=== PATIENT | female | born 1955 | race Caucasian/White ===

== ENCOUNTER → 2018-02-06 14:15 | Outpatient (CLI) | payer BC, SELFPAY ==
[2018-02-12 15:49] LABS: HPV APTIMA, High Risk Negative (Negative)
== END ==
PROVIDERS: Referring Provider Obstetrics & Gynecology; Visit Provider Obstetrics & Gynecology
DX: Z12.4 Encounter for screening for malignant neoplasm of cervix (principal); Z78.0 Asymptomatic menopausal state
CPT/HCPCS: 87624; 88175; G0145

== ENCOUNTER → 2018-04-10 14:05 | Outpatient (CLI) | payer BC, SELFPAY ==
--- NOTE | 2018-04-10 14:28 | BD_ITS ---
STUDY: DUAL ENERGY X-RAY ABSORPTIOMETRY / DXA REASON FOR EXAM: Female, 62 years old. The patient is postmenopausal. Loss of height. TECHNIQUE: Bone Mineral Density (BMD) measurements of lumbar spine and bilateral hips were obtained. COMPARISON: None. FINDINGS: Lumbar Spine (L1-L4): g/cm2 (1.363) / T-score (1.4) / Z-score (2.8) Findings are suggestive of normal bone density with a low fracture risk. Left Femur Total: g/cm2 (0.785) / T-score (-1.8) / Z-score (-0.7) Left Femoral Neck: g/cm2 (0.685) / T-score (-2.5) / Z-score (-1.2) Right Femur Total: g/cm2 (0.773) / T-score (-1.9) / Z-score (-0.8) Right Femoral Neck: g/cm2 (0.689) / T-score (-2.5) / Z-score (-1.1) BD/Dexa Bone Density Study IMPRESSION: The patient is considered osteopenic as outlined below according to World [employer] Organization (WHO) criteria with a high fracture risk. Reference Information: The T-score is the number of standard deviations above or below the standard which is normal for young adults at their peak bone mineral density. The World Health Organization (WHO) interprets the T-scores as follows: Above -1 Normal bone density Between -1 and -2.5 Osteopenia Equal to / or below -2.5 Osteoporosis As a practical clinical guideline, osteopenia may be graded as follows: Mild -1 through -1.5 Moderate -1.6 through -2.0 Severe -2.1 through -2.4 The Z-score is the number of standard deviations above or below age-matched controls. A Z-score of less than -1.5 would be considered abnormal. References: 1. NIH Osteoporosis and Related Bone Diseases http://www.osteo.org 2. International Society for Clinical Densitometry http://www.iscd.org 3. National Osteoporosis Foundation http://www.nof.org Electronically Signed: Trent Chiu MD at 15:33 EST Tel [phone], Service support ,
--- OUTSIDE RECORDS SUMMARY | 2018-06-12 19:34 | XMS RPT_ITS | Continuity of Care Document ---
:1955 Author Organization [facility] Address [facility] 2 [place] [address] Phone Care Team Providers Name Role Phone Nguyen Deng DO Unavailable Dr. Wiley Rodriguez Unavailable Selvin Lopes Unavailable DEL Reeves Unavailable Unavailable Erika Wright LPN Unavailable Unavailable Rowan Sawant Unavailable Unavailable Unavailable Unavailable Problems Name Dates Details Abdominal Pain,Unspecified Site (R10.9, 789.00) Status: Active Abnormal lung sounds (R09.89, 786.7) Status: Active Anxiety (F41.9, 300.00) Status: Active Benign essential hypertension (I10, 401.1) Comments: on decong for over a week Status: Active Bilateral chronic angle-closure glaucoma, indeterminate stage (H40.2234, 365.23) Status: Active BMI 26.0-26.9,adult (Z68.26, V85.22) Status: Active BMI 27.0-27.9,adult (Z68.27, V85.23) Status: Active BMI 28.0-28.9,adult (Z68.28, V85.24) Status: Active Bronchitis (J40, 490) Status: Active Bursitis of hip, unspecified laterality (726.5) Status: Active Carpal tunnel repair Comments: left 12/29 Status: Active Carpal tunnel syndrome, unspecified laterality (G56.00, 354.0) Status: Active carpel tunnel sx Comments: right hand 7-22-09 Status: Active Cataract Extraction-Bilateral Comments: 03/31 Status: Active Chronic open angle glaucoma (H40.10X0, 365.11) Status: Active Cough (R05, 786.2) Status: Active cyst removed Comments: lt foot 5-10 Status: Active Degenerative disc disease (722.6) Status: Active Depressive disorder (F32.9, 311) Status: Active Dysuria (R30.0, 788.1) Status: Active Encounter for screening for malignant neoplasm of colon (Renamed from Special screening for malignant neoplasms, colon) (Z12.11, V76.51) Status: Active ET (eustachian tube disorder), bilateral (H69.93, 381.9) Status: Active Et (Eustachian tube disorder), bilateral (H69.93, 381.9) Status: Active Eustachian tube dysfunction (H69.80, 381.81) Status: Active eye sx Comments: b/l 06/30 Status: Active Flu-like symptoms (R68.89, 780.99) Status: Active GERD (gastroesophageal reflux disease) (K21.9, 530.81) Status: Active Glaucoma (H40.9, 365.9) Status: Active Hormone imbalance (E34.9, 259.9) Status: Active Hypercholesterolemia (E78.00, 272.0) Status: Active Hypertension (I10, 401.9) Status: Active Impaired fasting glucose (R73.01, 790.21) Comments: medically recomend cleanse for liver support/detox for sugar and wt stabilizationand hormonly support Status: Active Influenza B (J10.1, 487.1) Status: Active Insomnia, unspecified (G47.00, 780.52) Comments: on the gel Status: Active Mild stage glaucoma (H40.9, 365.71) Status: Active Mixed hyperlipidemia (E78.2, 272.2) Status: Active Need for prophylactic vaccination and inoculation against influenza (Z23, V04.81) Status: Active No history of measles, mumps, rubella (MMR) vaccination (Z78.9, V49.89) Status: Active Nonsmoker (Z78.9, V49.89) Status: Active Nutritional counseling (Z71.3, V65.3) Status: Active Otalgia, left (H92.02, 388.70) Status: Active Other abnormal glucose (R73.09, 790.29) Status: Active Other specified abnormal findings of blood chemistry (R79.89, 790.6) Status: Active Other specified viral infection, in conditions classified elsewhere and of unspecified site (B97.89, 079.89) Status: Active Otitis media, unspecified, unspecified ear (H66.90, 382.9) Status: Active Paresthesia (R20.2, 782.0) Status: Active Pharyngitis, acute (J02.9, 462) Status: Active Pneumococcal vaccination given (Z23, V06.6) Status: Active Pregnancies () Comments: 0 Status: Active Rash (R21, 782.1) Comments: terry oral dermatitis? roscea? 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 Status: Active URI, acute (J06.9, 465.9) Status: Active Uterine fibroid (D25.9, 218.9) Status: Active Vaginal dryness (N89.8, 625.8) Comments: emu oil and astroglide to help Status: Active Vitamin D insufficiency (E55.9, 268.9) Status: Active Walking pneumonia (J18.9, 486) Status: Active Weight gain (R63.5, 783.1) Status: Active Medications Name Dates Details MACI, 180MG (Oral Tablet) 1 Tablet prn for 0 days Quantity: 30 {Tablet} Refills: 3 Ordered:01-Jun-2010 Lala Reeves LPN Start : 01-Jun-2010 Active Amitriptyline HCl 10 MG Oral Tablet 1 (one) Tablet Tablet qhs for 0 days Quantity: 30 {Tablet} Refills: 3 Ordered:21-Jan-2016 Jarrod Deng DO, DO, Kathleen Start : 21-Jan-2016 Active Betamethasone Dipropionate Aug 0.05 % External Cream apply sparingly Application to affected area on face around mouth for 0 days Quantity: 15 {Gram} Refills: 0 Ordered:28-Feb-2018 aJrrod Deng DO, DO, Kathleen Start : 28-Feb-2018 Active Doxycycline Hyclate 100 MG Oral Capsule 1 (one) Capsule bid for 7 days Quantity: 14 {Capsule} Refills: 0 Ordered:28-Feb-2018 Jarrod Deng DO, DO, Kathleen Start : 28-Feb-2018 Active DULoxetine HCl 60 MG Oral Capsule Delayed Release Particles 1 (one) Capsule DR Part Capsule DR Part qd for 0 days Quantity: 30 {Capsule} Refills: 6 Ordered:09-Nov-2017 Jarrod Deng DO, DO, Kathleen Start : 09-Nov-2017 Active Fluticasone Propionate 50 MCG/ACT Nasal Suspension 2 (two) Suspension Suspension each nostril qd for 0 days Quantity: 1 {Canister} Refills: 3 Ordered:06-Jun-2016 Erika Wright LPN Start : 14-Oct-2015 Active FREESTYLE LANCETS (Miscellaneous) 1 Misc qd for 0 days Quantity: 100 {Misc} Refills: 3 Ordered:03-Oct-2007 Lala Reeves LPN Start : 03-Oct-2007 Active FreeStyle Test In Vitro Strip 1 Strip qd for 0 days Quantity: 100 {Strip} Refills: 3 Ordered:04-Oct-2016 Jarrod Deng DO, DO, Kathleen Start : 04-Oct-2016 Active Comments:freestyle freedom test strips Norvasc 5 MG Oral Tablet 1 Tablet qd for 0 days Quantity: 30 {Tablet} Refills: 6 Ordered:09-Nov-2017 Jarrod Deng DO, DO, Kathleen Start : 09-Nov-2017 Active Omeprazole 40 MG Oral Capsule Delayed Release [address] bid for 0 days Quantity: 60 {Capsule} Refills: 3 Ordered:09-Nov-2017 Jarrod Deng DO, DO, Kathleen Start : 09-Nov-2017 Active OneTouch Ultra Mini w/Device Kit 1 (one) Kit Kit bid for 30 days Quantity: 100 {Strip} Refills: 2 Ordered:04-Oct-2016 Jarrod Deng DO, DO, Kathleen Start : 04-Oct-2016 Active Comments:test strips only PROVENTIL HFA, 108 (90 Base)MCG/ACT (Inhalation Aerosol Solution) 2 (two) puff puff q 6 hrs prn for 0 days Quantity: 1 {Box} Refills: 0 Ordered:29-Sep-2014 Lala Reeves LPN Start : 29-Sep-2014 Active ValACYclovir HCl 500 MG Oral Tablet 2 (two) Tablet bid at onset of feeling cold sore coming on for 0 days Quantity: 20 {Tablet} Refills: 3 Ordered:28-Feb-2018 Lala Reeves LPN Start : 28-Feb-2018 Active XANAX, 0.25MG (Oral Tablet) 1 Tablet qd prn for 0 days Quantity: 30 {Tablet} Refills: 0 Ordered:29-Sep-2014 Jarrod Deng DO, DO, Kathleen Start : 29-Sep-2014 Active Comments:thirty Adipex-P 37.5 MG Oral Tablet 1 (one) Tablet daily for 30 days Quantity: 30 {Tablet} Refills: 0 Ordered:06-Sep-2017 Jarrod Deng DO, DO, Kathleen Start : 06-Sep-2017 End : 06-Oct-2017 Inactive Comments:thirtyhigh cholesterol, htnBMI 31.67wt 153 and BMI 17977.6 BMI 27 -- do not fill until september 18 AMBIEN CR, 12.5MG (Oral Tablet Extended Release) 1 (one) Tablet ER QHS / HS for 30 days Quantity: 30 {Tablet_ER} Refills: 4 Ordered:27-Feb-2012 Lala Reeves LPN Start : 21-Oct-2010 End : 27-Feb-2012 Inactive Amoxicillin-Pot Clavulanate 875-125 MG Oral Tablet 1 (one) Tablet PO BID for 14 days Quantity: 28 {Tablet} Refills: 0 Ordered:22-May-2017 Lala Solorzano Start : 22-May-2017 End : 05-Jun-2017 Inactive Comments:Take with food ANTIVERT, 25MG (Oral Tablet) 1 (one) Tablet TID for 0 days Quantity: 30 {Tablet} Refills: 0 Ordered:22-Nov-2007 Zoey Arevalo Start : 22-Nov-2007 End : 04-Jul-2008 Inactive Augmentin 875-125 MG Oral Tablet 1 Tablet bid for 10 days Quantity: 20 {Tablet} Refills: 0 Ordered:04-Oct-2016 Ish MARROQUIN NguyenIsh Nguyen Start : 04-Oct-2016 End : 14-Oct-2016 Inactive Azithromycin 500 MG Oral Tablet 1 (one) Tablet qd for 0 days Quantity: 10 {Tablet} Refills: 0 Ordered:05-Jan-2017 Lala Reeves LPN Start : 24-Oct-2016 End : 05-Jan-2017 Inactive BENICAR HCT, 20-12.5MG (Oral Tablet) 1 (one) Tablet daily for 0 days Quantity: 90 {Tablet} Refills: 3 Ordered:03-Oct-2011 Lala Reeves LPN Start : 03-Oct-2011 End : 03-Oct-2011 Inactive Comments:generic okay BENTYL, 20MG (Oral Tablet) 1 Tablet tid/prn for 0 days Quantity: 20 {Tablet} Refills: 0 Ordered:27-Apr-2010 Lala Reeves LPN Start : 25-Nov-2009 End : 27-Apr-2010 Inactive Benzonatate 200 MG Oral Capsule 1 (one) Capsule tid prn cough for 0 days Quantity: 30 {Capsule} Refills: 0 Ordered:05-Jan-2017 Lala Reeves LPN Start : 24-Oct-2016 End : 05-Jan-2017 Inactive Brimonidine Tartrate 0.15 % Ophthalmic Solution 1 drop(s) bid for 30 days Refills: 0 Ordered:21-Jan-2016 Lala Reeves LPN Start : 24-Oct-2012 End : 21-Jan-2016 Inactive CARDIZEM CD, 120MG (Oral Capsule Extended Release 24 Hour) 2 Capsule ER 24HR daily for 0 days Quantity: 180 {Capsule_ER_24HR} Refills: 3 Ordered:27-Feb-2013 Lala Reeves LPN Start : 19-Mar-2012 End : 27-Feb-2013 Inactive Comments:prefers 2 of the 120 and not 1-240 dose CARDIZEM CD, 360MG (Oral Capsule Extended Release 24 Hour) 1 Capsule ER 24HR qd for 0 days Quantity: 30 {Capsule_ER_24HR} Refills: 3 Ordered:12-Apr-2007 Zoey Arevalo Start : 12-Apr-2007 End : 16-Apr-2007 Inactive Cefuroxime Axetil 500 MG Oral Tablet 1 (one) Tablet bid for 0 days Quantity: 20 {Tablet} Refills: 0 Ordered:10-Apr-2017 Lala Reeves LPN Start : 24-Oct-2016 End : 10-Apr-2017 Inactive CELEBREX, 200MG (Oral Capsule) 1 Capsule daily for 0 days Quantity: 14 {Capsule} Refills: 0 Ordered:27-Apr-2010 Lala Reeves LPN Start : 27-Nov-2009 End : 27-Apr-2010 Inactive Cheratussin AC 100-10 MG/5ML Oral Syrup 1-2 Teaspoon qhs prn for 0 days Quantity: 6 {Ounce} Refills: 0 Ordered:20-Jun-2016 Lala Reeves LPN Start : 06-Jun-2016 End : 20-Jun-2016 Inactive CIPROFLOXACIN HCL, 500MG (Oral Tablet) 1 (one) Tablet Tablet bid for 0 days Quantity: 20 {Tablet} Refills: 0 Ordered:07-Nov-2013 Lala Reeves LPN Start : 27-Jun-2013 End : 07-Nov-2013 Inactive CITALOPRAM HYDROBROMIDE, 10MG (Oral Tablet) 1 (one) Tablet Tablet qhs for 0 days Quantity: 30 {Tablet} Refills: 3 Ordered:20-Nov-2013 Candi Kovacs Start : 04-Jul-2013 End : 20-Nov-2013 Inactive CLARITIN-D 24 HOUR, 10-240MG (Oral Tablet Extended Release 24 Hour) 1 As needed for 0 days Refills: 0 Ordered:26-Aug-2008 Zoey Arevalo End : 20-Feb-2007 Inactive Comments:Medication taken as needed. CRESTOR, 10MG (Oral Tablet) 1 (one) Tablet daily for 0 days Quantity: 90 {Tablet} Refills: 3 Ordered:27-Feb-2013 Lala Reeves LPN Start : 30-Jun-2011 End : 27-Feb-2013 Inactive Cyclobenzaprine HCl 5 MG Oral Tablet 1 (one) Tablet q8hr if needed for muscle pain for 0 days Quantity: 30 {QS} Refills: 0 Ordered:13-May-2016 Candi Kovacs Start : 14-Oct-2015 End : 13-May-2016 Inactive DIFLUCAN, 150MG (Oral Tablet) 1 Tablet one tablet and repeat in 2 days for 0 days Quantity: 2 {Tablet} Refills: 0 Ordered:24-Feb-2011 Lala Reeves LPN Start : 20-Jan-2011 End : 24-Feb-2011 Inactive DILTIAZEM CD, 180MG/24HR (PO Cap CR) 2 qd for 0 days Refills: 0 Ordered:26-Aug-2008 Zoey Arevalo End : 04-Jul-2008 Inactive DILTIAZEM HCL COATED BEADS, 180MG (Oral Tablet Extended Release 24 Hour) 2 (two) Tablet ER 24HR Daily for 0 days Quantity: 60 {Tablet_ER_24HR} Refills: 5 Ordered:27-Apr-2010 Lala Reeves LPN Start : 04-Jul-2008 End : 27-Apr-2010 Inactive DORZOLAMIDE HCL, 2% (Ophthalmic Solution) 1 (one) drop bid for 30 days Refills: 0 Ordered:02-Feb-2015 Lala Reeves LPN Start : 04-Jul-2013 End : 02-Feb-2015 Inactive DRISDOL, 54215XQVT (Oral Capsule) 1 Capsule uad for 0 days Quantity: 16 {Capsule} Refills: 0 Ordered:27-Apr-2010 Lala Reeves LPN Start : 11-Nov-2009 End : 27-Apr-2010 Inactive Comments:1 tab 2 times a week x 4 weeks then 1 tab weekly HYZAAR, 100-25MG (Oral Tablet) 1/2 (one half) Tablet qd for 0 days Quantity: 90 {Tablet} Refills: 3 Ordered:29-Sep-2014 Jarrod Deng DO, DO, Kathleen Start : 29-Sep-2014 End : 29-Sep-2014 Inactive Comments:will follow bp and see how do IMIPRAMINE HCL, 25MG (Oral Tablet) 1-2 qhs / HS for 0 days Refills: 0 Ordered:26-Aug-2008 Zoey Arevalo End : 04-Jul-2008 Inactive Lastacaft 0.25 % Ophthalmic Solution 1 (one) drop bid for 30 days Refills: 0 Ordered:21-Jan-2016 Jarrod Deng DO, DO, Kathleen Start : 21-Jan-2016 End : 20-Feb-2016 Inactive LEVAQUIN, 500MG (Oral Tablet) 1 (one) Tablet Daily for 0 days Quantity: 14 {Tablet} Refills: 0 Ordered:04-Jul-2013 Lala Reeves LPN Start : 22-Mar-2013 End : 04-Jul-2013 Inactive Comments:WILL GIVE JUST IN CASE GETS BAD SPELL WHILE WAITING FOR EMILY KI-NO TAKE FOR NOW WE ARE WAITING TO SEE IF GETS WORSE OR WHAT HAPPENS NATURALLY B/C BJ WANTED TO SEE HER WHEN SHE IS BAD BUT ALWAYS HAPPENS OFF HOURS LEXAPRO, 10MG (Oral Tablet) 1 (one) Tablet Daily for 0 days Quantity: 30 {Tablet} Refills: 5 Ordered:07-Aug-2007 Zoey Arevalo Start : 07-Aug-2007 End : 22-Nov-2007 Inactive Lumigan 0.01 % Ophthalmic Solution 1 (one) Solution qd for 30 days Refills: 0 Ordered:21-Jan-2016 Jarrod Deng DO, DO, Kathleen Start : 21-Jan-2016 End : 20-Feb-2016 Inactive MIRCETTE, 0.15-0.02/0.01MG (/5) (Oral Tablet) 28 - 1 QD for 0 days Refills: 0 Ordered:26-Aug-2008 Zoey Arevalo End : 22-Nov-2007 Inactive MYCELEX, 10MG (Mouth/Throat Carol Ann) 1 (one) Carol Ann 5x daily for 7 days Quantity: 35 {Carol Ann} Refills: 0 Ordered:16-Oct-2006 Zoey Arevalo Start : 16-Oct-2006 End : 02-Nov-2006 Inactive NASONEX, 50MCG/ACT (Nasal Suspension) 1 spray Suspension q nostril qd for 0 days Quantity: 1 {Container} Refills: 4 Ordered:03-Feb-2015 Shruthi Ramirez MD Start : 03-Feb-2015 End : 03-Feb-2015 Inactive NEURONTIN, 300MG (Oral Capsule) 1 Capsule tid for 0 days Quantity: 30 {Capsule} Refills: 0 Ordered:27-Apr-2010 Lala Reeves LPN Start : 02-Dec-2009 End : 27-Apr-2010 Inactive NITROFURANTOIN MACROCRYSTAL, 100MG (Oral Capsule) 1 qd for 0 days Refills: 0 Ordered:26-Aug-2008 Zoey Arevalo End : 12-Feb-2008 Inactive NITROFURANTOIN MONOHYD MACRO, 100MG (Oral Capsule) 1 (one) Capsule bid for 7 days Quantity: 14 {Capsule} Refills: 0 Ordered:18-Feb-2014 Mckenzie Villagran CNP Start : 18-Feb-2014 End : 25-Feb-2014 Inactive NYSTATIN, 050810RPPM/ML (Mouth/Throat Suspension) 4-6ml Suspension qid for 0 days Quantity: 180 {Milliliter} Refills: 0 Ordered:27-Feb-2012 Lala Reeves LPN Start : 19-Oct-2011 End : 27-Feb-2012 Inactive Comments:retain in mouth as long as possible PERCOCET, 5-325MG (Oral Tablet) 1 (one) Tablet q 6 hr pain for 0 days Quantity: 40 {Tablet} Refills: 0 Ordered:27-Apr-2010 Lala Reeves LPN Start : 02-Dec-2009 End : 27-Apr-2010 Inactive Comments:forty PredniSONE 20 MG Oral Tablet 1 (one) Tablet qam for 0 days Quantity: 4 {Tablet} Refills: 0 Ordered:20-Jun-2016 Lala Reeves LPN Start : 16-Jun-2016 End : 20-Jun-2016 Inactive PROZAC, 20MG (Oral Capsule) 1 Capsule qd for 0 days Quantity: 90 {Capsule} Refills: 3 Ordered:27-Feb-2013 Lala Reeves LPN Start : 24-Oct-2012 End : 27-Feb-2013 Inactive SITAVIG, 50MG (Buccal Tablet) 2 (two) Tablet qd x1 for 0 days Quantity: 2 {Tablet} Refills: 0 Ordered:02-Feb-2015 Lala Reeves LPN Start : 29-Sep-2014 End : 02-Feb-2015 Inactive Tamiflu 75 MG Oral Capsule 1 (one) Capsule bid for 5 days Quantity: 10 {QS} Refills: 0 Ordered:06-Jun-2016 Mckenzie Villagran CNP Start : 06-Jun-2016 End : 11-Jun-2016 Inactive TIMOLOL MALEATE, 0.5% (Ophthalmic Solution) 1 (one) drop bid for 30 days Refills: 0 Ordered:05-Mar-2015 Jarrod Deng DO, DO, Kathleen Start : 02-Feb-2015 End : 04-Mar-2015 Inactive VALTREX, 1GM (Oral Tablet) 2 (two) Tablet BID for one day at onset of sore for 0 days Quantity: 4 {Tablet} Refills: 3 Ordered:26-Nov-2010 Lala Reeves LPN Start : 21-Oct-2010 End : 26-Nov-2010 Inactive VICODIN, 5-500MG (Oral Tablet) 1 (one) Tablet Q 4hr/PRN for 0 days Quantity: 30 {Tablet} Refills: 0 Ordered:10-Nov-2009 Lala Reeves LPN Start : 12-Nov-2008 Inactive ZITHROMAX Z-TAYLOR, 250MG (Oral Tablet) tad Tablet qd for 0 days Quantity: 1 {Package} Refills: 0 Ordered:02-Feb-2015 Lala Reeves LPN Start : 29-Sep-2014 End : 02-Feb-2015 Inactive ANTIVERT, 50MG (Oral Tablet) 1 Tablet q 8 hr prn for 0 days Quantity: 30 {Tablet} Refills: 0 Ordered:24-Oct-2012 Candi Kovacs Start : 30-Jun-2011 End : 13-May-2016 Discontinued Comments:This order discontinued per [facility]. BETOPTIC, 0.5% (Ophthalmic Solution) 1 gtt qd for 0 days Refills: 0 Ordered:27-Feb-2012 Lala Reeves LPN End : 27-Feb-2012 Discontinued Comments:This order discontinued per [facility]. CARDIZEM, 120MG (Oral Tablet) 1/2 (one half) Tablet qd for 90 days Quantity: 180 {Tablet} Refills: 3 Ordered:07-Nov-2013 Jarrod Deng DO, DO, Kathleen Start : 07-Nov-2013 End : 07-Nov-2013 Discontinued Comments:prefers 2 of the 120s, doesnt want 240 CIPRO, 500MG (Oral Tablet) 1 Tablet bid for 0 days Quantity: 20 {Tablet} Refills: 0 Ordered:30-Jun-2009 Mast Ana M JOHNSON Start : 30-Jun-2009 End : 30-Jun-2009 Discontinued DIOVAN, 40MG (Oral Tablet) 1/4 QD for 0 days Refills: 0 Ordered:26-Aug-2008 Zoey Arevalo End : 03-Oct-2006 Discontinued DULoxetine HCl 30 MG Oral Capsule Delayed Release Particles 1 (one) Capsule DR Part Capsule DR Part qd for 0 days Quantity: 7 {Capsule} Refills: 0 Ordered:16-Jun-2016 Jarrod Deng DO, DO, Kathleen Start : 16-Jun-2016 End : 16-Jun-2016 Discontinued HYDROCHLOROTHIAZIDE, 12.5MG (Oral Capsule) 1 Capsule QD for 0 days Refills: 0 Ordered:26-Aug-2008 Zoey Arevalo Start : 20-Feb-2007 End : 16-Mar-2007 Discontinued MetFORMIN HCl 500 MG Oral Tablet 1 (one) Tablet bid for 0 days Quantity: 180 {Tablet} Refills: 3 Ordered:05-Jan-2017 Ish Jarrod Nguyen Start : 05-Jan-2017 End : 05-Jan-2017 Discontinued Comments:new dosetrying to control sugars w/o it ProAir HFA 108 (90 Base) MCG/ACT Inhalation Aerosol Solution 2 (two) Puff(s) tid for 0 days Quantity: 1 {Inhaler} Refills: 0 Ordered:10-Jul-2017 Rowan Sawant Start : 16-Jun-2016 End : 10-Jul-2017 Discontinued PROZAC, 10MG (Oral Tablet) 1 (one) Tablet Daily for 0 days Quantity: 30 {Tablet(s)} Refills: 5 Ordered:10-Nov-2009 Lala Reeves LPN Start : 10-Nov-2009 End : 21-Oct-2010 Discontinued Comments:This order discontinued per [facility]. SIMVASTATIN, 20MG (Oral Tablet) 1 (one) Tablet Daily for 0 days Quantity: 30 {Tablet} Refills: 3 Ordered:04-Jul-2008 Zoey Arevalo Start : 04-Jul-2008 End : 04-Jul-2008 Discontinued Allergies and Adverse Reactions Name Dates Details Allergy to CORTISONE ACETATE, 5MG (PO Tab) (Renamed from Status: Inactive CORTISONE ACETATE, 5MG (PO Tab)) (Allergy) Comments: palpitations No Known Drug Allergies (Allergy) Status: Active Allergy to PREDNISONE, 20MG (Oral Tablet) (Renamed from Status: Inactive PREDNISONE, 20MG (Oral Tablet)) (Allergy) Comments: palpitations Past Medical History Name Dates Details Abdominal pain, acute, left lower quadrant (R10.32, 789.04) Comments: pelvis pain---PAIN SECONDARY TO DRUG SIDE EFFECT? IMIPRAMINE?? IBS PRIMARY OR SECONDARY FROM STRESS IN GENERAL ABOUT HEALTH OR IRRITATED FROM FIBROIDS PRESSING AGAINST BLADDER??? DOUBT DIVERTICULOSIS AT THIS POINT-- WILL KEEP FOLLOWING CALL TO EVAL IF AND WHEN PAIN RECURS Status: Inactive as of 29-Jul-2008 Abdominal pain, acute, right lower quadrant (R10.31, 789.03) Status: Resolved as of 25-Jun-2012 Abnormal lung sounds (R09.89, 786.7) Status: Resolved as of 20-Jun-2016 ACUTE CYSTITIS (N30.00, 595.0) Status: Inactive as of 04-Jul-2013 Acute sinusitis, unspecified (J01.90, 461.9) Status: Inactive as of 29-Jul-2008 Allergic rhinitis (J30.9, 477.9) Status: Inactive as of 04-Oct-2017 Allergy to CORTISONE ACETATE, 5MG (PO Tab) (Renamed from CORTISONE ACETATE, 5MG (PO Tab)) Comments: palpitations Status: Inactive as of 17-Mar-2009 Allergy to PREDNISONE, 20MG (Oral Tablet) (Renamed from PREDNISONE, 20MG (Oral Tablet)) Comments: palpitations Status: Inactive as of 17-Mar-2009 Backache (M54.9, 724.5) Status: Inactive as of 17-Jun-2013 Benign paroxysmal positional vertigo (H81.10, 386.11) Status: Resolved as of 25-Jun-2012 Candidiasis of mouth (B37.0, 112.0) Status: Inactive as of 17-Jun-2013 Chills (R68.83, 780.64) Status: Inactive as of 07-Sep-2015 Concussion (S06.0X9A, 850.9) Comments: with fall went to ER Status: Inactive as of 19-May-2016 Cough (R05, 786.2) Status: Inactive as of 05-Jan-2017 Elevated LFTs (R94.5, 790.6) Status: Resolved as of 25-Jun-2012 Epidermoid cyst (L72.0, 706.2) Comments: right knee Status: Inactive as of 05-Jan-2017 Fall (W19.XXXA, E888.9) Status: Inactive as of 04-Jul-2013 Fatigue (R53.83, 780.79) Status: Inactive as of 29-Jul-2008 Fever chills (R50.9, 780.60) Status: Resolved as of 10-Jul-2017 Generalized abdominal pain (R10.84, 789.07) Status: Inactive as of 21-Jan-2016 Hematuria (R31.9, 599.7) Status: Inactive as of 29-Jul-2008 Hot flashes (N95.1, 627.2) Status: Resolved as of 25-Jun-2012 Low back pain (M54.5, 724.2) Status: Inactive as of 04-Jul-2013 Neck pain (M54.2, 723.1) Status: Inactive as of 24-Oct-2016 Otalgia, left (H92.02, 388.70) Status: Resolved as of 05-Jan-2017 Otalgia, unspecified ear (H92.09, 388.70) Status: Resolved as of 25-Jun-2012 Pre-operative examination (Z01.818, V72.84) Status: Inactive as of 17-Jun-2013 Rheumatoid arthritis (M06.9, 714.0) Status: Inactive as of 21-Jan-2016 Shingles (B02.9, 053.9) Status: Inactive as of 04-Oct-2017 Sinus congestion (R09.81, 478.19) Status: Resolved as of 30-Apr-2012 Sinusitis, bacterial (J32.9, 473.9) Status: Resolved as of 10-Jul-2017 SOB (shortness of breath) on exertion (R06.02, 786.05) Comments: resolved on inhaler - so i really feel more atypical asthma could be from gerd - start rx med for that -- wt loss, aviodance behaviors, adn rx -- Status: Resolved as of 19-Mar-2012 Vaginal itching (N89.8, 698.1) Status: Resolved as of 25-Jun-2012 Visit for suture removal (Z48.02, V58.32) Status: Inactive as of 21-Jan-2016 Wheezing (R06.2, 786.07) Status: Resolved as of 25-Jun-2012 Procedures Procedure Dates Details CYST REMOVAL RT FOOT Completed Comments: 01/19/14 foot surgery 01/2016 Completed Foot sx Completed Comments: rt foot 12/05/15 Yag procedure Completed Comments: Date Value Details 28-Dec-2016 SCREENING MAMM (CAD), BILAT Result: Comments: See Note; NOTES: [facility] [address] [place] [address] SCREENING MAMM (CAD), BILAT MR#: [id number] Acct: [id number] Name: MADYSON AGUILAR Rep #: [id number] : 1955 F 61 From: Trent Mackenzie MD PCP: Nguyen Deng DO Status: [facility] CLI Study: SCREENING MAMM (CAD), BILAT Date of Exam: 12/28/16 Exam# [id number] Ordering Dr: Cait Haley MD MAMMOGRAPHY - BILATERAL SCREENING REASON FOR EXAM: Female, 61 years old. Routine annual screening examination. PERTINENT HISTORY: Non- contributory. TECHNIQUE: Digital bilateral breast philippe (3D mammographic acquisition) in the CC and MLO projections. 2-D mediolateral oblique (MLO) and craniocaudad (CC) views of both breasts were obtained. CAD: Full Field Digital Mammography with Computer A dded Detection was performed. COMPARISON: Comparison is made with prior study dated December 24, 2015 and December 19, 2014. FINDINGS: Breast Composition: There are sca ttered areas of fibroglandular density. There are no dominant masses or suspicious calcifications. Stable benign appearing small bilateral axillary lymph nodes. No other significant abnormalities are identified. There has been no significant change since the prior study. HPBI/SCREENING MAMM (CAD), BILAT IMPRESSION: Stable bilateral screening m ammogram. Yearly follow-up mammogram recommended. (A) ASSESSMENT CATEGORY: BIRADS Category 2: Benign. A letter regarding these results will be sent to the patient b y the facility within 30 days. Approximately 10% of breast cancers are not detected by mammography. A normal mammogram should not delay biopsy of a clinically suspicious abnormality. [id number] Radha craft Signed: Trent Mackenzie MD at 10:53 EDT Tel [phone], Service support , CC: Nguyen Deng DO; Ally Haley MD [employer]: Signed 16-Jun-2016 Chest PA and Lateral Result: Comments: See Note; NOTES: [facility] Imaging Services [address] [place] [address] Verdana 4d Chest PA and Lateral MR#: [id number] Acct: [id number] Name: MADYSON AGUILAR Rep #: [id number] : 1955 F 61 From: Trent Mackenzie MD PCP: Nguyen Deng DO Status: REG CLI Study: Chest PA and Lateral Date of Exam: 06/16/16 Exam# [id number] Ordering Dr: Nguyen Deng DO STUDY: X-RAY CHEST REASON FOR EXAM: Female, 61 years old. 2 week history of cough. TECHNIQUE: PA and lateral views of the chest. COMPARISON: None. FINDINGS: T he lungs are clear and expanded. Scattered calcified granulomas. There is no demonstrated pleural abnormality. Normal size heart. Normal mediastinum and jaci. Normal visualized pulmonary arteries. Ther e is atherosclerotic tortuosity of the aortic arch and descending thoracic aorta. There are mild degenerative changes of the visualized thoracic spine. Normal visualized ribs, clavicles, and shoulders. There is no demonstrated abnormality of the visualized soft tissue structures of the upper abdomen. RAD/Chest PA and Lateral IMPRESSION: Scatte red calcified granulomas. No acute abnormality is seen. Electronically Signed: Trent Mackenzie MD at 15:49 EDT Tel [phone], Service support [phone], CC: Nguyen Deng DO [employer]ic: Signed 10-May-2016 Discharge Instruction Result: Comments: See Note; NOTES: [facility] Medical Records Department [address] [place] [address] Discharge Instruction 05/10/16 1333 MR#: [id number] Acct: [id number] Name: MADYSON AGUILAR Rep #: [id number] : 1955 61 From: Omar Simpson MD PCP: Nguyen Deng DO Status: DEP ER ED Disposition - Plan for ED Patient: Disposition: Home or Assisted Living Chief Complaint: Fall Diagnosis: Concussion Instructions: ED Concussion Referrals: Nguyen Deng DO [Primary Care Provider] - As Needed What to do if you have Problems For any increased pain, shortness of breat h, bleeding, nausea or vomiting, chest pain, or any unexpected problems, contact your Primary Care Provider. Call [facility] ([phone]) or report to the closest Emergency Room. Call 911 if nec essary. 05/10/16 1590 <Electronically signed by Omar Simpson MD> Date Omar Simpson MD Cosigner Signature (If Indicated): Date _ CC: Nguyen Deng DO 10-May-2016 Emergency Department Summary Result: Comments: See Note; NOTES: [facility] Medical Records Department [address] [place] [address] Emergency Department Summary MR#: [id number] Acct: [id number] Name: MADYSON AGUILAR Rep #: [id number] : 1955 61 From: Omar Simpson MD PCP: Nguyen Deng DO Status: DEP ER DATE OF SERVICE: 05/10/2016 CHIEF COMPLAINT: Fall, head injury. HISTORY OF PRESENT ILLNESS: A 61 -year-old female 4 days ago fell going up 3 steps, struck her face, feels that she lost consciousness when she woke up, she was bleeding. She went inside, alleviated the bleeding, noted that she had a s mall cut on the right side of her face. She did not seek treatment at that point. She states that since then, over the course of the weekend, she felt somewhat fuzzy nauseous and fatig ued. Denies any visual changes other than she had some floaters, which she had evaluated by ophthalmology today who stated that she had ____ some vitreous floaters when she suffered her facial injury. S he is not on any anticoagulants. REVIEW OF SYSTEMS: Otherwise negative. PHYSICAL EXAMINATION: VITAL SIGNS: Within normal limits. GENERAL: Well-nourished female. Mild abrasion over the right side of th e forehead. 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 NECK: Nontender. HEART: Regular. LUNGS: Clear. ABDOMEN: Soft. EXTREMITIES: Nonten allen. NEUROLOGIC: Nonlateralizing. EMERGENCY DEPARTMENT COURSE AND DECISION MAKING: The patient's presentation is most consistent with a concussion, with loss of consciousness. Given the fact that she i s 4 days out, not on any anticoagulants, not having any neuro symptoms, she likely only has a concussion. There is no concern for intracranial injury. At this point, in my opinion I believe she safely c an be discharged with conservative management. DISPOSITION: Discharge. DIAGNOSES: Concussion with loss of consciousness. Omar Simpson M.D. T: SOCO JOB: [id number] 05/10/16 1509 <Radha craft signed by Omar Simpson MD> Date Omar Simpson MD Cosigner Signature (If Indicated): Date __ CC: Ngyuen Deng DO Date Dictated: 05/10/16 1343 Date Transcribed: 05/10/16 134 [employer]ic: Signed 24-Dec-2015 Bilat Scrn Digital AND CAD Result: Comments: See Note; NOTES: [facility] Imaging Services [address] [place] [address] Josh 4d Bilat Scrn Digital AND CAD MR#: [id number] Acct: [id number] Name: MADYSON AGUILAR Rep #: [id number] : 1955 F 60 From: Trent Mackenzie MD PCP: Nguyen Deng DO Status: REG CLI Study: Lidia Luong Digital AND CAD Date of Exam: 12/24/15 Exam# [id number] Ordering Dr: Ally Moreland MD MAMMOGRAPHY - BILATERAL SCREENING REASON FOR EXAM: Female, 60 years old. Routine annual screening examination. PERTINENT HISTORY: Non- contributory. TECHNIQUE: Digital bilateral b reast philippe (3D mammographic acquisition) in the CC and MLO projections. 2-D mediolateral oblique (MLO) and craniocaudad (CC) views of both breasts were obtained. CAD: Full Field Digital Mammography with Computer Added Detection was performed. COMPARISON: Comparison is made with prior study dated December 19, 2014. FINDINGS: Breast Composition: There are scattered ar eas of fibroglandular density. There are no dominant masses or suspicious calcifications. No other significant abnormalities are identified. There has been no significant change since the prior study. [facility]/Lidia Luong Digital AND CAD IMPRESSION: Stable bilateral screening mammogram. Yearly follow-up mammogram recommended. (A) ASSESSMENT CATEGORY: BIRADS Category 1: Negative. A letter regarding these results will be sent to the patient by the facility within 30 days. Approximately 10% of breast cancers a re not detected by mammography. A normal mammogram should not delay biopsy of a clinically suspicious abnormality. [id number] Electronically Signed: Trent Mackenzie MD at 12:38 EDT Tel [phone], Service support [phone], CC: Nguyen Deng DO; Ally Haley MD [employer]ic: Signed 16-Jul-2015 Abdomen/Pelvis WITH Contrast Result: Comments: See Note; NOTES: [facility] Imaging Services [address] [place] [address] Verdana 4d Abdomen/Pelvis WITH Contrast MR#: [id number] Acct: [id number] Name : MADYSON AGUILAR Rep #: [id number] : 1955 F 60 From: Nataly Mata MD PCP: Nguyen Deng DO Status: REG CLI Study: Abdomen/Pelvis WITH Contrast Date of Exam: 07/16/15 Exam# [id number] Ord ering Dr: Nguyen Deng DO STUDY: CT ABDOMEN AND PELVIS WITH CONTRAST REASON FOR EXAM: Female, 60 years old. Right abdominal pain x4 days is ago, resulting now RADIATION DOSAGE (If Supplied By Facility): CTDIvol = ( 14.83 ) mGy, DLP = ( 1169.82 ) mGycm TECHNIQUE: Transaxial 3.75 mm enhanced and delayed images were obtained from the dome of the diaphragm to the symphysis pubis with oral contrast. 100 ml of Isovue 300 contrast was administered. Sagittal and coronal images were reconstructed. Individualized dose optimization techniques were used for this CT. COMPARISON: Prior comp [facility] study 12/02/2009 is not available for review at this time but were requested. If and when they become available, an addendum report will be generated. FIND INGS: Calcified nodule in the right lower lobe likely granuloma, reported previously. The visualized portions of the heart are within normal limits. There is hepatomegaly with diffuse hepatic enlarg ement measuring 22.5 cm craniocaudal. Irregular lobular low attenuation in the anterior right hepatic dome with enhanced low attenuation which has decreased in size with imaging characteristic most c onsistent system with a hemangioma which was reported previously. There is mild contraction of the gallbladder and normal extrahepatic biliary system. There is a benign calcified granuloma of the spl een. Normal pancreas. Normal bilateral adrenal glands. Normal right kidney. Normal left kidney. Bilateral extrarenal pelves but no hydronephrosis. Wall thickening of the gastric antrum on both ob tained sequences without periantral fat stranding. Contrast is noted through the ventral channel into the duodenum. Otherwise normal visualized stomach. Normal small intestine. There are occasional s igmoid colonic diverticula consistent with diverticulosis. The appendix is visualized and appears normal. Normal abdominal aorta. Normal inferior vena cava. Normal retroperitoneum. Normal urinary bladder. The uterus contains multiple coarse calcified uterine fibroids. Normal abdominal wall. There are diffuse degenerative changes of the visualized lumbar spine. Right lateral subluxation L4 on L3 and L5 and grade 1 anterolisthesis L4 on L5. IMPRESSION: 1. Wall thickening of the antrum may represent an inflammatory process. There is no stenosis. 2. P resumed hepatic hemangioma. 3. Mild colonic diverticulosis. 4. Remote granulomatous exposure, fibroid uterus, degenerative changes are previously reported. Electronically Signed: Allyn Parkinson at 8:47 EDT , Service support [phone], CC: Nguyen Deng DO [employer]ic: Signed 16-Jul-2015 Abdomen/Pelvis WITH Contrast Result: Comments: See Note; NOTES: [facility] Imaging Services [address] [place] [address] Verdana 4d Abdomen/Pelvis WITH Contrast MR#: [id number] Acct: [id number] Name : AGUILARMADYSON Marito Rep #: [id number] : 1955 F 60 From: Nataly Mata MD PCP: Nguyen Deng DO Status: REG CLI Study: Abdomen/Pelvis WITH Contrast Date of Exam: 07/16/15 Exam# [id number] Lisa brannon Dr: Nguyen Deng DO ADDENDUM by Nataly Mata MD on 07/19/15 at 1104 ADDENDUM ADD ENDUM: Comparison made available to CT is noncontrast 12/02/2009. Calcified granuloma in the right lower lobe is stable. Low-attenuation lesion in the right anterior liver lobe less well defined on noncontrast imaging appears stable. Mild increase of craniocaudal liver size, previously 20.5 cm consistent with slight increase of hepatomegaly. Antral wall thickening is new. Mild colonic divertic ulosis not seen on previous exam. Stable fibroid uterus. Progression of degenerative changes, new mild anterolisthesis L4 on 5 and right lateral subluxation L4 on L3 and L5. IMPRESSION: 1. Wall th ickening of the antrum may represent an inflammatory process. There is no stenosis. 2. Presumed hepatic hemangioma and hepatomegaly not significantly changed since previous exam. 3. Mild colonic div erticulosis, not seen on previous exam. 4. Remote granulomatous exposure, fibroid uterus appear stable with increase in degenerative changes. Electronically Signed: Nataly Mata MD a t 11:04 EDT , Service support [phone], 07/19/15 4897 Date cc: Nguyen Deng DO * Signed STUDY: CT ABDOMEN AND PELVIS WITH CONTRAST REASON FOR EXAM: Female, 60 years old. Right abdominal pain x4 days is ago, resulting now RADIATION DOSAGE (If Supplied By Facility): CTDIvol = ( 14.83 ) mGy, DLP = ( 1169.82 ) mGycm TECHNIQUE: Tr ansaxial 3.75 mm enhanced and delayed images were obtained from the dome of the diaphragm to the symphysis pubis with oral contrast. 100 ml of Isovue 300 contrast was administered. Sagittal and feliciano l images were reconstructed. Individualized dose optimization techniques were used for this CT. COMPARISON: Prior comparison study 12/02/2009 is not available for review at this time but were reque sted. If and when they become available, an addendum report will be generated. FINDINGS: Calcified nodule in the right lower lobe likely granuloma, reported pre viously. The visualized portions of the heart are within normal limits. There is hepatomegaly with diffuse hepatic enlargement measuring 22.5 cm craniocaudal. Irregular lobular low attenuation in the anterior right hepatic dome with enhanced low attenuation which has decreased in size with imaging characteristic most consistent system with a hemangioma which was reported previously. There is mil d contraction of the gallbladder and normal extrahepatic biliary system. There is a benign calcified granuloma of the spleen. Normal pancreas. Normal bilateral adrenal glands. Normal right kidney. Normal left kidney. Bilateral extrarenal pelves but no hydronephrosis. Wall thickening of the gastric antrum on both obtained sequences without periantral fat stranding. Contrast is noted through t he ventral channel into the duodenum. Otherwise normal visualized stomach. Normal small intestine. There are occasional sigmoid colonic diverticula consistent with diverticulosis. The appendix is vis ualized and appears normal. Normal abdominal aorta. Normal inferior vena cava. Normal retroperitoneum. Normal urinary bladder. The uterus contains multiple coarse calcified uterine fibroids. Nor mal abdominal wall. There are diffuse degenerative changes of the visualized lumbar spine. Right lateral subluxation L4 on L3 and L5 and grade 1 anterolisthesis L4 on L5. IMPRESSION: 1. Wall thickening of the antrum may represent an inflammatory process. There is no stenosis. 2. Presumed hepatic hemangioma. 3. Mild colonic diverticulosis. 4. Remote granulo matous exposure, fibroid uterus, degenerative changes are previously reported. Electronically Signed: Nataly Mata MD at 8:47 EDT , Service support [phone], CC: Nguyen Deng DO [employer]ic: Signed 02-Feb-2015 ELECTROCARDIOGRAM, COMPLETE (ECG) ([id number]) Comments: sinus tyra no acute chg Result: [MEASUREMENTS ANALYSIS] Date of Test: 02/02/2015 12:37:10; Heart Rate: 52; NJ Interval: 164; QRS: 83; QT Interval: 442; Corrected QT Interval (QTc): 428; P Wave Madison: 59; QRS Wave Madison: 12; T Wave Madison: 25; Blood Pressure: 140/82 [ECG DIAGNOSTIC STATEMENTS] Date of Test: 02/02/2015 12:37:10; Summary: Sinus Bradycardia WITHIN NORMAL LIMITS 19-Dec-2014 Bilat Scrn Digital AND CAD Result: Comments: See Note; NOTES: [facility] Imaging Services [address] [place] [address] Breast Imaging Report MR#: [id number] Acct: [id number] Name: MADYSON AGUILAR Rep #: [id number] : 1955 F 59 From: Trent Mackenzie MD PCP: Nguyen Deng DO Status: REG CLI Study: Bilat Scrn Digital AND CAD Date of Exam: 12/19/14 Exam# [id number] Ordering Dr: Ally Haley MD MAMMOGRAPHY - BILATERAL SCREENING REASON FOR EXAM: Female, 59 years old. Routine annual screening examination. PERTINENT HISTORY: Non- contributory. TECHNIQUE: Digital examination. Mediolateral oblique (MLO) and craniocaudad (CC) views of both breasts were obtained. CAD: CAD was performed on this study. COMPARISON: Comparison is made with prior outside examination dated Nov and December 03, 2012. FINDINGS: Breast Composition: There are scattered areas of fibroglandular density. There are no dominant masses or suspic ious calcifications. No other significant abnormalities are identified. There has been no significant change since the prior study. IMPRESSION: Stable bilatera l screening mammogram. Yearly follow-up recommended. (A) ASSESSMENT CATEGORY: BIRADS Category 1: Negative. A letter regarding these results will be sent to the patient by the facility within 30 days. Approximately 10% of breast cancers are not detected by mammography. A normal mammogram should not delay biopsy of a clinically suspicious abnormality. Elec tronically Signed: Trent Mackenzie MD at 13:31 EDT Tel [phone], Service support [phone], CC: Nguyen Deng DO; Ally Haley MD [employer] Mechanic: Signed 29-Sep-2014 Spirometry ([id number]) Comments: moderately impaired Result: 25-Aug-2014 Transvaginal Non- Result: Comments: See Note; NOTES: [facility] Imaging Services [address] [facility] [place] [address] Ultrasound Report MR#: [id number] Acct: [id number] Name: MADYSON AGUILAR Rep #: [id number] : 1955 F 59 From: Trent Mackenzie MD PCP: Nguyen Deng DO Status: REG CLI Study: Transvaginal Non- Date of Exam: 08/25/14 Exam# [id number] Ordering Dr: Thiago Haley MD STUDY: ULTRASOUND OF THE FEMALE PELVIS - COMPLETE REASON FOR EXAM: Female, 59 years old. LMP: The patient is postmenopausal. Pelvic pain. TECHNIQUE: Transabdominal and Transvaginal ADA HNICAL QUALITY: Adequate. COMPARISON: Comparison is made with prior study dated February 18, 2014. FINDINGS: The uterus is anteverted and is in a midline positio n. The uterus measures 4.7 cm x 3.6 cm x 2.5 cm. Normal uterine cervix. The endometrium cannot be definitely There is no demonstrated endometrial mass. Multiple calcifications are seen within the germaine lali suggestive of fibroid uterus. The largest measures 1.8 cm 1.7 cm. I.U.D. - The patient does not have an I.U.D. The right ovary is visualized. The right ovary measures 1.8 cm x 1.4 cm x 1.5 cm. There is no right ovarian cyst or ovarian mass. There is no visualized right adnexal mass or complex lesion. There is normal arterial and normal venous vascularity. The left ovary is non-visualized. There is no fluid in the cul-de-sac. IMPRESSION: Fibroid uterus. Electronically Signed: Trent Mackenzie MD at 15:53 EDT Tel [phone], Se rvice support [phone], CC: Nguyen Deng DO; Ally Haley MD [employer] Mechanic: Signed 25-Aug-2014 Kidney and Bladder Result: Comments: See Note; NOTES: [facility] Imaging Services [address] [place] [address] Ultrasound Report MR#: [id number] Acct: [id number] Name: MADYSON AGUILAR Rep #: [id number] : 1955 F 59 From: Yared Esposito DO PCP: Nguyen Deng DO Status: REG CLI Study: Kidney and Bladder Date of Exam: 08/25/14 Exam# [id number] Ordering Dr: Ally Haley MD ELAINE DY: RENAL ULTRASOUND - COMPLETE REASON FOR EXAM: Female, 59 years old. Urinary frequency. TECHNIQUE: Ultrasound evaluation of the kidneys was performed with real-time and static miller-scale imaging. COMPARISON: None. FINDINGS: RIGHT KIDNEY: Normal location of the right kidney, which is normal in size. The right kidney measures 10.1 cm. There is a normal cortex of the right kidney. The renal cortex measures 1.4 cm. There is no right renal mass or cyst. There are no right renal calculi. There is no right hydronephrosis. DISTAL RIGHT URETER: There is non-visualization of the distal right ureter. There is no demonstrated right ureterovesical junction calculus. There is no demonstrated right ureteral jet. LEFT KIDNEY: Normal location of the left kidney, which is normal in size. The left kidney measures 11.2 cm. There is a normal cortex of the left kidney. The renal cortex measures 1.6 cm. There is no left renal mass or cyst. There are no lef t renal calculi. There is mild hydronephrosis of the left kidney. DISTAL LEFT URETER: There is non-visualization of the distal left ureter. There is no demonstrated left ureterovesical junction calc ulus. There is no demonstrated left ureteral jet. BLADDER: The distended urinary bladder has a volume of 40 ml. The empty urinary bladder has a volume of 0 ml. There is a normal wall thickness of t he distended urinary bladder. There is questionable stones versus sludge versus mass in the bladder base. IMPRESSION: 1. Mild left hydronephrosis. 2. Debris kelly michaela stone versus mass at the floor of the bladder. 3. Normal right kidney. Electronically Signed: Yared Esposito DO at 16:51 EDT Tel [phone], Service support [phone], Fax CC: Nguyen Deng DO; Ally Haley MD [employer] Mechanic: Signed 25-Aug-2014 Pelvic (Non ) Result: Comments: See Note; NOTES: [facility] Imaging Services [address] [place] [address] Ultrasound Report MR#: [id number] Acct: [id number] Name: MADYSON AGUILAR Rep #: [id number] : 1955 F 59 From: Trent Mackenzie MD PCP: Nguyen Deng DO Status: REG CLI Study: Pelvic (Non ) Date of Exam: 08/25/14 Exam# [id number] Ordering Dr: Ally Haley MD STUDY: ULTRASOUND OF THE FEMALE PELVIS - COMPLETE REASON FOR EXAM: Female, 59 years old. LMP: The patient is postmenopausal. Pelvic pain. TECHNIQUE: Transabdominal and Transvaginal TECHNIC AL QUALITY: Adequate. COMPARISON: Comparison is made with prior study dated February 18, 2014. FINDINGS: The uterus is anteverted and is in a midline position. T he uterus measures 4.7 cm x 3.6 cm x 2.5 cm. Normal uterine cervix. The endometrium cannot be definitely There is no demonstrated endometrial mass. Multiple calcifications are seen within the uterus suggestive of fibroid uterus. The largest measures 1.8 cm 1.7 cm. I.U.D. - The patient does not have an I.U.D. The right ovary is visualized. The right ovary measures 1.8 cm x 1.4 cm x 1.5 cm. Ther e is no right ovarian cyst or ovarian mass. There is no visualized right adnexal mass or complex lesion. There is normal arterial and normal venous vascularity. The left ovary is non-visualized. T here is no fluid in the cul-de-sac. IMPRESSION: Fibroid uterus. Electronically Signed: Trent Mackenzie MD at 15:53 EDT Tel [phone], [employer] support [phone], CC: Nguyen Deng DO; Ally Haley MD [employer] Mechanic: Signed 18-Feb-2014 Transvaginal Non- Result: Comments: See Note; NOTES: [facility] Imaging Services [address] [place] [address] Ultrasound Report MR#: [id number] Acct: [id number] Name: MADYSON AGUILAR Rep #: [id number] : 1955 F 58 From: Ayaz Banerjee MD PCP: Nguyen Deng DO Status: REG CLI Study: Transvaginal Non- Date of Exam: 02/18/14 Exam# [id number] Ordering Dr: Mckenzie Villagran STUDY: UL TRASOUND OF THE FEMALE PELVIS - COMPLETE REASON FOR EXAM: Female, 58 years old. LMP: Unknown. Pelvic pain and bloating TECHNIQUE: Transabdominal and Transvaginal TECHNICAL QUALITY: Adequate. CO MPARISON: None. FINDINGS: The uterus is difficult to accurately evaluate due to multiple calcified uterine fibroids. The uterus is estimated at 6.5 x 5.8 x 4.4 c m. The largest calcified fibroid measures 1.8 x 1.7 x 1.7. The endometrium cannot be accurately identified. The right ovary is visualized. The right ovary measures 1.7 x 1.4 x 1.1 cm. There is no r ight ovarian cyst or ovarian mass. There is no visualized right adnexal mass or complex lesion. There is normal arterial and normal venous vascularity. The left ovary is not visualized. There is n o fluid in the cul-de-sac. The bladder is incompletely distended IMPRESSION: No suspicious sonographic findings. However, the uterus could not be accurately ev aluated due to the presence of multiple calcified fibroids, the largest measures 1.8 x 1.7 x 0.7 cm Electronically Signed: Constantin Banerjee MD at 15:26 EST , Service sup port [phone], CC: Mckenzie Villagran; Nguyen Deng DO [employer] Mechanic: Signed 18-Feb-2014 Pelvic (Non ) Result: Comments: See Note; NOTES: [facility] Imaging Services [address] [place] [address] Ultrasound Report MR#: [id number] Acct: [id number] Name: MADYSON AGUILAR Rep #: [id number] : 1955 F 58 From: Ayaz Banerjee MD PCP: Nguyen Deng DO Status: REG CLI Study: Pelvic (Non ) Date of Exam: 02/18/14 Exam# [id number] Ordering Dr: Mckenzie Villagran STUDY: ULTRAS OUND OF THE FEMALE PELVIS - COMPLETE REASON FOR EXAM: Female, 58 years old. LMP: Unknown. Pelvic pain and bloating TECHNIQUE: Transabdominal and Transvaginal TECHNICAL QUALITY: Adequate. COMPAR FABIOLA: None. FINDINGS: The uterus is difficult to accurately evaluate due to multiple calcified uterine fibroids. The uterus is estimated at 6.5 x 5.8 x 4.4 cm. T he largest calcified fibroid measures 1.8 x 1.7 x 1.7. The endometrium cannot be accurately identified. The right ovary is visualized. The right ovary measures 1.7 x 1.4 x 1.1 cm. There is no right ovarian cyst or ovarian mass. There is no visualized right adnexal mass or complex lesion. There is normal arterial and normal venous vascularity. The left ovary is not visualized. There is no fl uid in the cul-de-sac. The bladder is incompletely distended IMPRESSION: No suspicious sonographic findings. However, the uterus could not be accurately evalua ramesh due to the presence of multiple calcified fibroids, the largest measures 1.8 x 1.7 x 0.7 cm Electronically Signed: Constantin Banerjee MD at 15:26 EST , Service support [phone], CC: Mckenzie Villagran; Nguyen Deng DO [employer]: Signed Immunization Name Dates Details Tdap (7 years and up) on: 23-Oct-2008 Comments: Given in left deltoidLot # [id number] 02-21-2011 Family History Unknown Family Member Name Dates Details Father Comments: Depression & DM Status: Active First Degree Relatives Comments: Grandfather suicide - ETOH, Grandmother had throat [place] Status: Active Mother Comments: HBP Status: Active Social History Name Dates Details Alcohol Use Comments: Occasional alcohol use Status: Active Caffeine Use Comments: 1 each of coffee, tea & cola QD Status: Active Living Situation Comments: Remarried, heterosexual Status: Active No Drug Use Status: Active Non Smoker/No Tobacco Use Comments: updated 10/21/10 Status: Active Tobacco use: Never smoker. Comments: 02/24/11 Status: Active Smoking Status Name Dates Details Never smoker Vital Signs Date Test Result Details [id number] Pulse 68 /min Comments: Pattern: Regular Respiration Rate 18 /min Comments: Pattern: Unlabored O2 SAT 98 % Comments: Room air BP Systolic 138 mm[Hg] Comments: Patient Position: Sitting; Cuff Location: Left Arm; Cuff Size: Large BP Diastolic 78 mm[Hg] Comments: Patient Position: Sitting; Cuff Location: Left Arm; Cuff Size: Large Weight 147.125 lb Height 62 in Body Mass Index Calculated 26.91 kg/m2 Body Surface Area Calculated 1.68 m2 :27 Pulse 63 /min Comments: Pattern: Regular Respiration Rate 18 /min Comments: Pattern: Unlabored O2 SAT 97 % Comments: Room air BP Systolic 142 mm[Hg] Comments: Patient Position: Standing; Cuff Location: Left Arm; Cuff Size: Large BP Diastolic 80 mm[Hg] Comments: Patient Position: Standing; Cuff Location: Left Arm; Cuff Size: Large Weight 146 lb Height 62 in Body Mass Index Calculated 26.7 kg/m2 Body Surface Area Calculated 1.67 m2 :24 Pulse 61 /min Comments: Pattern: Regular Respiration Rate 18 /min Comments: Pattern: Unlabored O2 SAT 99 % Comments: Room air BP Systolic 122 mm[Hg] Comments: Patient Position: Sitting; Cuff Location: Left Arm; Cuff Size: Large BP Diastolic 82 mm[Hg] Comments: Patient Position: Sitting; Cuff Location: Left Arm; Cuff Size: Large Weight 146.125 lb Height 62 in Body Mass Index Calculated 26.73 kg/m2 Body Surface Area Calculated 1.67 m2 :02 Pulse 72 /min Comments: Pattern: Regular Respiration Rate 18 /min Comments: Pattern: Unlabored O2 SAT 98 % Comments: Room air BP Systolic 138 mm[Hg] Comments: Patient Position: Sitting; Cuff Location: Left Arm; Cuff Size: Large BP Diastolic 82 mm[Hg] Comments: Patient Position: Sitting; Cuff Location: Left Arm; Cuff Size: Large Weight 145.25 lb Height 62 in Body Mass Index Calculated 26.57 kg/m2 Body Surface Area Calculated 1.67 m2 :20 Pulse 77 /min Comments: Pattern: Regular Respiration Rate 18 /min Comments: Pattern: Unlabored O2 SAT 95 % Comments: Room air BP Systolic 138 mm[Hg] Comments: Patient Position: Sitting; Cuff Location: Left Arm; Cuff Size: Large BP Diastolic 82 mm[Hg] Comments: Patient Position: Sitting; Cuff Location: Left Arm; Cuff Size: Large Weight 148.375 lb Height 62 in Body Mass Index Calculated 27.14 kg/m2 Body Surface Area Calculated 1.68 m2 :21 Pulse 87 /min Comments: Pattern: Regular Respiration Rate 18 /min Comments: Pattern: Unlabored O2 SAT 93 % Comments: Room air BP Systolic 138 mm[Hg] Comments: Patient Position: Sitting; Cuff Location: Left Arm; Cuff Size: Large BP Diastolic 80 mm[Hg] Comments: Patient Position: Sitting; Cuff Location: Left Arm; Cuff Size: Large Weight 149 lb Height 62 in Body Mass Index Calculated 27.25 kg/m2 Body Surface Area Calculated 1.69 m2 :54 Pulse 75 /min Comments: Pattern: Regular Respiration Rate 18 /min Comments: Pattern: Unlabored O2 SAT 97 % Comments: Room air BP Systolic 120 mm[Hg] Comments: Patient Position: Sitting; Cuff Location: Left Arm; Cuff Size: Standard BP Diastolic 70 mm[Hg] Comments: Patient Position: Sitting; Cuff Location: Left Arm; Cuff Size: Standard Weight 153 lb Height 62 in Body Mass Index Calculated 27.98 kg/m2 Body Surface Area Calculated 1.71 m2 :24 Pulse 66 /min Comments: Pattern: Regular Respiration Rate 18 /min Comments: Pattern: Unlabored O2 SAT 97 % Comments: Room air BP Systolic 118 mm[Hg] Comments: Patient Position: Sitting; Cuff Location: Left Arm; Cuff Size: Standard BP Diastolic 66 mm[Hg] Comments: Patient Position: Sitting; Cuff Location: Left Arm; Cuff Size: Standard Weight 157.375 lb Height 62 in Body Mass Index Calculated 28.78 kg/m2 Body Surface Area Calculated 1.73 m2 :13 Temperature 100.9 f Comments: Method: Temporal Pulse 68 /min Comments: Pattern: Regular Respiration Rate 16 /min Comments: Pattern: Unlabored O2 SAT 98 % Comments: Room air BP Systolic 122 mm[Hg] Comments: Patient Position: Sitting; Cuff Location: Left Arm; Cuff Size: Standard BP Diastolic 76 mm[Hg] Comments: Patient Position: Sitting; Cuff Location: Left Arm; Cuff Size: Standard Weight 154.125 lb Height 62 in Body Mass Index Calculated 28.19 kg/m2 Body Surface Area Calculated 1.71 m2 :52 Pulse 73 /min Comments: Pattern: Regular Respiration Rate 18 /min Comments: Pattern: Unlabored O2 SAT 97 % Comments: Room air BP Systolic 128 mm[Hg] Comments: Patient Position: Sitting; Cuff Location: Left Arm; Cuff Size: Standard BP Diastolic 82 mm[Hg] Comments: Patient Position: Sitting; Cuff Location: Left Arm; Cuff Size: Standard Weight 154.125 lb Height 62 in Body Mass Index Calculated 28.19 kg/m2 Body Surface Area Calculated 1.71 m2 :54 Temperature 97.5 f Comments: Method: Temporal Pulse 16 /min Comments: Pattern: Regular Respiration Rate 16 /min Comments: Pattern: Unlabored O2 SAT 97 % Comments: Room air BP Systolic 118 mm[Hg] Comments: Patient Position: Sitting; Cuff Location: Left Arm; Cuff Size: Large BP Diastolic 70 mm[Hg] Comments: Patient Position: Sitting; Cuff Location: Left Arm; Cuff Size: Large Weight 154 lb Height 62.75 in Body Mass Index Calculated 27.5 kg/m2 Body Surface Area Calculated 1.73 m2 :25 Pulse 76 /min Comments: Pattern: Regular Respiration Rate 18 /min Comments: Pattern: Unlabored O2 SAT 95 % Comments: Room air BP Systolic 138 mm[Hg] Comments: Patient Position: Sitting; Cuff Location: Left Arm; Cuff Size: Large BP Diastolic 78 mm[Hg] Comments: Patient Position: Sitting; Cuff Location: Left Arm; Cuff Size: Large Weight 156.125 lb Height 62.75 in Body Mass Index Calculated 27.88 kg/m2 Body Surface Area Calculated 1.74 m2 :15 Pulse 91 /min Comments: Pattern: Regular Respiration Rate 18 /min Comments: Pattern: Unlabored O2 SAT 97 % Comments: Room air BP Systolic 142 mm[Hg] Comments: Patient Position: Sitting; Cuff Location: Left Arm; Cuff Size: Large BP Diastolic 88 mm[Hg] Comments: Patient Position: Sitting; Cuff Location: Left Arm; Cuff Size: Large Weight 160.25 lb Height 62.75 in Body Mass Index Calculated 28.61 kg/m2 Body Surface Area Calculated 1.76 m2 :54 Pulse 79 /min Comments: Pattern: Regular Respiration Rate 18 /min Comments: Pattern: Unlabored O2 SAT 98 % Comments: Room air BP Systolic 128 mm[Hg] Comments: Patient Position: Sitting; Cuff Location: Left Arm; Cuff Size: Large BP Diastolic 88 mm[Hg] Comments: Patient Position: Sitting; Cuff Location: Left Arm; Cuff Size: Large Weight 160.25 lb Height 62.75 in Body Mass Index Calculated 28.61 kg/m2 Body Surface Area Calculated 1.76 m2 :25 Pulse 112 /min Comments: Pattern: Regular Respiration Rate 18 /min Comments: Pattern: Unlabored O2 SAT 96 % Comments: Room air BP Systolic 130 mm[Hg] Comments: Patient Position: Sitting; Cuff Location: Left Arm; Cuff Size: Large BP Diastolic 72 mm[Hg] Comments: Patient Position: Sitting; Cuff Location: Left Arm; Cuff Size: Large Weight 157.375 lb Height 62.75 in Body Mass Index Calculated 28.1 kg/m2 Body Surface Area Calculated 1.74 m2 :45 Pulse 102 /min Comments: Pattern: Regular Respiration Rate 18 /min Comments: Pattern: Unlabored O2 SAT 96 % Comments: Room air BP Systolic 138 mm[Hg] Comments: Patient Position: Sitting; Cuff Location: Left Arm; Cuff Size: Large BP Diastolic 98 mm[Hg] Comments: Patient Position: Sitting; Cuff Location: Left Arm; Cuff Size: Large Weight 160.5 lb Height 62.75 in Body Mass Index Calculated 28.66 kg/m2 Body Surface Area Calculated 1.76 m2 :27 Temperature 97.7 f Pulse 95 /min Comments: Pattern: Regular Respiration Rate 16 /min Comments: Pattern: Unlabored O2 SAT 98 % Comments: Room air BP Systolic 138 mm[Hg] Comments: Patient Position: Sitting; Cuff Location: Left Arm; Cuff Size: Standard BP Diastolic 84 mm[Hg] Comments: Patient Position: Sitting; Cuff Location: Left Arm; Cuff Size: Standard Weight 162 lb Height 62.75 in Body Mass Index Calculated 28.93 kg/m2 Body Surface Area Calculated 1.76 m2 :50 Comments: her machine got 137/97-- and diaries are good Pulse 88 /min Comments: Pattern: Regular Respiration Rate 18 /min Comments: Pattern: Unlabored O2 SAT 98 % Comments: Room air BP Systolic 158 mm[Hg] Comments: Patient Position: Sitting; Cuff Location: Left Arm; Cuff Size: Large BP Diastolic 84 mm[Hg] Comments: Patient Position: Sitting; Cuff Location: Left Arm; Cuff Size: Large Weight 161.125 lb Height 62.75 in Body Mass Index Calculated 28.77 kg/m2 Body Surface Area Calculated 1.76 m2 :08 BP Systolic 140 mm[Hg] Comments: Patient Position: Sitting; Cuff Location: Left Arm; Cuff Size: Standard BP Diastolic 94 mm[Hg] Comments: Patient Position: Sitting; Cuff Location: Left Arm; Cuff Size: Standard :20 Pulse 82 /min Comments: Pattern: Regular Respiration Rate 18 /min Comments: Pattern: Unlabored O2 SAT 97 % Comments: Room air BP Systolic 180 mm[Hg] Comments: Patient Position: Sitting; Cuff Location: Left Arm; Cuff Size: Standard BP Diastolic 116 mm[Hg] Comments: Patient Position: Sitting; Cuff Location: Left Arm; Cuff Size: Standard Weight 160.5 lb Height 62.75 in Body Mass Index Calculated 28.66 kg/m2 Body Surface Area Calculated 1.76 m2 :36 Pulse 90 /min Comments: Pattern: Regular Respiration Rate 18 /min Comments: Pattern: Unlabored O2 SAT 97 % Comments: Room air BP Systolic 122 mm[Hg] Comments: Patient Position: Sitting; Cuff Location: Left Arm; Cuff Size: Standard BP Diastolic 80 mm[Hg] Comments: Patient Position: Sitting; Cuff Location: Left Arm; Cuff Size: Standard Weight 160.5 lb Height 62.75 in Body Mass Index Calculated 28.66 kg/m2 Body Surface Area Calculated 1.76 m2 :46 Temperature 97.6 f Pulse 76 /min Comments: Pattern: Regular Respiration Rate 18 /min Comments: Pattern: Unlabored O2 SAT 98 % Comments: Room air BP Systolic 134 mm[Hg] Comments: Patient Position: Sitting; Cuff Location: Left Arm; Cuff Size: Standard BP Diastolic 86 mm[Hg] Comments: Patient Position: Sitting; Cuff Location: Left Arm; Cuff Size: Standard Weight 159 lb Height 62.75 in Body Mass Index Calculated 28.39 kg/m2 Body Surface Area Calculated 1.75 m2 :17 Pulse 78 /min Comments: Pattern: Regular Respiration Rate 18 /min Comments: Pattern: Unlabored O2 SAT 97 % Comments: Room air BP Systolic 128 mm[Hg] Comments: Patient Position: Sitting; Cuff Location: Left Arm; Cuff Size: Large BP Diastolic 80 mm[Hg] Comments: Patient Position: Sitting; Cuff Location: Left Arm; Cuff Size: Large Weight 159 lb Height 62.75 in Body Mass Index Calculated 28.39 kg/m2 Body Surface Area Calculated 1.75 m2 :36 Pulse 68 /min Comments: Pattern: Regular Respiration Rate 18 /min Comments: Pattern: Unlabored O2 SAT 95 % Comments: Room air BP Systolic 122 mm[Hg] Comments: Patient Position: Sitting; Cuff Location: Left Arm; Cuff Size: Standard BP Diastolic 80 mm[Hg] Comments: Patient Position: Sitting; Cuff Location: Left Arm; Cuff Size: Standard Weight 156.25 lb Height 62.75 in Body Mass Index Calculated 27.9 kg/m2 Body Surface Area Calculated 1.74 m2 [id number] Pulse 82 /min Comments: Pattern: Regular Respiration Rate 18 /min Comments: Pattern: Unlabored O2 SAT 94 % Comments: Room air BP Systolic 122 mm[Hg] Comments: Patient Position: Sitting; Cuff Location: Left Arm; Cuff Size: Standard BP Diastolic 62 mm[Hg] Comments: Patient Position: Sitting; Cuff Location: Left Arm; Cuff Size: Standard Weight 156.25 lb Height 62.75 in Body Mass Index Calculated 27.9 kg/m2 Body Surface Area Calculated 1.74 m2 :00 Pulse 88 /min Comments: Pattern: Regular Respiration Rate 20 /min Comments: Pattern: Unlabored O2 SAT 94 % Comments: Room air BP Systolic 122 mm[Hg] Comments: Patient Position: Sitting; Cuff Location: Left Arm; Cuff Size: Large BP Diastolic 80 mm[Hg] Comments: Patient Position: Sitting; Cuff Location: Left Arm; Cuff Size: Large Weight 152.125 lb Height 62.75 in Body Mass Index Calculated 27.16 kg/m2 Body Surface Area Calculated 1.72 m2 :12 Comments: 132/84 on her machine Pulse 72 /min Comments: Pattern: Regular Respiration Rate 18 /min Comments: Pattern: Unlabored O2 SAT 98 % Comments: Room air BP Systolic 128 mm[Hg] Comments: Patient Position: Sitting; Cuff Location: Left Arm; Cuff Size: Large BP Diastolic 88 mm[Hg] Comments: Patient Position: Sitting; Cuff Location: Left Arm; Cuff Size: Large Weight 148.375 lb Height 62.75 in Body Mass Index Calculated 26.49 kg/m2 Body Surface Area Calculated 1.7 m2 :17 Pulse 60 /min Comments: Pattern: Regular Respiration Rate 18 /min Comments: Pattern: Unlabored O2 SAT 98 % Comments: Room air BP Systolic 140 mm[Hg] Comments: Patient Position: Sitting; Cuff Location: Left Arm; Cuff Size: Large BP Diastolic 82 mm[Hg] Comments: Patient Position: Sitting; Cuff Location: Left Arm; Cuff Size: Large Weight 150.375 lb Height 62.75 in Body Mass Index Calculated 26.85 kg/m2 Body Surface Area Calculated 1.71 m2 :15 Pulse 80 /min Comments: Pattern: Regular Respiration Rate 20 /min Comments: Pattern: Unlabored O2 SAT 94 % Comments: Room air BP Systolic 142 mm[Hg] Comments: Patient Position: Sitting; Cuff Location: Left Arm; Cuff Size: Large BP Diastolic 82 mm[Hg] Comments: Patient Position: Sitting; Cuff Location: Left Arm; Cuff Size: Large Weight 161.125 lb Height 62.75 in Body Mass Index Calculated 28.77 kg/m2 Body Surface Area Calculated 1.76 m2 :08 Pulse 86 /min Comments: Pattern: Regular Respiration Rate 18 /min Comments: Pattern: Unlabored O2 SAT 98 % Comments: Room air BP Systolic 120 mm[Hg] Comments: Patient Position: Sitting; Cuff Location: Left Arm; Cuff Size: Large BP Diastolic 80 mm[Hg] Comments: Patient Position: Sitting; Cuff Location: Left Arm; Cuff Size: Large Weight 165 lb Height 62.75 in Body Mass Index Calculated 29.46 kg/m2 Body Surface Area Calculated 1.78 m2 :02 Pulse 76 /min Comments: Pattern: Regular Respiration Rate 18 /min Comments: Pattern: Unlabored O2 SAT 97 % Comments: Room air BP Systolic 120 mm[Hg] Comments: Patient Position: Sitting; Cuff Location: Left Arm; Cuff Size: Large BP Diastolic 78 mm[Hg] Comments: Patient Position: Sitting; Cuff Location: Left Arm; Cuff Size: Large Weight 166 lb Height 62.75 in Body Mass Index Calculated 29.64 kg/m2 Body Surface Area Calculated 1.78 m2 :45 Pulse 76 /min Comments: Pattern: Regular Respiration Rate 18 /min Comments: Pattern: Unlabored O2 SAT 97 % Comments: Room air BP Systolic 128 mm[Hg] Comments: Patient Position: Sitting; Cuff Location: Left Arm; Cuff Size: Large BP Diastolic 80 mm[Hg] Comments: Patient Position: Sitting; Cuff Location: Left Arm; Cuff Size: Large Weight 163 lb Height 62.75 in Body Mass Index Calculated 29.1 kg/m2 Body Surface Area Calculated 1.77 m2 :26 Temperature 98.1 f Comments: Method: Oral Pulse 81 /min Comments: Pattern: Regular Respiration Rate 16 /min O2 SAT 97 % Comments: Room air BP Systolic 112 mm[Hg] Comments: Patient Position: Sitting; Cuff Location: Left Arm; Cuff Size: Standard BP Diastolic 70 mm[Hg] Comments: Patient Position: Sitting; Cuff Location: Left Arm; Cuff Size: Standard Weight 159.375 lb Height 62.75 in Body Mass Index Calculated 28.46 kg/m2 Body Surface Area Calculated 1.75 m2 :55 Pulse 66 /min Comments: Pattern: Regular Respiration Rate 18 /min Comments: Pattern: Unlabored O2 SAT 98 % Comments: Room air BP Systolic 102 mm[Hg] Comments: Patient Position: Sitting; Cuff Location: Left Arm; Cuff Size: Large BP Diastolic 62 mm[Hg] Comments: Patient Position: Sitting; Cuff Location: Left Arm; Cuff Size: Large Weight 159.375 lb Height 62.75 in Body Mass Index Calculated 28.46 kg/m2 Body Surface Area Calculated 1.75 m2 :09 Temperature 98.4 f Comments: Method: Oral Pulse 62 /min Comments: Pattern: Regular Respiration Rate 18 /min Comments: Pattern: Unlabored O2 SAT 96 % Comments: Room air BP Systolic 122 mm[Hg] Comments: Patient Position: Sitting; Cuff Location: Left Arm; Cuff Size: Large BP Diastolic 78 mm[Hg] Comments: Patient Position: Sitting; Cuff Location: Left Arm; Cuff Size: Large Weight 170.25 lb Height 62.75 in Body Mass Index Calculated 30.4 kg/m2 Body Surface Area Calculated 1.8 m2 :19 Temperature 97.9 f Comments: Method: Oral Pulse 79 /min Comments: Pattern: Regular Respiration Rate 18 /min Comments: Pattern: Unlabored O2 SAT 97 % Comments: Room air BP Systolic 124 mm[Hg] Comments: Patient Position: Sitting; Cuff Location: Left Arm; Cuff Size: Large BP Diastolic 80 mm[Hg] Comments: Patient Position: Sitting; Cuff Location: Left Arm; Cuff Size: Large Weight 171.4375 lb Height 62.75 in Body Mass Index Calculated 30.61 kg/m2 Body Surface Area Calculated 1.81 m2 [id number] Temperature 98.3 f Comments: Method: Tympanic Pulse 77 /min Comments: Pattern: Regular Respiration Rate 20 /min Comments: Pattern: Unlabored O2 SAT 97 % Comments: Room air BP Systolic 120 mm[Hg] Comments: Patient Position: Sitting; Cuff Location: Left Arm; Cuff Size: Large BP Diastolic 62 mm[Hg] Comments: Patient Position: Sitting; Cuff Location: Left Arm; Cuff Size: Large Weight 171.4375 lb Height 62.75 in Body Mass Index Calculated 30.61 kg/m2 Body Surface Area Calculated 1.81 m2 :25 Temperature 99 f Comments: Method: Oral Pulse 72 /min Comments: Pattern: Regular Respiration Rate 20 /min Comments: Pattern: Unlabored BP Systolic 124 mm[Hg] Comments: Patient Position: Sitting; Cuff Location: Left Arm; Cuff Size: Large BP Diastolic 82 mm[Hg] Comments: Patient Position: Sitting; Cuff Location: Left Arm; Cuff Size: Large Weight 172.3125 lb Height 62.75 in Body Mass Index Calculated 30.77 kg/m2 Body Surface Area Calculated 1.81 m2 :20 Pulse 64 /min Comments: Pattern: Regular Respiration Rate 20 /min Comments: Pattern: Unlabored BP Systolic 124 mm[Hg] Comments: Patient Position: Sitting; Cuff Location: Left Arm; Cuff Size: Large BP Diastolic 72 mm[Hg] Comments: Patient Position: Sitting; Cuff Location: Left Arm; Cuff Size: Large Weight 172.3125 lb Height 62.75 in Body Mass Index Calculated 30.77 kg/m2 Body Surface Area Calculated 1.81 m2 :09 Temperature 97.1 f Comments: Method: Oral Pulse 68 /min Comments: Pattern: Regular Respiration Rate 18 /min Comments: Pattern: Unlabored BP Systolic 122 mm[Hg] Comments: Patient Position: Sitting; Cuff Location: Left Arm; Cuff Size: Large BP Diastolic 78 mm[Hg] Comments: Patient Position: Sitting; Cuff Location: Left Arm; Cuff Size: Large Weight 173.0625 lb Height 62.75 in Body Mass Index Calculated 30.9 kg/m2 Body Surface Area Calculated 1.81 m2 :07 Temperature 98.1 f Comments: Method: Oral Pulse 60 /min Comments: Pattern: Regular Respiration Rate 18 /min Comments: Pattern: Unlabored BP Systolic 122 mm[Hg] Comments: Patient Position: Sitting; Cuff Location: Left Arm; Cuff Size: Large BP Diastolic 80 mm[Hg] Comments: Patient Position: Sitting; Cuff Location: Left Arm; Cuff Size: Large Weight 177.375 lb Height 62.75 in Body Mass Index Calculated 31.67 kg/m2 Body Surface Area Calculated 1.83 m2 :05 Temperature 98 f Comments: Method: Oral Pulse 60 /min Comments: Pattern: Regular Respiration Rate 20 /min Comments: Pattern: Unlabored BP Systolic 138 mm[Hg] Comments: Patient Position: Sitting; Cuff Location: Left Arm; Cuff Size: Large BP Diastolic 82 mm[Hg] Comments: Patient Position: Sitting; Cuff Location: Left Arm; Cuff Size: Large Weight 177.0625 lb Height 63 in Body Mass Index Calculated 31.36 kg/m2 Body Surface Area Calculated 1.84 m2 :11 Temperature 97.8 f Comments: Method: Oral Pulse 75 /min Comments: Pattern: Regular Respiration Rate 16 /min Comments: Pattern: Unlabored O2 SAT 96 % Comments: Room air BP Systolic 124 mm[Hg] Comments: Patient Position: Sitting; Cuff Location: Left Arm; Cuff Size: Standard BP Diastolic 72 mm[Hg] Comments: Patient Position: Sitting; Cuff Location: Left Arm; Cuff Size: Standard Weight 172.125 lb Height 63 in Body Mass Index Calculated 30.49 kg/m2 Body Surface Area Calculated 1.81 m2 :09 Temperature 98.1 f Comments: Method: Oral Pulse 76 /min Comments: Pattern: Regular Respiration Rate 20 /min Comments: Pattern: Unlabored BP Systolic 124 mm[Hg] Comments: Patient Position: Sitting; Cuff Location: Left Arm; Cuff Size: Large BP Diastolic 82 mm[Hg] Comments: Patient Position: Sitting; Cuff Location: Left Arm; Cuff Size: Large Weight 172.125 lb Height 63 in Body Mass Index Calculated 30.49 kg/m2 Body Surface Area Calculated 1.81 m2 :11 Pulse 80 /min Comments: Pattern: Regular Respiration Rate 20 /min Comments: Pattern: Unlabored BP Systolic 128 mm[Hg] Comments: Patient Position: Sitting; Cuff Location: Left Arm; Cuff Size: Large BP Diastolic 72 mm[Hg] Comments: Patient Position: Sitting; Cuff Location: Left Arm; Cuff Size: Large Weight 175.5625 lb Height 63 in Body Mass Index Calculated 31.1 kg/m2 Body Surface Area Calculated 1.83 m2 :00 Pulse 72 /min Comments: Pattern: Regular Respiration Rate 20 /min Comments: Pattern: Unlabored BP Systolic 142 mm[Hg] Comments: Patient Position: Sitting; Cuff Location: Left Arm; Cuff Size: Large BP Diastolic 82 mm[Hg] Comments: Patient Position: Sitting; Cuff Location: Left Arm; Cuff Size: Large Weight 171.125 lb Height 63 in Body Mass Index Calculated 30.31 kg/m2 Body Surface Area Calculated 1.81 m2 :28 Temperature 98.2 f Pulse 80 /min Comments: Pattern: Regular Respiration Rate 18 /min Comments: Pattern: Unlabored BP Systolic 118 mm[Hg] Comments: Patient Position: Sitting; Cuff Location: Left Arm; Cuff Size: Large BP Diastolic 86 mm[Hg] Comments: Patient Position: Sitting; Cuff Location: Left Arm; Cuff Size: Large Weight 171 lb Height 63 in Body Mass Index Calculated 30.29 kg/m2 Body Surface Area Calculated 1.81 m2 :21 Pulse 60 /min Comments: Pattern: Regular Respiration Rate 16 /min Comments: Pattern: Unlabored BP Systolic 122 mm[Hg] Comments: Patient Position: Sitting; Cuff Location: Left Arm; Cuff Size: Large BP Diastolic 78 mm[Hg] Comments: Patient Position: Sitting; Cuff Location: Left Arm; Cuff Size: Large Weight 163.5625 lb Height 63 in Body Mass Index Calculated 28.97 kg/m2 Body Surface Area Calculated 1.78 m2 :47 Temperature 97.5 f Comments: Method: Oral Pulse 80 /min Comments: Pattern: Regular Respiration Rate 20 /min Comments: Pattern: Unlabored BP Systolic 122 mm[Hg] Comments: Patient Position: Sitting; Cuff Location: Left Arm; Cuff Size: Large BP Diastolic 78 mm[Hg] Comments: Patient Position: Sitting; Cuff Location: Left Arm; Cuff Size: Large Weight 157.5625 lb Height 63 in Body Mass Index Calculated 27.91 kg/m2 Body Surface Area Calculated 1.75 m2 :17 Temperature 97.8 f Comments: Method: Oral Pulse 84 /min Comments: Pattern: Regular Respiration Rate 20 /min Comments: Pattern: Unlabored BP Systolic 132 mm[Hg] Comments: Patient Position: Sitting; Cuff Location: Left Arm; Cuff Size: Large BP Diastolic 80 mm[Hg] Comments: Patient Position: Sitting; Cuff Location: Left Arm; Cuff Size: Large Weight 157.5 lb Height 63 in Body Mass Index Calculated 27.9 kg/m2 Body Surface Area Calculated 1.75 m2 :45 Temperature 98 f Comments: Method: Oral Pulse 60 /min Comments: Pattern: Regular Respiration Rate 18 /min Comments: Pattern: Unlabored BP Systolic 122 mm[Hg] Comments: Patient Position: Sitting; Cuff Location: Left Arm; Cuff Size: Large BP Diastolic 80 mm[Hg] Comments: Patient Position: Sitting; Cuff Location: Left Arm; Cuff Size: Large Weight 155.1875 lb Height 63 in Body Mass Index Calculated 27.49 kg/m2 Body Surface Area Calculated 1.74 m2 :25 Temperature 97.8 f Comments: Method: Oral Pulse 68 /min Comments: Pattern: Regular Respiration Rate 18 /min Comments: Pattern: Unlabored BP Systolic 118 mm[Hg] Comments: Patient Position: Sitting; Cuff Location: Left Arm; Cuff Size: Large BP Diastolic 78 mm[Hg] Comments: Patient Position: Sitting; Cuff Location: Left Arm; Cuff Size: Large Weight 159.125 lb Height 63 in Body Mass Index Calculated 28.19 kg/m2 Body Surface Area Calculated 1.75 m2 :03 Temperature 97.9 f Comments: Method: Oral Pulse 72 /min Comments: Pattern: Regular Respiration Rate 16 /min Comments: Pattern: Unlabored BP Systolic 120 mm[Hg] Comments: Patient Position: Supine; Cuff Location: Left Arm; Cuff Size: Standard BP Diastolic 70 mm[Hg] Comments: Patient Position: Supine; Cuff Location: Left Arm; Cuff Size: Standard Weight 163 lb Height 63 in Body Mass Index Calculated 28.87 kg/m2 Body Surface Area Calculated 1.77 m2 :14 Pulse 68 /min Comments: Pattern: Regular Respiration Rate 18 /min Comments: Pattern: Unlabored BP Systolic 124 mm[Hg] Comments: Patient Position: Sitting; Cuff Location: Left Arm; Cuff Size: Large BP Diastolic 78 mm[Hg] Comments: Patient Position: Sitting; Cuff Location: Left Arm; Cuff Size: Large Weight 159.3125 lb Height 63 in Body Mass Index Calculated 28.22 kg/m2 Body Surface Area Calculated 1.76 m2 :52 Temperature 98.6 f Comments: Method: Oral Pulse 60 /min Comments: Pattern: Regular Respiration Rate 20 /min Comments: Pattern: Unlabored BP Systolic 118 mm[Hg] Comments: Patient Position: Standing; Cuff Location: Left Arm; Cuff Size: Large BP Diastolic 64 mm[Hg] Comments: Patient Position: Standing; Cuff Location: Left Arm; Cuff Size: Large Weight 160 lb Height 63 in Body Mass Index Calculated 28.34 kg/m2 Body Surface Area Calculated 1.76 m2 :21 Temperature 98.7 f Comments: Method: Oral Pulse 64 /min Comments: Pattern: Regular Respiration Rate 20 /min Comments: Pattern: Unlabored BP Systolic 128 mm[Hg] Comments: Patient Position: Sitting; Cuff Location: Left Arm; Cuff Size: Large BP Diastolic 82 mm[Hg] Comments: Patient Position: Sitting; Cuff Location: Left Arm; Cuff Size: Large Weight 160 lb :48 Temperature 99.7 f Comments: Method: Oral Pulse 72 /min Comments: Pattern: Regular Respiration Rate 20 /min Comments: Pattern: Unlabored BP Systolic 118 mm[Hg] Comments: Patient Position: Sitting; Cuff Location: Left Arm; Cuff Size: Standard BP Diastolic 68 mm[Hg] Comments: Patient Position: Sitting; Cuff Location: Left Arm; Cuff Size: Standard Weight 160 lb :19 Pulse 60 /min Comments: Pattern: Regular Respiration Rate 20 /min Comments: Pattern: Unlabored BP Systolic 122 mm[Hg] Comments: Patient Position: Sitting; Cuff Location: Left Arm; Cuff Size: Large BP Diastolic 78 mm[Hg] Comments: Patient Position: Sitting; Cuff Location: Left Arm; Cuff Size: Large Weight 170 lb Height 63 in Body Mass Index Calculated 30.11 kg/m2 Body Surface Area Calculated 1.8 m2 :31 Pulse 80 /min Comments: Pattern: Regular Respiration Rate 20 /min Comments: Pattern: Unlabored BP Systolic 124 mm[Hg] Comments: Patient Position: Sitting; Cuff Location: Left Arm; Cuff Size: Large BP Diastolic 80 mm[Hg] Comments: Patient Position: Sitting; Cuff Location: Left Arm; Cuff Size: Large Weight 169.1875 lb Height 63 in Body Mass Index Calculated 29.97 kg/m2 Body Surface Area Calculated 1.8 m2 :25 Temperature 97.4 f Comments: Method: Oral Pulse 64 /min Comments: Pattern: Regular Respiration Rate 16 /min Comments: Pattern: Unlabored BP Systolic 110 mm[Hg] Comments: Patient Position: Sitting; Cuff Location: Left Arm; Cuff Size: Large BP Diastolic 64 mm[Hg] Comments: Patient Position: Sitting; Cuff Location: Left Arm; Cuff Size: Large Weight 168 lb :07 Pulse 84 /min Comments: Pattern: Regular Respiration Rate 20 /min Comments: Pattern: Unlabored BP Systolic 124 mm[Hg] Comments: Patient Position: Sitting; Cuff Location: Left Arm; Cuff Size: Large BP Diastolic 84 mm[Hg] Comments: Patient Position: Sitting; Cuff Location: Left Arm; Cuff Size: Large Weight 167 lb Height 63 in Body Mass Index Calculated 29.58 kg/m2 Body Surface Area Calculated 1.79 m2 Head Circumference 0.00 cm :43 Temperature 96.7 f Comments: Method: Oral Pulse 64 /min Comments: Pattern: Regular Respiration Rate 20 /min Comments: Pattern: Unlabored BP Systolic 110 mm[Hg] Comments: Patient Position: Sitting; Cuff Location: Left Arm; Cuff Size: Large BP Diastolic 64 mm[Hg] Comments: Patient Position: Sitting; Cuff Location: Left Arm; Cuff Size: Large Weight 161.5625 lb Height 63 in Body Mass Index Calculated 28.62 kg/m2 Body Surface Area Calculated 1.77 m2 Head Circumference 0.00 cm :08 Pulse 60 /min Comments: Pattern: Regular Respiration Rate 20 /min Comments: Pattern: Unlabored BP Systolic 118 mm[Hg] Comments: Patient Position: Sitting; Cuff Location: Left Arm; Cuff Size: Standard BP Diastolic 68 mm[Hg] Comments: Patient Position: Sitting; Cuff Location: Left Arm; Cuff Size: Standard Weight 161.5625 lb Height 63 in Body Mass Index Calculated 28.62 kg/m2 Body Surface Area Calculated 1.77 m2 Head Circumference 0.00 cm :05 Temperature 98 f Comments: Method: Oral Pulse 72 /min Comments: Pattern: Regular Respiration Rate 18 /min Comments: Pattern: Unlabored BP Systolic 110 mm[Hg] Comments: Patient Position: Sitting; Cuff Location: Right Arm; Cuff Size: Standard BP Diastolic 68 mm[Hg] Comments: Patient Position: Sitting; Cuff Location: Right Arm; Cuff Size: Standard Weight 160 lb Height 0 in Head Circumference 0.00 cm [id number] Pulse 72 /min Comments: Pattern: Regular Respiration Rate 20 /min Comments: Pattern: Unlabored BP Systolic 132 mm[Hg] Comments: Patient Position: Sitting; Cuff Location: Left Arm; Cuff Size: Large BP Diastolic 80 mm[Hg] Comments: Patient Position: Sitting; Cuff Location: Left Arm; Cuff Size: Large Weight 164.125 lb Height 0 in Head Circumference 0.00 cm :11 Pulse 72 /min Comments: Pattern: Regular Respiration Rate 20 /min Comments: Pattern: Unlabored BP Systolic 120 mm[Hg] Comments: Patient Position: Sitting; Cuff Location: Left Arm; Cuff Size: Large BP Diastolic 78 mm[Hg] Comments: Patient Position: Sitting; Cuff Location: Left Arm; Cuff Size: Large Weight 169.4375 lb Height 63 in Body Mass Index Calculated 30.01 kg/m2 Body Surface Area Calculated 1.8 m2 Head Circumference 0.00 cm :21 Pulse 64 /min Comments: Pattern: Regular Respiration Rate 20 /min Comments: Pattern: Unlabored BP Systolic 120 mm[Hg] Comments: Patient Position: Sitting; Cuff Location: Left Arm; Cuff Size: Standard BP Diastolic 68 mm[Hg] Comments: Patient Position: Sitting; Cuff Location: Left Arm; Cuff Size: Standard Weight 157.1875 lb Height 63 in Body Mass Index Calculated 27.84 kg/m2 Body Surface Area Calculated 1.75 m2 Head Circumference 0.00 cm :31 Pulse 88 /min Comments: Pattern: Regular Respiration Rate 20 /min Comments: Pattern: Unlabored BP Systolic 132 mm[Hg] Comments: Patient Position: Sitting; Cuff Location: Left Arm; Cuff Size: Standard BP Diastolic 80 mm[Hg] Comments: Patient Position: Sitting; Cuff Location: Left Arm; Cuff Size: Standard Weight 158 lb Height 63 in Body Mass Index Calculated 27.99 kg/m2 Body Surface Area Calculated 1.75 m2 Head Circumference 0.00 cm :09 Pulse 64 /min Comments: Pattern: Regular Respiration Rate 20 /min Comments: Pattern: Unlabored BP Systolic 118 mm[Hg] Comments: Patient Position: Sitting; Cuff Location: Left Arm; Cuff Size: Standard BP Diastolic 72 mm[Hg] Comments: Patient Position: Sitting; Cuff Location: Left Arm; Cuff Size: Standard Weight 158 lb Height 63 in Body Mass Index Calculated 27.99 kg/m2 Body Surface Area Calculated 1.75 m2 Head Circumference 0.00 cm :06 Pulse 88 /min Comments: Pattern: Regular Respiration Rate 20 /min Comments: Pattern: Unlabored BP Systolic 136 mm[Hg] Comments: Patient Position: Sitting; Cuff Location: Left Arm; Cuff Size: Standard BP Diastolic 82 mm[Hg] Comments: Patient Position: Sitting; Cuff Location: Left Arm; Cuff Size: Standard Weight 157.5625 lb Height 63 in Body Mass Index Calculated 27.91 kg/m2 Body Surface Area Calculated 1.75 m2 Head Circumference 0.00 cm :13 Pulse 80 /min Comments: Pattern: Regular Respiration Rate 20 /min Comments: Pattern: Unlabored BP Systolic 124 mm[Hg] Comments: Patient Position: Sitting; Cuff Location: Left Arm; Cuff Size: Standard BP Diastolic 78 mm[Hg] Comments: Patient Position: Sitting; Cuff Location: Left Arm; Cuff Size: Standard Weight 162.25 lb Height 63 in Body Mass Index Calculated 28.74 kg/m2 Body Surface Area Calculated 1.77 m2 Head Circumference 0.00 cm :37 Pulse 64 /min Comments: Pattern: Regular Respiration Rate 18 /min Comments: Pattern: Unlabored BP Systolic 128 mm[Hg] Comments: Patient Position: Standing; Cuff Location: Right Arm; Cuff Size: Standard BP Diastolic 84 mm[Hg] Comments: Patient Position: Standing; Cuff Location: Right Arm; Cuff Size: Standard Weight 162.25 lb Height 63 in Body Mass Index Calculated 28.74 kg/m2 Body Surface Area Calculated 1.77 m2 Head Circumference 0.00 cm :56 Temperature 98.1 f Comments: Method: Oral Pulse 88 /min Comments: Pattern: Regular Respiration Rate 18 /min Comments: Pattern: Unlabored BP Systolic 122 mm[Hg] Comments: Patient Position: Sitting; Cuff Location: Right Arm; Cuff Size: Large BP Diastolic 68 mm[Hg] Comments: Patient Position: Sitting; Cuff Location: Right Arm; Cuff Size: Large Weight 164.5625 lb Height 63 in Body Mass Index Calculated 29.15 kg/m2 Body Surface Area Calculated 1.78 m2 Head Circumference 0.00 cm :04 Pulse 64 /min Comments: Pattern: Regular Respiration Rate 18 /min Comments: Pattern: Unlabored BP Systolic 142 mm[Hg] Comments: Patient Position: Sitting; Cuff Location: Left Arm; Cuff Size: Standard BP Diastolic 80 mm[Hg] Comments: Patient Position: Sitting; Cuff Location: Left Arm; Cuff Size: Standard Weight 166.0625 lb Height 0 in Head Circumference 0.00 cm :29 Pulse 80 /min Comments: Pattern: Regular Respiration Rate 20 /min Comments: Pattern: Unlabored BP Systolic 118 mm[Hg] Comments: Patient Position: Sitting; Cuff Location: Left Arm; Cuff Size: Standard BP Diastolic 64 mm[Hg] Comments: Patient Position: Sitting; Cuff Location: Left Arm; Cuff Size: Standard Weight 164.25 lb Height 0 in Head Circumference 0.00 cm :04 Temperature 98.6 f Comments: Method: Oral Pulse 80 /min Comments: Pattern: Regular Respiration Rate 16 /min Comments: Pattern: Unlabored BP Systolic 122 mm[Hg] Comments: Patient Position: Sitting; Cuff Location: Right Arm; Cuff Size: Standard BP Diastolic 76 mm[Hg] Comments: Patient Position: Sitting; Cuff Location: Right Arm; Cuff Size: Standard Weight 0 lb Height 0 in Head Circumference 0.00 cm :13 Pulse 80 /min Comments: Pattern: Regular Respiration Rate 20 /min Comments: Pattern: Unlabored BP Systolic 142 mm[Hg] Comments: Patient Position: Sitting; Cuff Location: Left Arm; Cuff Size: Large BP Diastolic 88 mm[Hg] Comments: Patient Position: Sitting; Cuff Location: Left Arm; Cuff Size: Large Weight 158.1875 lb Height 0 in Head Circumference 0.00 cm :54 Pulse 64 /min Comments: Pattern: Regular Respiration Rate 20 /min Comments: Pattern: Unlabored BP Systolic 158 mm[Hg] Comments: Patient Position: Sitting; Cuff Location: Left Arm; Cuff Size: Standard BP Diastolic 92 mm[Hg] Comments: Patient Position: Sitting; Cuff Location: Left Arm; Cuff Size: Standard Weight 154.125 lb Height 0 in Head Circumference 0.00 cm :23 Pulse 88 /min Comments: Pattern: Regular Respiration Rate 20 /min Comments: Pattern: Unlabored BP Systolic 168 mm[Hg] Comments: Patient Position: Sitting; Cuff Location: Right Arm; Cuff Size: Standard BP Diastolic 96 mm[Hg] Comments: Patient Position: Sitting; Cuff Location: Right Arm; Cuff Size: Standard Weight 154.125 lb Height 0 in Head Circumference 0.00 cm :56 Temperature 98.8 f Comments: Method: Oral Pulse 64 /min Comments: Pattern: Regular Respiration Rate 20 /min Comments: Pattern: Unlabored BP Systolic 148 mm[Hg] Comments: Patient Position: Sitting; Cuff Location: Left Arm; Cuff Size: Standard BP Diastolic 92 mm[Hg] Comments: Patient Position: Sitting; Cuff Location: Left Arm; Cuff Size: Standard Weight 153.4375 lb Height 0 in Head Circumference 0.00 cm :04 Temperature 98.5 f Comments: Method: Oral Pulse 60 /min Comments: Pattern: Regular Respiration Rate 16 /min Comments: Pattern: Unlabored BP Systolic 142 mm[Hg] Comments: Patient Position: Sitting; Cuff Location: Left Arm; Cuff Size: Standard BP Diastolic 88 mm[Hg] Comments: Patient Position: Sitting; Cuff Location: Left Arm; Cuff Size: Standard Weight 156.5 lb Height 0 in Head Circumference 0.00 cm :47 Temperature 98.7 f Comments: Method: Undefined Pulse 68 /min Comments: Pattern: Regular Respiration Rate 16 /min Comments: Pattern: Undefined BP Systolic 130 mm[Hg] Comments: Patient Position: Sitting; Cuff Location: Left Arm; Cuff Size: Standard BP Diastolic 72 mm[Hg] Comments: Patient Position: Sitting; Cuff Location: Left Arm; Cuff Size: Standard Weight 0 lb Height 0 in Head Circumference 0.00 cm :32 Temperature 98.6 f Comments: Method: Oral Pulse 76 /min Comments: Pattern: Regular Respiration Rate 20 /min Comments: Pattern: Unlabored BP Systolic 120 mm[Hg] Comments: Patient Position: Sitting; Cuff Location: Left Arm; Cuff Size: Standard BP Diastolic 76 mm[Hg] Comments: Patient Position: Sitting; Cuff Location: Left Arm; Cuff Size: Standard Weight 0 lb Height 0 in Head Circumference 0.00 cm :27 Temperature 97.5 f Comments: Method: Oral Pulse 68 /min Comments: Pattern: Regular BP Systolic 140 mm[Hg] Comments: Patient Position: Sitting; Cuff Location: Left Arm; Cuff Size: Standard BP Diastolic 84 mm[Hg] Comments: Patient Position: Sitting; Cuff Location: Left Arm; Cuff Size: Standard Weight 0 lb Height 0 in Head Circumference 0.00 cm Results Date Description Value Details :02 HgA1C , Office (05458) HgA1C , Office 5.7 % (Normal) Range: 4.6 - 7.1 :02 Blood Glucose , Office (90299) Blood Glucose , Office 106 (Normal) 9-Lfw-121898:24 Microscopic Examination Comments: PATIENT WAS FASTINGPERFORMED BY: [address]ca[address] [id number] BY: [place] [id number] [facility] [id number] Bacteria Few (Normal) Mucus Threads Present (Normal) Epithelial Cells (non renal) 0-10 {/hpf} (Normal) Range: 0 - 10 RBC 0-2 {/hpf} (Normal) Range: 0 - 2 WBC 0-5 {/hpf} (Normal) Range: 0 - 5 :24 TSH (17970) Comments: PATIENT WAS FASTINGPERFORMED BY: [address] [id number] BY: [place] 7157670 [facility] [id number] TSH 1.910 {uIU/mL} (Normal) Range: 0.450-4.500 :24 URINALYSIS, W/ MICRO Comments: PATIENT WAS FASTINGPERFORMED BY: Omn[address] [id number] BY: [place] 7157670 [facility] [id number] ([id number]) Microscopic Examination See below: (Normal) Comments: Microscopic was indicated and was performed. Microscopic Examination MICRON (Normal) Comments: Microscopic follows if indicated. Nitrite, Urine Negative (Normal) Urobilinogen,Semi-Qn 0.2 mg/dL (Normal) Range: 0.2-1.0 Bilirubin Negative (Normal) Occult Blood Negative (Normal) Ketones Negative (Normal) Glucose Negative (Normal) Protein Negative (Normal) WBC Esterase Negative (Normal) Appearance Clear (Normal) Urine-Color Yellow (Normal) pH 5.5 (Normal) Range: 5.0-7.5 Specific [place] 1.021 (Normal) Range: 1.005-1.030 [id number]-End-931008:24 MICROALBUMIN: CREATININE Comments: PATIENT WAS FASTINGPERFORMED BY: [address] [id number] BY: [place] [id number] [facility] [id number] RATIO (88631) AND (74221) Alb/Creat Ratio 3.3 {mg/g_creat} (Normal) Range: 0.0-30.0 Comments: Normal: 0.0 - 30.0 Albuminuria: 31.0 - 300.0 Clinical albuminuria: >300.0 Albumin, Urine 3.3 ug/mL (Normal) Creatinine, Urine 98.8 mg/dL (Normal) [id number]-[id number]:24 METABOLIC PANEL, Comments: PATIENT WAS FASTINGPERFORMED BY: [address] [id number] BY: [facility]caLyons VA Medical CenterGvovfv8173 [facility] [id number] COMPREHENSIVE (49735) ALT (SGPT) 12 [iU]/L (Normal) Range: 0-32 AST (SGOT) 14 [iU]/L (Normal) Range: 0-40 Alkaline Phosphatase 64 [iU]/L (Normal) Range: 39-117 Bilirubin, Total 0.4 mg/dL (Normal) Range: 0.0-1.2 A/G Ratio 2.4 (Abnormal) Range: 1.2-2.2 Globulin, Total 2.0 g/dL (Normal) Range: 1.5-4.5 Albumin 4.8 g/dL (Normal) Range: 3.6-4.8 Protein, Total 6.8 g/dL (Normal) Range: 6.0-8.5 Calcium 9.8 mg/dL (Normal) Range: 8.7-10.3 Carbon Dioxide, Total 25 mmol/L (Normal) Range: 20-29 Chloride 101 mmol/L (Normal) Range: 96-106 Potassium 4.7 mmol/L (Normal) Range: 3.5-5.2 Sodium 143 mmol/L (Normal) Range: 134-144 BUN/Creatinine Ratio 22 (Normal) Range: 12-28 eGFR If Africn Am 89 mL/min/1.73 (Normal) eGFR If NonAfricn Am 77 mL/min/1.73 (Normal) Creatinine 0.82 mg/dL (Normal) Range: 0.57-1.00 BUN 18 mg/dL (Normal) Range: 8-27 Glucose 114 mg/dL (Abnormal) Range: 65-99 0-Iks-697543:24 CBC W/AUTO DIFF WBC Comments: PATIENT WAS FASTINGPERFORMED BY: BN [facility] Thusibsqca4987 [facility] [id number] BY: CB [facility] Rdlxdo1648 [facility] [id number] (30485) Immature Grans (Abs) 0.0 {x10E3/uL} (Normal) Range: 0.0-0.1 Immature Granulocytes 0 % (Normal) Baso (Absolute) 0.0 {x10E3/uL} (Normal) Range: 0.0-0.2 Eos (Absolute) 0.1 {x10E3/uL} (Normal) Range: 0.0-0.4 Monocytes(Absolute) 0.5 {x10E3/uL} (Normal) Range: 0.1-0.9 Lymphs (Absolute) 2.7 {x10E3/uL} (Normal) Range: 0.7-3.1 Neutrophils (Absolute) 4.1 {x10E3/uL} (Normal) Range: 1.4-7.0 Basos 1 % (Normal) Eos 2 % (Normal) Monocytes 7 % (Normal) Lymphs 36 % (Normal) Neutrophils 54 % (Normal) Platelets 315 {x10E3/uL} (Normal) Range: 150-379 RDW 13.2 % (Normal) Range: 12.3-15.4 MCHC 33.7 g/dL (Normal) Range: 31.5-35.7 MCH 31.6 pg (Normal) Range: 26.6-33.0 MCV 94 fL (Normal) Range: 79-97 Hematocrit 41.6 % (Normal) Range: 34.0-46.6 Hemoglobin 14.0 g/dL (Normal) Range: 11.1-15.9 RBC 4.43 {x10E6/uL} (Normal) Range: 3.77-5.28 WBC 7.5 {x10E3/uL} (Normal) Range: 3.4-10.8 5-Qzb-951659:24 LIPOPROTEIN, BLD, BY NMR Comments: PATIENT WAS FASTINGPERFORMED BY: BN [facility] Xeqvkksret7979 [facility] [id number] BY: CB [facility] Cwahup0450 [place] [place] [id number] ([id number]) LP-IR Score 30 (Normal) Comments: INSULIN RESISTANCE MARKER <--Insulin Sensitive Insulin Resistant--> Percentile in Reference PopulationInsulin Resistance ScoreLP-IR Score Low 25th 50th 75th High <27 27 45 63 >63LP-IR Score is inaccurate if patient is non-fasting. .The LP-IR score is a laboratory developed i [facility] that has beenassociated with insulin resistance and diabetes risk and should beused as one component of a physician's clinical assessment. TheLP-IR score listed above has not been cleared by the [place] Food andDrug Administration. LDL Size 21.4 nm (Normal) Comments: INTERPRETATIVE INFORMATION PARTICLE CONCENTRATION AND SIZE <--Lower CVD Risk Highe r CVD Risk--> LDL AND HDL PARTICLES Percentile in Reference Population HDL-P (total) High 75th 50th 25th Low >34.9 34.9 30.5 26.7 <26.7 . Small LDL-P Low 25th 50th 75th High <117 117 527 839 >839 . LDL Size <-Large (Pattern A)-> <-Small (Pattern B)-> 23.0 20.6 20.5 19.0 Small LDL-P and LDL Size are associated with CVD risk, but not afterLDL-P is taken into account. .These assays were developed and their performance characteristicsdetermined by [employer]. These assays have not been cleared by [place] Food and Drug Administration. The clinical utility of theselaboratory values have not been fully established. Small LDL-P 401 nmol/L (Normal) HDL-P (Total) 57.4 umol/L (Normal) Cholesterol, Total 259 mg/dL (Abnormal) Range: 100-199 Triglycerides 82 mg/dL (Normal) Range: 0-149 HDL-C 100 mg/dL (Normal) LDL-C 143 mg/dL (Abnormal) Range: 0-99 Comments: . Optimal < 100 Above optimal 100 - 129 Borderline 1 30 - 159 High 160 - 189 Very high > 189 .LDL-C is inaccurate if patient is non-fasting. LDL-P 1619 nmol/L (Abnormal) Comments: Low < 1000 Moderate 1000 - 1299 Borderline-High 1300 - 1599 High 1600 - 2000 Very High > 2000 2-Ejj-763470:24 CALCIFIDIOL (41739) VIT D Comments: PATIENT WAS FASTINGPERFORMED BY: BN [facility] Vgjmdcjdtg6360 [facility] [id number] BY: CB [facility] Axvbvd7413 [facility] [id number] 25 Vitamin D, 25-Hydroxy 50.0 ng/mL (Normal) Range: 30.0-100.0 Comments: Vitamin D deficiency has been defined by the Liberal of[facility] Medical Centercine and an Endocrine Society practice guideline as alevel of serum 25-OH vitamin D less than 20 ng/mL (1,2).The Endocrine Society went on to further define vitamin Dinsufficiency as a level between 21 and 29 ng/mL (2).1. IOM (Liberal of Medicine). 2010. Dietary reference intakes for calcium and D. [place]: The National Academies Press.2. Frandy MF, Breanna RAIN, Jo-Ann WEST, et al. Evaluation, treatment, and prevention of vitamin D deficiency: an Endocrine Society clinical practice guideline. JCEM. 2010; 96(7):1911-30. :18 HgA1C , Office (22433) HgA1C , Office 5.6 % (Normal) Range: 4.6 - 7.1 :18 Blood Glucose , Office (74507) Blood Glucose , Office 108 (Normal) :25 HgA1C , Office (71562) HgA1C , Office 5.6 % (Normal) Range: 4.6 - 7.1 95-Piy-30255:25 Blood Glucose , Office (61278) Blood Glucose , Office 94 (Normal) Comments: fasting 5-Wyz-279555:55 Microscopic Examination Comments: PATIENT WAS FASTINGPERFORMED BY: [facility] Cchdpj6040 [facility] [id number] Bacteria Few (Normal) Mucus Threads Present (Normal) Epithelial Cells (non renal) 0-10 {/hpf} (Normal) Range: 0 - 10 RBC 0-2 {/hpf} (Normal) Range: 0 - 2 WBC 0-5 {/hpf} (Normal) Range: 0 - 5 :19 THROAT CULTURE (18519) Comments: PATIENT NOT FASTINGPERFORMED BY: [facility] Nksasf9158 [facility] [id number] Information: SRC:TH Result 1 RRF (Normal) Comments: Routine respiratory gudelia Upper Respiratory Culture Final report (Normal) 9-Vwm-[id number]:19 Rapid Strep Test, Office (84500) Rapid Strep Test, Office Negative (Normal) 3-Wtq-083561:19 Rapid Flu (27421 x 2) Influenza A Ag negative (Normal) 1-Cid-354888:55 CALCIFIDIOL (38082) VIT D 25 Comments: PATIENT WAS FASTINGPERFORMED BY: [facility] Yxydro4292 [facility] [id number] Vitamin D, 25-Hydroxy 52.5 ng/mL (Normal) Range: 30.0-100.0 Comments: Vitamin D deficiency has been defined by the Liberal ofMedicine and an Endocrine Society practice guideline as alevel of serum 25-OH vitamin D less than 20 ng/mL (1,2).The Endocrine Society went on to further define vitamin Dinsufficiency as a level between 21 and 29 ng/mL (2).1. IOM (Liberal of Medicine). 2010. Dietary reference intakes for calcium and D. [place]: The National Academies Press.2. Frandy MF, Breanna [place], Jo-Ann WEST, et al. Evaluation, treatment, and prevention of vitamin D deficiency: an Endocrine Society clinical practice guideline. JCEM. 2010; 96(7):1911-30. 8-Ljz-184281:55 TSH (11057) Comments: PATIENT WAS FASTINGPERFORMED BY: [facility]lesHar[facility]6370 [facility] [id number] TSH 1.480 {uIU/mL} (Normal) Range: 0.450-4.500 0-Mpq-061789:55 URINALYSIS, W/ MICRO (23748) Comments: PATIENT WAS FASTINGPERFORMED BY: [facility]6370 [facility] [id number] Microscopic Examination See below: (Normal) Comments: Microscopic was indicated and was performed. Microscopic Examination MICRON (Normal) Comments: Microscopic follows if indicated. Nitrite, Urine Negative (Normal) Urobilinogen,Semi-Qn 0.2 mg/dL (Normal) Range: 0.2-1.0 Bilirubin Negative (Normal) Occult Blood Negative (Normal) Ketones Negative (Normal) Glucose Negative (Normal) Protein Negative (Normal) WBC Esterase Negative (Normal) Appearance Clear (Normal) Urine-Color Yellow (Normal) pH 5.5 (Normal) Range: 5.0-7.5 Specific [place] 1.024 (Normal) Range: 1.005-1.030 1-Byg-147632:55 MICROALBUMIN: CREATININE RATIO Comments: PATIENT WAS FASTINGPERFORMED BY: CellcaGallup Indian Medical CenterDcpfqv6113 [facility] [id number] ([id number]) AND (25575) Alb/Creat Ratio 3.6 {mg/g_creat} (Normal) Range: 0.0-30.0 Albumin, Urine 4.5 ug/mL (Normal) Creatinine, Urine 124.2 mg/dL (Normal) 4-Yuo-403814:55 METABOLIC PANEL, COMPREHENSIVE Comments: PATIENT WAS FASTINGPERFORMED BY: [facility]mniklesHarper [facility] Hospital6370 [facility] [id number] (54027) ALT (SGPT) 12 [iU]/L (Normal) Range: 0-32 AST (SGOT) 11 [iU]/L (Normal) Range: 0-40 Alkaline Phosphatase 76 [iU]/L (Normal) Range: 39-117 Bilirubin, Total 0.2 mg/dL (Normal) Range: 0.0-1.2 A/G Ratio 2.0 (Normal) Range: 1.2-2.2 Globulin, Total 2.3 g/dL (Normal) Range: 1.5-4.5 Albumin 4.6 g/dL (Normal) Range: 3.6-4.8 Protein, Total 6.9 g/dL (Normal) Range: 6.0-8.5 Calcium 9.6 mg/dL (Normal) Range: 8.7-10.3 Carbon Dioxide, Total 24 mmol/L (Normal) Range: 18-29 Chloride 101 mmol/L (Normal) Range: 96-106 Potassium 4.6 mmol/L (Normal) Range: 3.5-5.2 Sodium 144 mmol/L (Normal) Range: 134-144 BUN/Creatinine Ratio 21 (Normal) Range: 12-28 eGFR If Africn Am 91 mL/min/1.73 (Normal) eGFR If NonAfricn Am 79 mL/min/1.73 (Normal) Creatinine 0.80 mg/dL (Normal) Range: 0.57-1.00 BUN 17 mg/dL (Normal) Range: 8-27 Glucose 100 mg/dL (Abnormal) Range: 65-99 3-Ifg-808389:55 LIPID PANEL (92941) Comments: PATIENT WAS FASTINGPERFORMED BY: [facility] [id number] LDL/HDL Ratio 1.8 {ratio} (Normal) Range: 0.0-3.2 Comments: LDL/HDL Ratio Men Women 1/2 Avg.Risk 1.0 1.5 Av g.Risk 3.6 3.2 2X Avg.Risk 6.2 5.0 3X Avg.Risk 8.0 6.1 LDL Cholesterol Calc 124 mg/dL (Abnormal) Range: 0-99 VLDL Cholesterol Francisco 26 mg/dL (Normal) Range: 5-40 HDL Cholesterol 68 mg/dL (Normal) Triglycerides 130 mg/dL (Normal) Range: 0-149 Cholesterol, Total 218 mg/dL (Abnormal) Range: 100-199 7-Xfb-232859:55 CBC W/AUTO DIFF WBC (83894) Comments: PATIENT WAS FASTINGPERFORMED BY: [employer]6370 [facility].comNov[facility] [id number] Immature Grans (Abs) 0.0 {x10E3/uL} (Normal) Range: 0.0-0.1 Immature Granulocytes 0 % (Normal) Baso (Absolute) 0.1 {x10E3/uL} (Normal) Range: 0.0-0.2 Eos (Absolute) 0.2 {x10E3/uL} (Normal) Range: 0.0-0.4 Monocytes(Absolute) 0.6 {x10E3/uL} (Normal) Range: 0.1-0.9 Lymphs (Absolute) 2.7 {x10E3/uL} (Normal) Range: 0.7-3.1 Neutrophils (Absolute) 4.2 {x10E3/uL} (Normal) Range: 1.4-7.0 Basos 1 % (Normal) Eos 3 % (Normal) Monocytes 7 % (Normal) Lymphs 35 % (Normal) Neutrophils 54 % (Normal) Platelets 292 {x10E3/uL} (Normal) Range: 150-379 RDW 13.1 % (Normal) Range: 12.3-15.4 MCHC 33.6 g/dL (Normal) Range: 31.5-35.7 MCH 31.7 pg (Normal) Range: 26.6-33.0 MCV 95 fL (Normal) Range: 79-97 Hematocrit 41.4 % (Normal) Range: 34.0-46.6 Hemoglobin 13.9 g/dL (Normal) Range: 11.1-15.9 RBC 4.38 {x10E6/uL} (Normal) Range: 3.77-5.28 WBC 7.7 {x10E3/uL} (Normal) Range: 3.4-10.8 :47 HgA1C , Office (70870) HgA1C , Office 5.3 % (Normal) Range: 4.6 - 7.1 :47 Blood Glucose , Office (39241) Blood Glucose , Office 117 (Normal) :52 HgA1C , Office (57333) HgA1C , Office 5.1 % (Normal) Range: 4.6 - 7.1 :52 Blood Glucose , Office (63147) Blood Glucose , Office 110 (Normal) :26 Microscopic Examination Comments: PATIENT WAS FASTINGPERFORMED BY: [facility] Pbfxye7512 [facility] [id number] Bacteria Few (Normal) Mucus Threads Present (Normal) Epithelial Cells (non renal) 0-10 {/hpf} (Normal) Range: 0 - 10 RBC 0-2 {/hpf} (Normal) Range: 0 - 2 WBC 0-5 {/hpf} (Normal) Range: 0 - 5 :55 KAREN CULTURE-OTHER (14447) Comments: PATIENT NOT FASTINGPERFORMED BY: [facility]lesR[facility] Center Hihour3245 [facility] [id number] Information: SRC:TH Result 1 RRF (Normal) Comments: Routine respiratory gudelia Upper Respiratory Culture Final report (Normal) :14 Rapid Strep Test, Office (45356) Rapid Strep Test, Office Negative (Normal) 84-Blj-419138:26 URINALYSIS, W/ MICRO (65558) Comments: PATIENT WAS FASTINGPERFORMED BY: Cellca Uangoy0312 [facility] [id number] Microscopic Examination See below: (Normal) Comments: Microscopic was indicated and was performed. Microscopic Examination MICRON (Normal) Comments: Microscopic follows if indicated. Nitrite, Urine Negative (Normal) Urobilinogen,Semi-Qn 0.2 mg/dL (Normal) Range: 0.2-1.0 Bilirubin Negative (Normal) Occult Blood Negative (Normal) Ketones Negative (Normal) Glucose Negative (Normal) Protein Negative (Normal) WBC Esterase Negative (Normal) Appearance Clear (Normal) Urine-Color Yellow (Normal) pH 6.0 (Normal) Range: 5.0-7.5 Specific [place] 1.027 (Normal) Range: 1.005-1.030 18-Kwy-042026:26 MICROALBUMIN: CREATININE RATIO Comments: PATIENT WAS FASTINGPERFORMED BY: [facility]lesR[facility] Rehabilitation Center Berind0176 [facility] [id number] (38093) AND (50292) Microalb/Creat Ratio 6.0 {mg/g_creat} (Normal) Range: 0.0-30.0 Microalbumin, Urine 10.2 ug/mL (Normal) Creatinine, Urine 168.6 mg/dL (Normal) 39-Grn-911930:26 METABOLIC PANEL, COMPREHENSIVE Comments: PATIENT WAS FASTINGPERFORMED BY: [employer] Zpzlls6413 [facility] [id number] (32431) ALT (SGPT) 17 [iU]/L (Normal) Range: 0-32 AST (SGOT) 16 [iU]/L (Normal) Range: 0-40 Alkaline Phosphatase, S 92 [iU]/L (Normal) Range: 39-117 Bilirubin, Total 0.2 mg/dL (Normal) Range: 0.0-1.2 A/G Ratio 2.3 (Abnormal) Range: 1.2-2.2 Globulin, Total 2.1 g/dL (Normal) Range: 1.5-4.5 Albumin, Serum 4.8 g/dL (Normal) Range: 3.6-4.8 Protein, Total, Serum 6.9 g/dL (Normal) Range: 6.0-8.5 Calcium, Serum 9.5 mg/dL (Normal) Range: 8.7-10.3 Carbon Dioxide, Total 23 mmol/L (Normal) Range: 18-29 Chloride, Serum 101 mmol/L (Normal) Range: 96-106 Potassium, Serum 3.9 mmol/L (Normal) Range: 3.5-5.2 Sodium, Serum 143 mmol/L (Normal) Range: 134-144 BUN/Creatinine Ratio 33 (Abnormal) Range: 12-28 eGFR If Africn Am 92 mL/min/1.73 (Normal) eGFR If NonAfricn Am 80 mL/min/1.73 (Normal) Creatinine, Serum 0.80 mg/dL (Normal) Range: 0.57-1.00 BUN 26 mg/dL (Normal) Range: 8-27 Glucose, Serum 101 mg/dL (Abnormal) Range: 65-99 89-Tch-314162:26 CBC W/AUTO DIFF WBC (20175) Comments: PATIENT WAS FASTINGPERFORMED BY: Cell[employer] Xnnfmt7748 [facility] [id number] Immature Grans (Abs) 0.0 {x10E3/uL} (Normal) Range: 0.0-0.1 Immature Granulocytes 0 % (Normal) Baso (Absolute) 0.1 {x10E3/uL} (Normal) Range: 0.0-0.2 Eos (Absolute) 0.2 {x10E3/uL} (Normal) Range: 0.0-0.4 Monocytes(Absolute) 0.6 {x10E3/uL} (Normal) Range: 0.1-0.9 Lymphs (Absolute) 3.2 {x10E3/uL} (Abnormal) Range: 0.7-3.1 Neutrophils (Absolute) 3.8 {x10E3/uL} (Normal) Range: 1.4-7.0 Basos 1 % (Normal) Eos 2 % (Normal) Monocytes 7 % (Normal) Lymphs 41 % (Normal) Neutrophils 49 % (Normal) Platelets 322 {x10E3/uL} (Normal) Range: 150-379 RDW 13.2 % (Normal) Range: 12.3-15.4 MCHC 33.3 g/dL (Normal) Range: 31.5-35.7 MCH 30.5 pg (Normal) Range: 26.6-33.0 MCV 92 fL (Normal) Range: 79-97 Hematocrit 39.9 % (Normal) Range: 34.0-46.6 Hemoglobin 13.3 g/dL (Normal) Range: 11.1-15.9 RBC 4.36 {x10E6/uL} (Normal) Range: 3.77-5.28 WBC 7.8 {x10E3/uL} (Normal) Range: 3.4-10.8 17-Geo-579512:26 LIPID PANEL (67504) Comments: PATIENT WAS FASTINGPERFORMED BY: LabCoLyons VA Medical CenterYxpbxo6463 [facility] [id number] LDL/HDL Ratio 1.9 {ratio_units} (Normal) Range: 0.0-3.2 Comments: LDL/HDL Ratio Men Women 1/2 Avg.Risk 1.0 1.5 Av g.Risk 3.6 3.2 2X Avg.Risk 6.2 5.0 3X Avg.Risk 8.0 6.1 LDL Cholesterol Calc 118 mg/dL (Abnormal) Range: 0-99 VLDL Cholesterol Francisco 23 mg/dL (Normal) Range: 5-40 HDL Cholesterol 62 mg/dL (Normal) Triglycerides 114 mg/dL (Normal) Range: 0-149 Cholesterol, Total 203 mg/dL (Abnormal) Range: 100-199 19-Kfe-477234:26 CALCIFIDIOL (28966) VIT D 25 Comments: PATIENT WAS FASTINGPERFORMED BY: LabCoLyons VA Medical CenterZtlgnc2498 [facility] [id number] Vitamin D, 25-Hydroxy 43.2 ng/mL (Normal) Range: 30.0-100.0 Comments: Vitamin D deficiency has been defined by the Liberal ofMedicine and an Endocrine Society practice guideline as alevel of serum 25-OH vitamin D less than 20 ng/mL (1,2).The Endocrine Society went on to further define vitamin Dinsufficiency as a level between 21 and 29 ng/mL (2).1. IOM (Liberal of Medicine). 2010. Dietary reference intakes for calcium and D. [place]: The National Academies Press.2. Frandy MF, Breanna RAIN, Jo-Ann WEST, et al. Evaluation, treatment, and prevention of vitamin D deficiency: an Endocrine Society clinical practice guideline. JCEM. 2010; 96(7):1911-30. :41 HgA1C , Office (26875) HgA1C , Office 5.6 % (Normal) Range: 4.6 - 7.1 :41 Blood Glucose , Office (32363) Blood Glucose , Office 115 (Normal) :29 Rapid Flu (80299 x 2) Influenza A Ag positive B (Normal) :49 HgA1C , Office (28107) HgA1C , Office 5.5 % (Normal) Range: 4.6 - 7.1 :49 Blood Glucose , Office (10090) Blood Glucose , Office 99 (Normal) :27 Lipid Panel With LDL/HDL Comments: PATIENT WAS FASTINGPERFORMED BY: LabCoLyons VA Medical CenterRvehea3272 [facility] [id number] Ratio LDL/HDL Ratio 2.3 {ratio_units} Range: 0.0-3.2 (Normal) Comments: LDL/HDL Ratio Men Women 1/2 Avg.Risk 1.0 1.5 Av g.Risk 3.6 3.2 2X Avg.Risk 6.2 5.0 3X Avg.Risk 8.0 6.1 LDL Cholesterol Calc 159 mg/dL (Abnormal) Range: 0-99 VLDL Cholesterol Francisco 22 mg/dL (Normal) Range: 5-40 HDL Cholesterol 70 mg/dL (Normal) Triglycerides 110 mg/dL (Normal) Range: 0-149 Cholesterol, Total 251 mg/dL (Abnormal) Range: 100-199 13-May-2016 TSH 1.380 {uIU/mL} Comments: PATIENT WAS FASTINGPERFORMED BY: Cell[employer] Nkfdqm4457 [facility] [id number] 9:27 (Normal) Range: 0.450-4.500 13-May-2016 Written Authorization WAR (Normal) Comments: PATIENT WAS FASTINGPERFORMED BY: Cellca Odoijg3406 [facility] [id number] 9:27 Comments: Written Authorization Received.Authorization received from MELY ARZATE [id number] by Lakesha Morales 99-Stn-24667:23 Urinalysis, Office (56103) UA - LEUKOCYTE ESTERASE Negative (Normal) UA - NITRITE Negative (Normal) URINE UROBILINGN RAMÍREZ TIMED Normal mg/dL (Normal) UA - PROTEIN Negative mg/dL (Normal) UA - PH 6 (Abnormal) UA - BLOOD Negative (Normal) UA - SPECIFIC GRAVITY 1.020 (Normal) UA - KETONES Negative mg/dL (Normal) UA - BILIRUBIN Negative (Normal) UA - GLUCOSE Negative (Normal) :55 Microscopic Examination Comments: PATIENT WAS FASTINGPERFORMED BY: Cellca Izkzok4397 [facility] [id number] Bacteria None seen (Normal) Epithelial Cells (non renal) 0-10 {/hpf} (Normal) Range: 0 - 10 RBC None seen {/hpf} (Normal) Range: 0 - 2 WBC 0-5 {/hpf} (Normal) Range: 0 - 5 :55 URINALYSIS, W/ MICRO (52175) Comments: PATIENT WAS FASTINGPERFORMED BY: Cellca Phcbqs3991 [facility] [id number] Microscopic Examination See below: (Normal) Comments: Microscopic was indicated and was performed. Microscopic Examination MICRON (Normal) Comments: Microscopic follows if indicated. Nitrite, Urine Negative (Normal) Urobilinogen,Semi-Qn 0.2 mg/dL (Normal) Range: 0.2-1.0 Bilirubin Negative (Normal) Occult Blood Negative (Normal) Ketones Negative (Normal) Glucose Negative (Normal) Protein Negative (Normal) WBC Esterase Negative (Normal) Appearance Clear (Normal) Urine-Color Yellow (Normal) pH 6.0 (Normal) Range: 5.0-7.5 Specific [place] 1.010 (Normal) Range: 1.005-1.030 :55 MICROALBUMIN: CREATININE RATIO Comments: PATIENT WAS FASTINGPERFORMED BY: Theragene PharmaceuticalsGallup Indian Medical CenterXmtsvq8801 [facility] [id number] (58976) AND (69278) Microalb/Creat Ratio <7.3 {mg/g_creat} (Normal) Range: 0.0-30.0 Microalbumin, Urine <3.0 ug/mL (Normal) Creatinine, Urine 41.1 mg/dL (Normal) :55 METABOLIC PANEL, COMPREHENSIVE Comments: PATIENT WAS FASTINGPERFORMED BY: [employer]6370 [facility] [id number] (22477) ALT (SGPT) 14 [iU]/L (Normal) Range: 0-32 AST (SGOT) 17 [iU]/L (Normal) Range: 0-40 Alkaline Phosphatase, S 78 [iU]/L (Normal) Range: 39-117 Bilirubin, Total 0.4 mg/dL (Normal) Range: 0.0-1.2 A/G Ratio 1.8 (Normal) Range: 1.1-2.5 Globulin, Total 2.5 g/dL (Normal) Range: 1.5-4.5 Albumin, Serum 4.4 g/dL (Normal) Range: 3.6-4.8 Protein, Total, Serum 6.9 g/dL (Normal) Range: 6.0-8.5 Calcium, Serum 9.7 mg/dL (Normal) Range: 8.7-10.3 Carbon Dioxide, Total 25 mmol/L (Normal) Range: 18-29 Chloride, Serum 101 mmol/L (Normal) Range: 97-106 Potassium, Serum 4.3 mmol/L (Normal) Range: 3.5-5.2 Sodium, Serum 142 mmol/L (Normal) Range: 136-144 BUN/Creatinine Ratio 23 (Normal) Range: 11-26 eGFR If Africn Am 91 mL/min/1.73 (Normal) eGFR If NonAfricn Am 79 mL/min/1.73 (Normal) Creatinine, Serum 0.81 mg/dL (Normal) Range: 0.57-1.00 BUN 19 mg/dL (Normal) Range: 8-27 Glucose, Serum 97 mg/dL (Normal) Range: 65-99 :55 CBC W/AUTO DIFF WBC (46171) Comments: PATIENT WAS FASTINGPERFORMED BY: LabCoLyons VA Medical CenterIjzajc7504 [facility] [id number] Immature Grans (Abs) 0.0 {x10E3/uL} (Normal) Range: 0.0-0.1 Immature Granulocytes 0 % (Normal) Baso (Absolute) 0.1 {x10E3/uL} (Normal) Range: 0.0-0.2 Eos (Absolute) 0.1 {x10E3/uL} (Normal) Range: 0.0-0.4 Monocytes(Absolute) 0.5 {x10E3/uL} (Normal) Range: 0.1-0.9 Lymphs (Absolute) 2.7 {x10E3/uL} (Normal) Range: 0.7-3.1 Neutrophils (Absolute) 3.3 {x10E3/uL} (Normal) Range: 1.4-7.0 Basos 1 % (Normal) Eos 2 % (Normal) Monocytes 8 % (Normal) Lymphs 40 % (Normal) Neutrophils 49 % (Normal) Platelets 269 {x10E3/uL} (Normal) Range: 150-379 RDW 12.8 % (Normal) Range: 12.3-15.4 MCHC 34.2 g/dL (Normal) Range: 31.5-35.7 MCH 30.8 pg (Normal) Range: 26.6-33.0 MCV 90 fL (Normal) Range: 79-97 Hematocrit 39.5 % (Normal) Range: 34.0-46.6 Hemoglobin 13.5 g/dL (Normal) Range: 11.1-15.9 RBC 4.38 {x10E6/uL} (Normal) Range: 3.77-5.28 WBC 6.7 {x10E3/uL} (Normal) Range: 3.4-10.8 :55 LIPID PANEL (62909) Comments: PATIENT WAS FASTINGPERFORMED BY: CellcaLyons VA Medical CenterJchdrd3796 [facility] [id number] LDL/HDL Ratio 2.3 {ratio_units} (Normal) Range: 0.0-3.2 Comments: LDL/HDL Ratio Men Women 1/2 Avg.Risk 1.0 1.5 Av g.Risk 3.6 3.2 2X Avg.Risk 6.2 5.0 3X Avg.Risk 8.0 6.1 LDL Cholesterol Calc 149 mg/dL (Abnormal) Range: 0-99 VLDL Cholesterol Francisco 23 mg/dL (Normal) Range: 5-40 HDL Cholesterol 64 mg/dL (Normal) Comments: According to ATP-III Guidelines, HDL-C >59 mg/dL is considered anegative risk factor for CHD. Triglycerides 115 mg/dL (Normal) Range: 0-149 Cholesterol, Total 236 mg/dL (Abnormal) Range: 100-199 :55 CALCIFIDIOL (73408) VIT D 25 Comments: PATIENT WAS FASTINGPERFORMED BY: CellcaLyons VA Medical CenterQvamlo6149 [facility] [id number] Vitamin D, 25-Hydroxy 59.2 ng/mL (Normal) Range: 30.0-100.0 Comments: Vitamin D deficiency has been defined by the Liberal ofMedicine and an Endocrine Society practice guideline as alevel of serum 25-OH vitamin D less than 20 ng/mL (1,2).The Endocrine Society went on to further define vitamin Dinsufficiency as a level between 21 and 29 ng/mL (2).1. IOM (Liberal of Medicine). 2010. Dietary reference intakes for calcium and D. [place]: The National Academies Press.2. Frandy MF, Breanna [place], Jo-Ann WEST, et al. Evaluation, treatment, and prevention of vitamin D deficiency: an Endocrine Society clinical practice guideline. JCEM. 2010; 96(7):1911-30. :14 HgA1C , Office (01888) HgA1C , Office 5.7 % (Normal) Range: 4.6 - 7.1 :14 Blood Glucose , Office (60795) Blood Glucose , Office 92 (Normal) :34 HgA1C , Office (04039) HgA1C , Office 5.6 % (Normal) Range: 4.6 - 7.1 :34 Blood Glucose , Office (83137) Blood Glucose , Office 79 (Normal) :0 Gastric Biopsy See Note (Normal) Comments: [facility] [address] [place], [address] 3 Comments: Patient: MADYSON AGUILAR : 1955 (60/F) Acct Num: [id number] Phys: Wiley Rodriguez Unit Num: [id number] Loc: LABSPEC Specimen: [id number] Received: 09/04/151615 Spec Type: G astric Bx TISSUES TISSUES: COMMENT The results of IHC for Helicobacter pylori will be reported separately ([id number]). GROSS DESCRIPTION Received is one container labeled with th e patient name and designated biopsy, gastric antrum. The specimen consists of multiple irregular fragments of lighttan soft tissue that in aggregate measure 1 x 0.2 x 0.1 cm. The specimen is totall y submitted in one cassette. / SJ:juan 09/07/15 TC:3 CPT:83476 HEADER OPERATION: EGD with biopsy PRE-OP DIAGNOSIS: Abdominal pain, abnormal CT scan TISSUE SUBMITTED: Biopsy gastric antrum, rul e out gastritis MICROSCOPIC DESCRIPTION Slides are reviewed. The specimen shows fragments of gastric mucosa with chronic inflammatory cell infiltrates in the lamina propria consisting of lympho cytes and plasma cells, consistent with mild chronic gastritis. MICROSCOPIC DIAGNOSIS Gastric antrum, biopsy: Mild gastritis. SJ:juan 09/08/15 Signed Ignacio Morse 09/08/15 <signature on file> :0 IMMUNOHISTOCHEMISTRY See Note (Normal) Comments: [facility] [address] [place], [address] 0 Comments: Patient: MADYSON AGUILAR : 1955 (60/F) Acct Num: [id number] Phys: Wiley Rodriguez Unit Num: [id number] Loc: LABSPEC Specimen: [id number] Received: 09/08/151121 Spec Type: I MMUNO TISSUES TISSUES: SPECIMEN INFORMATION: Tissue Source: Biopsy gastric antrum Clinical Info: Abdominal pain, abnormal CT scan Specimen Number: [id number] CPT code: 68130 [place] THODOLOGY: Deparaffinized sections of prefer/formalin-fixed tissue or PAP/DQ stained slides are incubated with monoclonal/polyclonal antibodies/oligonucleotide probes. Localization is made via biotin free immunoperoxidase method. Appropriate controls are performed and reacted as expected. Results on target cell population are indicated in the following table: RESULTS: ANTIBODY / CLONE RESULT H Pylori (polyclonal) negative These tests were developed and their performance characteristics determined by [facility]. They may no t have been cleared or approved by the U.S. Food and Drug Administration. The FDA has determined that such clearance or approval is not necessary. INTERPRETATION: Gastric antrum, biopsy: Negativ e for H. pylori organisms. SJ:juan 09/09/15 PHYSICIAN AND INSTITUTION [address] [address] Signed ____ Ignacio Morse 09/09/15 <signature on file> 78-Sdx-530754:19 CBC W/Diff, Automated Comments: [facility] [address] [place], [place], [id number] Absolute Lymph 3.48 {X10_3/ul} (Normal) Range: 0.83-4.51 Absolute Neut 5.1 {X10_3/uL} (Normal) Range: 2.0-7.7 IM GRAN % 0.100 % (Normal) Range: 0.0-0.9 Comments: IG% - Immature Granulocytes (promyelocytes, myelocytes andmetamyelocytes) > 1% indicates that a LEFT SHIFT is Present. BASO% 0.5 % (Normal) Range: 0-1 EO% 1.9 % (Normal) Range: 0-5 MONO% 7.1 % (Normal) Range: 0-10 LY% 36.8 % (Normal) Range: 19-41 NEUT% 53.6 % (Normal) Range: 47-70 MPV 9.4 fL (Normal) Range: 6.2-12.0 PLT 274 K/mm3 (Normal) Range: 150-450 RDW SD 41.6 fL (Normal) Range: 35.1-43.9 RDW CV 12.3 % (Normal) Range: 11.6-14.6 MCHC 33.5 {g/gl} (Normal) Range: 32-36 MCH 31.1 pg (Normal) Range: 27.0-32.0 MCV 92.7 fL (Normal) Range: 81-99 HCT 40.9 % (Normal) Range: 37-47 HGB 13.7 g/dL (Normal) Range: 12.0-15.0 RBC 4.41 {M/mm3} (Normal) Range: 4.2-5.4 WBC 9.5 K/mm3 (Normal) Range: 4.4-11.0 80-Cjh-476381:19 Comprehensive Metabolic Profil Comments: [facility] [address] [place], [place], [id number] GAP 8 (Normal) Range: 5-15 CO2 28.0 mmol/L (Normal) Range: 21.0-32.0 CL 107 mmol/L (Normal) Range: 98-107 K 3.9 mmol/L (Normal) Range: 3.5-5.1 NA 143 mmol/L (Normal) Range: 136-145 T BILI 0.40 mg/dL (Normal) Range: 0.20-1.00 ALT 25 U/L (Normal) Range: 12-78 ALK P 71 U/L (Normal) Range: 50-136 AST 13 U/L (Abnormal) Range: 15-37 CA 9.0 mg/dL (Normal) Range: 8.5-10.1 A/G 1.1 {RATIO} (Normal) Range: 0.9-2.4 GLOB 3.5 g/dL (Normal) Range: 2.3-3.5 ALB 4.0 g/dL (Normal) Range: 3.4-5.0 T PROT 7.5 g/dL (Normal) Range: 6.4-8.2 BUN/CRE 27.8 {RATIO} (Abnormal) Range: 10-20 EST GFR - AA 79 mL/min (Normal) Comments: GFR Calc EST GFR 65 mL/min (Normal) Comments: Non- GFR Calc CREAT,SERUM 0.94 mg/dL (Normal) Range: 0.55-1.20 Comments: The validity of the calculated GFR AND GFRAA in patients over70 years has not been determined. Clinical correlation isessential. BUN 26 mg/dL (Abnormal) Range: 7-18 GLU 99 mg/dL (Normal) Range: 70-110 :19 Erythrocyte Sed Rate Comments: [facility] [address] [place], [place], [address] SED RATE 4 mm/h (Normal) Range: 0-30 :52 HgA1C , Office (96604) HgA1C , Office 5.5 % (Normal) Range: 4.6 - 7.1 :52 Blood Glucose , Office (84492) Blood Glucose , Office 81 (Normal) :26 Microscopic Examination Comments: PATIENT WAS FASTINGPERFORMED BY: [employer]et Hbszcn8811 [address] [facility] HospitalCrowdyHousein [place] [id number] Bacteria Few (Normal) Mucus Threads Present (Normal) Epithelial Cells (non renal) 0-10 {/hpf} (Normal) Range: 0 - 10 RBC 0-2 {/hpf} (Normal) Range: 0 - 2 WBC 0-5 {/hpf} (Normal) Range: 0 - 5 :26 CALCIFIDIOL (55007) VIT D 25 Comments: PATIENT WAS FASTINGPERFORMED BY: [employer] LabUmbel Ugbbyh7115 [address]Timesin [place] [id number] Vitamin D, 25-Hydroxy 67.6 ng/mL (Normal) Range: 30.0-100.0 Comments: Vitamin D deficiency has been defined by the Liberal ofMedicine and an Endocrine Society practice guideline as alevel of serum 25-OH vitamin D less than 20 ng/mL (1,2).The Endocrine Society went on to further define vitamin Dinsufficiency as a level between 21 and 29 ng/mL (2).1. IOM (Liberal of Medicine). 2010. Dietary reference intakes for calcium and D. [place]: The National Academies Press.2. Frandy MF, Breanna RAIN, Jo-Ann WEST, et al. Evaluation, treatment, and prevention of vitamin D deficiency: an Endocrine Society clinical practice guideline. JCEM. 2010; 96(7):1911-30. :26 TSH (78146) Comments: PATIENT WAS FASTINGPERFORMED BY: [employer]6370 [facility]ritNov[facility] [id number] TSH 1.520 {uIU/mL} (Normal) Range: 0.450-4.500 : URINALYSIS, W/ MICRO (31128) Comments: PATIENT WAS FASTINGPERFORMED BY: Hop Skip Connect70 QubritNov[facility] Health [facility] [id number] Microscopic Examination See below: (Normal) Comments: Microscopic was indicated and was performed. Microscopic Examination MICRON (Normal) Comments: Microscopic follows if indicated. Nitrite, Urine Negative (Normal) Urobilinogen,Semi-Qn 0.2 mg/dL (Normal) Range: 0.2-1.0 Bilirubin Negative (Normal) Occult Blood Negative (Normal) Ketones Negative (Normal) Glucose Negative (Normal) Protein Negative (Normal) WBC Esterase Negative (Normal) Appearance Clear (Normal) Urine-Color Yellow (Normal) pH 7.0 (Normal) Range: 5.0-7.5 Specific [place] 1.021 (Normal) Range: 1.005-1.030 :26 MICROALBUMIN: CREATININE RATIO Comments: PATIENT WAS FASTINGPERFORMED BY: [employer] [id number] [facility] [id number] ([id number]) AND ([id number]) Microalb/Creat Ratio <3.5 {mg/g_creat} (Normal) Range: 0.0-30.0 Microalbumin, Urine <3.0 ug/mL (Normal) Range: 0.0-17.0 Creatinine, Urine 84.8 mg/dL (Normal) Range: 15.0-278.0 :26 METABOLIC PANEL, COMPREHENSIVE Comments: PATIENT WAS FASTINGPERFORMED BY: [facility] [id number] [facility] [id number] ([id number]) ALT (SGPT) 12 [iU]/L (Normal) Range: 0-32 AST (SGOT) 10 [iU]/L (Normal) Range: 0-40 Alkaline Phosphatase, S 69 [iU]/L (Normal) Range: 39-117 Bilirubin, Total 0.3 mg/dL (Normal) Range: 0.0-1.2 A/G Ratio 2.0 (Normal) Range: 1.1-2.5 Globulin, Total 2.2 g/dL (Normal) Range: 1.5-4.5 Albumin, Serum 4.4 g/dL (Normal) Range: 3.6-4.8 Protein, Total, Serum 6.6 g/dL (Normal) Range: 6.0-8.5 Calcium, Serum 9.6 mg/dL (Normal) Range: 8.7-10.3 Carbon Dioxide, Total 26 mmol/L (Normal) Range: 18-29 Chloride, Serum 103 mmol/L (Normal) Range: 97-108 Potassium, Serum 5.2 mmol/L (Normal) Range: 3.5-5.2 Sodium, Serum 143 mmol/L (Normal) Range: 134-144 BUN/Creatinine Ratio 23 (Normal) Range: 11-26 eGFR If Africn Am 102 mL/min/1.73 (Normal) eGFR If NonAfricn Am 88 mL/min/1.73 (Normal) Creatinine, Serum 0.74 mg/dL (Normal) Range: 0.57-1.00 BUN 17 mg/dL (Normal) Range: 8-27 Glucose, Serum 97 mg/dL (Normal) Range: 65-99 27-May-20158:26 LIPID PANEL (40098) Comments: PATIENT WAS FASTINGPERFORMED BY: [facility]Co[facility] CenterZomorh4509 [facility] [id number] LDL/HDL Ratio 1.6 {ratio_units} (Normal) Range: 0.0-3.2 Comments: LDL/HDL Ratio Men Women 1/2 Avg.Risk 1.0 1.5 Av g.Risk 3.6 3.2 2X Avg.Risk 6.2 5.0 3X Avg.Risk 8.0 6.1 LDL Cholesterol Calc 114 mg/dL (Abnormal) Range: 0-99 VLDL Cholesterol Francisco 24 mg/dL (Normal) Range: 5-40 HDL Cholesterol 73 mg/dL (Normal) Comments: According to ATP-III Guidelines, HDL-C >59 mg/dL is considered anegative risk factor for CHD. Triglycerides 118 mg/dL (Normal) Range: 0-149 Cholesterol, Total 211 mg/dL (Abnormal) Range: 100-199 27-May-20158:26 CBC W/AUTO DIFF WBC Comments: PATIENT WAS FASTINGPERFORMED BY: [facility]CoGall[facility] CenterVyigvi5606 [facility] [id number] Information: [id number] (88412) Immature Grans (Abs) 0.0 {x10E3/uL} (Normal) Range: 0.0-0.1 Immature Granulocytes 0 % (Normal) Baso (Absolute) 0.1 {x10E3/uL} (Normal) Range: 0.0-0.2 Eos (Absolute) 0.1 {x10E3/uL} (Normal) Range: 0.0-0.4 Monocytes(Absolute) 0.5 {x10E3/uL} (Normal) Range: 0.1-0.9 Lymphs (Absolute) 2.4 {x10E3/uL} (Normal) Range: 0.7-3.1 Neutrophils (Absolute) 4.1 {x10E3/uL} (Normal) Range: 1.4-7.0 Basos 1 % (Normal) Eos 2 % (Normal) Monocytes 7 % (Normal) Lymphs 34 % (Normal) Neutrophils 56 % (Normal) Platelets 259 {x10E3/uL} (Normal) Range: 150-379 RDW 13.2 % (Normal) Range: 12.3-15.4 MCHC 33.7 g/dL (Normal) Range: 31.5-35.7 MCH 30.8 pg (Normal) Range: 26.6-33.0 MCV 91 fL (Normal) Range: 79-97 Hematocrit 40.4 % (Normal) Range: 34.0-46.6 Hemoglobin 13.6 g/dL (Normal) Range: 11.1-15.9 RBC 4.42 {x10E6/uL} (Normal) Range: 3.77-5.28 WBC 7.2 {x10E3/uL} (Normal) Range: 3.4-10.8 :27 HgA1C , Office (48349) HgA1C , Office 5.8 % (Normal) Range: 4.6 - 7.1 04-Efv-321566:27 Blood Glucose , Office (54583) Blood Glucose , Office 101 (Normal) 83-Qmb-898888:51 URINE KAREN CULTURE-IDENTIFICATN Comments: PATIENT NOT FASTINGPERFORMED BY: [facility]6370 [facility] [id number] Information: [id number] (77753) Result 1 MUG (Normal) Comments: Mixed urogenital flora1,000 Colonies/mL Urine Culture,Comprehensive Final report (Normal) :23 Urinalysis, Office (22358) UA - LEUKOCYTE ESTERASE Negative (Normal) UA - NITRITE Negative (Normal) URINE UROBILINGN RAMÍREZ TIMED Normal mg/dL (Normal) UA - PROTEIN Negative mg/dL (Normal) UA - PH 7 (Normal) UA - BLOOD Negative (Normal) UA - SPECIFIC GRAVITY 1.025 (Normal) UA - KETONES Negative mg/dL (Normal) UA - BILIRUBIN Negative (Normal) UA - GLUCOSE Negative (Normal) 85-Kiq-39455:55 PAP I-G HPV Hi Risk 16/18 Comments: CYTOLOGY INFORMATION:- CLINICAL INFORMATION:- DATE LMP/MENOPAUSE: MENOPAUSE- COLLECTION VIAL: Thin Prep Vial- MANAGER OF CARE SOURCE: CERVICAL/ENDOCERVICAL- COLLECTION TECHNIQUE: BRUSH/SPATULASpecimen Comment: CO [id number] Comment: No. of containers..01 CYTYC Thin Prep VialLabCorp (refer to report for specific site)refer to report for address and phone number HPV HIGH RISK Negative Comments: This high-risk HPV test detects thirteen high- risk types(16/18/31/33/35/39/45/51/52/56/58/59/68) withoutdifferentiation.Performed at: [facility] Lab[address] [id number] (Normal) b Director: Marito Singh MD, Phone: [phone] at: =[facility] Lab[address] [id number] Director: Loretta Singh MD, Phone: [phone] PAPR Comment Comments: The Pap smear is a screening test designed to aid in thedetection of premalignant and malignant conditions of theuterine cervix. It is not a diagnostic procedure andshould not be used as the sole means (Normal) of detecting cervicalcancer. Both false-positive and false-negative reports dooccur. COMM . (Normal) TEST METHOD Comment Comments: This liquid based ThinPrep(R) pap test was screened withthe use of an image guided system. (Normal) PERFORM Comment Comments: Roxy Livingston, Hand Bootmaker (ASCP) (Normal) ADEQ Comment Comments: Satisfactory for evaluation. Endocervical component may not bedistinguished in cases of atrophy. (Normal) DIAGN Comment Comments: NEGATIVE FOR INTRAEPITHELIAL LESION AND MALIGNANCY.CELLULAR CHANGES ASSOCIATED WITH ATROPHY ARE PRESENT. (Normal) 59-Rfl-836584:07 HgA1C , Office (00170) HgA1C , Office 5.6 % (Normal) Range: 4.6 - 7.1 15-Mhv-430785:07 Blood Glucose , Office (36459) Blood Glucose , Office 118 (Normal) 71-Pql-75281:17 CBC With Differential/Platelet Comments: PATIENT WAS FASTINGPERFORMED BY: [facility]6370 [facility] [id number] Information: [id number] Immature Grans (Abs) 0.0 {x10E3/uL} (Normal) Range: 0.0-0.1 Immature Granulocytes 0 % (Normal) Baso (Absolute) 0.1 {x10E3/uL} (Normal) Range: 0.0-0.2 Eos (Absolute) 0.1 {x10E3/uL} (Normal) Range: 0.0-0.4 Monocytes(Absolute) 0.4 {x10E3/uL} (Normal) Range: 0.1-0.9 Lymphs (Absolute) 2.5 {x10E3/uL} (Normal) Range: 0.7-3.1 Neutrophils (Absolute) 3.1 {x10E3/uL} (Normal) Range: 1.4-7.0 Basos 1 % (Normal) Eos 2 % (Normal) Monocytes 7 % (Normal) Lymphs 41 % (Normal) Neutrophils 49 % (Normal) Platelets 316 {x10E3/uL} (Normal) Range: 150-379 RDW 12.8 % (Normal) Range: 12.3-15.4 MCHC 33.3 g/dL (Normal) Range: 31.5-35.7 MCH 30.4 pg (Normal) Range: 26.6-33.0 MCV 91 fL (Normal) Range: 79-97 Hematocrit 41.2 % (Normal) Range: 34.0-46.6 Hemoglobin 13.7 g/dL (Normal) Range: 11.1-15.9 RBC 4.51 {x10E6/uL} (Normal) Range: 3.77-5.28 WBC 6.2 {x10E3/uL} (Normal) Range: 3.4-10.8 :17 Comp. Metabolic Panel (14) Comments: PATIENT WAS FASTINGPERFORMED BY: LabCoLyons [facility] Medical CenterFgsgja2298 [facility] [id number] ALT (SGPT) 15 [iU]/L (Normal) Range: 0-32 AST (SGOT) 16 [iU]/L (Normal) Range: 0-40 Alkaline Phosphatase, S 63 [iU]/L (Normal) Range: 39-117 Bilirubin, Total 0.4 mg/dL (Normal) Range: 0.0-1.2 A/G Ratio 2.1 (Normal) Range: 1.1-2.5 Globulin, Total 2.2 g/dL (Normal) Range: 1.5-4.5 Albumin, Serum 4.6 g/dL (Normal) Range: 3.5-5.5 Protein, Total, Serum 6.8 g/dL (Normal) Range: 6.0-8.5 Calcium, Serum 9.8 mg/dL (Normal) Range: 8.7-10.2 Carbon Dioxide, Total 24 mmol/L (Normal) Range: 18-29 Chloride, Serum 102 mmol/L (Normal) Range: 97-108 Potassium, Serum 4.6 mmol/L (Normal) Range: 3.5-5.2 Sodium, Serum 143 mmol/L (Normal) Range: 134-144 BUN/Creatinine Ratio 16 (Normal) Range: 9-23 eGFR If Africn Am 84 mL/min/1.73 (Normal) eGFR If NonAfricn Am 73 mL/min/1.73 (Normal) Creatinine, Serum 0.87 mg/dL (Normal) Range: 0.57-1.00 BUN 14 mg/dL (Normal) Range: 6-24 Glucose, Serum 97 mg/dL (Normal) Range: 65-99 :17 Lipid Panel With LDL/HDL Comments: PATIENT WAS FASTINGPERFORMED BY: [employer] [facility] [id number] Ratio LDL/HDL Ratio 2.4 {ratio_units} (Normal) Range: 0.0-3.2 Comments: LDL/HDL Ratio Men Women 1/2 Avg.Risk 1.0 1.5 Av g.Risk 3.6 3.2 2X Avg.Risk 6.2 5.0 3X Avg.Risk 8.0 6.1 LDL Cholesterol Calc 135 mg/dL (Abnormal) Range: 0-99 VLDL Cholesterol Francisco 31 mg/dL (Normal) Range: 5-40 HDL Cholesterol 57 mg/dL (Normal) Comments: According to ATP-III Guidelines, HDL-C >59 mg/dL is considered anegative risk factor for CHD. Triglycerides 153 mg/dL (Abnormal) Range: 0-149 Cholesterol, Total 223 mg/dL (Abnormal) Range: 100-199 :17 Microalb/Creat Ratio, Randm Ur Comments: PATIENT WAS FASTINGPERFORMED BY: [employer] [facility] [id number] Microalb/Creat Ratio <4.9 {mg/g_creat} (Normal) Range: 0.0-30.0 Microalbumin, Urine <3.0 ug/mL (Normal) Range: 0.0-17.0 Creatinine, Urine 61.5 mg/dL (Normal) Range: 15.0-278.0 :17 Microscopic Examination Comments: PATIENT WAS FASTINGPERFORMED BY: [employer]70 [facility] [id number] Bacteria None seen (Normal) Mucus Threads Present (Normal) Epithelial Cells (non 0-10 {/hpf} Range: 0 - 10 renal) (Normal) RBC None seen {/hpf} Range: 0 - 2 (Normal) WBC None seen {/hpf} Range: 0 - 5 (Normal) TSH 1.380 {uIU/mL} Comments: PATIENT WAS FASTINGPERFORMED BY: [facility]6370 [facility] [id number] :17 (Normal) Range: 0.450-4.500 :17 Urinalysis, Complete Comments: PATIENT WAS FASTINGPERFORMED BY: [facility]6370 [facility] [id number] Microscopic Examination See below: (Normal) Comments: Microscopic was indicated and was performed. Microscopic Examination MICRON (Normal) Comments: Microscopic follows if indicated. Nitrite, Urine Negative (Normal) Urobilinogen,Semi-Qn 0.2 mg/dL (Normal) Range: 0.0-1.9 Bilirubin Negative (Normal) Occult Blood Negative (Normal) Ketones Negative (Normal) Glucose Negative (Normal) Protein Negative (Normal) WBC Esterase Negative (Normal) Appearance Clear (Normal) Urine-Color Yellow (Normal) pH 7.5 (Normal) Range: 5.0-7.5 Specific [place] 1.016 (Normal) Range: 1.005-1.030 Vitamin D, 25-Hydroxy 40.2 ng/mL (Normal) Comments: PATIENT WAS FASTINGPERFORMED BY: [facility]6370 [facility] [id number] :17 Range: 30.0-100.0 Comments: Vitamin D deficiency has been defined by the Liberal ofMedicine and an Endocrine Society practice guideline as alevel of serum 25-OH vitamin D less than 20 ng/mL (1,2).The Endocrine Society went on to further define vitamin Dinsufficiency as a level between 21 and 29 ng/mL (2).1. IOM (Liberal of Medicine). 2010. Dietary reference intakes for calcium and D. [place]: The National Academies Press.2. Frandy MF, Breanna RAIN, Jo-Ann WEST, et al. Evaluation, treatment, and prevention of vitamin D deficiency: an Endocrine Society clinical practice guideline. JCEM. 2010; 96(7):1911-30. :57 HgA1C , Office (29013) HgA1C , Office 5.7 % (Normal) Range: 4.6 - 7.1 :57 Blood Glucose , Office (73022) Blood Glucose , Office 109 (Normal) 72-Qrw-803203:19 Hemoglobin Glyclated (HGB Comments: PATIENT NOT FASTINGPERFORMED BY: [employer] Trszkq3155 [facility] [id number] Information: [id number] A1C) (33251) Hemoglobin A1c 6.0 % (Abnormal) Range: 4.8-5.6 Comments: . Increased risk for diabetes: 5.7 - 6.4 Diabetes: >6.4 Glycemic control for adults with diabetes: <7.0 :46 Microscopic Examination Comments: PATIENT WAS FASTINGPERFORMED BY: [employer]70 [facility] [id number] Bacteria Few (Normal) Mucus Threads Present (Normal) Crystal Type Calcium Oxalate (Normal) Crystals Present (Abnormal) Epithelial Cells (non renal) 0-10 {/hpf} (Normal) Range: 0 - 10 RBC 0-2 {/hpf} (Normal) Range: 0 - 2 WBC 0-5 {/hpf} (Normal) Range: 0 - 5 :45 URINE KAREN CULTURE-RAMÍREZ COL Comments: PATIENT NOT FASTINGPERFORMED BY: [employer]6370 [facility] [id number] Information: SRC:[id number] COUNT (23450) Result 1 MUG (Normal) Comments: Mixed urogenital flora10,000-25,000 colony forming units per mL Urine Final report (Normal) Culture,Comprehensive :26 Urinalysis, Office (98248) UA - KETONES Small mg/dL (Normal) UA - SPECIFIC GRAVITY 1.020 (Normal) UA - BLOOD Negative (Normal) UA - PH 7.5 (Normal) UA - PROTEIN 30 mg/dL (Normal) URINE UROBILINGN RAMÍREZ TIMED 2 mg/dL (Normal) UA - NITRITE Negative (Normal) UA - LEUKOCYTE ESTERASE Negative (Normal) UA - BILIRUBIN Negative (Normal) UA - GLUCOSE Negative (Normal) :46 Vitamin D Hydroxy (90447) Comments: PATIENT WAS FASTINGPERFORMED BY: [facility] Jvwwia5801 [facility] [id number] Vitamin D, 25-Hydroxy 65.0 ng/mL (Normal) Range: 30.0-100.0 Comments: Vitamin D deficiency has been defined by the Liberal ofMedicine and an Endocrine Society practice guideline as alevel of serum 25-OH vitamin D less than 20 ng/mL (1,2).The Endocrine Society went on to further define vitamin Dinsufficiency as a level between 21 and 29 ng/mL (2).1. IOM (Liberal of Medicine). 2010. Dietary reference intakes for calcium and D. [place]: The National Academies Press.2. Frandy MF, Breanna RAIN, Jo-Ann WEST, et al. Evaluation, treatment, and prevention of vitamin D deficiency: an Endocrine Society clinical practice guideline. JCEM. 2010; 96(7):1911-30. :46 LIPID PANEL (50867) Comments: PATIENT WAS FASTINGPERFORMED BY: [facility] Ehyurj0688 [facility] [id number] LDL/HDL Ratio 1.1 {ratio_units} (Normal) Range: 0.0-3.2 Comments: LDL/HDL Ratio Men Women 1/2 Avg.Risk 1.0 1.5 Av g.Risk 3.6 3.2 2X Avg.Risk 6.2 5.0 3X Avg.Risk 8.0 6.1 LDL Cholesterol Calc 68 mg/dL (Normal) Range: 0-99 VLDL Cholesterol Francisco 29 mg/dL (Normal) Range: 5-40 HDL Cholesterol 61 mg/dL (Normal) Comments: According to ATP-III Guidelines, HDL-C >59 mg/dL is considered anegative risk factor for CHD. Triglycerides 145 mg/dL (Normal) Range: 0-149 Cholesterol, Total 158 mg/dL (Normal) Range: 100-199 :46 TSH (25799) Comments: PATIENT WAS FASTINGPERFORMED BY: [facility] Qhnuqv2056 [facility] [id number] TSH 1.650 {uIU/mL} (Normal) Range: 0.450-4.500 2-Dec-24610:46 URINALYSIS, W/ MICRO (43508) Comments: PATIENT WAS FASTINGPERFORMED BY: [employer] Xdjmwm8978 [facility] [id number] Microscopic Examination See below: (Normal) Comments: Microscopic was indicated and was performed. Microscopic Examination MICRON (Normal) Comments: Microscopic follows if indicated. Nitrite, Urine Negative (Normal) Urobilinogen,Semi-Qn 0.2 mg/dL (Normal) Range: 0.0-1.9 Bilirubin Negative (Normal) Occult Blood Negative (Normal) Ketones Trace (Abnormal) Glucose Negative (Normal) Protein Trace (Normal) WBC Esterase Negative (Normal) Appearance Clear (Normal) Urine-Color Yellow (Normal) pH 7.5 (Normal) Range: 5.0-7.5 Specific [place] 1.024 (Normal) Range: 1.005-1.030 :46 MICROALBUMIN: CREATININE RATIO Comments: PATIENT WAS FASTINGPERFORMED BY: [employer]70 [facility] [id number] (43030) AND (36763) Microalb/Creat Ratio 3.6 {mg/g_creat} (Normal) Range: 0.0-30.0 Microalbumin, Urine 10.0 ug/mL (Normal) Range: 0.0-17.0 Creatinine, Urine 279.5 mg/dL (Abnormal) Range: 15.0-278.0 :46 METABOLIC PANEL, COMPREHENSIVE Comments: PATIENT WAS FASTINGPERFORMED BY: [employer]70 [facility] [id number] (66881) ALT (SGPT) 20 [iU]/L (Normal) Range: 0-32 AST (SGOT) 31 [iU]/L (Normal) Range: 0-40 Alkaline Phosphatase, S 58 [iU]/L (Normal) Range: 39-117 Bilirubin, Total 0.4 mg/dL (Normal) Range: 0.0-1.2 A/G Ratio 2.0 (Normal) Range: 1.1-2.5 Globulin, Total 2.3 g/dL (Normal) Range: 1.5-4.5 Albumin, Serum 4.6 g/dL (Normal) Range: 3.5-5.5 Protein, Total, Serum 6.9 g/dL (Normal) Range: 6.0-8.5 Calcium, Serum 9.9 mg/dL (Normal) Range: 8.7-10.2 Carbon Dioxide, Total 26 mmol/L (Normal) Range: 18-29 Chloride, Serum 101 mmol/L (Normal) Range: 97-108 Potassium, Serum 4.1 mmol/L (Normal) Range: 3.5-5.2 Sodium, Serum 143 mmol/L (Normal) Range: 134-144 BUN/Creatinine Ratio 22 (Normal) Range: 9-23 eGFR If Africn Am 97 mL/min/1.73 (Normal) eGFR If NonAfricn Am 84 mL/min/1.73 (Normal) Creatinine, Serum 0.78 mg/dL (Normal) Range: 0.57-1.00 BUN 17 mg/dL (Normal) Range: 6-24 Glucose, Serum 98 mg/dL (Normal) Range: 65-99 18-Feb-20149:46 CBC W/AUTO DIFF WBC Comments: PATIENT WAS FASTINGPERFORMED BY: [facility]CoLy[facility] CenterDkiwhy6005 [facility] [id number] Information: [id number] (61109) Immature Grans (Abs) 0.0 {x10E3/uL} (Normal) Range: 0.0-0.1 Immature Granulocytes 0 % (Normal) Baso (Absolute) 0.0 {x10E3/uL} (Normal) Range: 0.0-0.2 Eos (Absolute) 0.1 {x10E3/uL} (Normal) Range: 0.0-0.4 Monocytes(Absolute) 0.3 {x10E3/uL} (Normal) Range: 0.1-0.9 Lymphs (Absolute) 2.3 {x10E3/uL} (Normal) Range: 0.7-3.1 Neutrophils (Absolute) 3.5 {x10E3/uL} (Normal) Range: 1.4-7.0 Basos 1 % (Normal) Eos 2 % (Normal) Monocytes 6 % (Normal) Lymphs 36 % (Normal) Neutrophils 55 % (Normal) Platelets 293 {x10E3/uL} (Normal) Range: 150-379 RDW 13.0 % (Normal) Range: 12.3-15.4 MCHC 34.3 g/dL (Normal) Range: 31.5-35.7 MCH 30.5 pg (Normal) Range: 26.6-33.0 MCV 89 fL (Normal) Range: 79-97 Hematocrit 40.2 % (Normal) Range: 34.0-46.6 Hemoglobin 13.8 g/dL (Normal) Range: 11.1-15.9 RBC 4.52 {x10E6/uL} (Normal) Range: 3.77-5.28 WBC 6.2 {x10E3/uL} (Normal) Range: 3.4-10.8 :46 HgA1C , Office (39558) HgA1C , Office 6.1 % (Normal) Range: 4.6 - 7.1 :46 Blood Glucose , Office (62108) Blood Glucose , Office 126 (Normal) 05-Lyi-394291:50 HgA1C , Office (62719) HgA1C , Office 5.9 % (Normal) Range: 4.6 - 7.1 25-Zuh-468657:50 Blood Glucose , Office (99426) Blood Glucose , Office 111 (Normal) 21-Hio-114820:59 MUMPS ANTIBODY, IgG [id number] Comments: PATIENT NOT FASTINGPERFORMED BY: [facility]CoLy[facility] Medical CenterDjckav7907 [facility] [id number] Information: [id number] (60432) Mumps Abs, IgG <9.0 AU/mL (Normal) Range: 0.0-8.9 Comments: Negative <9.0 Equivocal 9.0 - 10.9 Positive >10.9 A positive result genera lly indicates past exposure to Mumps virus or previous vaccination. 60-Hhd-640732:21 Urinalysis, Office (55512) UA - LEUKOCYTE ESTERASE Large (Normal) UA - NITRITE Positive (Normal) URINE UROBILINGN RAMÍREZ TIMED Normal mg/dL (Normal) UA - PROTEIN 100 mg/dL (Normal) UA - PH 5 (Abnormal) UA - BLOOD Negative (Normal) UA - SPECIFIC GRAVITY 1.025 (Normal) UA - KETONES Small mg/dL (Normal) UA - BILIRUBIN Negative (Normal) UA - GLUCOSE 100 (Abnormal) 69-Ony-131689:14 Vitamin D Hydroxy (80086) Comments: PATIENT WAS FASTINGPERFORMED BY: [employer] Ovrujf8477 [facility] [id number] Vitamin D, 25-Hydroxy 66.5 ng/mL (Normal) Range: 30.0-100.0 Comments: Vitamin D deficiency has been defined by the Liberal ofMet[facility] Medical Centercine and an Endocrine Society practice guideline as alevel of serum 25-OH vitamin D less than 20 ng/mL (1,2).The Endocrine Society went on to further define vitamin Dinsufficiency as a level between 21 and 29 ng/mL (2).1. IOM (Liberal of Medicine). 2010. Dietary reference intakes for calcium and D. [place]: The National Academies Press.2. Frandy MF, Breanna RAIN, Jo-Ann WEST, et al. Evaluation, treatment, and prevention of vitamin D deficiency: an Endocrine Society clinical practice guideline. JCEM. 2010; 96(7):1911-30. 34-Bxv-172355:14 LIPID PANEL (36585) Comments: PATIENT WAS FASTINGPERFORMED BY: [employer]6370 [facility] [id number] Information: [id number] LDL Cholesterol Calc 72 mg/dL (Normal) Range: 0-99 LDL/HDL Ratio 1.4 {ratio_units} (Normal) Range: 0.0-3.2 VLDL Cholesterol Francisco 46 mg/dL (Abnormal) Range: 5-40 HDL Cholesterol 51 mg/dL (Normal) Comments: According to ATP-III Guidelines, HDL-C >59 mg/dL is considered anegative risk factor for CHD. Triglycerides 229 mg/dL (Abnormal) Range: 0-149 Cholesterol, Total 169 mg/dL (Normal) Range: 100-199 00-Kka-713894:14 HEPATIC FUNCTION PANEL Comments: PATIENT WAS FASTINGPERFORMED BY: [employer] Tpznjd5317 [facility] [id number] (80423) ALT (SGPT) 14 [iU]/L (Normal) Range: 0-32 AST (SGOT) 14 [iU]/L (Normal) Range: 0-40 Alkaline Phosphatase, S 78 [iU]/L (Normal) Range: 39-117 Bilirubin, Direct 0.13 mg/dL (Normal) Range: 0.00-0.40 Bilirubin, Total 0.3 mg/dL (Normal) Range: 0.0-1.2 Albumin, Serum 4.6 g/dL (Normal) Range: 3.5-5.5 Protein, Total, Serum 6.8 g/dL (Normal) Range: 6.0-8.5 :19 HgA1C , Office (72759) HgA1C , Office 5.8 % (Normal) Range: 4.6 - 7.1 :19 Blood Glucose , Office (32035) Blood Glucose , Office 106 (Normal) :26 Microscopic Examination Comments: PATIENT WAS FASTINGPERFORMED BY: [employer]70 [facility] [id number] Bacteria Few (Normal) Mucus Threads Present (Normal) Crystal Type Calcium Oxalate (Normal) Crystals Present (Abnormal) Epithelial Cells (non renal) 0-10 {/hpf} (Normal) Range: 0 - 10 RBC 0-3 {/hpf} (Normal) Range: 0 - 3 WBC 0-5 {/hpf} (Normal) Range: 0 - 5 :26 TSH (28929) Comments: PATIENT WAS FASTINGPERFORMED BY: [employer]6370 [facility] [id number] TSH 1.270 {uIU/mL} (Normal) Range: 0.450-4.500 :26 URINALYSIS, W/ MICRO (98098) Comments: PATIENT WAS FASTINGPERFORMED BY: [employer]6370 [facility] [id number] Microscopic Examination See below: (Normal) Microscopic Examination MICRON (Normal) Comments: Microscopic follows if indicated. Nitrite, Urine Negative (Normal) Urobilinogen,Semi-Qn 0.2 mg/dL (Normal) Range: 0.0-1.9 Bilirubin Negative (Normal) Occult Blood Negative (Normal) Ketones Negative (Normal) Glucose Negative (Normal) Protein Negative (Normal) WBC Esterase Negative (Normal) Appearance Clear (Normal) Urine-Color Yellow (Normal) pH 6.0 (Normal) Range: 5.0-7.5 Specific [place] 1.024 (Normal) Range: 1.005-1.030 :26 MICROALBUMIN: CREATININE RATIO Comments: PATIENT WAS FASTINGPERFORMED BY: [employer]6370 [facility] [id number] (01157) AND (36609) Microalb/Creat Ratio 3.2 {mg/g_creat} (Normal) Range: 0.0-30.0 Microalbumin, Urine 4.4 ug/mL (Normal) Range: 0.0-17.0 Creatinine, Urine 136.0 mg/dL (Normal) Range: 15.0-278.0 :26 METABOLIC PANEL, COMPREHENSIVE Comments: PATIENT WAS FASTINGPERFORMED BY: [employer]6370 [facility] [id number] (51673) ALT (SGPT) 15 [iU]/L (Normal) Range: 0-32 AST (SGOT) 16 [iU]/L (Normal) Range: 0-40 Alkaline Phosphatase, S 84 [iU]/L (Normal) Range: 39-117 Bilirubin, Total 0.3 mg/dL (Normal) Range: 0.0-1.2 A/G Ratio 1.7 (Normal) Range: 1.1-2.5 Globulin, Total 2.5 g/dL (Normal) Range: 1.5-4.5 Albumin, Serum 4.3 g/dL (Normal) Range: 3.5-5.5 Protein, Total, Serum 6.8 g/dL (Normal) Range: 6.0-8.5 Calcium, Serum 9.9 mg/dL (Normal) Range: 8.7-10.2 Carbon Dioxide, Total 24 mmol/L (Normal) Range: 19-28 Chloride, Serum 103 mmol/L (Normal) Range: 97-108 Potassium, Serum 4.4 mmol/L (Normal) Range: 3.5-5.2 Sodium, Serum 141 mmol/L (Normal) Range: 134-144 BUN/Creatinine Ratio 29 (Abnormal) Range: 9-23 eGFR If Africn Am 98 mL/min/1.73 (Normal) eGFR If NonAfricn Am 85 mL/min/1.73 (Normal) Creatinine, Serum 0.78 mg/dL (Normal) Range: 0.57-1.00 BUN 23 mg/dL (Normal) Range: 6-24 Glucose, Serum 102 mg/dL (Abnormal) Range: 65-99 :26 LIPID PANEL (86323) Comments: PATIENT WAS FASTINGPERFORMED BY: [employer] Qrdxfj9449 [facility] [id number] LDL/HDL Ratio 2.3 {ratio_units} (Normal) Range: 0.0-3.2 LDL Cholesterol Calc 145 mg/dL (Abnormal) Range: 0-99 HDL Cholesterol 64 mg/dL (Normal) Comments: According to ATP-III Guidelines, HDL-C >59 mg/dL is considered anegative risk factor for CHD. VLDL Cholesterol Francisco 24 mg/dL (Normal) Range: 5-40 Triglycerides 118 mg/dL (Normal) Range: 0-149 Cholesterol, Total 233 mg/dL (Abnormal) Range: 100-199 :26 CBC WITH MANUAL DIFF Comments: PATIENT WAS FASTINGPERFORMED BY: [id number] [id number] Information: [id number] ([id number]) Immature Grans (Abs) 0.0 {x10E3/uL} (Normal) Range: 0.0-0.1 Immature Granulocytes 0 % (Normal) Range: 0-2 Baso (Absolute) 0.1 {x10E3/uL} (Normal) Range: 0.0-0.2 Eos (Absolute) 0.1 {x10E3/uL} (Normal) Range: 0.0-0.4 Monocytes(Absolute) 0.5 {x10E3/uL} (Normal) Range: 0.1-0.9 Lymphs (Absolute) 2.3 {x10E3/uL} (Normal) Range: 0.7-3.1 Neutrophils (Absolute) 4.1 {x10E3/uL} (Normal) Range: 1.4-7.0 Basos 1 % (Normal) Range: 0-3 Eos 2 % (Normal) Range: 0-5 Monocytes 7 % (Normal) Range: 4-12 Lymphs 33 % (Normal) Range: 14-46 Neutrophils 57 % (Normal) Range: 40-74 Platelets 270 {x10E3/uL} (Normal) Range: 155-379 RDW 13.2 % (Normal) Range: 12.3-15.4 MCHC 34.3 g/dL (Normal) Range: 31.5-35.7 MCH 30.7 pg (Normal) Range: 26.6-33.0 MCV 90 fL (Normal) Range: 79-97 Hematocrit 39.4 % (Normal) Range: 34.0-46.6 Hemoglobin 13.5 g/dL (Normal) Range: 11.1-15.9 RBC 4.40 {x10E6/uL} (Normal) Range: 3.77-5.28 WBC 7.1 {x10E3/uL} (Normal) Range: 3.4-10.8 :26 Vitamin D Hydroxy (88494) Comments: PATIENT WAS FASTINGPERFORMED BY: [facility] [id number] Vitamin D, 25-Hydroxy 87.9 ng/mL (Normal) Range: 30.0-100.0 Comments: Vitamin D deficiency has been defined by the Liberal of[facility] Medical Centercine and an Endocrine Society practice guideline as alevel of serum 25-OH vitamin D less than 20 ng/mL (1,2).The Endocrine Society went on to further define vitamin Dinsufficiency as a level between 21 and 29 ng/mL (2).1. IOM (Liberal of Medicine). 2010. Dietary reference intakes for calcium and D. [place]: The National Academies Press.2. Frandy MF, Breanna [place], Jo-Ann WEST, et al. Evaluation, treatment, and prevention of vitamin D deficiency: an Endocrine Society clinical practice guideline. JCEM. 2010; 96(7):1911-30. :05 HgA1C , Office (11864) HgA1C , Office 5.8 % (Normal) Range: 4.6 - 7.1 :05 Blood Glucose , Office (53956) Blood Glucose , Office 94 (Normal) :03 Vitamin D Hydroxy (35332) Comments: PATIENT WAS FASTINGPERFORMED BY: Cell[employer] Yauyww4812 [facility] [id number] Vitamin D, 25-Hydroxy 38.6 ng/mL (Normal) Range: 30.0-100.0 Comments: Vitamin D deficiency has been defined by the Liberal ofMedicine and an Endocrine Society practice guideline as alevel of serum 25-OH vitamin D less than 20 ng/mL (1,2).The Endocrine Society went on to further define vitamin Dinsufficiency as a level between 21 and 29 ng/mL (2).1. IOM (Liberal of Medicine). 2010. Dietary reference intakes for calcium and D. [place]: The National Academies Press.2. Frandy MF, Breanna RAIN, Jo-Ann WEST, et al. Evaluation, treatment, and prevention of vitamin D deficiency: an Endocrine Society clinical practice guideline. JCEM. 2010; 96(7):1911-30. :03 TSH (84462) Comments: PATIENT WAS FASTINGPERFORMED BY: [employer]6370 [place] [id number] TSH 1.280 {uIU/mL} (Normal) Range: 0.450-4.500 :03 URINALYSIS, W/ MICRO (60319) Comments: PATIENT WAS FASTINGPERFORMED BY: [employer] [employer] [place] [id number] Microscopic Examination See below: (Normal) Microscopic Examination MICRON (Normal) Comments: Microscopic follows if indicated. Nitrite, Urine Negative (Normal) Urobilinogen,Semi-Qn 0.2 mg/dL (Normal) Range: 0.0-1.9 Bilirubin Negative (Normal) Occult Blood Negative (Normal) Ketones Negative (Normal) Glucose Negative (Normal) Protein Negative (Normal) WBC Esterase Negative (Normal) Appearance Clear (Normal) Urine-Color Yellow (Normal) pH 7.0 (Normal) Range: 5.0-7.5 Specific [place] 1.022 (Normal) Range: 1.005-1.030 :03 MICROALBUMIN: CREATININE RATIO Comments: PATIENT WAS FASTINGPERFORMED BY: [employer] [facility] Odzteu9452 [address] [id number] ([id number]) AND (35690) Microalb/Creat Ratio 2.4 {mg/g_creat} (Normal) Range: 0.0-30.0 Microalbumin, Urine 3.1 ug/mL (Normal) Range: 0.0-17.0 Creatinine, Urine 131.3 mg/dL (Normal) Range: 15.0-278.0 :03 METABOLIC PANEL, COMPREHENSIVE Comments: PATIENT WAS FASTINGPERFORMED BY: [employer] [place] [employer]70 [facility] [id number] (58540) ALT (SGPT) 25 [iU]/L (Normal) Range: 0-32 AST (SGOT) 21 [iU]/L (Normal) Range: 0-40 Alkaline Phosphatase, S 78 [iU]/L (Normal) Range: 25-150 Bilirubin, Total 0.2 mg/dL (Normal) Range: 0.0-1.2 A/G Ratio 1.9 (Normal) Range: 1.1-2.5 Globulin, Total 2.4 g/dL (Normal) Range: 1.5-4.5 Albumin, Serum 4.6 g/dL (Normal) Range: 3.5-5.5 Protein, Total, Serum 7.0 g/dL (Normal) Range: 6.0-8.5 Calcium, Serum 9.7 mg/dL (Normal) Range: 8.7-10.2 Carbon Dioxide, Total 23 mmol/L (Normal) Range: 20-32 Chloride, Serum 100 mmol/L (Normal) Range: 97-108 Potassium, Serum 4.5 mmol/L (Normal) Range: 3.5-5.2 Sodium, Serum 139 mmol/L (Normal) Range: 134-144 BUN/Creatinine Ratio 33 (Abnormal) Range: 9-23 eGFR If Africn Am 95 mL/min/1.73 (Normal) eGFR If NonAfricn Am 82 mL/min/1.73 (Normal) Creatinine, Serum 0.80 mg/dL (Normal) Range: 0.57-1.00 BUN 26 mg/dL (Abnormal) Range: 6-24 Glucose, Serum 93 mg/dL (Normal) Range: 65-99 :03 LIPID PANEL (88667) Comments: PATIENT WAS FASTINGPERFORMED BY: [employer]70 [facility] [id number] LDL/HDL Ratio 1.4 {ratio_units} (Normal) Range: 0.0-3.2 LDL Cholesterol Calc 94 mg/dL (Normal) Range: 0-99 VLDL Cholesterol Francisco 30 mg/dL (Normal) Range: 5-40 HDL Cholesterol 66 mg/dL (Normal) Comments: According to ATP-III Guidelines, HDL-C >59 mg/dL is considered anegative risk factor for CHD. Triglycerides 149 mg/dL (Normal) Range: 0-149 Cholesterol, Total 190 mg/dL (Normal) Range: 100-199 3-Gnz-489995:03 CBC WITH MANUAL DIFF Comments: PATIENT WAS FASTINGPERFORMED BY: [facility] Yzjckb7901 [facility] [id number] Information: [id number] (65165) Immature Grans (Abs) 0.0 {x10E3/uL} (Normal) Range: 0.0-0.1 Immature Granulocytes 0 % (Normal) Range: 0-2 Baso (Absolute) 0.1 {x10E3/uL} (Normal) Range: 0.0-0.2 Eos (Absolute) 0.2 {x10E3/uL} (Normal) Range: 0.0-0.4 Monocytes(Absolute) 0.6 {x10E3/uL} (Normal) Range: 0.1-1.0 Lymphs (Absolute) 3.0 {x10E3/uL} (Normal) Range: 0.7-4.5 Neutrophils (Absolute) 4.3 {x10E3/uL} (Normal) Range: 1.8-7.8 Basos 1 % (Normal) Range: 0-3 Eos 2 % (Normal) Range: 0-7 Monocytes 7 % (Normal) Range: 4-13 Lymphs 38 % (Normal) Range: 14-46 Neutrophils 52 % (Normal) Range: 40-74 Platelets 291 {x10E3/uL} (Normal) Range: 140-415 RDW 13.0 % (Normal) Range: 12.3-15.4 MCHC 34.5 g/dL (Normal) Range: 31.5-35.7 MCH 30.4 pg (Normal) Range: 26.6-33.0 MCV 88 fL (Normal) Range: 79-97 Hematocrit 40.3 % (Normal) Range: 34.0-46.6 Hemoglobin 13.9 g/dL (Normal) Range: 11.1-15.9 RBC 4.57 {x10E6/uL} (Normal) Range: 3.77-5.28 WBC 8.1 {x10E3/uL} (Normal) Range: 4.0-10.5 :14 Blood Glucose , Office (39503) Blood Glucose , Office 106 (Normal) :12 HgA1C , Office (96037) HgA1C , Office 5.7 % (Normal) Range: 4.6 - 7.1 :03 Microscopic Examination Comments: PATIENT WAS FASTINGPERFORMED BY: [facility] Ozphar[address] [facility] Center[facility] [place] [id number] Bacteria Few (Normal) Mucus Threads Present (Normal) Epithelial Cells (non renal) 0-10 {/hpf} (Normal) Range: 0 - 10 RBC 0-3 {/hpf} (Normal) Range: 0 - 3 WBC 0-5 {/hpf} (Normal) Range: 0 - 5 :50 Blood Glucose , Office (01764) Blood Glucose , Office 128 (Normal) :49 HgA1C , Office (64504) HgA1C , Office 6.1 % (Normal) Range: 4.6 - 7.1 :24 Vitamin D Hydroxy (18508) Comments: PATIENT WAS FASTINGPERFORMED BY: [facility] Keehpn1419 [facility] [id number] Vitamin D, 25-Hydroxy 29.7 ng/mL (Abnormal) Range: 30.0-100.0 Comments: Vitamin D deficiency has been defined by the Liberal ofMedicine and an Endocrine Society practice guideline as alevel of serum 25-OH vitamin D less than 20 ng/mL (1,2).The Endocrine Society went on to further define vitamin Dinsufficiency as a level between 21 and 29 ng/mL (2).1. IOM (Liberal of Medicine). 2010. Dietary reference intakes for calcium and D. [place]: The National Academies Press.2. Frandy MF, Breanna [place], Jo-Ann WEST, et al. Evaluation, treatment, and prevention of vitamin D deficiency: an Endocrine Society clinical practice guideline. JCEM. 2010; 96(7):1911-30. :24 URINALYSIS, W/ MICRO (66775) Comments: PATIENT WAS FASTINGPERFORMED BY: CellcaGallup Indian Medical CenterOyohob2530 [facility] [id number] Microscopic Examination See below: (Normal) Nitrite, Urine Negative (Normal) Urobilinogen,Semi-Qn 0.2 mg/dL (Normal) Range: 0.0-1.9 Bilirubin Negative (Normal) Occult Blood Negative (Normal) Ketones Negative (Normal) Glucose Negative (Normal) Protein Negative (Normal) WBC Esterase 1+ (Abnormal) Appearance Clear (Normal) Urine-Color Yellow (Normal) pH 6.0 (Normal) Range: 5.0-7.5 Specific [place] 1.026 (Normal) Range: 1.005-1.030 :24 MICROALBUMIN: CREATININE RATIO Comments: PATIENT WAS FASTINGPERFORMED BY: [employer] Umrmct9877 [facility] [id number] ([id number]) AND (36282) Microalb/Creat Ratio 3.4 {mg/g_creat} (Normal) Range: 0.0-30.0 Microalbumin, Urine 9.9 ug/mL (Normal) Range: 0.0-17.0 Creatinine, Urine 290.0 mg/dL (Abnormal) Range: 15.0-278.0 :24 METABOLIC PANEL, COMPREHENSIVE Comments: PATIENT WAS FASTINGPERFORMED BY: CellcaLyons VA Medical CenterKxyyxl4964 [facility] [id number] (52615) ALT (SGPT) 20 [iU]/L (Normal) Range: 0-32 AST (SGOT) 18 [iU]/L (Normal) Range: 0-40 Alkaline Phosphatase, S 71 [iU]/L (Normal) Range: 25-150 Bilirubin, Total 0.3 mg/dL (Normal) Range: 0.0-1.2 A/G Ratio 1.9 (Normal) Range: 1.1-2.5 Globulin, Total 2.4 g/dL (Normal) Range: 1.5-4.5 Albumin, Serum 4.6 g/dL (Normal) Range: 3.5-5.5 Protein, Total, Serum 7.0 g/dL (Normal) Range: 6.0-8.5 Calcium, Serum 9.8 mg/dL (Normal) Range: 8.7-10.2 Carbon Dioxide, Total 25 mmol/L (Normal) Range: 20-32 Chloride, Serum 101 mmol/L (Normal) Range: 97-108 Potassium, Serum 4.2 mmol/L (Normal) Range: 3.5-5.2 Sodium, Serum 141 mmol/L (Normal) Range: 134-144 BUN/Creatinine Ratio 19 (Normal) Range: 9-23 eGFR If Africn Am 82 mL/min/1.73 (Normal) eGFR If NonAfricn Am 71 mL/min/1.73 (Normal) Creatinine, Serum 0.91 mg/dL (Normal) Range: 0.57-1.00 BUN 17 mg/dL (Normal) Range: 6-24 Glucose, Serum 97 mg/dL (Normal) Range: 65-99 :24 LIPID PANEL (92552) Comments: PATIENT WAS FASTINGPERFORMED BY: [employer]6370 [facility] [id number] LDL/HDL Ratio 1.0 {ratio_units} (Normal) Range: 0.0-3.2 LDL Cholesterol Calc 66 mg/dL (Normal) Range: 0-99 VLDL Cholesterol Francisco 23 mg/dL (Normal) Range: 5-40 HDL Cholesterol 68 mg/dL (Normal) Comments: According to ATP-III Guidelines, HDL-C >59 mg/dL is considered anegative risk factor for CHD. Triglycerides 117 mg/dL (Normal) Range: 0-149 Cholesterol, Total 157 mg/dL (Normal) Range: 100-199 :24 CBC WITH MANUAL DIFF Comments: PATIENT WAS FASTINGPERFORMED BY: Theragene PharmaceuticalsLyons VA Medical CenterZwgqvx5546 [facility] [id number] Information: [id number] (07358) Immature Grans (Abs) 0.0 {x10E3/uL} (Normal) Range: 0.0-0.1 Immature Granulocytes 0 % (Normal) Range: 0-2 Baso (Absolute) 0.0 {x10E3/uL} (Normal) Range: 0.0-0.2 Eos (Absolute) 0.2 {x10E3/uL} (Normal) Range: 0.0-0.4 Monocytes(Absolute) 0.5 {x10E3/uL} (Normal) Range: 0.1-1.0 Lymphs (Absolute) 2.3 {x10E3/uL} (Normal) Range: 0.7-4.5 Neutrophils (Absolute) 3.7 {x10E3/uL} (Normal) Range: 1.8-7.8 Basos 1 % (Normal) Range: 0-3 Eos 3 % (Normal) Range: 0-7 Monocytes 7 % (Normal) Range: 4-13 Lymphs 34 % (Normal) Range: 14-46 Neutrophils 55 % (Normal) Range: 40-74 Platelets 283 {x10E3/uL} (Normal) Range: 140-415 RDW 13.2 % (Normal) Range: 12.3-15.4 MCHC 33.7 g/dL (Normal) Range: 31.5-35.7 MCH 30.5 pg (Normal) Range: 26.6-33.0 MCV 91 fL (Normal) Range: 79-97 Hematocrit 41.6 % (Normal) Range: 34.0-46.6 Hemoglobin 14.0 g/dL (Normal) Range: 11.1-15.9 RBC 4.59 {x10E6/uL} (Normal) Range: 3.77-5.28 WBC 6.7 {x10E3/uL} (Normal) Range: 4.0-10.5 :24 TSH (05644) Comments: PATIENT WAS FASTINGPERFORMED BY: [employer] Uczjzg1173 [facility] [id number] TSH 1.410 {uIU/mL} (Normal) Range: 0.450-4.500 65-Tlg-99507:24 Microscopic Examination Comments: PATIENT WAS FASTINGPERFORMED BY: [employer] [facility] [id number] Bacteria Few (Normal) Mucus Threads Present (Normal) Crystal Type Calcium Oxalate (Normal) Crystals Present (Abnormal) Epithelial Cells (non renal) 0-10 {/hpf} (Normal) Range: 0 - 10 RBC 0-3 {/hpf} (Normal) Range: 0 - 3 WBC 6-10 {/hpf} (Abnormal) Range: 0 - 5 :11 Metabolic Panel, Basic Comments: PATIENT NOT FASTINGPERFORMED BY: [employer] Fhgtjz7424 [facility] [id number] Information: [id number] (69435) Calcium, Serum 10.0 mg/dL (Normal) Range: 8.7-10.2 Carbon Dioxide, Total 23 mmol/L (Normal) Range: 20-32 Chloride, Serum 102 mmol/L (Normal) Range: 97-108 Potassium, Serum 4.1 mmol/L (Normal) Range: 3.5-5.2 Sodium, Serum 141 mmol/L (Normal) Range: 134-144 BUN/Creatinine Ratio 25 (Abnormal) Range: 9-23 eGFR If Africn Am 90 mL/min/1.73 (Normal) eGFR If NonAfricn Am 78 mL/min/1.73 (Normal) Creatinine, Serum 0.84 mg/dL (Normal) Range: 0.57-1.00 BUN 21 mg/dL (Normal) Range: 6-24 Glucose, Serum 105 mg/dL (Abnormal) Range: 65-99 55-Yiy-42508:11 TSH (34522) Comments: PATIENT NOT FASTINGPERFORMED BY: [employer] Qyzohe7850 [facility] [id number] TSH 1.590 {uIU/mL} (Normal) Range: 0.450-4.500 :08 HgA1C , Office (68753) HgA1C , Office 6.0 % (Normal) Range: 4.6 - 7.1 0-Rtt-813233:08 Blood Glucose , Office (55647) Blood Glucose , Office 101 (Normal) 20-Oct-20118:23 KAREN CULTURE-OTHER (97526) Comments: PATIENT NOT FASTINGPERFORMED BY: [employer] Rjkmwd5428 [facility] [id number] Information: SRC:ADRIANA [id number] Result 1 RRF (Normal) Comments: Routine respiratory gudelia Upper Respiratory Culture Final report (Normal) 02-Ukb-738378:30 HgA1C , Office (76601) HgA1C , Office 5.9 % (Normal) Range: 4.6 - 7.1 12-Elu-647299:30 Blood Glucose , Office (36776) Blood Glucose , Office 107 (Normal) :38 Microscopic Examination Comments: PATIENT WAS FASTINGPERFORMED BY: [employer] Uhialq4451 [facility] [id number] Bacteria Few (Normal) Mucus Threads Present (Normal) Epithelial Cells (non renal) 0-10 {/hpf} (Normal) Range: 0 - 10 RBC 0-3 {/hpf} (Normal) Range: 0 - 3 WBC 0-5 {/hpf} (Normal) Range: 0 - 5 :38 TSH (38665) Comments: PATIENT WAS FASTINGPERFORMED BY: [employer] Pyiipu0414 [facility] [id number] TSH 1.370 {uIU/mL} (Normal) Range: 0.450-4.500 :38 URINALYSIS, W/ MICRO (78950) Comments: PATIENT WAS FASTINGPERFORMED BY: [employer] Snrium0968 [facility] [id number] Microscopic Examination See below: (Normal) Microscopic Examination MICRON (Normal) Comments: Microscopic follows if indicated. Nitrite, Urine Negative (Normal) Urobilinogen,Semi-Qn 0.2 mg/dL (Normal) Range: 0.0-1.9 Bilirubin Negative (Normal) Occult Blood Negative (Normal) Ketones Negative (Normal) Glucose Negative (Normal) Protein Negative (Normal) WBC Esterase Negative (Normal) Appearance Clear (Normal) Urine-Color Yellow (Normal) pH 7.0 (Normal) Range: 5.0-7.5 Specific [place] 1.021 (Normal) Range: 1.005-1.030 :38 MICROALBUMIN: CREATININE RATIO Comments: PATIENT WAS FASTINGPERFORMED BY: [employer] [facility] [id number] ([id number]) AND (64836) Microalb/Creat Ratio 5.0 {mg/g_creat} (Normal) Range: 0.0-30.0 Microalbumin, Urine 8.0 ug/mL (Normal) Range: 0.0-17.0 Creatinine, Urine 159.6 mg/dL (Normal) Range: 15.0-278.0 :38 METABOLIC PANEL, COMPREHENSIVE Comments: PATIENT WAS FASTINGPERFORMED BY: LabCoLyons VA Medical CenterWfkdnv0683 [facility]Nov[facility] [id number] (38685) ALT (SGPT) 22 [iU]/L (Normal) Range: 0-40 AST (SGOT) 22 [iU]/L (Normal) Range: 0-40 Alkaline Phosphatase, S 65 [iU]/L (Normal) Range: 25-150 Bilirubin, Total 0.5 mg/dL (Normal) Range: 0.0-1.2 A/G Ratio 2.1 (Normal) Range: 1.1-2.5 Globulin, Total 2.3 g/dL (Normal) Range: 1.5-4.5 Albumin, Serum 4.9 g/dL (Normal) Range: 3.5-5.5 Protein, Total, Serum 7.2 g/dL (Normal) Range: 6.0-8.5 Calcium, Serum 9.6 mg/dL (Normal) Range: 8.7-10.2 Carbon Dioxide, Total 24 mmol/L (Normal) Range: 20-32 Chloride, Serum 103 mmol/L (Normal) Range: 97-108 Potassium, Serum 4.2 mmol/L (Normal) Range: 3.5-5.2 Sodium, Serum 143 mmol/L (Normal) Range: 134-144 BUN/Creatinine Ratio 19 (Normal) Range: 9-23 eGFR If Africn Am 85 mL/min/1.73 (Normal) Comments: Note: A persistent eGFR <60 mL/min/1.73 m2 (3 months or more) mayindicate chronic kidney disease. An eGFR >59 mL/min/1.73 m2 with anelevated urine protein also may indicate chronic kidney disease.Calculated using CKD-EPI formula. eGFR If NonAfricn Am 74 mL/min/1.73 (Normal) Creatinine, Serum 0.88 mg/dL (Normal) Range: 0.57-1.00 BUN 17 mg/dL (Normal) Range: 6-24 Glucose, Serum 102 mg/dL (Abnormal) Range: 65-99 :38 LIPID PANEL (31704) Comments: PATIENT WAS FASTINGPERFORMED BY: CellcaLyons VA Medical CenterBocvgq2500 [facility] [id number] LDL/HDL Ratio 0.7 {ratio_units} (Normal) Range: 0.0-3.2 LDL Cholesterol Calc 59 mg/dL (Normal) Range: 0-99 VLDL Cholesterol Francisco 24 mg/dL (Normal) Range: 5-40 HDL Cholesterol 80 mg/dL (Normal) Comments: According to ATP-III Guidelines, HDL-C >59 mg/dL is considered anegative risk factor for CHD. Triglycerides 118 mg/dL (Normal) Range: 0-149 Cholesterol, Total 163 mg/dL (Normal) Range: 100-199 :38 CBC WITH MANUAL DIFF Comments: PATIENT WAS FASTINGPERFORMED BY: [employer] Jtnasc1021 [facility] [id number] Information: [id number] (03404) Immature Grans (Abs) 0.0 {x10E3/uL} (Normal) Range: 0.0-0.1 Immature Granulocytes 0 % (Normal) Range: 0-2 Baso (Absolute) 0.0 {x10E3/uL} (Normal) Range: 0.0-0.2 Eos (Absolute) 0.1 {x10E3/uL} (Normal) Range: 0.0-0.4 Monocytes(Absolute) 0.5 {x10E3/uL} (Normal) Range: 0.1-1.0 Lymphs (Absolute) 2.1 {x10E3/uL} (Normal) Range: 0.7-4.5 Neutrophils (Absolute) 4.0 {x10E3/uL} (Normal) Range: 1.8-7.8 Basos 1 % (Normal) Range: 0-3 Eos 2 % (Normal) Range: 0-7 Monocytes 8 % (Normal) Range: 4-13 Lymphs 31 % (Normal) Range: 14-46 Neutrophils 58 % (Normal) Range: 40-74 Platelets 290 {x10E3/uL} (Normal) Range: 140-415 RDW 13.0 % (Normal) Range: 11.7-15.0 MCHC 33.6 g/dL (Normal) Range: 32.0-36.0 MCH 30.8 pg (Normal) Range: 27.0-34.0 MCV 92 fL (Normal) Range: 80-98 Hematocrit 40.8 % (Normal) Range: 34.0-44.0 Hemoglobin 13.7 g/dL (Normal) Range: 11.5-15.0 RBC 4.45 {x10E6/uL} (Normal) Range: 3.80-5.10 WBC 6.8 {x10E3/uL} (Normal) Range: 4.0-10.5 :50 HgA1C , Office (45180) HgA1C , Office 5.7 % (Normal) Range: 4.6 - 7.1 :50 Blood Glucose , Office (01857) Blood Glucose , Office 180 (Normal) :28 Urinalysis, Office (55556) UA - BILIRUBIN Negative (Normal) UA - BLOOD Negative (Normal) UA - GLUCOSE Negative (Normal) UA - KETONES Negative mg/dL (Normal) UA - LEUKOCYTE ESTERASE Negative (Normal) UA - NITRITE Negative (Normal) UA - PH 7.0 (Normal) UA - PROTEIN Negative mg/dL (Normal) UA - SPECIFIC GRAVITY 1.015 (Normal) URINE UROBILINGN RAMÍREZ TIMED Normal mg/dL (Normal) :29 HgA1C , Office (20241) HgA1C , Office 6.0 % (Normal) Range: 4.6 - 7.1 :29 Blood Glucose , Office (62075) Blood Glucose , Office 114 (Normal) :48 Microscopic Examination Comments: PATIENT WAS FASTINGPERFORMED BY: [employer]70 [employer] [id number] Bacteria Few (Normal) Mucus Threads Present (Normal) Epithelial Cells (non renal) 0-10 {/hpf} (Normal) Range: 0 - 10 RBC 0-3 {/hpf} (Normal) Range: 0 - 3 WBC 0-5 {/hpf} (Normal) Range: 0 - 5 :48 TSH (36108) Comments: PATIENT WAS FASTINGPERFORMED BY: [employer] Mthlve7910 [facility] [id number] TSH 1.560 {uIU/mL} (Normal) Range: 0.450-4.500 :48 URINALYSIS, W/ MICRO (80224) Comments: PATIENT WAS FASTINGPERFORMED BY: Anda [facility] [id number] Microscopic Examination See below: (Normal) Microscopic Examination MICRON (Normal) Comments: Microscopic follows if indicated. Nitrite, Urine Negative (Normal) Urobilinogen,Semi-Qn 0.2 mg/dL (Normal) Range: 0.0-1.9 Bilirubin Negative (Normal) Occult Blood Negative (Normal) Ketones Negative (Normal) Glucose Negative (Normal) Protein Negative (Normal) WBC Esterase Negative (Normal) Appearance Clear (Normal) Urine-Color Yellow (Normal) pH 7.0 (Normal) Range: 5.0-7.5 Specific [place] 1.019 (Normal) Range: 1.005-1.030 :48 MICROALBUMIN: CREATININE RATIO Comments: PATIENT WAS FASTINGPERFORMED BY: [employer]70 [facility] [id number] ([id number]) AND (57925) Microalb/Creat Ratio <1.3 {mg/g_creat} (Normal) Range: 0.0-30.0 Microalbumin, Urine <1.0 ug/mL (Normal) Range: 0.0-17.0 Comments: Verified by repeat analysis Creatinine, Urine 76.5 mg/dL (Normal) Range: 15.0-278.0 :48 METABOLIC PANEL, COMPREHENSIVE Comments: PATIENT WAS FASTINGPERFORMED BY: [employer]70 [facility] [id number] (53649) ALT (SGPT) 21 [iU]/L (Normal) Range: 0-40 AST (SGOT) 17 [iU]/L (Normal) Range: 0-40 Alkaline Phosphatase, S 58 [iU]/L (Normal) Range: 25-150 Bilirubin, Total 0.3 mg/dL (Normal) Range: 0.0-1.2 A/G Ratio 2.0 (Normal) Range: 1.1-2.5 Globulin, Total 2.3 g/dL (Normal) Range: 1.5-4.5 Albumin, Serum 4.5 g/dL (Normal) Range: 3.5-5.5 Protein, Total, Serum 6.8 g/dL (Normal) Range: 6.0-8.5 Calcium, Serum 9.4 mg/dL (Normal) Range: 8.7-10.2 Carbon Dioxide, Total 23 mmol/L (Normal) Range: 20-32 Chloride, Serum 105 mmol/L (Normal) Range: 97-108 Potassium, Serum 3.8 mmol/L (Normal) Range: 3.5-5.2 Sodium, Serum 139 mmol/L (Normal) Range: 135-145 BUN/Creatinine Ratio 23 (Normal) Range: 9-23 eGFR If Africn Am 81 mL/min/1.73 (Normal) Comments: Note: A persistent eGFR <60 mL/min/1.73 m2 (3 months or more) mayindicate chronic kidney disease. An eGFR >59 mL/min/1.73 m2 with anelevated urine protein also may indicate chronic kidney disease.Calculated using CKD-EPI formula. eGFR If NonAfricn Am 70 mL/min/1.73 (Normal) Creatinine, Serum 0.92 mg/dL (Normal) Range: 0.57-1.00 BUN 21 mg/dL (Normal) Range: 6-24 Glucose, Serum 101 mg/dL (Abnormal) Range: 65-99 71-Bdn-12937:48 CBC WITH MANUAL DIFF Comments: PATIENT WAS FASTINGPERFORMED BY: [facility]Har[facility]6370 [facility] [id number] Information: [id number] (06161) Immature Grans (Abs) 0.0 {x10E3/uL} (Normal) Range: 0.0-0.1 Immature Granulocytes 0 % (Normal) Range: 0-2 Comments: Please note reference interval change Baso (Absolute) 0.0 {x10E3/uL} (Normal) Range: 0.0-0.2 Eos (Absolute) 0.1 {x10E3/uL} (Normal) Range: 0.0-0.4 Monocytes(Absolute) 0.5 {x10E3/uL} (Normal) Range: 0.1-1.0 Lymphs (Absolute) 2.4 {x10E3/uL} (Normal) Range: 0.7-4.5 Neutrophils (Absolute) 4.2 {x10E3/uL} (Normal) Range: 1.8-7.8 Basos 1 % (Normal) Range: 0-3 Eos 2 % (Normal) Range: 0-7 Monocytes 7 % (Normal) Range: 4-13 Lymphs 33 % (Normal) Range: 14-46 Neutrophils 57 % (Normal) Range: 40-74 Platelets 279 {x10E3/uL} (Normal) Range: 140-415 RDW 13.0 % (Normal) Range: 11.7-15.0 MCHC 34.3 g/dL (Normal) Range: 32.0-36.0 MCH 31.8 pg (Normal) Range: 27.0-34.0 MCV 93 fL (Normal) Range: 80-98 Hematocrit 38.8 % (Normal) Range: 34.0-44.0 Hemoglobin 13.3 g/dL (Normal) Range: 11.5-15.0 RBC 4.18 {x10E6/uL} (Normal) Range: 3.80-5.10 WBC 7.3 {x10E3/uL} (Normal) Range: 4.0-10.5 :48 LIPID PANEL (11858) Comments: PATIENT WAS FASTINGPERFORMED BY: [id number] [id number]; appt 10/21/10 LDL Cholesterol Calc 60 mg/dL (Normal) Range: 0-99 LDL/HDL Ratio 0.9 {ratio_units} (Normal) Range: 0.0-3.2 VLDL Cholesterol Francisco 14 mg/dL (Normal) Range: 5-40 HDL Cholesterol 69 mg/dL (Normal) Comments: According to ATP-III Guidelines, HDL-C >59 mg/dL is considered anegative risk factor for CHD. Cholesterol, Total 143 mg/dL (Normal) Range: 100-199 Triglycerides 70 mg/dL (Normal) Range: 0-149 :13 HgA1C , Office (88318) HgA1C , Office 6.0 % (Normal) Range: 4.6 - 7.1 :13 Blood Glucose , Office (43784) Blood Glucose , Office 96 (Normal) [id number] VIT D,25 16514 83.2 ng/mL (Normal) Range: 32.0-100.0 Comments: Recent studies consider the lower limit of 32.0 ng/mL to johnnie threshold for optimal health.Jose Guadalupe GLEASON. J Nutr. 2004;135(2):317-22.Performed at: [place] [id number]Lab Director: Anne Marie Quiroga MD, Phone: [phone] [id number] SPINE, THORACIC (ROUTINE) Radiology Report See Note (Normal) Comments: Exam Number: [id number] CLINICAL:54 year-old female with right-sided back pain radiating anteriorlyto the abdomen since November 17, 2009. MRI THORACIC SPINE WITHOUT CONTRAST TECHNIQUE:Standard ized fat and water weighted pulse sequences were obtained inthe sagittal and axial planes using a 0.7 Darleen magnet. COMPARISON:None. FINDINGS:The thoracic kyphosis is normal. There is no substantial scoliosis.Ther e is a grade 1 spondylolisthesis of T1 on T2. No compression fracture is present. No destructive or infiltrativeprocess is seen. There is no paraspinal mass. There is preservation of the thoracic inte rvertebral disc heights.No significant disc dehydration is present. No focal discprotrusion is identified. There are slight annular bulges atmultiple levels, mainly anteriorly. Mild anterior endplate osteophytes are also seen at several levels. Facet joint arthrosisis present at a few levels, without significant foraminal narrowing. Normal thoracic cord with no signal or morphologic alteration. Lau ited visualization of the cervical spine shows a grade 1spondylolisthesis of C3 on C4 and mild reversal of the normalcervical lordosis at C5-6. Multilevel spondylosis appears to bepresent in the cervic al spine. IMPRESSION:Mild degenerative changes in the thoracic spine. No central canalor foraminal narrowing is identified. A grade 1 spondylolisthesisis present at T1-2. Limited visualization of the cervical spine shows multilevelcervical spondylosis. Reported By: CLEMENCIA SHAH M.D. 67-Btz-445848:36 ABDOMEN/PELVIS WITHOUT CONT Radiology Report See Note (Normal) Comments: Exam Number: [id number] CLINICAL:Right flank pain. Evaluate for kidney stones. CT ABDOMEN AND PELVIS WITHOUT CONTRAST TECHNIQUE:Transaxial images were obtained from the dome of the diaphrag m tothe symp hysis pubis without oral contrast, and without intravenouscontrast. COMPARISON:CT abdomen and pelvis dated 11/24/09 CT abdomen and pelvis dated12/04/08. FINDINGS:There is a stable 7-mm calcified granulo ma in the right lower lunglobe (series 3 image 5). There is a stable 3.3-cm laceration lesion in the anterior righthepatic lobe, which was demonstrated to represent a hemangioma onthe previous contrast enhanced CT (series 2 image 11). Lowattenuation in the left hepatic lobe adjacent to the fissure for theligamentum teres is stable and is likely related to focal fattyinfiltration or asymmetric perfusi on. Normal gallbladder and biliary system. There are multiple benign calcified granulomata of the spleen. Normal pancreas. Normal bilateral adrenal glands. Normal size of the right kidney. There is no right renal mass.There are no right renal calculi. There is no right hydronephrosis.Normal visualized right ureter. Normal size of the left kidney. There is no left renal mass. Thereare no left renal calculi. There is no left hydronephrosis. Normalvisualized left ureter. Normal visualized stomach. Normal small intestine. Normal colon. The region of the appendix is normal. Normal mesentery and p eritoneum. There is no free fluid in the abdomen. There is no free air in theabdomen. Normal retroperitoneum. Normal abdominal aorta. Normal pelvic arteries. Normal inferiorvena cava. Normal urinary bladder. There are no demonstrated bladder calculi. There is no pelvic fluid. There is no pelvic lymphadenopathy.There is no pelvic mass lesion. There are multiple calcifieduterine fibroids. Normal visualized adnexa. Normal abdominal wall. There are stable degenerative changes of thevisualized lumbar spine. IMPRESSION:No renal, ureteral, or bladder calculi. No hydronephrosis. 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 Stable low attenuation in the left hepatic lobe adjacent to thefissure for the ligament um teres, likely representing focal fattyinfiltration or asymmetric perfusion. Calcified uterine fibroids. Reported By: CASSI GUZMAN M.D. 49-Lkb-39581:59 ABDOMEN, SINGLE VIEW (MT) Radiology Report See Note (Normal) Comments: Exam Number: [id number] CLINICAL:This is a 54-year-old female patient with history of right lowerquadrant pain. X-RAY EXAMINATION: ABDOMEN / PELVIS TECHNIQUE:Single AP view of the abdomen / pelvis. GINI RISON:None. FINDINGS:The visualized lung bases are unremarkable. There are scatteredsmall pulmonary calcifications consistent with old granulomatousdisease. Normal bowel gas pattern. There is no demons trated free abdominal air. Normal visualized abdominal organs. The pelvis is unremarkable. Normal visualized osseous structures. IMPRESSION:No demonstrated acute abdominal process. Reported By: TRENT MACKENZIE :47 ABDOMEN/PELVIS WITH CONTRAST Radiology Report See Note (Normal) Comments: Exam Number: [id number] CLINICAL:Right lower quadrant pain and right flank pain. CT ABDOMEN AND PELVIS WITH CONTRAST TECHNIQUE:Transaxial images were obtained from the dome of the diaphragm tothe symphy sis pubis with oral contrast. 100 ml of Isovue-300contrast was administered intravenously. COMPARISON:CT abdomen and pelvis dated 12/04/08. FINDINGS:There is a stable calcified granuloma in the right l ower lobe andmeasures approximately 6 mm (series 3 image 3) There is a stable 3.6-cm mass in the anterior right hepatic lobe,which demonstrates peripheral nodular enhancement and is mostcompatible with a benign hemangioma (series 3 image is 5-12). Normal gallbladder and biliary system. Normal enhanced spleen. Normal pancreas. Normal bilateral adrenal glands. Normal size of the right kidney. Normal ex cretion of contrastmaterial of the right kidney. There is no right renal mass. Thereare no right renal calculi. There is an extra-renal pelvis of theright kidney. Normal visualized right ureter. Nor mal size of the left kidney. Normal excretion of contrastmaterial of the left kidney. There is no left renal mass. Thereare no left renal calculi. There is an extra-renal pelvis of theleft kidney. Normal visualized left ureter. There is no intervalresolution of previous left hydronephrosis and hydroureter. Normal visualized stomach. Normal small intestine. Normal colon. The region of the appen austin is normal (series 3 image 78-89). Normal mesentery and peritoneum. There is no free fluid in the abdomen. There is no free air in theabdomen. Normal retroperitoneum. Normal abdominal aorta. Normal visualized pelvic arteries. Normalinferior vena cava. Normal opacified urinary bladder. There is no pelvic mass lesion. There is no pelvic fluid. There isno pelvic lymphadenopathy. Multiple calcif ied fibroids are againidentified in the uterus. Normal abdominal wall. There are stable degenerative changes of thevisualized lumbar spine. IMPRESSION:No acute process in the abdomen or pelvis. Normal appendix. Stable 3.6-cm low attenuation lesion in the anterior right hepaticlobe, which demonstrates peripheral nodular enhancement mostcompatible with a benign hemangioma. Resolution of previous left h ydroureteronephrosis. Multiple calcified fibroids in the uterus. Stable calcified granuloma at the right lung base. Reported By: CASSI GUZMAN M.D. Vitamin D, 25-Hydroxy 27.6 ng/mL Comments: PERFORMED BY: [facility] HospitalCrowdyHouseNovant [facility] [id number] 1:16 (Abnormal) Range: 32.0-100.0 Comments: Recent studies consider the lower limit of 32.0 ng/mL to be athreshold for optimal health.Jose Guadalupe GLEASON. J Nutr. 2004;135(2):317-22. :14 HgA1C , Office (86841) HgA1C , Office 5.9 % (Normal) Range: 4.6 - 7.1 :14 Blood Glucose , Office (20635) Blood Glucose , Office 93 (Normal) 55-Oxy-48681:25 Microscopic Examination Comments: PATIENT WAS FASTINGPERFORMED BY: [employer] [address] [place] [address] [id number] BY: LabUmbel Uvavkz1481 [facility] [id number] Bacteria None seen (Normal) Mucus Threads Present (Normal) Crystal Type Amorphous Sediment (Normal) Crystals Present (Abnormal) Epithelial Cells (non renal) 0-10 {/hpf} (Normal) Range: 0 - 10 RBC None seen {/hpf} (Normal) Range: 0 - 3 WBC None seen {/hpf} (Normal) Range: 0 - 5 73-Nwj-680575:57 Urinalysis, Routine Comments: A courtesy copy of this report has been sent [phone].PERFORMED BY: [employer] [place] [employer] [facility] [id number] Information: [id number] Microscopic Examination MICRON (Normal) Comments: Microscopic follows if indicated. Nitrite, Urine Negative (Normal) Urobilinogen,Semi-Qn 0.2 mg/dL (Normal) Range: 0.0-1.9 Bilirubin Negative (Normal) Glucose Negative (Normal) Ketones Negative (Normal) Occult Blood Negative (Normal) Protein Negative (Normal) Appearance Clear (Normal) WBC Esterase Negative (Normal) pH 7.5 (Normal) Range: 5.0-7.5 Urine-Color Yellow (Normal) Specific [place] 1.019 (Normal) Range: 1.005-1.030 38-Pkh-830468:40 Basic Metabolic Panel (8) Comments: A courtesy copy of this report has been sent [phone].PERFORMED BY: [employer] [facility] [id number] Calcium, Serum 10.0 mg/dL (Normal) Range: 8.7-10.2 Carbon Dioxide, Total 24 mmol/L (Normal) Range: 20-32 BUN/Creatinine Ratio 22 (Normal) Range: 8-27 Chloride, Serum 102 mmol/L (Normal) Range: 97-108 Creatinine, Serum 0.95 mg/dL (Normal) Range: 0.57-1.00 eGFR >59 mL/min/1.73 (Normal) eGFR AfricanAmerican >59 mL/min/1.73 Comments: Note: Persistent reduction for 3 months or more in an eGFR<60 mL/min/1.73 m2 defines CKD. Patients with eGFR values>/=60 mL/min/1.73 m2 may also have CKD if evidence of persistentproteinuria is (Normal) present. Additional information may be found [email or web address]. Potassium, Serum 4.5 mmol/L (Normal) Range: 3.5-5.2 Sodium, Serum 140 mmol/L (Normal) Range: 135-145 BUN 21 mg/dL (Normal) Range: 5-26 Glucose, Serum 98 mg/dL (Normal) Range: 65-99 13-Uri-793009:40 CBC With Differential/Platelet Comments: A courtesy copy of this report has been sent [phone].PERFORMED BY: CROW LabCoGallup Indian Medical CenterQcytml1550 [facility] [id number] Information: [id number] Baso (Absolute) 0.1 {x10E3/uL} (Normal) Range: 0.0-0.2 Eos (Absolute) 0.1 {x10E3/uL} (Normal) Range: 0.0-0.4 Lymphs (Absolute) 2.1 {x10E3/uL} (Normal) Range: 0.7-4.5 Monocytes(Absolute) 0.7 {x10E3/uL} (Normal) Range: 0.1-1.0 Basos 1 % (Normal) Range: 0-3 Eos 1 % (Normal) Range: 0-7 Neutrophils (Absolute) 6.9 {x10E3/uL} (Normal) Range: 1.8-7.8 Lymphs 21 % (Normal) Range: 14-46 Monocytes 7 % (Normal) Range: 4-13 Neutrophils 70 % (Normal) Range: 40-74 Platelets 233 {x10E3/uL} (Normal) Range: 140-415 Hematocrit 39.6 % (Normal) Range: 34.0-44.0 MCH 32.2 pg (Normal) Range: 27.0-34.0 MCHC 34.7 g/dL (Normal) Range: 32.0-36.0 MCV 93 fL (Normal) Range: 80-98 RDW 12.9 % (Normal) Range: 11.7-15.0 Hemoglobin 13.8 g/dL (Normal) Range: 11.5-15.0 RBC 4.28 {x10E6/uL} (Normal) Range: 3.80-5.10 WBC 9.8 {x10E3/uL} (Normal) Range: 4.0-10.5 82-Fiw-37995:25 URINALYSIS, W/ MICRO Comments: PATIENT WAS FASTINGPERFORMED BY: [employer] Dfl7265 Devin RodriguezHighland Hospital [id number] BY: CROW LabCoLyons VA Medical CenterTpenzw2280 [facility] [id number] (22345) Bilirubin Negative (Normal) Ketones Negative (Normal) Microscopic Examination See below: (Normal) Nitrite, Urine Negative (Normal) Occult Blood Negative (Normal) Urobilinogen,Semi-Qn 0.2 mg/dL (Normal) Range: 0.0-1.9 Glucose Negative (Normal) Protein Negative (Normal) Appearance Cloudy (Abnormal) WBC Esterase Negative (Normal) pH 7.0 (Normal) Range: 5.0-7.5 Specific [place] 1.019 (Normal) Range: 1.005-1.030 Urine-Color Yellow (Normal) :25 TSH (17027) Comments: PATIENT WAS FASTINGPERFORMED BY: [employer] [place] [address] [id number] BY: [employer] [facility] [id number] TSH 1.570 {uIU/mL} (Normal) Range: 0.450-4.500 Comments: Please note reference interval change MICROALBUMIN: CREATININE Comments: PATIENT WAS FASTINGPERFORMED BY: [employer] [address] [id number] BY: [employer] [facility] [id number] RATIO (91266) AND (28564) Microalb/Creat Ratio 2.3 {mg/g_creat} (Normal) Range: 0.0-30.0 Microalbumin, Urine 2.1 ug/mL (Normal) Range: 0.0-17.0 Creatinine, Urine 91.8 mg/dL (Normal) Range: 15.0-278.0 :25 METABOLIC PANEL, Comments: PATIENT WAS FASTINGPERFORMED BY: [employer] [place] [address] [id number] BY: Theragene PharmaceuticalsLyons VA Medical CenterWikhou7156 [facility] [id number] COMPREHENSIVE (08191) ALT (SGPT) 18 [iU]/L (Normal) Range: 0-40 AST (SGOT) 17 [iU]/L (Normal) Range: 0-40 A/G Ratio 1.9 (Normal) Range: 1.1-2.5 Alkaline Phosphatase, S 92 [iU]/L (Normal) Range: 25-150 Bilirubin, Total 0.2 mg/dL (Normal) Range: 0.0-1.2 Globulin, Total 2.4 g/dL (Normal) Range: 1.5-4.5 Albumin, Serum 4.6 g/dL (Normal) Range: 3.5-5.5 Calcium, Serum 9.6 mg/dL (Normal) Range: 8.7-10.2 Carbon Dioxide, Total 23 mmol/L (Normal) Range: 20-32 Protein, Total, Serum 7.0 g/dL (Normal) Range: 6.0-8.5 BUN/Creatinine Ratio 24 (Normal) Range: 8-27 Chloride, Serum 105 mmol/L (Normal) Range: 97-108 eGFR AfricanAmerican >59 mL/min/1.73 Comments: Note: Persistent reduction for 3 months or more in an eGFR<60 mL/min/1.73 m2 defines CKD. Patients with eGFR values>/=60 mL/min/1.73 m2 may also have CKD if evidence of persistentproteinuria is (Normal) present. Additional information may be found [email or web address]. Potassium, Serum 4.6 mmol/L (Normal) Range: 3.5-5.2 Sodium, Serum 142 mmol/L (Normal) Range: 135-145 BUN 20 mg/dL (Normal) Range: 5-26 Creatinine, Serum 0.83 mg/dL (Normal) Range: 0.57-1.00 eGFR >59 mL/min/1.73 (Normal) Glucose, Serum 104 mg/dL (Abnormal) Range: 65-99 88-Spm-75260:25 LIPOPROTEIN, BLD, BY NMR Comments: PATIENT WAS FASTINGPERFORMED BY: Jimbo LipGlycoVaxyn Jgh4546 [facility] [id number] BY: CROW LabCoDeanna Ville [id number] [facility] [id number] Information: [id number] (73467) HDL Size 8.8 nm (Abnormal) Comments: Small LDL-P, LDL Particle Size, Large HDL-P, Large VLDL-PVLDL Size, HDL Size, HDL Particle, and LP-IR Scorehave been validated by [employer] but not cleared by US FDA;the clinical utility of these test results has not been fully established. LP-IR Score 56 (Abnormal) Comments: The LP-IR Score combines the information from Large VLDL-P,Small LDL-P, Large HDL-P, VLDL Size, LDL Size and HDL Sizeto give improved assessment of insulin resistance anddiabetes risk.------ INSULIN RESISTANCE / DIABETES RISK MARKERS<--Insulin Sensitive Insulin Resistant-->Percentile in Reference PopulationLarge VLDL-P Low 25th 50th 75th High<0.9 0.9 2.7 6.9 >6.9.Small LDL-P Low 25th 50th 75th High<117 117 527 839 >839.Large HDL-P High 75th 50th 25th Low>7.3 7.3 4.8 3.1 <3.1.VLDL Size Small 25th 50th 75th Large<42.4 42.4 46.6 52.5 >52.5.LDL Size Large 75th 50th 25th Small>21.2 21.2 20.8 20.4 <20.4.HDL Size Large 75th 50th 25th Small>9.6 9.6 9.2 8.9 >8.9Insulin Resistance ScoreLP-IR SCORE Low 25th 50th 75th High<27 27 45 63 >63 Large HDL-P 6.2 umol/L (Normal) LDL Size 21.2 nm (Normal) Small LDL-P 288 nmol/L (Normal) VLDL Size 53.3 nm (Abnormal) Large VLDL-P 3.2 nmol/L (Abnormal) LDL Size 21.2 nm (Normal) Comments: INTERPRETATIVE INFORMATIONPARTICLE CONCENTRATION AND SIZE<--Lower CVD Risk Higher CVD Risk-->LDL AND HDL PARTICLES Percentile i n Reference PopulationHDL-P (total) High 75th 50th 25th Low>34.9 34.9 30.5 26.7 <26.7.Small LDL-P Low 25th 50th 75th High<117 117 527 839 >839.LDL Size <-Large (Pattern A)-> <-Small (Pattern B)->23.0 20.6 20.5 19.0 HDL-P (Total) 48.2 umol/L (Normal) LDL-P 1054 nmol/L (Abnormal) Comments: Low < 1000Moderate 1000 - 1299Borderline-High 1300 - 1599High 1600 - 2000Very High > 2000 Small LDL-P 288 nmol/L (Normal) HDL-C 70 mg/dL (Normal) LDL-C 83 mg/dL (Normal) Comments: .Optimal < 100Above optimal 100 - 129Borderline 130 - 159High 160 - 189Very high > 189. Triglycerides 74 mg/dL (Normal) Cholesterol, Total 168 mg/dL (Normal) 38-Ipv-06001:25 CBC WITH MANUAL DIFF Comments: DO BEFORE NEXT VISIT; PATIENT WAS FASTINGPERFORMED BY: [employer] Zyx2903 [facility] [id number] BY: CB LabCoLyons VA Medical CenterGeyplt1332 [facility] [id number] (52207) Immature Grans (Abs) 0.0 {x10E3/uL} (Normal) Range: 0.0-0.1 Baso (Absolute) 0.1 {x10E3/uL} (Normal) Range: 0.0-0.2 Eos (Absolute) 0.2 {x10E3/uL} (Normal) Range: 0.0-0.4 Immature Granulocytes 0 % (Normal) Range: 0-1 Lymphs (Absolute) 2.7 {x10E3/uL} (Normal) Range: 0.7-4.5 Monocytes(Absolute) 0.5 {x10E3/uL} (Normal) Range: 0.1-1.0 Neutrophils (Absolute) 4.8 {x10E3/uL} (Normal) Range: 1.8-7.8 Basos 1 % (Normal) Range: 0-3 Eos 2 % (Normal) Range: 0-7 Lymphs 33 % (Normal) Range: 14-46 Monocytes 6 % (Normal) Range: 4-13 Neutrophils 58 % (Normal) Range: 40-74 Platelets 265 {x10E3/uL} (Normal) Range: 140-415 MCH 30.5 pg (Normal) Range: 27.0-34.0 MCHC 34.3 g/dL (Normal) Range: 32.0-36.0 MCV 89 fL (Normal) Range: 80-98 RDW 12.7 % (Normal) Range: 11.7-15.0 Hematocrit 40.2 % (Normal) Range: 34.0-44.0 Hemoglobin 13.8 g/dL (Normal) Range: 11.5-15.0 RBC 4.53 {x10E6/uL} (Normal) Range: 3.80-5.10 WBC 8.2 {x10E3/uL} (Normal) Range: 4.0-10.5 :18 HgA1C , Office (83285) HgA1C , Office 6.0 % (Normal) Range: 4.6 - 7.1 :18 Blood Glucose , Office (77367) Blood Glucose , Office 136 (Normal) :07 HgA1C , Office (49286) Comments: done HgA1C , Office 5.5 % (Normal) Range: 4.6 - 7.1 :07 Blood Glucose , Office (72993) Comments: done Blood Glucose , Office 113 (Normal) :01 ABD,INC DECUB AND/OR ERECT Radiology Report See Note (Normal) Comments: Exam Number: [id number] ACUTE ABDOMINAL SERIES HISTORYAbdominal pain. Supine and upright views of the abdomen and a PA view of the chestwere obtained. Heart size is within normal limits. No acuteinfilt rate, area of consolidation, pleural effusion or vascularcongestion is identified. There is a calcified granuloma in the rightlung base. There is no free air beneath the diaphragm. Supine andupright views of the abdomen demonstrate contrast in the colon. Bowelgas pattern is nonspecific. No abnormality of soft tissue outlinesis identified. There are degenerative changes of the spine. IMPRESSIONE xcept for the presence of contrast in the colon, the abdomen isnonspecific. Reported By: CLEMENCIA PINEDA M.D. 47-Tzj-381805:45 ABDOMEN WITH IV CONTRAST Radiology Report See Note (Normal) Comments: Exam Number: [id number] CT ABDOMEN AND PELVIS WITH CONTRAST HISTORYA 53-year-old woman with right lower quadrant pain which extends intothe right flank. Symptoms for 4 days. When it began it was a elisha ppain and now is a dull ache. No hematuria, nausea or vomiting. Contrast enhanced CT of the abdomen and pelvis. 100 mL of Isovue 300injected intravenously for contrast enhancement. Again is noted the hemangioma in the superior aspect of the right lobeof the liver near the hemidiaphragm. It has peripheral puddling ofcontrast that remains approximately 3.3 cm in diameter. It isunchanged. The nikky er is elongated with the tip of the right lobe narrow and mostconsistent with a Ulises lobe. Overall the liver measuresapproximately 21 cm in length which is technically beyond the upperlimit of normal . No other liver lesions. Liver is otherwiseunremarkable. Spleen is normal. Pancreas and adrenal glands arenormal. Again noted multiple calcified structures in the uterus consistentwith calcified fibroids. Bowel is unremarkable. No dilated loops of bowel. There are a fewscattered air-fluid levels in nondilated loops of large bowel butcontrast extends all the way to the rectum. No free air or f ree fluid.No retroperitoneal or mesenteric adenopathy. The appendix is notdilated and is normal in appearance. It is not surrounded by fluid orinflammation. Kidneys are normal. No hydronephrosis. No hydroureter. Bladder isunremarkable. Calcified granuloma in the right lung base posteriorly. Osseousstructures are unremarkable. IMPRESSION1. No evidence of appendicitis.2. Hemangioma in the liver again noted and unchanged.3. Scattered air-fluid levels in nondilated loops of large bowel. May be ileus but no obstruction identified. No definite findingsotherwise to explain the patient's pain. Reported By: ALEXANDRA SPAIN M.D. 59-Okd-453068:45 PELVIS WITH IV CONTRAST Radiology Report See Note (Normal) Comments: Exam Number: [id number] CT ABDOMEN AND PELVIS WITH CONTRAST HISTORYA 53-year-old woman with right lower quadrant pain which extends intothe right flank. Symptoms for 4 days. When it began it was a elisha ppain and now is a dull ache. No hematuria, nausea or vomiting. Contrast enhanced CT of the abdomen and pelvis. 100 mL of Isovue 300injected intravenously for contrast enhancement. Again is noted the hemangioma in the superior aspect of the right lobeof the liver near the hemidiaphragm. It has peripheral puddling ofcontrast that remains approximately 3.3 cm in diameter. It isunchanged. The nikky er is elongated with the tip of the right lobe narrow and mostconsistent with a Ulises lobe. Overall the liver measuresapproximately 21 cm in length which is technically beyond the upperlimit of normal . No other liver lesions. Liver is otherwiseunremarkable. Spleen is normal. Pancreas and adrenal glands arenormal. Again noted multiple calcified structures in the uterus consistentwith calcified fibroids. Bowel is unremarkable. No dilated loops of bowel. There are a fewscattered air-fluid levels in nondilated loops of large bowel butcontrast extends all the way to the rectum. No free air or f ree fluid.No retroperitoneal or mesenteric adenopathy. The appendix is notdilated and is normal in appearance. It is not surrounded by fluid orinflammation. Kidneys are normal. No hydronephrosis. No hydroureter. Bladder isunremarkable. Calcified granuloma in the right lung base posteriorly. Osseousstructures are unremarkable. IMPRESSION1. No evidence of appendicitis.2. Hemangioma in the liver again noted and unchanged.3. Scattered air-fluid levels in nondilated loops of large bowel. May be ileus but no obstruction identified. No definite findingsotherwise to explain the patient's pain. Reported By: ALEXANDRA SPAIN M.D. 84-Jtn-853851:15 URINE KAREN CULTURE (RAMÍREZ COL Comments: PATIENT NOT FASTINGClinical Information: SRC:UR ADD [id number] PERFORMED BY: [facility] InternationalNov[facility] [id number] COUNT) (83329) Antimicrobial MIHEAD (Normal) Comments: S = Susceptible; I = Intermediate; R = Resistant P = Positive; N = Negative MICS are expressed in micrograms per mL Antibiotic RSLT#1 RSLT#2 Susceptibility RSLT#3 RSLT#4Ciprofloxacin SLevofloxacin SNitrofurantoin SPenicillin SVancomycin S Result 1 Enterococcus faecalis Comments: 800 Colonies/mLNote: this isolate is vancomycin-susceptible.This information is provided for epidemiologic purposesonly: vancomycin is not among the antibioticsrecommended for therapy of urinary tract infectionscaused by Enterococcus. (Normal) Urine Final report (Normal) Culture,Comprehensive 52-Oxo-760969:51 Urinalysis, Office (49520) UA - BILIRUBIN Negative (Normal) UA - BLOOD Negative (Normal) UA - GLUCOSE Negative (Normal) UA - KETONES Negative mg/dL (Normal) UA - LEUKOCYTE ESTERASE Negative (Normal) UA - NITRITE Negative (Normal) UA - PH 7.0 (Normal) UA - PROTEIN Negative mg/dL (Normal) UA - SPECIFIC GRAVITY 1.020 (Normal) URINE UROBILINGN RAMÍREZ TIMED Normal mg/dL (Normal) 19-Hmb-665612:40 TSH (87328) Comments: PATIENT WAS FASTINGPERFORMED BY: [facility] HospitalCrowdyHouseNovant [facility] [id number] TSH 1.240 {uIU/mL} (Normal) Range: 0.450-4.500 33-Oos-676887:40 URINALYSIS W/O MICRO (85139) Comments: PATIENT WAS FASTINGPERFORMED BY: [employer]70 [facility]eraSaint [facility] Hospital [id number] Appearance Clear (Normal) Bilirubin Negative (Normal) Glucose Negative (Normal) Ketones Negative (Normal) Microscopic Examination MICRON (Normal) Comments: Microscopic follows if indicated. Nitrite, Urine Negative (Normal) Occult Blood Negative (Normal) pH 6.5 (Normal) Range: 5.0-7.5 Protein Negative (Normal) Specific [place] 1.017 (Normal) Range: 1.005-1.030 Urine-Color Yellow (Normal) Urobilinogen,Semi-Qn 0.2 mg/dL (Normal) Range: 0.0-1.9 WBC Esterase Negative (Normal) 09-Aih-323030:40 MICROALBUMIN: CREATININE RATIO Comments: PATIENT WAS FASTINGPERFORMED BY: [employer]oxv8871 [facility] [id number] (86230) AND (10871) Creatinine, Urine 54.8 mg/dL (Normal) Range: 15.0-278.0 Microalb/Creat Ratio <1.8 {mg/g_creat} (Normal) Range: 0.0-30.0 Microalbumin, Urine <1.0 ug/mL (Normal) Range: 0.0-17.0 29-Mzl-951390:40 LIPOPROTEIN, BLD, BY NMR Comments: PATIENT WAS FASTINGClinical Information: [id number] PERFORMED BY: [employer]70 [facility] [id number] (96701) Cholesterol, Total 168 mg/dL (Normal) HDL-C 71 mg/dL (Normal) Large HDL-P 9.0 umol/L (Normal) Large VLDL-P 0.9 nmol/L (Normal) Comments: Small LDL-P, LDL Particle Size, Large HDL-P and Large VLDL-Phave been validated by [employer] but not cleared by US FDA;the clinical utility of these test results has not been fully establi shed. LDL Particle Size 20.9 nm (Normal) Comments: . Small (Pattern B) 18.0 - 20.5 Large (Pattern A) 20.6 - 23.0 . LDL-C 78 mg/dL (Normal) Comments: . Optimal < 100 Above optimal 100 - 129 Borderline 1 30 - 159 High 160 - 189 Very high > 189 . LDL-P 881 nmol/L (Normal) Comments: . Optimal < 1000 Above optimal 1000 - 1299 Borderline 13 00 - 1599 High 1600 - 2000 Very high > 2000 . Patient Goals SPRCS (Normal) Comments: High Risk: LDL-P < 1000; Secondary goal: Small LDL-P < 527Moderately High-Risk: LDL-P < 1300; Secondary goal: Small LDL-P < 527 Small LDL-P 351 nmol/L (Normal) Comments: . Low < 117 Moderate 117 - 526 Borderline 5 27 - 839 High > 839 . Triglycerides 94 mg/dL (Normal) 74-Mlf-319090:40 METABOLIC PANEL, COMPREHENSIVE Comments: PATIENT WAS FASTINGPERFORMED BY: LabCoLyons VA Medical CenterQuhvxo1347 [facility] [id number] (15856) A/G Ratio 1.9 (Normal) Range: 1.1-2.5 Albumin, Serum 4.8 g/dL (Normal) Range: 3.5-5.5 Alkaline Phosphatase, S 75 [iU]/L (Normal) Range: 25-150 ALT (SGPT) 20 [iU]/L (Normal) Range: 0-40 AST (SGOT) 19 [iU]/L (Normal) Range: 0-40 Bilirubin, Total 0.3 mg/dL (Normal) Range: 0.1-1.2 BUN 22 mg/dL (Normal) Range: 5-26 BUN/Creatinine Ratio 30 (Abnormal) Range: 8-27 Calcium, Serum 10.0 mg/dL (Normal) Range: 8.5-10.6 Carbon Dioxide, Total 23 mmol/L (Normal) Range: 20-32 Chloride, Serum 103 mmol/L (Normal) Range: 97-108 Creatinine, Serum 0.74 mg/dL (Normal) Range: 0.57-1.00 eGFR >59 mL/min/1.73 (Normal) eGFR AfricanAmerican >59 mL/min/1.73 Comments: Note: Persistent reduction for 3 months or more in an eGFR<60 mL/min/1.73 m2 defines CKD. Patients with eGFR values>/=60 mL/min/1.73 m2 may also have CKD if evidence of persistentproteinuria is (Normal) present. Additional information may be found [email or web address]. Globulin, Total 2.5 g/dL (Normal) Range: 1.5-4.5 Glucose, Serum 95 mg/dL (Normal) Range: 65-99 Potassium, Serum 4.5 mmol/L (Normal) Range: 3.5-5.2 Protein, Total, Serum 7.3 g/dL (Normal) Range: 6.0-8.5 Sodium, Serum 143 mmol/L (Normal) Range: 135-145 49-Ynh-558155:40 CBC WITH MANUAL DIFF (16107) Comments: PATIENT WAS FASTINGPERFORMED BY: CROW [employer] Gcpqub9875 [facility] [id number] Baso (Absolute) 0.1 {x10E3/uL} (Normal) Range: 0.0-0.2 Basos 1 % (Normal) Range: 0-3 Eos 2 % (Normal) Range: 0-7 Eos (Absolute) 0.1 {x10E3/uL} (Normal) Range: 0.0-0.4 Hematocrit 40.0 % (Normal) Range: 34.0-44.0 Hemoglobin 13.9 g/dL (Normal) Range: 11.5-15.0 Lymphs 31 % (Normal) Range: 14-46 Lymphs (Absolute) 2.3 {x10E3/uL} (Normal) Range: 0.7-4.5 MCH 31.7 pg (Normal) Range: 27.0-34.0 MCHC 34.8 g/dL (Normal) Range: 32.0-36.0 MCV 91 fL (Normal) Range: 80-98 Monocytes 5 % (Normal) Range: 4-13 Monocytes(Absolute) 0.4 {x10E3/uL} (Normal) Range: 0.1-1.0 Neutrophils 61 % (Normal) Range: 40-74 Neutrophils (Absolute) 4.5 {x10E3/uL} (Normal) Range: 1.8-7.8 Platelets 205 {x10E3/uL} (Normal) Range: 140-415 RBC 4.39 {x10E6/uL} (Normal) Range: 3.80-5.10 RDW 13.0 % (Normal) Range: 11.7-15.0 WBC 7.4 {x10E3/uL} (Normal) Range: 4.0-10.5 :06 HgA1C , Office (87666) Comments: done km HgA1C , Office 5.8 % (Normal) Range: 4.6 - 7.1 :06 Blood Glucose , Office (63590) Comments: done km Blood Glucose , Office 117 (Normal) 18-Tnn-630088:52 VITAMIN B-12 (CYANOCOBALAMIN) Comments: PATIENT NOT FASTINGPERFORMED BY: LabCoLyons [facility] Medical CenterCoiqby0471 [facility] [id number] (31331) Vitamin B12 705 pg/mL (Normal) Range: 211-911 69-Qek-692195:52 TSH (THYROID STIMULATING Comments: PATIENT NOT FASTINGPERFORMED BY: LabCoLyons [facility] Medical CenterPybprv4734 [facility] [id number] HORMONE) (05230) TSH 0.749 {uIU/mL} (Normal) Range: 0.450-4.500 09-Zxm-242106:52 SED RATE ERYTHROCYTE (08060) Comments: PATIENT NOT FASTINGPERFORMED BY: LabCoLyons [facility] Medical CenterExqvuo4179 [facility] [id number] Sedimentation Rate-Westergren 2 mm/h (Normal) Range: 0-30 62-Pjm-764792:52 METABOLIC PANEL, COMPREHENSIVE Comments: PATIENT NOT FASTINGClinical Information: ADD DRAW FEE 862195 ADD J 91593 PERFORMED BY: [place] 8517170 [facility] [id number] (73115) A/G Ratio 1.8 (Normal) Range: 1.1-2.5 Albumin, Serum 4.6 g/dL (Normal) Range: 3.5-5.5 Alkaline Phosphatase, S 61 [iU]/L Range: 25-150 (Normal) ALT (SGPT) 21 [iU]/L Range: 0-40 (Normal) AST (SGOT) 24 [iU]/L Range: 0-40 (Normal) Bilirubin, Total 0.5 mg/dL Range: 0.1-1.2 (Normal) BUN 19 mg/dL (Normal) Range: 5-26 BUN/Creatinine Ratio 20 (Normal) Range: 8-27 Calcium, Serum 10.0 mg/dL Range: 8.5-10.6 (Normal) Carbon Dioxide, Total 24 mmol/L Range: 20-32 (Normal) Chloride, Serum 102 mmol/L Range: 97-108 (Normal) Creatinine, Serum 0.93 mg/dL Range: 0.57-1.00 (Normal) eGFR >59 mL/min/1.73 (Normal) eGFR AfricanAmerican >59 mL/min/1.73 Comments: Note: Persistent reduction for 3 months or more in an eGFR<60 mL/min/1.73 m2 defines CKD. Patients with eGFR values>/=60 mL/min/1.73 m2 may also have CKD if evidence of persistentproteinuria is (Normal) present. Additional information may be found [email or web address]. Globulin, Total 2.5 g/dL (Normal) Range: 1.5-4.5 Glucose, Serum 101 mg/dL Range: 65-99 (Abnormal) Potassium, Serum 4.1 mmol/L Range: 3.5-5.2 (Normal) Protein, Total, Serum 7.1 g/dL (Normal) Range: 6.0-8.5 Sodium, Serum 140 mmol/L Range: 135-145 (Normal) 04-Jul-2008 Antinuclear Antibodies Negative (Normal) Comments: PERFORMED BY: [facility] [id number] 8:26 Direct Comments: Please note reference interval change :26 Systemic Lupus Profile A Comments: PERFORMED BY: [facility]Nov[facility] [id number] Anti-DNA (DS) Ab Qn 2 {IU/mL} (Normal) Range: 0-9 Comments: Please note reference interval change Negative <5 Equivocal 5 - 9 Positive >9 Antichromatin Antibodies <0.2 {AI} (Normal) Range: 0.0-0.9 RA Latex Turbid. 5.2 {IU/mL} Range: 0.0-13.9 (Normal) BUFFER COPPER Antibodies <0.2 {AI} (Normal) Range: 0.0-0.9 Comments: Please note reference interval change Sjogren's Anti-SS-A <0.2 {AI} (Normal) Range: 0.0-0.9 Comments: Please note reference interval change Sjogren's Anti-SS-B 0.3 {AI} (Normal) Range: 0.0-0.9 Comments: Please note reference interval change Trejo Antibodies <0.2 {AI} (Normal) Range: 0.0-0.9 Comments: Please note reference interval change Vitamin D, 25-Hydroxy 29.6 ng/mL Comments: PERFORMED BY: Theragene PharmaceuticalsLyons VA Medical CenterLwhscm0200 [facility] [id number] :26 (Abnormal) Range: 32.0-100.0 Comments: Recent studies consider the lower limit of 32.0 ng/mL to be athreshold for optimal health.Jose Guadalupe GLEASON. J Nutr. 2004;135(2):317-22. :17 HgA1C , Office (57222) Comments: done km HgA1C , Office 5.6 % (Normal) Range: 4.6 - 7.1 :17 Blood Glucose , Office (22077) Comments: done km Blood Glucose , Office 103 (Normal) :22 CBC With Differential/Platelet Comments: A courtesy copy of this report has been sent [phone].PATIENT WAS FASTINGClinical Information: [id number] PERFORMED BY: LabDekkoLyons VA Medical CenterPqjasz0830 [facility] [id number] Baso (Absolute) 0.0 {x10E3/uL} (Normal) Range: 0.0-0.2 Basos 0 % (Normal) Range: 0-3 Eos 2 % (Normal) Range: 0-7 Eos (Absolute) 0.2 {x10E3/uL} (Normal) Range: 0.0-0.4 Hematocrit 40.0 % (Normal) Range: 34.0-44.0 Hemoglobin 13.8 g/dL (Normal) Range: 11.5-15.0 Lymphs 28 % (Normal) Range: 14-46 Lymphs (Absolute) 2.4 {x10E3/uL} (Normal) Range: 0.7-4.5 MCH 32.1 pg (Normal) Range: 27.0-34.0 MCHC 34.6 g/dL (Normal) Range: 32.0-36.0 MCV 93 fL (Normal) Range: 80-98 Monocytes 5 % (Normal) Range: 4-13 Monocytes(Absolute) 0.4 {x10E3/uL} (Normal) Range: 0.1-1.0 Neutrophils 65 % (Normal) Range: 40-74 Neutrophils (Absolute) 5.5 {x10E3/uL} (Normal) Range: 1.8-7.8 Platelets 257 {x10E3/uL} (Normal) Range: 140-415 RBC 4.30 {x10E6/uL} (Normal) Range: 3.80-5.10 RDW 12.7 % (Normal) Range: 11.7-15.0 WBC 8.5 {x10E3/uL} (Normal) Range: 4.0-10.5 :22 Comp. Metabolic Panel (14) Comments: A courtesy copy of this report has been sent [phone].PATIENT WAS FASTINGPERFORMED BY: LabCoLyons [facility] Medical CenterCtvayt2290 [facility] [id number] A/G Ratio 1.9 (Normal) Range: 1.1-2.5 Albumin, Serum 4.7 g/dL (Normal) Range: 3.5-5.5 Alkaline Phosphatase, 71 [iU]/L (Normal) Range: 25-150 S ALT (SGPT) 23 [iU]/L (Normal) Range: 0-40 AST (SGOT) 18 [iU]/L (Normal) Range: 0-40 Bilirubin, Total 0.3 mg/dL (Normal) Range: 0.1-1.2 BUN 22 mg/dL (Normal) Range: 5-26 BUN/Creatinine Ratio 26 (Normal) Range: 8-27 Calcium, Serum 9.8 mg/dL (Normal) Range: 8.5-10.6 Carbon Dioxide, Total 25 mmol/L (Normal) Range: 20-32 Chloride, Serum 104 mmol/L Range: 97-108 (Normal) Creatinine, Serum 0.85 mg/dL Range: 0.57-1.00 (Normal) Globulin, Total 2.5 g/dL (Normal) Range: 1.5-4.5 Glom Filt Rate, Est >59 mL/min/1.73 (Normal) Glucose, Serum 101 mg/dL Range: 65-99 (Abnormal) If -Bahamian >59 mL/min/1.73 Comments: Note: Persistent reduction for 3 months or more in an eGFR<60 mL/min/1.73 m2 defines CKD. Patients with eGFR values>/=60 mL/min/1.73 m2 may also have CKD if evidence of persistentproteinur ia is (Normal) present. Additional information may be found [email or web address]. Potassium, Serum 4.6 mmol/L Range: 3.5-5.2 (Normal) Protein, Total, Serum 7.2 g/dL (Normal) Range: 6.0-8.5 Sodium, Serum 141 mmol/L Range: 135-145 (Normal) : Complement C3, Serum 138 {mg/dL_Adult} Comments: A courtesy copy of this report has been sent [phone].PATIENT WAS FASTINGPERFORMED BY: CellcaLyons VA Medical CenterIvjemd5249 [facility] [id number] 22 (Normal) Range: 90-180 : Complement C4, Serum 34 {mg/dL_Adult} Comments: A courtesy copy of this report has been sent [phone].PATIENT WAS FASTINGPERFORMED BY: [employer] Oxitob2318 [facility] [id number] 22 (Normal) Range: 9-36 :22 Hepatic Function Panel (7) Comments: A courtesy copy of this report has been sent [phone].PATIENT WAS FASTINGPERFORMED BY: OmniklesHarper University Hospital6370 [facility] [id number] Bilirubin, Direct 0.09 mg/dL (Normal) Range: 0.00-0.40 :22 Lipid Panel With LDL/HDL Comments: A courtesy copy of this report has been sent [phone].PATIENT WAS FASTINGPERFORMED BY: LabHarper [facility] Hospital6370 [facility] [id number] Ratio Cholesterol, Total 157 mg/dL (Normal) Range: 100-199 HDL Cholesterol 85 mg/dL (Normal) Comments: According to ATP-III Guidelines, HDL-C >59 mg/dL is considered anegative risk factor for CHD. LDL Cholesterol Calc 61 mg/dL (Normal) Range: 0-99 LDL/HDL Ratio 0.7 {ratio_units} (Normal) Range: 0.0-3.2 Triglycerides 57 mg/dL (Normal) Range: 0-149 VLDL Cholesterol Francisco 11 mg/dL (Normal) Range: 5-40 :22 Microalb/Creat Ratio, Randm Ur Comments: A courtesy copy of this report has been sent [phone].PATIENT WAS FASTINGPERFORMED BY: Theragene PharmaceuticalsLyons VA Medical CenterZqbuvy7747 [facility] [id number] Creatinine, Urine 145.9 mg/dL (Normal) Range: 15.0-278.0 Microalb/Creat Ratio 3.0 {ug/mg_creat} (Normal) Range: 0.0-30.0 Microalbum.,U,Random 4.4 ug/mL (Normal) Range: 0.0-17.0 :22 Urinalysis, Routine Comments: A courtesy copy of this report has been sent [phone].PATIENT WAS FASTINGPERFORMED BY: Theragene PharmaceuticalsLyons VA Medical CenterXbjtlv9520 [facility] [id number] Appearance Clear (Normal) Bilirubin Negative (Normal) Glucose Negative (Normal) Ketones Negative (Normal) Microscopic Examination MICRON (Normal) Comments: Microscopic follows if indicated. Nitrite, Urine Negative (Normal) Occult Blood Negative (Normal) pH 6.5 (Normal) Range: 5.0-7.5 Protein Negative (Normal) Specific [place] 1.024 (Normal) Range: 1.005-1.030 Urine-Color Yellow (Normal) Urobilinogen,Semi-Qn 0.2 mg/dL (Normal) Range: 0.0-1.9 WBC Esterase Negative (Normal) :17 HEPATIC FUNCTION PANEL (09396) Comments: DO IN ONE MONTH; PATIENT WAS FASTINGClinical Information: ADD DRAW FEE [id number] ADD J 23449 PERFORMED BY: Theragene PharmaceuticalsLyons VA Medical CenterVakxhx9116 [facility] [id number] Albumin, Serum 4.5 g/dL (Normal) Range: 3.5-5.5 Alkaline Phosphatase, S 73 [iU]/L (Normal) Range: 25-150 ALT (SGPT) 34 [iU]/L (Normal) Range: 0-40 AST (SGOT) 21 [iU]/L (Normal) Range: 0-40 Bilirubin, Direct 0.10 mg/dL (Normal) Range: 0.00-0.40 Bilirubin, Total 0.4 mg/dL (Normal) Range: 0.1-1.2 Protein, Total, Serum 7.2 g/dL (Normal) Range: 6.0-8.5 25-Mar-20089:17 LIPID PANEL (78495) Comments: PATIENT WAS FASTINGPERFORMED BY: LabCoLyons VA Medical CenterYcrhdm4352 [facility] [id number] Cholesterol, Total 213 mg/dL (Abnormal) Range: 100-199 Comment SPRCS (Normal) Comments: If initial LDL-cholesterol result is >100 mg/dL, assess forrisk factors. HDL Cholesterol 84 mg/dL (Normal) Comments: According to ATP-III Guidelines, HDL-C >59 mg/dL is considered anegative risk factor for CHD. LDL Cholesterol Calc 112 mg/dL (Abnormal) Range: 0-99 LDL/HDL Ratio 1.3 {ratio_units} (Normal) Range: 0.0-3.2 Triglycerides 85 mg/dL (Normal) Range: 0-149 VLDL Cholesterol Francisco 17 mg/dL (Normal) Range: 5-40 74-Yem-664735:47 CERV SPINE,MIN 4 VIEWS Radiology Report See Note (Normal) Comments: Exam Number: [id number] CERVICAL SPINE SERIES, 5 VIEWS REASON FOR EXAMINATIONRheumatoid arthritis. Neck pain. There is cervical kyphosis instead of the usual cervical lordosiscentered at C5- 6. Vertebra l body heights are well maintained. Thereis disc space narrowing at C5-6 and C6-7 associated with marginalosteophytes and uncovertebral hypertrophy. There is osseousencroachment upon bilateral neural foramina lower cervical spinemild-moderate bilaterally at C4-5 through C6- 7. Spinous processes are in the midline. Atlantoaxial relationships arenormal. There is no prevertebral soft tissue swelling . Visualizedlung apices are clear. IMPRESSION1. Cervical kyphosis in the lower cervical spine.2. Mild-moderate degenerative spondylosis of the lower cervicalspine. There is no acute osseous abnormality. Reported By: VISHNU BLOOD M.D. 6-Shk-270691:17 SED RATE ERYTHROCYTE (21931) Comments: PATIENT WAS FASTINGPERFORMED BY: LabCoLyons VA Medical CenterJuhjny1219 [facility] [id number] Sedimentation Rate-Westergren 2 mm/h (Normal) Range: 0-30 4-Agy-074079:17 C-REACTIVE PROTEIN (55533) Comments: PATIENT WAS FASTINGPERFORMED BY: OmniklesHarper University Hospital6370 [facility] [id number] C-Reactive Protein, Quant 3.4 mg/L (Normal) Range: 0.0-4.9 0-Bgl-444207:17 RHEUMATOID FACTOR-QUANT (06186) Comments: PATIENT WAS FASTINGPERFORMED BY: [place] [id number] [facility] [id number] RA Latex Turbid. 6.4 {IU/mL} (Normal) Range: 0.0-13.9 :17 ROBER (ANTINUCLEAR ANTIBODY) Comments: PATIENT WAS FASTINGPERFORMED BY: [place]lesL[place] [id number] [facility] [id number] (06467) Antinuclear Antibodies Direct 35 AU/mL (Normal) Range: 0-99 Comments: Negative <100 Equivocal 100 - 120 Positive >120 :17 METABOLIC PANEL, COMPREHENSIVE Comments: PATIENT WAS FASTINGPERFORMED BY: [place] [id number] [facility] [id number] (14048) A/G Ratio 1.8 (Normal) Range: 1.1-2.5 Albumin, Serum 4.6 g/dL (Normal) Range: 3.5-5.5 Alkaline Phosphatase, S 64 [iU]/L (Normal) Range: 25-150 ALT (SGPT) 83 [iU]/L (Abnormal) Range: 0-40 AST (SGOT) 41 [iU]/L (Abnormal) Range: 0-40 Bilirubin, Total 0.4 mg/dL (Normal) Range: 0.1-1.2 BUN 23 mg/dL (Normal) Range: 5-26 BUN/Creatinine Ratio 26 (Normal) Range: 8-27 Calcium, Serum 9.8 mg/dL (Normal) Range: 8.5-10.6 Carbon Dioxide, Total 26 mmol/L (Normal) Range: 20-32 Chloride, Serum 102 mmol/L (Normal) Range: 97-108 Creatinine, Serum 0.90 mg/dL (Normal) Range: 0.57-1.00 Globulin, Total 2.6 g/dL (Normal) Range: 1.5-4.5 Glom Filt Rate, Est >59 mL/min/1.73 (Normal) Glucose, Serum 93 mg/dL (Normal) Range: 65-99 If -Bahamian >59 mL/min/1.73 Comments: Note: Persistent reduction for 3 months or more in an eGFR<60 mL/min/1.73 m2 defines CKD. Patients with eGFR values>/=60 mL/min/1.73 m2 may also have CKD if evidence of persistentproteinur ia is (Normal) present. Additional information may be found [email or web address]. Potassium, Serum 4.7 mmol/L (Normal) Range: 3.5-5.2 Protein, Total, Serum 7.2 g/dL (Normal) Range: 6.0-8.5 Sodium, Serum 140 mmol/L (Normal) Range: 135-145 0-Yej-123124:17 CBC WITH MANUAL DIFF (06422) Comments: PATIENT WAS FASTINGClinical Information: ADD DRAW FEE [id number] ADD J 13609 PERFORMED BY: LabCoLyons VA Medical CenterUibimh9183 [facility] [id number] Baso (Absolute) 0.0 {x10E3/uL} (Normal) Range: 0.0-0.2 Basos 0 % (Normal) Range: 0-3 Eos 3 % (Normal) Range: 0-7 Eos (Absolute) 0.2 {x10E3/uL} (Normal) Range: 0.0-0.4 Hematocrit 39.9 % (Normal) Range: 34.0-44.0 Hemoglobin 13.3 g/dL (Normal) Range: 11.5-15.0 Lymphs 32 % (Normal) Range: 14-46 Lymphs (Absolute) 2.6 {x10E3/uL} (Normal) Range: 0.7-4.5 MCH 31.4 pg (Normal) Range: 27.0-34.0 MCHC 33.2 g/dL (Normal) Range: 32.0-36.0 MCV 95 fL (Normal) Range: 80-98 Monocytes 5 % (Normal) Range: 4-13 Monocytes(Absolute) 0.4 {x10E3/uL} (Normal) Range: 0.1-1.0 Neutrophils 60 % (Normal) Range: 40-74 Neutrophils (Absolute) 4.8 {x10E3/uL} (Normal) Range: 1.8-7.8 Platelets 319 {x10E3/uL} (Normal) Range: 140-415 RBC 4.22 {x10E6/uL} (Normal) Range: 3.80-5.10 RDW 13.0 % (Normal) Range: 11.7-15.0 WBC 8.0 {x10E3/uL} (Normal) Range: 4.0-10.5 Comments: Effective February 25, 2008, the pediatric reference intervals will be changing on all result codes that are included in CBC With Differential/Platelet(785873). :17 LIPID PANEL (08219) Comments: PATIENT WAS FASTINGPERFORMED BY: [facility] Opisvb4814 [facility] [id number] Cholesterol, Total 218 mg/dL (Abnormal) Range: 100-199 Comment SPRCS (Normal) Comments: If initial LDL-cholesterol result is >100 mg/dL, assess forrisk factors. HDL Cholesterol 73 mg/dL (Normal) Comments: According to ATP-III Guidelines, HDL-C >59 mg/dL is considered anegative risk factor for CHD. LDL Cholesterol Calc 118 mg/dL (Abnormal) Range: 0-99 LDL/HDL Ratio 1.6 {ratio_units} (Normal) Range: 0.0-3.2 Triglycerides 134 mg/dL (Normal) Range: 0-149 VLDL Cholesterol Francisco 27 mg/dL (Normal) Range: 5-40 96-Hxo-935674:12 HgA1C , Office (05684) Comments: done km HgA1C , Office 5.5 % (Normal) Range: 4.6 - 7.1 10-Gol-548803:12 Blood Glucose , Office (00123) Comments: done km Blood Glucose , Office 97 (Normal) 89-Sej-423065:35 HgA1C , Office (51174) HgA1C , Office 5.6 % (Normal) Range: 4.6 - 7.1 :30 GLUP 187 mg/dL (Abnormal) Comments: GLU,2HPPG 75gm GLUC PPG GLUP from 0715:[id number]. Comments: Glucose result from 140 to <200 mg/dL suggestsIMPAIRED GLUCOSE HOMEOSTASIS per A.D.A. criteria. :26 CBC With Differential/Platelet Comments: PATIENT WAS FASTINGClinical Information: QNS URINE VOID FOR MICRO PERFORMED BY: CROW CellcaLyons VA Medical CenterQaabib17[address] [place] [address] [id number] Baso (Absolute) 0.0 {x10E3/uL} (Normal) Range: 0.0-0.2 Basos 0 % (Normal) Range: 0-3 Eos 2 % (Normal) Range: 0-7 Eos (Absolute) 0.2 {x10E3/uL} (Normal) Range: 0.0-0.4 Hematocrit 40.1 % (Normal) Range: 34.0-44.0 Hemoglobin 13.8 g/dL (Normal) Range: 11.5-15.0 Lymphs 23 % (Normal) Range: 14-46 Lymphs (Absolute) 2.1 {x10E3/uL} (Normal) Range: 0.7-4.5 MCH 32.2 pg (Normal) Range: 27.0-34.0 MCHC 34.5 g/dL (Normal) Range: 32.0-36.0 MCV 93 fL (Normal) Range: 80-98 Monocytes 5 % (Normal) Range: 4-13 Monocytes(Absolute) 0.5 {x10E3/uL} (Normal) Range: 0.1-1.0 Neutrophils 70 % (Normal) Range: 40-74 Neutrophils (Absolute) 6.4 {x10E3/uL} (Normal) Range: 1.8-7.8 Platelets 242 {x10E3/uL} (Normal) Range: 140-415 RBC 4.30 {x10E6/uL} (Normal) Range: 3.80-5.10 RDW 13.2 % (Normal) Range: 11.7-15.0 WBC 9.2 {x10E3/uL} (Normal) Range: 4.0-10.5 :26 Comp. Metabolic Panel (14) Comments: PATIENT WAS FASTINGPERFORMED BY: [facility]6370 [facility] [id number] A/G Ratio 1.7 (Normal) Range: 1.1-2.5 Albumin, Serum 4.3 g/dL (Normal) Range: 3.5-5.5 Alkaline Phosphatase, S 50 [iU]/L (Normal) Range: 25-150 ALT (SGPT) 27 [iU]/L (Normal) Range: 0-40 AST (SGOT) 26 [iU]/L (Normal) Range: 0-40 Bilirubin, Total 0.4 mg/dL (Normal) Range: 0.1-1.2 BUN 20 mg/dL (Normal) Range: 5-26 BUN/Creatinine Ratio 22 (Normal) Range: 8-27 Calcium, Serum 9.7 mg/dL (Normal) Range: 8.5-10.6 Carbon Dioxide, Total 23 mmol/L (Normal) Range: 20-32 Chloride, Serum 105 mmol/L (Normal) Range: 97-108 Creatinine, Serum 0.90 mg/dL (Normal) Range: 0.50-1.50 Globulin, Total 2.6 g/dL (Normal) Range: 1.5-4.5 Glom Filt Rate, Est >60 mL/min (Normal) Range: 60-128 Glucose, Serum 111 mg/dL (Abnormal) Range: 65-99 If -Bahamian >60 mL/min (Normal) Range: 60-128 Comments: Note: Persistent reduction for 3 months or more in an eGFR<60 mL/min/1.73 m2 defines CKD. Patients with eGFR values>/=60 mL/min/1.73 m2 may also have CKD if evidence of persistentproteinuria is present. Additional information may be found [email or web address]. Potassium, Serum 4.6 mmol/L (Normal) Range: 3.5-5.2 Protein, Total, Serum 6.9 g/dL (Normal) Range: 6.0-8.5 Sodium, Serum 142 mmol/L (Normal) Range: 135-145 18-Sep-20079:26 Lipid Panel Comments: PATIENT WAS FASTINGPERFORMED BY: [facility] Qzcsxo0851 [facility] [id number] Cholesterol, Total 213 mg/dL (Abnormal) Range: 100-199 Comment SPRCS (Normal) Comments: If initial LDL-cholesterol result is >100 mg/dL, assess forrisk factors. HDL Cholesterol 72 mg/dL (Abnormal) Range: 40-59 Comments: HDL cholesterol values >59 mg/dL are associated with reduced cardiacrisk. LDL Cholesterol Calc 117 mg/dL (Abnormal) Range: 0-99 Triglycerides 119 mg/dL (Normal) Range: 0-149 VLDL Cholesterol Francisco 24 mg/dL (Normal) Range: 5-40 :26 Microscopic Examination Comments: PATIENT WAS FASTINGPERFORMED BY: [employer] [facility] [id number] Bacteria None seen (Normal) Epithelial Cells (non 0-10 {/hpf} Range: 0 - 10 renal) (Normal) Mucus Threads Present (Abnormal) RBC 0-3 {/hpf} (Normal) Range: 0 - 3 WBC 0-5 {/hpf} (Normal) Range: 0 - 5 : TSH 1.036 {uIU/mL} Comments: PATIENT WAS FASTINGPERFORMED BY: [employer] [facility] [id number] 26 (Normal) Range: 0.350-5.500 Comments: Adult TSH concentrations below 5.5 uIU/mL do not rule out the presence of subclinical hypothyroidism. :26 Urinalysis, Routine Comments: PATIENT WAS FASTINGPERFORMED BY: [employer] [facility] [id number] Appearance Clear (Normal) Bilirubin Negative (Normal) Glucose Negative (Normal) Ketones Negative (Normal) Microscopic Examination See below: (Normal) Nitrite, Urine Negative (Normal) Occult Blood Trace (Abnormal) pH 6.5 (Normal) Range: 5.0-7.5 Protein Negative (Normal) Specific [place] 1.025 (Normal) Range: 1.005-1.030 Urine-Color Yellow (Normal) Urobilinogen,Semi-Qn 0.2 mg/dL (Normal) Range: 0.0-1.9 WBC Esterase Negative (Normal) :12 URINE KAREN CULTURE (RAMÍREZ COL Comments: PATIENT NOT FASTINGClinical Information: SRC:UR ADD [id number] PERFORMED BY: [id number] [facility] [id number] COUNT) ([id number]) Result 1 CNSNSS (Normal) Comments: Coagulase negative Staphylococcus species, not Staphylococcussaprophyticus.4,000 Colonies/mLSusceptibility or resistance of staphylococci to oxacillin predictssusceptibility or resistance to (a) other b knw-[id number]-itfamxkmzutgtdwqg such as cloxacillin and dicloxacillin, (b) combinationsof a penicillin and a beta-lactamase inhibitor, and(c) anti- staphylococcal cephalosporins. Routine testing of other penicillins, beta-lactam/beta-lactamase inhibitor combinations,cephems, and carbapenems is not advised by the CLSI Standards(O922-L21, 2005). S = Susceptible; I = Intermediate; R = Resistant P = Positive; N = Negative MICS are expressed in micrograms per mL Antibiotic RSLT#1 RSLT#2 RSLT#3 RSLT#4Ciprofloxacin RGentam icin SLevofloxacin RNitrofurantoin SOxacillin RPenicillin RRifampin STrimethoprim/Sulfa RVancomycin S Urine Final report Culture,Comprehens (Normal) ty 26-Jun-20078:34 Urinalysis, Office (43055) Comments: done km UA - BILIRUBIN Negative (Normal) UA - BLOOD Hemolyzed Moderate (Normal) UA - GLUCOSE Negative (Normal) UA - KETONES Negative mg/dL (Normal) UA - LEUKOCYTE ESTERASE Negative (Normal) UA - NITRITE Negative (Normal) UA - PH 6.0 (Normal) UA - PROTEIN Negative mg/dL (Normal) UA - SPECIFIC GRAVITY 1.015 (Normal) URINE UROBILINGN RAMÍREZ TIMED Normal mg/dL (Normal) :35 Rapid Flu (85344 x 2) Comments: negative INFLUENZA IMMUNOASSY DIRECT OPTICAL OBSERV negative (Normal) Comments: aw [id number] Electrolyte Panel (48480) Comments: PATIENT NOT FASTINGClinical Information: ADD DRAW FEE [id number] ADD [id number] PERFORMED BY: [id number] [id number] Carbon Dioxide, Total 20 mmol/L (Normal) Range: 20-32 Chloride, Serum 104 mmol/L (Normal) Range: 96-109 Potassium, Serum 3.9 mmol/L (Normal) Range: 3.5-5.5 Sodium, Serum 141 mmol/L (Normal) Range: 135-148 :30 CULTURE, THROAT See Note (Normal) Comments: No beta-hemolytic streptococcus isolated. 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 Typing was confirmed by monoclonal antibody microscopic immunofluorscence. TESTING PERFORMED AT [facility]. ORIGINAL REPORT ON FILE IN LAB CONTAINS ADDITIONAL TEST SITE INFORMATION. :46 CBCD BASO% 0.6 % (Normal) Range: 0-1 EO% 1.3 % (Normal) Range: 0-5 HCT 39.9 % (Normal) Range: 37-47 HGB 14.0 g/dL (Normal) Range: 12.0-16.0 LY% 24.6 % (Normal) Range: 19-41 MCH 32.1 pg (Abnormal) Range: 27.0-32.0 MCHC 35.0 g/dL (Normal) Range: 32-36 MCV 91.8 fL (Normal) Range: 81-99 MONO% 7.0 % (Normal) Range: 0-10 MPV 7.8 fL (Normal) Range: 6.5-12.0 NEUT% 66.5 % (Normal) Range: 47-70 PLT 373 K/mm3 (Normal) Range: 150-450 RBC 4.35 {M/mm3} (Normal) Range: 4.2-5.4 RDW 12.0 % (Normal) Range: 11.6-14.6 WBC 8.4 K/mm3 (Normal) Range: 4.4-11.0 :46 COMP METABOLIC A/G 1.1 {RATIO} (Normal) Range: 0.9-2.4 ALB 3.7 g/dL (Normal) Range: 3.4-5.0 ALK P 45 U/L (Abnormal) Range: 50-136 ALT 36 [iU]/L (Normal) Range: 30-65 AST 18 U/L (Normal) Range: 15-37 BUN 14 mg/dL (Normal) Range: 7-18 BUN/CRE 14.0 {RATIO} (Normal) Range: 10-20 CA 8.5 mg/dL (Normal) Range: 8.5-10.1 CL 104 mmol/L (Normal) Range: 98-107 CO2 27.6 mmol/L (Normal) Range: 22.0-29.0 CREAT,SERUM 1.0 mg/dL (Normal) Range: 0.6-1.0 GAP 8 (Normal) Range: 5-15 GLOB 3.4 g/dL (Normal) Range: 2.3-3.5 GLU 95 mg/dL (Normal) Range: 70-110 K 4.4 mmol/L (Normal) Range: 3.5-5.1 NA 140 mmol/L (Normal) Range: 136-145 T BILI 0.45 mg/dL (Normal) Range: 0.00-1.00 T PROT 7.1 g/dL (Normal) Range: 6.4-8.2 :46 COMPLETE UA BACTERIA 0 SEEN {/hpf} (Normal) BILIRUBIN URINE Inconcl (Normal) Comments: Dipstick inconclusive for bilirubin.See confirmatory ICTOTEST. CLARITY CLOUDY (Normal) COLOR SeeNote (Normal) Comments: Result: DARK YELLOW GLUCOSE, UR SeeNote (Normal) Comments: Result: NEGATIVE ICTOTEST Neg (Normal) KETONE UR SeeNote mg/dL (Normal) Comments: Result: NEGATIVE LEUK ESTERASE SeeNote (Normal) Comments: Result: NEGATIVE MUCUS, URINE 0 SEEN {/hpf} (Normal) NITRITE UR SeeNote (Normal) Comments: Result: NEGATIVE OCCULT BLOOD-UR SeeNote (Normal) Comments: Result: NEGATIVE pH UR 6.0 (Normal) Range: 5.0-8.0 PROT CONF. 5 mg/dL (Normal) Range: 0-5 PROT DIPSTX 1+ (Abnormal) RBC-UA 0 SEEN {/hpf} (Normal) Range: 0-5 SP.GR. DIPSTX >=1.030 (Normal) Range: 1.002-1.030 SQUAM EPI SeeNote {/hpf} (Normal) Range: 5-10 Comments: Result: 25-50 SEEN UROBILI 1.0 EU/dl (Normal) Range: 0.2 - 1.0 WBC 0 SEEN {/hpf} (Normal) Range: 0-5 :46 LIPID CHOL 198 mg/dL (Normal) Comments: <200 mg/dL Desirable 200-240 mg/dL Borderline >240 mg/dL High Risk HDL 61 mg/dL (Normal) Comments: Reference Range HDL <40 mg/dL Low HDL Cholesterol HDL >or= 60 mg/dL High HDL Cholesterol LDL 113 mg/dL (Normal) Range: 0-130 TRIG 120 mg/dL (Normal) Comments: Serum Triglycerides Reference Interval Normal <150 mg/dL Borderline high 150 - 199 mg/dL High 200 - 499 mg/dL Very High > or = 500 mg/dL VLDL 24 mg/dL (Normal) Range: 5-40 :46 MICROALB:CRE UR MALB:CREAT 17.0 {mg/g_CRE} (Normal) MICROALBUMIN,UR 48.6 mg/L (Normal) UR CREAT 285.0 mg/dL (Normal) :46 TSH 0.83 {uIU/mL} (Normal) Range: 0.34-4.82 :24 CULTURE, URINE Comments: The date and/or time of collection was not indicated on therequisition as required by state and federal law. The dateof receipt of the specimen was used as the collection dateif not supplied. URINE CULTURE See Note {CFU/mL} (Normal) Comments: COLONY COUNT 11,000-25,000 ORGANISM 1: ENTEROCOCCUS FAECALIS ENTEROCOCCUS FAECALIS: REACTION CIPROFLOXACIN GP $$$ <=0.5 S LEVOFLOX ACIN $$ <=1 S NITROFURANTOIN $ <=32 S PENICILLIN G (ENTEROCOCCUS) $$ 2 S TETRACYCLINE $$ >=16 R VANCOMYCIN $$ 2 S :31 Urinalysis, Office ([id number]) UA - LEUKOCYTE ESTERASE Negative (Normal) UA - BILIRUBIN Negative (Normal) UA - BLOOD Negative (Normal) UA - GLUCOSE Negative (Normal) UA - KETONES Negative mg/dL (Normal) UA - NITRITE Negative (Normal) UA - PH 6.5 (Normal) UA - PROTEIN Negative mg/dL (Normal) UA - SPECIFIC GRAVITY 1.020 (Normal) URINE UROBILINGN RAMÍREZ TIMED 2 mg/dL (Normal) [id number] Urinalysis, Office ([id number]) UA - BILIRUBIN Negative (Normal) UA - BLOOD Negative (Normal) UA - GLUCOSE Negative (Normal) UA - KETONES Negative mg/dL (Normal) UA - LEUKOCYTE ESTERASE Negative (Normal) UA - NITRITE Negative (Normal) UA - PH 5.0 (Normal) UA - PROTEIN Negative mg/dL (Normal) UA - SPECIFIC GRAVITY 1.015 (Normal) URINE UROBILINGN RAMÍREZ TIMED 2 mg/dL (Normal) 28-Mar-20060:00 CULTURE, URINE Comments: The date and/or time of collection was not indicated on therequisition as required by state and federal law. The dateof receipt of the specimen was used as the collection dateif not supplied. URINE CULTURE See Note {CFU/mL} (Normal) Comments: COLONY COUNT 50,000-80,000 ORGANISM 1: MIXED GRAM POSITIVE ORGANISMS [id number]:00 CULTURE, URINE Comments: The date and/or time of collection was not indicated on therequisition as required by state and federal law. The dateof receipt of the specimen was used as the collection dateif not supplied. URINE CULTURE See Note {CFU/mL} (Normal) Comments: COLONY COUNT 1000-10,000 ORGANISM 1: MIXED GRAM POSITIVE ORGANISMS [id number]-Vdi-43921:15 CULTURE, URINE URINE CULTURE See Note {CFU/mL} Comments: COLONY COUNT >100,000 ORGANISM 1: PRESUMPTIVE E. COLI PRESUMPTIVE E. COLI: REACTION AMOXICILLIN/CLAVULANIC ACID $$ <=8 S AMPICILLIN G (Normal) N $ 2 S CARBENICILLIN $$$ <=16 S CEFAZOLIN $ <=8 S CEFOXITIN $$ <=2 S CEFTRIAXONE $$$ <=8 S CEFUROXIME $$ <=4 S CIPROFLOXACIN GN $$$ <=0.5 S GENTAMICIN GN $ 1 S LEVOFLOXACIN $$ <=1 S NALIDIXIC ACID $$$ <=16 S NITROFURANTOIN $ <=32 S OFLOXACIN $$$ <=1 S TETRACYCLINE $$ <=1 S TICARCILLIN GN NOT PSEUDO $$$ <=16 S TRIMETHOPRIM/SULFAMETHOXAZ $$ <=10 S Plan of Care Name Dates Details Instructions Encounter for screening for malignant neoplasm of colon (Renamed from Special screening for malignant neoplasms, colon) : *Colon Cancer Screening Indication: Encounter for screening for malignant neoplasm of colon (Renamed from Special screening for malignant neoplasms, colon) Benign essential hypertension : Diet, Exercise, and Wt loss Indication: Benign essential hypertension Benign essential hypertension : HTN/CAD Red Flags Indication: Benign essential hypertension Mixed hyperlipidemia : Cholesterol mgmt Indication: Mixed hyperlipidemia Impaired fasting glucose : Reviewed Lab Indication: Impaired fasting glucose Impaired fasting glucose : *Diabetes Education Indication: Impaired fasting glucose Benign essential hypertension : Follow up in 4 months Indication: Benign essential hypertension Mixed hyperlipidemia : Cholesterol mgmt Indication: Mixed hyperlipidemia Benign essential hypertension : HTN/CAD Red Flags Indication: Benign essential hypertension Impaired fasting glucose : Follow up in 4 months Indication: Impaired fasting glucose Impaired fasting glucose : Eprescribed prescriptions (G8553) Indication: Impaired fasting glucose Benign essential hypertension : Continue Current Prescription(s) Indication: Benign essential hypertension Benign essential hypertension : Follow up in 2 weeks Indication: Benign essential hypertension Benign essential hypertension : Diet, Exercise, and Wt loss Indication: Benign essential hypertension Benign essential hypertension : HTN/CAD Red Flags Indication: Benign essential hypertension Benign essential hypertension : Follow up in 4 weeks Indication: Benign essential hypertension Benign essential hypertension : Diet, Exercise, and Wt loss Indication: Benign essential hypertension Benign essential hypertension : HTN and Decongestants Indication: Benign essential hypertension Benign essential hypertension : HTN/CAD Red Flags Indication: Benign essential hypertension Benign essential hypertension : Continue Current Prescription(s) Indication: Benign essential hypertension Shingles : Continue Current Prescription(s) Indication: Shingles Impaired fasting glucose : Follow up in 4 months Indication: Impaired fasting glucose Impaired fasting glucose : Reviewed Lab Indication: Impaired fasting glucose Benign essential hypertension : HTN/CAD Red Flags Indication: Benign essential hypertension Hypercholesterolemia : Cholesterol mgmt Indication: Hypercholesterolemia Impaired fasting glucose : Eprescribed prescriptions (G8553) Indication: Impaired fasting glucose Upper respiratory infection, viral : Common Cold *: upper respiratory infection Indication: Upper respiratory infection, viral Upper respiratory infection, viral : Follow up if no improvement or if symptoms worsen Indication: Upper respiratory infection, viral Nonsmoker : Eprescribed prescriptions (G8553) Indication: Nonsmoker Hypercholesterolemia : Cholesterol mgmt Indication: Hypercholesterolemia Impaired fasting glucose : Follow up in 3 months Indication: Impaired fasting glucose GERD (gastroesophageal reflux disease) : GERD Education Indication: GERD (gastroesophageal reflux disease) Mixed hyperlipidemia : Cholesterol mgmt Indication: Mixed hyperlipidemia Benign essential hypertension : Diet, Exercise, and Wt loss Indication: Benign essential hypertension Benign essential hypertension : HTN/CAD Red Flags Indication: Benign essential hypertension Impaired fasting glucose : Reviewed Lab Indication: Impaired fasting glucose Impaired fasting glucose : Follow up in 3 months Indication: Impaired fasting glucose Benign essential hypertension : Diet, Exercise, and Wt loss Indication: Benign essential hypertension Benign essential hypertension : HTN/CAD Red Flags Indication: Benign essential hypertension GERD (gastroesophageal reflux disease) : GERD Education Indication: GERD (gastroesophageal reflux disease) Mixed hyperlipidemia : Reviewed Lab Indication: Mixed hyperlipidemia Mixed hyperlipidemia : Cholesterol mgmt Indication: Mixed hyperlipidemia BMI 27.0-27.9,adult : Eprescribed prescriptions (G8553) Indication: BMI 27.0-27.9,adult Nonsmoker : Eprescribed prescriptions (G8553) Indication: Nonsmoker Pharyngitis, acute : Sore throat: diagnosis and treatment Indication: Pharyngitis, acute Impaired fasting glucose : Follow up in 3 months Indication: Impaired fasting glucose GERD (gastroesophageal reflux disease) : GERD Education Indication: GERD (gastroesophageal reflux disease) Hypercholesterolemia : Cholesterol mgmt Indication: Hypercholesterolemia Benign essential hypertension : Diet, Exercise, and Wt loss Indication: Benign essential hypertension Benign essential hypertension : HTN/CAD Red Flags Indication: Benign essential hypertension Walking pneumonia : Continue Current Prescription(s) Indication: Walking pneumonia Benign essential hypertension : HTN/CAD Red Flags Indication: Benign essential hypertension Cough : Follow up in 2 days Indication: Cough Benign essential hypertension : BP MONITORING - SELF Indication: Benign essential hypertension Abnormal lung sounds : Solu Medrol Injection/ Education Indication: Abnormal lung sounds Abnormal lung sounds : *Antibiotic Usage Education - Female Indication: Abnormal lung sounds Influenza B : Flu (Influenza) *: flu Indication: Influenza B Flu-like symptoms : Eprescribed prescriptions (G8553) Indication: Flu-like symptoms Impaired fasting glucose : Reviewed Lab Indication: Impaired fasting glucose Impaired fasting glucose : Follow up in 4 months Indication: Impaired fasting glucose GERD (gastroesophageal reflux disease) : GERD Education Indication: GERD (gastroesophageal reflux disease) Mixed hyperlipidemia : Cholesterol mgmt Indication: Mixed hyperlipidemia Benign essential hypertension : Reviewed Lab Indication: Benign essential hypertension Impaired fasting glucose : Eprescribed prescriptions (G8553) Indication: Impaired fasting glucose Benign essential hypertension : Reviewed Lab Indication: Benign essential hypertension Benign essential hypertension : Diet, Exercise, and Wt loss Indication: Benign essential hypertension Concussion : Follow up with Dr. Deng Indication: Concussion Benign essential hypertension : Eprescribed prescriptions (G8553) Indication: Benign essential hypertension Mixed hyperlipidemia : Cholesterol mgmt Indication: Mixed hyperlipidemia Impaired fasting glucose : Follow up in 4 months Indication: Impaired fasting glucose GERD (gastroesophageal reflux disease) : GERD Education Indication: GERD (gastroesophageal reflux disease) Benign essential hypertension : Diet, Exercise, and Wt loss Indication: Benign essential hypertension Benign essential hypertension : HTN/CAD Red Flags Indication: Benign essential hypertension Impaired fasting glucose : Eprescribed prescriptions (G8553) Indication: Impaired fasting glucose Eustachian tube dysfunction : Follow up if no improvement or if symptoms worsen Indication: Eustachian tube dysfunction Epidermoid cyst : Cryotherapy Indication: Epidermoid cyst Benign essential hypertension : Diet, Exercise, and Wt loss Indication: Benign essential hypertension Benign essential hypertension : HTN/CAD Red Flags Indication: Benign essential hypertension Impaired fasting glucose : Follow up in 4 months Indication: Impaired fasting glucose GERD (gastroesophageal reflux disease) : GERD Education Indication: GERD (gastroesophageal reflux disease) Rheumatoid arthritis : Reviewed [employer] Tanya alvarado Indication: Rheumatoid arthritis Mixed hyperlipidemia : Cholesterol mgmt Indication: Mixed hyperlipidemia Impaired fasting glucose : Eprescribed prescriptions (G8553) Indication: Impaired fasting glucose Generalized abdominal pain : *Abd Pain Red Flags Indication: Generalized abdominal pain Impaired fasting glucose : Follow up in 3 months- gen med she is member Indication: Impaired fasting glucose Benign essential hypertension : HTN/CAD Red Flags Indication: Benign essential hypertension Mixed hyperlipidemia : Cholesterol mgmt Indication: Mixed hyperlipidemia Impaired fasting glucose : *Diabetes Education Indication: Impaired fasting glucose GERD (gastroesophageal reflux disease) : GERD Education Indication: GERD (gastroesophageal reflux disease) Benign essential hypertension : Blood Pressure: hypertension Indication: Benign essential hypertension Benign essential hypertension : Follow up in 1 month- marily bp and new rx Indication: Benign essential hypertension Hypercholesterolemia : Cholesterol mgmt Indication: Hypercholesterolemia Benign essential hypertension : BP MONITORING - SELF Indication: Benign essential hypertension Other abnormal glucose : Follow up in 4 months Indication: Other abnormal glucose GERD (gastroesophageal reflux disease) : GERD Education Indication: GERD (gastroesophageal reflux disease) Hypercholesterolemia : Cholesterol mgmt Indication: Hypercholesterolemia Benign essential hypertension : Reviewed Lab Indication: Benign essential hypertension Benign essential hypertension : HTN/CAD Red Flags Indication: Benign essential hypertension Other abnormal glucose : Eprescribed prescriptions (G8553) Indication: Other abnormal glucose Benign essential hypertension : Diet, Exercise, and Wt loss Indication: Benign essential hypertension Benign essential hypertension : HTN/CAD Red Flags Indication: Benign essential hypertension Hypercholesterolemia : Cholesterol mgmt Indication: Hypercholesterolemia Hypercholesterolemia : *Cholesterol - Nonprescription Treatment Indication: Hypercholesterolemia GERD (gastroesophageal reflux disease) : GERD Education Indication: GERD (gastroesophageal reflux disease) Other abnormal glucose : Follow up in 4 months Indication: Other abnormal glucose Other abnormal glucose : Continue Current Prescription(s) Indication: Other abnormal glucose Other abnormal glucose : Diet, Exercise, and Wt loss Indication: Other abnormal glucose Other abnormal glucose : *Diabetes Education Indication: Other abnormal glucose Other abnormal glucose : Follow up in 3 weeks- mar for [facility] plan Indication: Other abnormal glucose Benign essential hypertension : Continue Current Prescription(s) Indication: Benign essential hypertension Other abnormal glucose : Follow up in 3 months Indication: Other abnormal glucose Vitamin D insufficiency : Continue Current Prescription(s) Indication: Vitamin D insufficiency Hypercholesterolemia : Cholesterol mgmt Indication: Hypercholesterolemia Benign essential hypertension : HTN/CAD Red Flags Indication: Benign essential hypertension Other abnormal glucose : *Diabetes Education Indication: Other abnormal glucose SYMPTOMS INVOLVING URINARY SYSTEM; URINARY FREQUENCY : Follow up Indication: SYMPTOMS INVOLVING URINARY SYSTEM; URINARY FREQUENCY SYMPTOMS INVOLVING URINARY SYSTEM; URINARY FREQUENCY : follow up for recheck urine 1 week after complete antibiotic Indication: SYMPTOMS INVOLVING URINARY SYSTEM; URINARY FREQUENCY SYMPTOMS INVOLVING URINARY SYSTEM; URINARY FREQUENCY : *UTI treatment Indication: SYMPTOMS INVOLVING URINARY SYSTEM; URINARY FREQUENCY SYMPTOMS INVOLVING URINARY SYSTEM; URINARY FREQUENCY : Water in diet, brief version Indication: SYMPTOMS INVOLVING URINARY SYSTEM; URINARY FREQUENCY Other abnormal glucose : Follow up in 4 months- gen med Indication: Other abnormal glucose GERD (gastroesophageal reflux disease) : GERD Education Indication: GERD (gastroesophageal reflux disease) Benign essential hypertension : HTN/CAD Red Flags Indication: Benign essential hypertension Benign essential hypertension : Diet, Exercise, and Wt loss Indication: Benign essential hypertension Hypercholesterolemia : Cholesterol mgmt Indication: Hypercholesterolemia Other abnormal glucose : Eprescribed prescriptions (G8553) Indication: Other abnormal glucose Other abnormal glucose : Follow up in 4 months Indication: Other abnormal glucose Vitamin D insufficiency : Continue Current Prescription(s) Indication: Vitamin D insufficiency Vitamin D insufficiency : Reviewed Lab Indication: Vitamin D insufficiency Hypercholesterolemia : Cholesterol mgmt Indication: Hypercholesterolemia Depressive disorder : Follow up in 1 month Indication: Depressive disorder Benign essential hypertension : Reviewed Lab Indication: Benign essential hypertension Fall : Reviewed [employer] Letter Indication: Fall Bronchitis : *Antibiotic Usage Education - Female Indication: Bronchitis Other abnormal glucose : Follow up in 4 months Indication: Other abnormal glucose Hypercholesterolemia : Cholesterol mgmt Indication: Hypercholesterolemia Benign essential hypertension : Reviewed Lab Indication: Benign essential hypertension Benign essential hypertension : HTN/CAD Red Flags Indication: Benign essential hypertension GERD (gastroesophageal reflux disease) : GERD Education Indication: GERD (gastroesophageal reflux disease) Benign essential hypertension : Continue Current Prescription(s) Indication: Benign essential hypertension Hypercholesterolemia : Cholesterol mgmt Indication: Hypercholesterolemia Vitamin D insufficiency : Continue Current Prescription(s) Indication: Vitamin D insufficiency Benign essential hypertension : HTN/CAD Red Flags Indication: Benign essential hypertension Hypercholesterolemia : Cholesterol mgmt Indication: Hypercholesterolemia Other abnormal glucose : Follow up in 4 months: do ekg Indication: Other abnormal glucose Other abnormal glucose : Follow up in 4 months Indication: Other abnormal glucose Hypercholesterolemia : Cholesterol mgmt Indication: Hypercholesterolemia Other abnormal glucose : *Diabetes Education Indication: Other abnormal glucose Other abnormal glucose : Diet, Exercise, and Wt loss Indication: Other abnormal glucose Benign essential hypertension : Diet, Exercise, and Wt loss Indication: Benign essential hypertension Benign essential hypertension : HTN/CAD Red Flags Indication: Benign essential hypertension GERD (gastroesophageal reflux disease) : Continue Current Prescription(s) Indication: GERD (gastroesophageal reflux disease) GERD (gastroesophageal reflux disease) : GERD Education Indication: GERD (gastroesophageal reflux disease) SOB (shortness of breath) on exertion : Follow up in 6 weeks: readdessing gerd nad sob -- need of maintenance inhaler or not? Indication: SOB (shortness of breath) on exertion GERD (gastroesophageal reflux disease) : GERD Education Indication: GERD (gastroesophageal reflux disease) Other abnormal glucose : Follow up in 4 months Indication: Other abnormal glucose SOB (shortness of breath) on exertion : Follow up in 3 weeks Indication: SOB (shortness of breath) on exertion Other abnormal glucose : Diet, Exercise, and Wt loss Indication: Other abnormal glucose Other abnormal glucose : *Diabetes Education Indication: Other abnormal glucose GERD (gastroesophageal reflux disease) : GERD Education Indication: GERD (gastroesophageal reflux disease) Hypercholesterolemia : *Cholesterol - Nonprescription Treatment Indication: Hypercholesterolemia Hypercholesterolemia : Cholesterol mgmt Indication: Hypercholesterolemia Benign essential hypertension : HTN/CAD Red Flags Indication: Benign essential hypertension Weight gain : Diet, Exercise, and Wt loss Indication: Weight gain Benign essential hypertension : HTN/CAD Red Flags Indication: Benign essential hypertension Benign essential hypertension : High Blood Pressure (Essential Hypertension) *: blood pressure Indication: Benign essential hypertension Hypercholesterolemia : Continue Current Prescription(s) Indication: Hypercholesterolemia Other abnormal glucose : *Diabetes Education Indication: Other abnormal glucose Benign essential hypertension : Follow up in 1 month Indication: Benign essential hypertension Benign essential hypertension : BP MONITORING - SELF Indication: Benign essential hypertension Hypercholesterolemia : *Cholesterol - Nonprescription Treatment Indication: Hypercholesterolemia Hypercholesterolemia : Cholesterol mgmt Indication: Hypercholesterolemia Other abnormal glucose : Follow up in 4 months Indication: Other abnormal glucose Benign essential hypertension : Diet, Exercise, and Wt loss Indication: Benign essential hypertension Benign essential hypertension : HTN/CAD Red Flags Indication: Benign essential hypertension Benign essential hypertension : High Blood Pressure (Essential Hypertension) *: blood pressure Indication: Benign essential hypertension Wheezing : Follow up as needed Indication: Wheezing Pharyngitis, acute : Sore Throat *: acute pharyngitis Indication: Pharyngitis, acute Hypercholesterolemia : *Cholesterol - Nonprescription Treatment Indication: Hypercholesterolemia Hypercholesterolemia : Cholesterol mgmt Indication: Hypercholesterolemia Benign essential hypertension : Diet, Exercise, and Wt loss Indication: Benign essential hypertension Benign essential hypertension : HTN/CAD Red Flags Indication: Benign essential hypertension Other abnormal glucose : Follow up in 4 months Indication: Other abnormal glucose Other abnormal glucose : Follow up in 4 months Indication: Other abnormal glucose Mixed hyperlipidemia : *Cholesterol - Nonprescription Treatment Indication: Mixed hyperlipidemia Mixed hyperlipidemia : Cholesterol mgmt Indication: Mixed hyperlipidemia Benign essential hypertension : HTN/CAD Red Flags Indication: Benign essential hypertension Other abnormal glucose : Diet, Exercise, and Wt loss Indication: Other abnormal glucose Other abnormal glucose : *Diabetes Education Indication: Other abnormal glucose Other specified viral infection, in conditions classified elsewhere and of unspecified site : *URI Symptoms Indication: Other specified viral infection, in conditions classified elsewhere and of unspecified site Other specified viral infection, in conditions classified elsewhere and of unspecified site : *URI Treatment Indication: Other specified viral infection, in conditions classified elsewhere and of unspecified site Other abnormal glucose : Follow up in 4 months Indication: Other abnormal glucose Other abnormal glucose : Diet, Exercise, and Wt loss Indication: Other abnormal glucose Other abnormal glucose : *Diabetes Education Indication: Other abnormal glucose Hypercholesterolemia : Cholesterol mgmt Indication: Hypercholesterolemia Hypercholesterolemia : *Cholesterol - Nonprescription Treatment Indication: Hypercholesterolemia Benign essential hypertension : HTN/CAD Red Flags Indication: Benign essential hypertension Benign essential hypertension : Diet, Exercise, and Wt loss Indication: Benign essential hypertension Other specified viral infection, in conditions classified elsewhere and of unspecified site : *URI Symptoms Indication: Other specified viral infection, in conditions classified elsewhere and of unspecified site Other specified viral infection, in conditions classified elsewhere and of unspecified site : *URI Treatment Indication: Other specified viral infection, in conditions classified elsewhere and of unspecified site Other abnormal glucose : FOLLOW UP IN 6 MONTHS Indication: Other abnormal glucose Benign essential hypertension : HTN/CAD Red Flags Indication: Benign essential hypertension Benign essential hypertension : Diet, Exercise, and Wt loss Indication: Benign essential hypertension Hypercholesterolemia : *Cholesterol - Nonprescription Treatment Indication: Hypercholesterolemia Hypercholesterolemia : CHOLESTEROL MGMT. Indication: Hypercholesterolemia Other abnormal glucose : *Diabetes Education Indication: Other abnormal glucose Other abnormal glucose : Diet, Exercise, and Wt loss Indication: Other abnormal glucose Bursitis of hip, unspecified laterality : FOLLOW UP IN 3 WEEKS Indication: Bursitis of hip, unspecified laterality Abdominal pain, acute, right lower quadrant : Reviewed Lab Indication: Abdominal pain, acute, right lower quadrant Abdominal pain, acute, right lower quadrant : Reviewed Aviation Consultant Letter Indication: Abdominal pain, acute, right lower quadrant Other abnormal glucose : FOLLOW UP IN 4 MONTHS Indication: Other abnormal glucose Hypercholesterolemia : Reviewed Lab Indication: Hypercholesterolemia GERD (gastroesophageal reflux disease) : GERD Education Indication: GERD (gastroesophageal reflux disease) Hypercholesterolemia : Continue Current Prescription(s) Indication: Hypercholesterolemia Hypercholesterolemia : *Cholesterol - Medication Side Effects Indication: Hypercholesterolemia Hypercholesterolemia : *Cholesterol - Nonprescription Treatment Indication: Hypercholesterolemia Hypercholesterolemia : CHOLESTEROL MGMT. Indication: Hypercholesterolemia Benign essential hypertension : Continue Current Prescription(s) Indication: Benign essential hypertension Benign essential hypertension : Diet, Exercise, and Wt loss Indication: Benign essential hypertension Benign essential hypertension : HTN/CAD Red Flags Indication: Benign essential hypertension Other abnormal glucose : Diet, Exercise, and Wt loss Indication: Other abnormal glucose Other abnormal glucose : *Diabetes Education Indication: Other abnormal glucose Other abnormal glucose : FOLLOW UP IN 4 MONTHS Indication: Other abnormal glucose Other abnormal glucose : Diet, Exercise, and Wt loss Indication: Other abnormal glucose Other abnormal glucose : *Diabetes Education Indication: Other abnormal glucose Hypercholesterolemia : CHOLESTEROL MGMT. Indication: Hypercholesterolemia Hypercholesterolemia : *Cholesterol - Nonprescription Treatment Indication: Hypercholesterolemia Hypercholesterolemia : *Cholesterol - Medication Side Effects Indication: Hypercholesterolemia Benign essential hypertension : Diet, Exercise, and Wt loss Indication: Benign essential hypertension Benign essential hypertension : HTN/CAD Red Flags Indication: Benign essential hypertension Other abnormal glucose : Diet, Exercise, and Wt loss Indication: Other abnormal glucose Other abnormal glucose : *Diabetes Education Indication: Other abnormal glucose Hypercholesterolemia : CHOLESTEROL MGMT. Indication: Hypercholesterolemia Hypercholesterolemia : Cholesterol - Medication Side Effects Indication: Hypercholesterolemia Hypercholesterolemia : Cholesterol - Nonprescription Treatment Indication: Hypercholesterolemia Benign essential hypertension : Diet, Exercise, and Wt loss Indication: Benign essential hypertension Benign essential hypertension : HTN/CAD Red Flags Indication: Benign essential hypertension Other abnormal glucose : FOLLOW UP IN 4 MONTHS Indication: Other abnormal glucose Benign essential hypertension : Diet, Exercise, and Wt loss Indication: Benign essential hypertension Benign essential hypertension : HTN/CAD Red Flags Indication: Benign essential hypertension Hypercholesterolemia : CHOLESTEROL MGMT. Indication: Hypercholesterolemia Hypercholesterolemia : Cholesterol - Nonprescription Treatment Indication: Hypercholesterolemia Hypercholesterolemia : Cholesterol - Medication Side Effects Indication: Hypercholesterolemia Carpal tunnel syndrome, unspecified laterality : Reviewed Diagnostic Tests Indication: Carpal tunnel syndrome, unspecified laterality Benign essential hypertension : Diet, Exercise, and Wt loss Indication: Benign essential hypertension Benign essential hypertension : HTN/CAD Red Flags Indication: Benign essential hypertension Hypercholesterolemia : CHOLESTEROL MGMT. Indication: Hypercholesterolemia Hypercholesterolemia : Cholesterol - Nonprescription Treatment Indication: Hypercholesterolemia Hypercholesterolemia : Cholesterol - Medication Side Effects Indication: Hypercholesterolemia Mixed hyperlipidemia : CHOLESTEROL MGMT. Indication: Mixed hyperlipidemia Mixed hyperlipidemia : Cholesterol - Nonprescription Treatment Indication: Mixed hyperlipidemia Mixed hyperlipidemia : Cholesterol - Medication Side Effects Indication: Mixed hyperlipidemia Mixed hyperlipidemia : Cholesterol - Nonprescription Treatment Indication: Mixed hyperlipidemia Mixed hyperlipidemia : CHOLESTEROL MGMT. Indication: Mixed hyperlipidemia Mixed hyperlipidemia : Cholesterol - Medication Side Effects Indication: Mixed hyperlipidemia Other abnormal glucose : FOLLOW UP IN 4 MONTHS Indication: Other abnormal glucose Benign essential hypertension : Diet, Exercise, and Wt loss Indication: Benign essential hypertension Benign essential hypertension : HTN/CAD Red Flags Indication: Benign essential hypertension Hypercholesterolemia : CHOLESTEROL MGMT. Indication: Hypercholesterolemia Hypercholesterolemia : Cholesterol - Nonprescription Treatment Indication: Hypercholesterolemia Hypercholesterolemia : Cholesterol - Medication Side Effects Indication: Hypercholesterolemia Benign essential hypertension : HTN and Decongestants Indication: Benign essential hypertension Benign essential hypertension : Diet, Exercise, and Wt loss Indication: Benign essential hypertension Benign essential hypertension : HTN/CAD Red Flags Indication: Benign essential hypertension Acute sinusitis, unspecified : *URI Treatment Indication: Acute sinusitis, unspecified Acute sinusitis, unspecified : Antibiotic Usage Education - Female Indication: Acute sinusitis, unspecified Acute sinusitis, unspecified : URI Symptoms Indication: Acute sinusitis, unspecified Other abnormal glucose : FOLLOW UP IN 2 WEEKS Indication: Other abnormal glucose Hypercholesterolemia : CHOLESTEROL MGMT. Indication: Hypercholesterolemia Hypercholesterolemia : Cholesterol - Nonprescription Treatment Indication: Hypercholesterolemia Hypercholesterolemia : Cholesterol - Medication Side Effects Indication: Hypercholesterolemia Benign essential hypertension : Diet, Exercise, and Wt loss Indication: Benign essential hypertension Benign essential hypertension : HTN/CAD Red Flags Indication: Benign essential hypertension Acute sinusitis, unspecified : *URI Treatment Indication: Acute sinusitis, unspecified Acute sinusitis, unspecified : *Antibiotic Usage Education - Female Indication: Acute sinusitis, unspecified Acute sinusitis, unspecified : *URI Symptoms Indication: Acute sinusitis, unspecified Benign essential hypertension : FOLLOW UP IN 4 WEEKS Indication: Benign essential hypertension Benign essential hypertension : BP MONITORING - SELF Indication: Benign essential hypertension Hypertension : BP MONITORING - SELF Indication: Hypertension Hypertension : Colon Cancer Screening Indication: Hypertension Anxiety : FOLLOW UP IN 1 MONTH Indication: Anxiety Pharyngitis, acute : Sore throat: diagnosis and treatment Indication: Pharyngitis, acute Pharyngitis, acute : URI treament Indication: Pharyngitis, acute Hypertension : BP MONITORING - SELF Indication: Hypertension Hypercholesterolemia : Cholesterol - Nonprescription Treatment Indication: Hypercholesterolemia Hypercholesterolemia : Cholesterol - Medication Side Effects Indication: Hypercholesterolemia Hypertension : HTN and Decongestants Indication: Hypertension Planned Observations TSH ([id number])Indication: Benign essential hypertension On: 69-Iem-446361:29 Request Lipid Panel ([id number])Indication: Hypercholesterolemia On: 9-Bih-346560:58 Request TSH ([id number])Indication: Impaired fasting glucose On: :09 Request URINALYSIS, W/ MICRO ([id number])Indication: Impaired fasting glucose On: 94-Ejj-171639:09 Request MICROALBUMIN: CREATININE RATIO ([id number]) AND ([id number])Indication: Impaired fasting glucose On: 45-Vlf-555543:09 Request METABOLIC PANEL, COMPREHENSIVE ([id number])Indication: Impaired fasting glucose On: 47-Sgo-953773:09 Request CBC W/AUTO DIFF WBC ([id number])Indication: Impaired fasting glucose On: 91-Fje-391952:09 Request LIPID PANEL ([id number])Indication: Mixed hyperlipidemia On: 30-Uqr-444851:09 Request CALCIFIDIOL ([id number]) VIT D 25Indication: Vitamin D insufficiency On: :09 Request Sed Rate Erythrocyte ([id number])Indication: Generalized abdominal pain On: 31-Cvf-637743:51 Request METABOLIC PANEL, COMPREHENSIVE ([id number])Indication: Generalized abdominal pain On: 09-Zwg-652671:51 Request CBC W/AUTO DIFF WBC ([id number])Indication: Generalized abdominal pain On: 89-Ybd-441968:51 Request CALCIFIDIOL ([id number]) VIT D 25Indication: Vitamin D insufficiency On: 37-Khh-499261:02 Request TSH ([id number])Indication: Other abnormal glucose On: 26-Cah-655309: Request URINALYSIS, W/ MICRO ([id number])Indication: Other abnormal glucose On: 93-Kqg-884399:02 Request MICROALBUMIN: CREATININE RATIO ([id number]) AND ([id number])Indication: Other abnormal glucose On: 72-Nnn-754054:02 Request METABOLIC PANEL, COMPREHENSIVE ([id number])Indication: Other abnormal glucose On: 72-Rjy-729558:02 Request LIPID PANEL ([id number])Indication: Hypercholesterolemia On: : Request CBC W/AUTO DIFF WBC ([id number])Indication: Other abnormal glucose On: : Request Hemoglobin Glyclated (HGB A1C) ([id number])Indication: Other abnormal glucose On: 59-Aza-324380:09 Request URINE KAREN CULTURE-IDENTIFICATN ([id number])Indication: Dysuria On: 37-Nrn-939780:21 Request Rapid Strep Test, Office ([id number])Indication: Pharyngitis, acute On: 19-Oct-20118:27 Request Urinalysis, Office ([id number])Indication: Low back pain On: 71-Srn-989687:45 Request LIPID PANEL ([id number])Indication: Other abnormal glucose On: 51-Uvu-547677:29 Request MICROALBUMIN URINE QUANT ([id number])Indication: Benign essential hypertension On: 9-Usb-064773:33 Request LIPID PANEL ([id number])Indication: Benign essential hypertension On: 8-Zun-279233:33 Request LIPID PANEL ([id number])Indication: Mixed hyperlipidemia On: 8-Nbo-884029:47 Request Comments: REPEAT IN 3-4 MONTHS HEPATIC FUNCTION PANEL ([id number])Indication: Mixed hyperlipidemia On: 7-Try-478912:47 Request URINALYSIS W/O MICRO ([id number])Indication: Benign essential hypertension On: :21 Request TSH ([id number])Indication: Benign essential hypertension On: 84-Wym-89917:21 Request LIPID PANEL ([id number])Indication: Benign essential hypertension On: 87-Fyf-22796:21 Request METABOLIC PANEL, COMPREHENSIVE ([id number])Indication: Benign essential hypertension On: 32-Pyu-32873:21 Request MICROALBUMIN URINE QUANT ([id number])Indication: Benign essential hypertension On: 96-Msv-16217:21 Request CBC WITH MANUAL DIFF ([id number])Indication: Benign essential hypertension On: 58-Dvx-18978:21 Request KAREN CULTURE-OTHER ([id number])Indication: Pharyngitis, acute On: 72-Bco-82223:28 Request Planned Encounters Medical; 4 Month FU - On: 29-Jun-2018 9:30 [facility] Nguyen Deng DO, DO, Kathleen Planned Procedures ELECTROCARDIOGRAM, COMPLETE (ECG) On: 10-Apr-2017 Intent ([id number])By: Nguyen Deng DO Comments: nsr no avute Nguyen mullen DO SPECIMEN HNDLNG/TRNSPRT, OFFC > LAB On: 04-Oct-2016 Intent ([id number])By: Nguyen Deng DO, DO, Kathleen Solu- Medrol Injection, 125mg On: 16-Jun-2016 Intent ([id number])By: Nguyen Deng DO Comments: solumedrollot:[id number]:11/05site:rt glutroute:IMdose:125mgD.TAYLA Carroll DO, Kathleen Aerosol Treatment ([id number])By: Ish On: 16-Jun-2016 Nguyen Robertson DO, DO, Kathleen Comments: albuterol given in nebulizer 0.83%, patient handled wellstill forced exp bronchial bs but improved and more a/e Radiology - Chest- PA and LatBy: On: 16-Jun-2016 Intent Nguyen Deng DO, DO, Kathleen Spirometry ([id number])By: Ish MARROQUIN, On: 16-Jun-2016 Intent Nguyen Smith DO Comments: normal -fvc lil low Aerosol Treatment ([id number])By: Kyle On: 06-Jun-2016 Intent Erika MATHIS ELECTROCARDIOGRAM, COMPLETE (ECG) On: 13-May-2016 Intent ([id number])By: Mckenzie Villagran CNP Comments: sinus rhythm ELECTROCARDIOGRAM, COMPLETE (ECG) On: 21-Jan-2016 Intent ([id number])By: Nguyen Deng DO Comments: nsr no acute chg DONguyen PNEUM VAC ADLT/IMUMNOSPR, SBC/INTRM On: 07-Sep-2015 Intent ([id number])By: Nguyen Deng DO Comments: Lot:[id number]:12/29/16Dose:0.5mgRoute:imSite:delma Sachin By:Nguyen Cm DO CT - Abdomen & Pelvis (IV Contrast On: 15-Jul-2015 Intent Needed)By: Nguyen Deng DO, DO Nguyen Aerosol Treatment ([id number])By: Ish On: 29-Sep-2014 Intent Nguyen MARROQUIN DO, Kathleen Comments: more a/e no bronchial bs anymore Ultrasound - PelvisBy: Sparkle COSTELLOMckenzie On: 18-Feb-2014 Intent E SPECIMEN HANDLING/TRANSPORT ([id number])By: On: 18-Feb-2014 Intent Sparkle COSTELLOMckenzie E Eprescribed prescriptions ([id number])By: On: 27-Jun-2013 Intent Nguyen Deng DO, DO, Kathleen Spirometry ([id number])By: Ish MARROQUIN, On: 22-Mar-2013 Intent Nguyen Smith DO Comments: mild obstruction Eprescribed prescriptions ([id number])By: On: 22-Mar-2013 Intent Nguyen Deng DO, DO, Nguyen Aerosol Treatment ([id number])By: Ish On: 22-Mar-2013 Intent Nguyen MARROQUIN DO, Nguyen EKG ([id number])By: Nguyen Deng DO On: 27-Feb-2013 Intent Nguyen Deng DO Comments: nsr no acute chg Eprescribed prescriptions ([id number])By: On: 27-Feb-2013 Intent Nguyen Deng DO Ish DO, Nguyen Eprescribed prescriptions ([id number])By: On: 19-Mar-2012 Intent Nguyen Deng DO, DO, Nguyen EKG ([id number])By: Nguyen Deng DO On: 27-Feb-2012 Intent Nguyen Deng DO Comments: nsr no acute chg Bio Z ([id number])By: Nguyen Deng DO On: 27-Feb-2012 Intent Nguyen Deng DO Comments: good parameters - no extra fluid - Spirometry ([id number])By: Ish MARROQUIN, On: 27-Feb-2012 Intent Nguyen Smith DO Comments: obstruction presnet Eprescribed prescriptions ([id number])By: On: 27-Feb-2012 Intent Nguyen Deng DO, DO, Kathleen Echo CompleteBy: Nguyen Deng DO On: 27-Feb-2012 Intent Nguyen Deng DO Pulse Oximetry ([id number])By: Ish MARROQUIN, On: 27-Feb-2012 Intent Nguyen Smith DO IMMUNIZ ADMNIN, 1 VAC, SNGL/COMBO On: 28-Nov-2011 Intent ([id number])By: Nguyen Deng DO Comments: Lot #[id number]-L dltd, IMDose prefilled syringegiven by:NÉSTOR Kauffman DO, Kathleen FLU VAC, SPLIT, >3 YEARS, INTRAMUSC On: 28-Nov-2011 Intent ([id number])By: Nguyen Deng DO, DO, Kathleen EKG ([id number])By: Nguyen Deng DO On: 26-Oct-2011 Intent Nguyen Deng DO Comments: nsr no acute chg Inhaler Demonstration ([id number])By: On: 19-Oct-2011 Intent Ciesa TRANG Lindsey Aerosol Treatment ([id number])By: Ciesa On: 19-Oct-2011 Intent Mckenzie COSTELLO Eprescribed prescriptions ([id number])By: On: 20-Jan-2011 Intent Nguyen Deng DO, DO, Kathleen Eprescribed prescriptions ([id number])By: On: 26-Nov-2010 Intent Nguyen Deng DO, DO, Kathleen EKG ([id number])By: Nguyen Deng DO On: 21-Oct-2010 Intent Nguyen Deng DO Comments: nsr no acute chg MRI - Thoracic Spine (IV Contrast On: 02-Dec-2009 Intent Needed)By: Lala Reeves LPN CT - Abdomen & Pelvis Stone On: 02-Dec-2009 Intent ProtocolBy: Nguyen Deng DO, DO, Kathleen Toradol Injection, 30 mg ([id number])By: On: 27-Nov-2009 Intent Mckenzie Villagran CNP Comments: 2ml given im rt hip lot [id number] exp 02-27 CT - Abdomen & Pelvis (IV Contrast On: 24-Nov-2009 Intent Needed)By: Nguyen Deng DO, DO, Kathleen EKG ([id number])By: Lala Reeves LPN On: 03-Aug-2009 Intent Comments: nsr no acute changes EKG ([id number])By: Nguyen Deng DO On: 30-Jun-2009 Intent Nguyen Deng DO Comments: nsr no acute changes CT - Abdomen & Pelvis (IV Contrast On: 12-Nov-2008 Intent Needed)By: Nguyen Deng DO, DO, Kathleen TDAP VACCINE >7 IM ([id number])By: Ish On: 23-Oct-2008 Nguyen Robertson DO, DO, Kathleen Comments: Given in left deltoidLot # [id number] 02-21-2011 EMGBy: Nguyen Deng DO, DO, On: 29-Jul-2008 Intent Nguyen Nerve ConductionBy: Ish MARROQUIN, On: 29-Jul-2008 Intent Nguyen Smith DO EKG ([id number])By: Nguyen Deng DO On: 04-Jul-2008 Intent Nguyen Deng DO Radiology - Cervical SpineBy: Ish On: 12-Feb-2008 Intent Nguyen MARROQUIN DO, Kathleen EKG ([id number])By: Nguyen Deng DO On: 07-Aug-2007 Intent Nguyen Deng DO Comments: NSR NO ACUTE CHANGES SPECIMEN HNDLNG/TRNSPRT, OFFC > LAB On: 16-Oct-2006 Intent ([id number])By: LOLA CHU CNP Planned Medications INJECTION, METHYLPREDNISOLONE SODIUM SUCCINATE, UP TO 125 MG Ordered: 16-Jun-2016 Pending Nguyen Deng DO, DO, Kathleen Instructions Name Dates Details Nonsmoker : How to access health information online Indication: Nonsmoker Nonsmoker : How to access health information online - Detail Indication: Nonsmoker Nonsmoker : Patient Instructions Indication: Nonsmoker Impaired fasting glucose : How to access health information online Indication: Impaired fasting glucose Impaired fasting glucose : How to access health information online - Detail Indication: Impaired fasting glucose Impaired fasting glucose : Patient Instructions Indication: Impaired fasting glucose Nonsmoker : How to access health information online Indication: Nonsmoker Nonsmoker : How to access health information online - Detail Indication: Nonsmoker Nonsmoker : Patient Instructions Indication: Nonsmoker Nonsmoker : How to access health information online Indication: Nonsmoker Nonsmoker : How to access health information online - Detail Indication: Nonsmoker Nonsmoker : Patient Instructions Indication: Nonsmoker Nonsmoker : How to access health information online Indication: Nonsmoker Nonsmoker : How to access health information online - Detail Indication: Nonsmoker Nonsmoker : Patient Instructions Indication: Nonsmoker Nonsmoker : How to access health information online Indication: Nonsmoker Nonsmoker : How to access health information online - Detail Indication: Nonsmoker Nonsmoker : Patient Instructions Indication: Nonsmoker Nonsmoker : How to access health information online Indication: Nonsmoker Nonsmoker : How to access health information online - Detail Indication: Nonsmoker Nonsmoker : Patient Instructions Indication: Nonsmoker Impaired fasting glucose : How to access health information online Indication: Impaired fasting glucose Impaired fasting glucose : How to access health information online - Detail Indication: Impaired fasting glucose Impaired fasting glucose : Patient Instructions Indication: Impaired fasting glucose Nonsmoker : How to access health information online Indication: Nonsmoker Nonsmoker : How to access health information online - Detail Indication: Nonsmoker Upper respiratory infection, viral : Patient Instructions Indication: Upper respiratory infection, viral Impaired fasting glucose : How to access health information online Indication: Impaired fasting glucose Impaired fasting glucose : How to access health information online - Detail Indication: Impaired fasting glucose Impaired fasting glucose : Patient Instructions Indication: Impaired fasting glucose BMI 27.0-27.9,adult : How to access health information online Indication: BMI 27.0-27.9,adult BMI 27.0-27.9,adult : How to access health information online - Detail Indication: BMI 27.0-27.9,adult BMI 27.0-27.9,adult : Patient Instructions Indication: BMI 27.0-27.9,adult BMI 27.0-27.9,adult : How to access health information online Indication: BMI 27.0-27.9,adult BMI 27.0-27.9,adult : How to access health information online - Detail Indication: BMI 27.0-27.9,adult BMI 27.0-27.9,adult : Patient Instructions Indication: BMI 27.0-27.9,adult Nonsmoker : How to access health information online Indication: Nonsmoker Nonsmoker : How to access health information online - Detail Indication: Nonsmoker Nonsmoker : Patient Instructions Indication: Nonsmoker Impaired fasting glucose : How to access health information online Indication: Impaired fasting glucose Impaired fasting glucose : How to access health information online - Detail Indication: Impaired fasting glucose Impaired fasting glucose : Patient Instructions Indication: Impaired fasting glucose Nonsmoker : How to access health information online Indication: Nonsmoker Nonsmoker : How to access health information online - Detail Indication: Nonsmoker Nonsmoker : Patient Instructions Indication: Nonsmoker Nonsmoker : How to access health information online Indication: Nonsmoker Nonsmoker : How to access health information online - Detail Indication: Nonsmoker Nonsmoker : Patient Instructions Indication: Nonsmoker Flu-like symptoms : How to access health information online Indication: Flu-like symptoms Flu-like symptoms : How to access health information online - Detail Indication: Flu-like symptoms Flu-like symptoms : Patient Instructions Indication: Flu-like symptoms Impaired fasting glucose : How to access health information online Indication: Impaired fasting glucose Impaired fasting glucose : How to access health information online - Detail Indication: Impaired fasting glucose Impaired fasting glucose : Patient Instructions Indication: Impaired fasting glucose Benign essential hypertension : How to access health information online Indication: Benign essential hypertension Benign essential hypertension : How to access health information online - Detail Indication: Benign essential hypertension Benign essential hypertension : Patient Instructions Indication: Benign essential hypertension Impaired fasting glucose : How to access health information online Indication: Impaired fasting glucose Impaired fasting glucose : How to access health information online - Detail Indication: Impaired fasting glucose Impaired fasting glucose : Patient Instructions Indication: Impaired fasting glucose Epidermoid cyst : How to access health information online Indication: Epidermoid cyst Epidermoid cyst : How to access health information online - Detail Indication: Epidermoid cyst Epidermoid cyst : Patient Instructions Indication: Epidermoid cyst Impaired fasting glucose : How to access health information online Indication: Impaired fasting glucose Impaired fasting glucose : How to access health information online - Detail Indication: Impaired fasting glucose Impaired fasting glucose : Patient Instructions Indication: Impaired fasting glucose GERD (gastroesophageal reflux disease) : Patient Instructions Indication: GERD (gastroesophageal reflux disease) Benign essential hypertension : How to access health information online Indication: Benign essential hypertension Benign essential hypertension : How to access health information online - Detail Indication: Benign essential hypertension Benign essential hypertension : Patient Instructions Indication: Benign essential hypertension Other abnormal glucose : Patient Instructions Indication: Other abnormal glucose Other abnormal glucose : How to access health information online Indication: Other abnormal glucose Other abnormal glucose : How to access health information online - Detail Indication: Other abnormal glucose Other abnormal glucose : Patient Instructions Indication: Other abnormal glucose Other abnormal glucose : Patient Instructions Indication: Other abnormal glucose Dysuria : Patient Instructions Indication: Dysuria Abnormal lung sounds : Patient Instructions Indication: Abnormal lung sounds Anxiety : Patient Instructions Indication: Anxiety Other abnormal glucose : Patient Instructions Indication: Other abnormal glucose GERD (gastroesophageal reflux disease) : Patient Instructions Indication: GERD (gastroesophageal reflux disease) Sinus congestion : Patient Instructions Indication: Sinus congestion Benign essential hypertension : Patient Instructions Indication: Benign essential hypertension Benign essential hypertension : Patient Instructions:aviod white starch , limit sugars, aviod soda , Indication: Benign essential hypertension Encounters Office Visit On: 28-Feb-2018 8:54 Encounter Reason: Follow up for chronic medical issues - The patient feels well with minor complaints, has good energy level and is sleeping poorly. Patient has been compliant with instructions. Current medication use: n End: 28-Feb-2018 10:11 o side effects and compliant with dosing regimen. Patient sleeps 7 hours per night. Nutrition: balanced diet and supplemental vitamins. The medical issues the patient is following up for include All rachel ntified problems below, blood sugar issues, high blood pressure and high cholesterol. blood pressure range :, fasting blood sugars : and weight :., [ADDITIONAL REASON] Follow up tests - Date: (02/19/18 labs). Encounter Diagnosis: BMI 26.0-26.9,adult , Nonsmoker, Impaired fasting glucose (790.21), Vitamin D insufficiency, Benign essential hypertension (401.1), Mixed hyperlipidemia (272.2), Nutritional counseling, Rash, Otalgia, left, Insomnia, unspecified, Encounter for screening for malignant neoplasm of colon (Renamed from Special screening for malignant neoplasms, colon) [facility] Office Visit On: 09-Nov-2017 8:16 Encounter Reason: Follow up for chronic medical issues - The patient feels well with minor complaints, has good energy level and is sleeping poorly. Patient has been compliant with instructions. Current medication use: n End: 09-Nov-2017 9:26 o side effects and compliant with dosing regimen. Patient sleeps 7 hours per night. Nutrition: balanced diet and supplemental vitamins. The medical issues the patient is following up for include All rachel ntified problems below, blood sugar issues, high blood pressure and high cholesterol. blood pressure range :, fasting blood sugars : and weight :.Encounter Diagnosis: Impaired fasting glucose (790.21), BMI 26.0-26.9,adult, Benign essential hypertension (401.1), Mixed hyperlipidemia (272.2), Anxiety (300.00), Vitamin D insufficiency, GERD (gastroesophageal reflux disease) [facility] Office Visit On: 25-Oct-2017 10:24 Encounter Reason: Adipex visit - Exercises 3 times per week. The patient's dietary intake is no fast food, no fried food, no regular soda and restricting calories. Weight Watchers.Encounter Diagnosis: BMI 26.0-26.9,adult, Nonsmoker, End: 25-Oct-2017 17:29 Benign essential hypertension (401.1), Nutritional counseling [facility] Office Visit On: 04-Oct-2017 9:37 Encounter Reason: Adipex visit - Exercises 3 times per week. The patient's dietary intake is no fast food, no fried food, no regular soda and restricting calories.Encounter Diagnosis: BMI 26.0-26.9,adult, Nonsmoker, Nutritional counseling, End: 04-Oct-2017 10:21 Benign essential hypertension (401.1) [facility] Office Visit On: 06-Sep-2017 9:17 Encounter Reason: Adipex visit - Exercises 0 times per week. The patient's dietary intake is no fast food, no fried food, no regular soda and restricting calories.Encounter Diagnosis: BMI 27.0-27.9,adult, Nonsmoker, End: 06-Sep-2017 10:08 Benign essential hypertension (401.1), Nutritional counseling [facility] Office Visit On: 23-Aug-2017 10:21 Encounter Reason: Adipex visit - Exercises 4 times per week. The patient's dietary intake is no fast food, no fried food, no regular soda and restricting calories., End: 23-Aug-2017 10:49 [ADDITIONAL REASON] Upper Respiratory Infection (URI) - No changes in management were made at the last visit. Symptoms include nasal congestion and productive cough. Onset was sudden 1 week(s) ago. The symptoms occur constantly. Encounter Diagnosis: BMI 27.0-27.9,adult, Nonsmoker, Benign essential hypertension (401.1), Rash, Shingles, URI, acute [facility] Office Visit On: 09-Aug-2017 9:53 Encounter Reason: Adipex visit - Exercises 3 times per week. The patient's dietary intake is no fast food, no fried food, no regular soda and restricting calories.Encounter Diagnosis: BMI 27.0-27.9,adult, Nonsmoker, Impaired fasting glucose (790.21) End: 09-Aug-2017 10:16 , Nutritional counseling [facility] Phone Encounter On: 20-Jul-2017 15:45 Encounter Diagnosis: Unspecified Diagnosis End: 20-Jul-2017 15:54 [facility] Office Visit On: 10-Jul-2017 8:23 Encounter Reason: Follow up for chronic medical issues - The patient feels well with minor complaints, has decreased energy level and is sleeping well. Patient has been compliant with instructions. Current medication use End: 10-Jul-2017 9:10 : no side effects and compliant with dosing regimen. Patient sleeps 7 hours per night. Nutrition: balanced diet and supplemental vitamins. The medical issues the patient is following up for include All identified problems below, blood sugar issues, high blood pressure and high cholesterol. blood pressure range :, fasting blood sugars : and weight :., [ADDITIONAL REASON] Follow up tests - Date: (06/26/17 labs). Encounter Diagnosis: BMI 28.0-28.9,adult, Nonsmoker, Impaired fasting glucose (790.21), Hypercholesterolemia, Vitamin D insufficiency, Benign essential hypertension (401.1), Anxiety (300.00) [facility] Office Visit On: 22-May-2017 10:10 Encounter Reason: Flu Like Symptoms - Onset was 3 day(s) ago. Note for Flu like symptoms: Symptoms started about 4 days ago with sore throat, headaches, nasal drainage-clear, dry cough during the day, fever and chills, End: 22-May-2017 11:49 bilateral ears plugged, eyes feel swollen, SOB. No CP, sinus pressure, body aches. Has tried nyquil and zycam-a little bit of relief. I get this every May Leaving tomorrow to go to [place] for a week.Encounter Diagnosis: BMI 28.0-28.9,adult, Nonsmoker, Fever chills, Pharyngitis, acute, Upper respiratory infection, viral [facility] Office Visit On: 10-Apr-2017 8:47 Encounter Reason: Follow up for chronic medical issues - The patient feels well with minor complaints, has decreased energy level and is sleeping well. Patient has been compliant with instructions. Current medication use End: 10-Apr-2017 12:36 : no side effects and compliant with dosing regimen. Patient sleeps 7 hours per night. Nutrition: balanced diet and supplemental vitamins. The medical issues the patient is following up for include All identified problems below, blood sugar issues, high blood pressure and high cholesterol. blood pressure range :, fasting blood sugars : and weight :.Encounter Diagnosis: Impaired fasting glucose (790.21), BMI 28.0-28.9,adult, Nonsmoker, Benign essential hypertension (401.1), Vitamin D insufficiency, Mixed hyperlipidemia (272.2), GERD (gastroesophageal reflux disease), Hypercholesterolemia [facility] Office Visit On: 05-Jan-2017 8:50 Encounter Reason: Follow up tests - Date: (12/28/16 labs)., [ADDITIONAL REASON] Follow up for chronic medical issues - The patient feels well with minor complai End: 05-Jan-2017 9:47 nts, has good energy level and is sleeping well. Patient has been compliant with instructions. Current medication use: no side effects and compliant with dosing regimen. Patient sleeps 7 hours per night . Nutrition: balanced diet and supplemental vitamins. The medical issues the patient is following up for include All identified problems below, blood sugar issues, high blood pressure and high cholester ol. blood pressure range :, fasting blood sugars : and weight :. Encounter Diagnosis: Impaired fasting glucose (790.21), BMI 27.0-27.9,adult, Nutritional counseling, Mixed hyperlipidemia (272.2), GERD (gastroesophageal reflux disease), Vitamin D insufficiency, Otalgia, left, Benign essential hypertension (401.1), Anxiety (300.00), Recurrent cold sores [facility] Office Visit On: 28-Dec-2016 11:22 Encounter Reason: Earache - The earache has been occurring in a persistent pattern for 4 months. The course has been constant. The earache is described as a moderate dull ache and pressure sensation. It affects the left End: 28-Dec-2016 12:28 ear. The pain affects the internal ear. There has been associated decreased hearing and headache.Encounter Diagnosis: Nonsmoker, BMI 27.0-27.9,adult, Otalgia, left, Et (Eustachian tube disorder), bilateral [facility] Office Visit On: 24-Oct-2016 10:12 Encounter Reason: Sinusitis - No changes in management were made at the last visit. Symptoms include nasal congestion, cheek pain, cheek pressure, upper tooth pain, forehead pain, forehead pressure, ear fullness, ear josefa End: 24-Oct-2016 10:36 n (lt) and headache, while symptoms do not include clear rhinorrhea or cough. Onset was sudden day(s) ago. The symptoms occur constantly. Note for Sinusitis: using flonase and proairEncounter Diagnosis: BMI 28.0-28.9,adult, Nonsmoker, Sinusitis, bacterial, Cough [facility] Office Visit On: 04-Oct-2016 8:36 Encounter Reason: Follow up for chronic medical issues - The patient feels well with minor complaints, has good energy level and is sleeping well. Patient has been compliant with instructions. Current medication use: no End: 04-Oct-2016 10:10 side effects and compliant with dosing regimen. Patient sleeps 6 hours per night. Nutrition: balanced diet and supplemental vitamins. The medical issues the patient is following up for include All ident ified problems below, blood sugar issues, high blood pressure and high cholesterol. blood pressure range :, fasting blood sugars : and weight :., [ADDITIONAL REASON] Sore Throat - No changes in management were made at the last visit. Symptoms inc lude sore throat and swollen glands. The symptoms are symmetrical. Onset was week(s) ago. Encounter Diagnosis: Impaired fasting glucose (790.21), BMI 28.0- 28.9,adult, Benign essential hypertension (401.1), Hypercholesterolemia, Vitamin D insufficiency, GERD (gastroesophageal reflux disease), Nutritional counseling, Sinusitis, chronic, Pharyngitis, acute [facility] Office Visit On: 20-Jun-2016 13:25 Encounter Reason: Follow up acute care visit - The patient feeling better since last seen. Patient has been compliant with instructions. Current medication use: no side effects, experiencing side effects, has decreased d End: 20-Jun-2016 13:41 ose, has increased dose, compliant with dosing regimen, non-compliant with dosing regimen, considered effective by patient and not considered effective by patient. Nutrition: balanced diet.Encounter Diagnosis: BMI 28.0-28.9,adult, Nonsmoker, Walking pneumonia, Abnormal lung sounds [facility] Office Visit On: 16-Jun-2016 9:41 Encounter Reason: Earache - The onset of the earache has been gradual and has been occurring in a persistent pattern. The course has been constant. The earache is described as a moderate dull ache. It affects the left ea End: 16-Jun-2016 11:15 r. The pain affects the internal ear., [ADDITIONAL REASON] Follow up acute care visit - The patient does not feel well. Patient has been compliant with instructions. Nutrition: balanced diet. Encounter Diagnosis: BMI 28.0- 28.9,adult, Nonsmoker, Cough, Stress reaction, Benign essential hypertension (401.1), Abnormal lung sounds, Walking pneumonia, ET (eustachian tube disorder), bilateral [facility] Office Visit On: 06-Jun-2016 13:22 Encounter Reason: Flu Like Symptoms - Symptoms include body aches, nasal congestion, postnasal drainage, dry cough, facial pressure and headache. Onset was 6 day(s) ago. Onset followed exposure at home to someone with up End: 06-Jun-2016 14:15 per respiratory symptoms. The symptoms occur constantly. The patient describes this as unchanged. Associated symptoms include plugged ear(s), shortness of breath and fatigue. Previous presentation included postnasal drainage and dry cough. Encounter Diagnosis: BMI 28.0-28.9,adult, Nonsmoker, Cough, Flu-like symptoms, Influenza B [facility] Office Visit On: 19-May-2016 8:48 Encounter Reason: Follow up tests - Date: (05/13/16 labs)., [ADDITIONAL REASON] Follow up for chronic medical issues - The patient feels well with minor complai End: 19-May-2016 9:49 nts, has good energy level and is sleeping poorly. Patient has been compliant with instructions. Current medication use: no side effects and compliant with dosing regimen. Patient sleeps 6 hours per nig ht. Nutrition: balanced diet and supplemental vitamins. The medical issues the patient is following up for include All identified problems below, blood sugar issues, high blood pressure and high cholest karey. blood pressure range :, fasting blood sugars : and weight :. Encounter Diagnosis: Impaired fasting glucose (790.21), BMI 28.0-28.9,adult, No history of measles, mumps, rubella (MMR) vaccination, Benign essential hypertension (401.1), Mixed hyperlipidemia (272.2), GERD (gastroesophageal reflux disease), Vitamin D insufficiency, Stress reaction [facility] Office Visit On: 13-May-2016 8:54 Encounter Reason: Hypertension - Symptoms include headache, visual disturbance and dizziness. Recent blood pressure has been mostly < 150/100. The patient describes this as worsening. Associated symptoms include near syncope and weakness., End: 13-May-2016 10:34 [ADDITIONAL REASON] Fall - 1 week ago running after dogs up steps Encounter Diagnosis: Benign essential hypertension (401.1), Concussion [facility] Phone Encounter On: 10-Feb-2016 10:32 [facility] End: 10-Feb-2016 10:34 Phone Encounter On: 25-Jan-2016 16:58 Encounter Diagnosis: Hypercholesterolemia End: 25-Jan-2016 16:59 [facility] Office Visit On: 21-Jan-2016 8:13 Encounter Reason: Follow up for chronic medical issues - The patient feels well with minor complaints, has good energy level and is sleeping well. Patient has been compliant with instructions. Current medication use: no End: 21-Jan-2016 11:00 side effects and compliant with dosing regimen. Patient sleeps 5 hours per night. Nutrition: balanced diet and supplemental vitamins. The medical issues the patient is following up for include All ident ified problems below, blood sugar issues, high blood pressure and high cholesterol. blood pressure range :, fasting blood sugars : and weight :.Encounter Diagnosis: Impaired fasting glucose (790.21), Benign essential hypertension (401.1), Vitamin D insufficiency, Mixed hyperlipidemia (272.2), GERD (gastroesophageal reflux disease), Depressive disorder, Uncomplicated herpes simplex, Bilateral chronic angle-closure glaucoma, indeterminate stage [facility] Annotation/Addendum On: 14-Oct-2015 15:18 Encounter Diagnosis: Neck pain End: 14-Oct-2015 15:20 [facility] Office Visit On: 14-Oct-2015 14:44 Encounter Reason: Earache - The earache has been occurring in a persistent pattern for 1 week. The course has been constant. The earache is described as a pressure sensation. It affects the left ear. The pain affects the End: 14-Oct-2015 15:17 internal ear. There has been associated inability to 'pop' ears, nasal congestion and non-purulent discharge from ear.Encounter Diagnosis: Eustachian tube dysfunction [facility] Office Visit On: 30-Sep-2015 14:15 Encounter Reason: Lumps - The onset of the lumps has been sudden and has been occurring in a persistent pattern for 4 days. The course has been constant. The lumps are described as mild.Encounter Diagnosis: Epidermoid cyst End: 30-Sep-2015 15:00 [facility] Office Visit On: 07-Sep-2015 9:32 Encounter Reason: Follow up for chronic medical issues - The patient feels well with minor complaints, has good energy level and is sleeping poorly. Patient has been compliant with instructions. Current medication use: n End: 07-Sep-2015 13:12 o side effects and compliant with dosing regimen. Patient sleeps 6 hours per night. Nutrition: balanced diet and supplemental vitamins. The medical issues the patient is following up for include All rachel ntified problems below, blood sugar issues, high blood pressure and high cholesterol. blood pressure range :, fasting blood sugars : and weight :.Encounter Diagnosis: Impaired fasting glucose (790.21), BMI 27.0-27.9,adult, Mixed hyperlipidemia (272.2), Vitamin D insufficiency, Pneumococcal vaccination given, Rheumatoid arthritis (714.0), GERD (gastroesophageal reflux disease), Benign essential hypertension (401.1) [facility] Office Visit On: 15-Jul-2015 14:41 Encounter Reason: Abdominal pain - The onset of the pain has been sudden and has been occurring in a persistent pattern for 1 week. The course has been constant. The pain is described as a moderate sharp pain and stabbin End: 15-Jul-2015 15:54 g. The pain is described as being located in the right upper quadrant. The symptoms have no relieving factors. The symptoms have been associated with abdominal distention, bloating and nausea (with cert ain foods), while the symptoms have not been associated with constipation or diarrhea. Note for Pain: and also arm pain up by rt min velázquez since june 26. whne I breath or cough,sneeze. Now it feels like is from rib to front of me. I thought I has a uti so I took nitrofurantion. But that made me feel so sickEncounter Diagnosis: Generalized abdominal pain, Chills [facility] Office Visit On: 05-Jun-2015 11:50 Encounter Reason: Follow up tests - Date: (05/27/15 labs)., [ADDITIONAL REASON] Follow up for chronic medical issues - The patient feels well with minor complai End: 05-Jun-2015 14:05 nts, has good energy level and is sleeping well. Patient has been compliant with instructions. Current medication use: no side effects and compliant with dosing regimen. Patient sleeps 6 hours per night . Nutrition: balanced diet and supplemental vitamins. The medical issues the patient is following up for include All identified problems below, blood sugar issues, high blood pressure and high cholester ol. blood pressure range :, fasting blood sugars : and weight :. Encounter Diagnosis: Impaired fasting glucose (790.21), GERD (gastroesophageal reflux disease), Benign essential hypertension (401.1), Vitamin D insufficiency, Mixed hyperlipidemia (272.2) [facility] Office Visit On: 05-Mar-2015 8:07 Encounter Reason: Follow up Hypertension - The symptoms have been associated with anxiety and excessive caffeine intake. blood pressure range : (been pretty good)., End: 05-Mar-2015 8:46 [ADDITIONAL REASON] Follow up Meds - The patient feels well with minor complaints. Patient has been compliant with instructions. Current medication use: no side effects and compliant with dosing regimen. Patient sleeps 7 hours per night. Encounter Diagnosis: Benign essential hypertension (401.1) [facility] Refill Request On: 03-Feb-2015 8:15 Encounter Diagnosis: Allergic rhinitis End: 03-Feb-2015 8:17 [facility] Office Visit On: 02-Feb-2015 11:17 Encounter Reason: Follow up for chronic medical issues - The patient feels well with minor complaints, has good energy level and is sleeping well. Patient has been compliant with instructions. Current medication use: no End: 02-Feb-2015 12:56 side effects and compliant with dosing regimen. Patient sleeps 7 hours per night. Nutrition: balanced diet and supplemental vitamins. The medical issues the patient is following up for include All ident ified problems below, blood sugar issues, high blood pressure and other. fasting blood sugars : and weight :.Encounter Diagnosis: GERD (gastroesophageal reflux disease), SYMPTOMS INVOLVING URINARY SYSTEM; URINARY FREQUENCY (788.41), Benign essential hypertension (401.1), Hypercholesterolemia, Vitamin D insufficiency (268.9), Other Abnormal Glucose, Pre-diabetes (790.29) [facility] Office Visit On: 29-Sep-2014 10:06 Encounter Reason: Follow up tests - Date: (09/12/14 labs)., [ADDITIONAL REASON] Follow up for chronic medical issues - The patient feels well with minor complai End: 29-Sep-2014 12:42 nts, has good energy level and is sleeping poorly. Patient has been compliant with instructions. Current medication use: no side effects and compliant with dosing regimen. Patient sleeps 5 hours per nig ht. Nutrition: balanced diet and supplemental vitamins. The medical issues the patient is following up for include All identified problems below, blood sugar issues, high blood pressure and high cholest karey. blood pressure range :, fasting blood sugars : and weight :. Encounter Diagnosis: Other Abnormal Glucose, Pre-diabetes (790.29), Benign essential hypertension (401.1), Hypercholesterolemia (272.0), Vitamin D insufficiency (268.9), Depressive Disorder (311.), Gerd (530.81), Bronchitis (490), Cough (786.2), Abnormal Lung Sounds/Rales (786.7) [facility] Office Visit On: 02-Jun-2014 9:56 Encounter Reason: Follow up for chronic medical issues - The patient feels well with minor complaints, has good energy level and is sleeping well. Patient has been compliant with instructions. Current medication use: no End: 02-Jun-2014 11:16 side effects and compliant with dosing regimen. Patient sleeps 8 hours per night. Nutrition: balanced diet and supplemental vitamins. The medical issues the patient is following up for include All ident ified problems below, blood sugar issues, high blood pressure and high cholesterol. blood pressure range :, fasting blood sugars : and weight :.Encounter Diagnosis: Other Abnormal Glucose, Pre-diabetes (790.29), Gerd (530.81), Hypercholesterolemia (272.0), Benign essential hypertension (401.1), Vitamin D insufficiency (268.9) [facility] Office Visit On: 24-Mar-2014 10:01 Encounter Reason: Follow up for diabetes/glucose intolerance - The patient feels well with minor complaints, has good energy level and is sleeping well. Patient has been compliant with instructions. Nutrition: balanced d End: 24-Mar-2014 11:20 iet. fasting blood sugars : (114 this am).Encounter Diagnosis: Other Abnormal Glucose, Pre-diabetes (790.29), Hypercholesterolemia (272.0) [facility] Office Visit On: 03-Mar-2014 9:42 Encounter Reason: Follow up tests - Date: (02/18/14 labs)., [ADDITIONAL REASON] Follow up for chronic medical issues - The patient feels well with minor complai End: 03-Mar-2014 10:15 nts, has good energy level and is sleeping well. Patient has been compliant with instructions. Current medication use: no side effects and compliant with dosing regimen. Patient sleeps 7 hours per night . Nutrition: balanced diet and supplemental vitamins. The medical issues the patient is following up for include All identified problems below, blood sugar issues, high blood pressure and high cholesterol. Encounter Diagnosis: Anxiety (300.00), Benign essential hypertension (401.1), Hypercholesterolemia (272.0), Vitamin D insufficiency (268.9), Other Abnormal Glucose, Pre-diabetes (790.29) [facility] Office Visit On: 18-Feb-2014 8:22 Encounter Reason: Urinary problems - The onset of the urinary problems has been sudden and they have been occurring in a persistent pattern for 3 days. The course has been increasing. The urinary problems are described a End: 18-Feb-2014 9:00 s moderate. The urinary problem is characterized as frequency, urgency and painful urination.Encounter Diagnosis: SYMPTOMS INVOLVING URINARY SYSTEM; URINARY FREQUENCY (788.41), Abdominal Pain,Unspecified Site (789.00) [facility] Office Visit On: 07-Nov-2013 9:45 Encounter Reason: Follow up for chronic medical issues - The patient feels well with minor complaints, has good energy level and is sleeping poorly. Patient has been compliant with instructions. Current medication use: n End: 07-Nov-2013 10:40 o side effects and compliant with dosing regimen. Patient sleeps 6 hours per night. Nutrition: balanced diet and supplemental vitamins. The medical issues the patient is following up for include All rachel ntified problems below, blood sugar issues, high blood pressure and high cholesterol. fasting blood sugars : and weight :.Encounter Diagnosis: Gerd (530.81), Other Abnormal Glucose, Pre-diabetes (790.29), Vitamin D insufficiency (268.9), Depressive Disorder (311.), Hypercholesterolemia (272.0), Benign essential hypertension (401.1) [facility] Office Visit On: 04-Jul-2013 10:49 Encounter Reason: Follow up for chronic medical issues - The patient feels well with minor complaints, has good energy level and is sleeping well. Patient has been compliant with instructions. Current medication use: no End: 04-Jul-2013 12:07 side effects and compliant with dosing regimen. Patient sleeps 7 hours per night. Nutrition: balanced diet and supplemental vitamins. The medical issues the patient is following up for include All ident ified problems below, blood sugar issues and high blood pressure. blood pressure range : and weight :.Encounter Diagnosis: Benign essential hypertension (401.1), Hypercholesterolemia (272.0), Vitamin D insufficiency (268.9), Other Abnormal Glucose, Pre-diabetes (790.29), Depressive Disorder (311.) [facility] Phone Encounter On: 28-Jun-2013 13:43 Encounter Diagnosis: No history of measles, mumps, rubella (MMR) vaccination End: 28-Jun-2013 14:53 [facility] Office Visit On: 27-Jun-2013 14:15 Encounter Reason: UTI - The urinary symptoms are described as painful urination and frequency. The symptoms have been occurring for 2 days and have been constant. The urine is described as clear. The symptoms have been End: 27-Jun-2013 14:36 associated with abdominal pain and low back pain. There is no medical history of diabetes. The patient has been using pyridium/uristat, while the patient denies the use of oral contraceptives, antibiotics or hormone replacement therapy. Encounter Diagnosis: SYMPTOMS INVOLVING URINARY SYSTEM; DYSURIA (788.1), ACUTE CYSTITIS [facility] Office Visit On: 17-Jun-2013 10:12 Encounter Reason: Follow up ER - Reason for hospitalization note: (laceration lt knee). Patient has been compliant with instructions. Current medication use: no side effects and compliant with dosing regimen. The patient End: 17-Jun-2013 11:13 feels well with minor complaints.Encounter Diagnosis: Fall, Visit for suture removal [facility] Office Visit On: 22-Mar-2013 8:23 Encounter Reason: Cough - The last clinic visit was 5 day(s) ago. No changes in management were made at the last visit. Symptoms include cough, wheezing and runny nose. Cough onset was sudden. There is no known event ligia End: 22-Mar-2013 12:32 t preceded symptom onset. The cough occurs constantly. Symptoms are described as moderate in severity and worsening.Encounter Diagnosis: Cough (786.2), Bronchitis (490), Abnormal Lung Sounds/Rales (786.7) [facility] Office Visit On: 27-Feb-2013 8:19 Encounter Reason: Follow up for chronic medical issues - The patient feels well with minor complaints, has good energy level and is sleeping well. Patient has been non-compliant with instructions. Current medication use: End: 27-Feb-2013 11:54 no side effects and non-compliant with dosing regimen. Nutrition: balanced diet and supplemental vitamins. The medical issues the patient is following up for include All identified problems below, bloo d sugar issues, high blood pressure and high cholesterol. blood pressure range :, fasting blood sugars : and weight :., [ADDITIONAL REASON] Follow up tests - Date: (02/18/13 labs). Encounter Diagnosis: Gerd (530.81), Anxiety (300.00), Other Abnormal Glucose, Pre-diabetes (790.29), Benign essential hypertension (401.1), Hypercholesterolemia (272.0), Vitamin D insufficiency (268.9) [facility] Office Visit On: 24-Oct-2012 8:04 Encounter Reason: Follow up for chronic medical issues - The patient feels well with minor complaints, has good energy level and is sleeping poorly. Patient has been compliant with instructions. Current medication use: n End: 24-Oct-2012 8:55 o side effects and compliant with dosing regimen. Patient sleeps 7 hours per night. Nutrition: balanced diet and supplemental vitamins. The medical issues the patient is following up for include All rachel ntified problems below, blood sugar issues, high blood pressure and high cholesterol. blood pressure range :, fasting blood sugars : and weight :.Encounter Diagnosis: Other Abnormal Glucose, Pre-diabetes (790.29), Depressive Disorder (311.), Vitamin D insufficiency (268.9), Hypercholesterolemia (272.0), Benign essential hypertension (401.1) [facility] Office Visit On: 25-Jun-2012 8:07 Encounter Reason: Follow up tests - Date: (06/18/12 labs)., [ADDITIONAL REASON] Follow up for chronic medical issues - The patient feels well with minor complai End: 25-Jun-2012 8:45 nts, has decreased energy level and is sleeping well. Patient has been compliant with instructions. Current medication use: no side effects and compliant with dosing regimen. Patient sleeps 7 hours per night. Nutrition: balanced diet and supplemental vitamins. The medical issues the patient is following up for include All identified problems below, blood sugar issues, high blood pressure, high cholest karey and hypothyroid. blood pressure range :, fasting blood sugars : and weight :. Encounter Diagnosis: Gerd (530.81), Other Abnormal Glucose, Pre-diabetes (790.29), Benign essential hypertension (401.1), Depressive Disorder (311.), Hypercholesterolemia (272.0), Vitamin D insufficiency (268.9), Wheezing (786.07), Benign paroxysmal positional vertigo (386.11), Otalgia, unspecified (388.70), Eustachian tube dysfunction (381.81), Elevated LFT (790.6), Hot Flashes (782.62), Vaginal itching (698.1), Abdominal Pain,RLQ (789.03) [facility] Office Visit On: 30-Apr-2012 9:00 Encounter Reason: Follow up Meds - The patient feels well with minor complaints, has good energy level and is sleeping well. Patient has been compliant with instructions. Current medication use: no side effects and compl End: 30-Apr-2012 9:35 iant with dosing regimen. Patient sleeps 7 hours per night. Nutrition: balanced diet.Encounter Diagnosis: Gerd (530.81), Cough (786.2), Sinus congestion (478.19) [facility] Office Visit On: 19-Mar-2012 9:07 Encounter Reason: Follow up acute care visit - The patient feeling better since last seen. The medical issues the patient is following up for include URI.Encounter Diagnosis: Unspecified Diagnosis, Gerd (530.81), Sinus congestion (478.19), End: 19-Mar-2012 9:58 SOB (786.05) [facility] Office Visit On: 27-Feb-2012 8:06 Encounter Reason: Follow up tests - Date: (02/17/12 labs)., [ADDITIONAL REASON] Follow up for chronic medical issues - The patient feels well with minor complai End: 27-Feb-2012 17:46 nts, has good energy level and is sleeping poorly. Patient has been compliant with instructions. Current medication use: no side effects and compliant with dosing regimen. Patient sleeps 7 hours per nig ht. Nutrition: balanced diet and supplemental vitamins. The medical issues the patient is following up for include All identified problems below, blood sugar issues, high blood pressure and high cholesterol. Encounter Diagnosis: Anxiety (300.00), Hypercholesterolemia (272.0), Benign essential hypertension (401.1), Rheumatoid arthritis (714.0), Gerd (530.81), SOB (786.05), Vitamin D insufficiency (268.9), Other Abnormal Glucose, Pre-diabetes (790.29) [facility] Office Visit On: 28-Nov-2011 8:01 Encounter Reason: Follow up Hypertension - The symptoms have been associated with obesity, while the symptoms have not been associated with anxiety. blood pressure range : (good 122/70 to 133/72).Encounter Diagnosis: End: 28-Nov-2011 9:58 Benign essential hypertension (401.1), Weight gain (783.1), Need for prophylactic vaccination and inoculation against influenza (V04.81) [facility] Office Visit On: 26-Oct-2011 10:00 Encounter Reason: Follow up for chronic medical issues - The patient feels well with minor complaints, has good energy level and is sleeping well. Patient has been compliant with instructions. Current medication use: no End: 26-Oct-2011 22:52 side effects and compliant with dosing regimen. Patient sleeps 7 hours per night. Nutrition: balanced diet and supplemental vitamins. The medical issues the patient is following up for include All ident ified problems below, blood sugar issues, depression, high blood pressure and high cholesterol. blood pressure range :, fasting blood sugars : and weight :.Encounter Diagnosis: Benign essential hypertension (401.1), Depressive Disorder (311.), Other Abnormal Glucose, Pre-diabetes (790.29), Hypercholesterolemia (272.0) [facility] Office Visit On: 19-Oct-2011 8:22 Encounter Reason: Cold Symptoms - Symptoms include nasal congestion, sore throat, hoarseness, dry cough and headache, while symptoms do not include runny nose, productive cough, facial pressure or facial pain. Onset was End: 19-Oct-2011 8:53 gradual 1 week(s) ago. Onset followed exposure to someone at work with upper respiratory symptoms. The symptoms occur constantly. The patient describes this as moderate in severity and unchanged. Associ ated symptoms include ear pain and nausea, while associated symptoms do not include swollen lymph nodes, wheezing, shortness of breath, vomiting, diarrhea, fever or chills. Current treatment includes antihistamines (plus decongestant). Encounter Diagnosis: ACUTE PHARYNGITIS (462.), Candidiasis of mouth (112.0), Wheezing (786.07) [facility] Phone Encounter On: 03-Oct-2011 17:52 Encounter Diagnosis: Benign essential hypertension (401.1) End: 03-Oct-2011 17:53 [facility] Office Visit On: 30-Jun-2011 13:14 Encounter Reason: Follow up tests - Date: (06/20/11 labs)., [ADDITIONAL REASON] Follow up for chronic medical issues - The patient feels well with minor complai End: 30-Jun-2011 14:09 nts, has good energy level and is sleeping well. Patient has been compliant with instructions. Current medication use: no side effects and compliant with dosing regimen. Patient sleeps 7 hours per night . Nutrition: balanced diet and supplemental vitamins. The medical issues the patient is following up for include All identified problems below, blood sugar issues, gastric reflux, high blood pressure an d high cholesterol. blood pressure range :, fasting blood sugars : and weight :. Encounter Diagnosis: Other Abnormal Glucose, Pre-diabetes (790.29), Benign essential hypertension (401.1), Hypercholesterolemia (272.0), Anxiety (300.00), Allergic Rhinitis(477.9), Benign paroxysmal positional vertigo (386.11) [facility] Lab Order On: 20-Jun-2011 9:37 Encounter Diagnosis: Benign essential hypertension (401.1), Other Abnormal Glucose, Pre-diabetes (790.29) End: 20-Jun-2011 9:37 [facility] Office Visit On: 24-Feb-2011 12:47 Encounter Reason: Follow up for chronic medical issues - The patient feels well with minor complaints, has good energy level and is sleeping well. Patient has been compliant with instructions. Current medication use: no End: 24-Feb-2011 13:16 side effects and compliant with dosing regimen. Patient sleeps 6 hours per night. Nutrition: balanced diet and supplemental vitamins. The medical issues the patient is following up for include All ident ified problems below, blood sugar issues, depression, high blood pressure and high cholesterol. blood pressure range :, fasting blood sugars : and weight :.Encounter Diagnosis: Benign essential hypertension (401.1), Other Abnormal Glucose, Pre-diabetes (790.29), Mixed hyperlipidemia (272.2) [facility] Office Visit On: 20-Jan-2011 11:17 Encounter Reason: vaginal itching - The discharge has been occurring for 4 days and has been constant. There has been no associated fever.Encounter Diagnosis: Vaginal Dryness (623.8), Vaginal itching (698.1), End: 20-Jan-2011 11:57 SYMPTOMS INVOLVING URINARY SYSTEM; DYSURIA (788.1) [facility] Office Visit On: 26-Nov-2010 11:41 Encounter Reason: Ear Discharge - The history today is reported by the patient. The last clinic visit was 3 week(s) ago. No changes in management were made at the last visit. Symptoms include ear discharge (wax), ear ful End: 26-Nov-2010 12:08 lness and ear pain, while symptoms do not include ear itching, ear pulling, ear swelling, dizziness, hearing impairment, need for high sound levels or tinnitus. Symptoms are located in the left ear. The discharge is described as yellow. Onset was sudden. There is no known event that preceded symptom onset. The symptoms occur constantly. The patient describes this as mild and unchanged. The patient is not currently being treated for this problem. Previous presentation included ear discharge, ear itching, ear pain, hearing impairment and cough.Encounter Diagnosis: Eustachian tube dysfunction (381.81), Otalgia, unspecified (388.70), Sinus congestion (478.19), Viral infection, unspecified (079.99) [facility] Office Visit On: 21-Oct-2010 13:17 Encounter Reason: Follow up for chronic medical issues - The patient feels well with no complaints, has good energy level and is sleeping well. Patient has been compliant with instructions. Current medication use: no landen End: 21-Oct-2010 15:38 e effects and compliant with dosing regimen. Patient sleeps 7 hours per night. Nutrition: balanced diet and supplemental vitamins. The medical issues the patient is following up for include All identifi ed problems below, blood sugar issues, depression, high blood pressure and high cholesterol. blood pressure range :, fasting blood sugars : and weight :.Encounter Diagnosis: Anxiety (300.00), Benign essential hypertension (401.1), Hypercholesterolemia (272.0), Other Abnormal Glucose, Pre-diabetes (790.29), Insomnia,Unspecified (327.00), Depressive Disorder (311.) [facility] Office Visit On: 05-Oct-2010 9:46 Encounter Diagnosis: Other Abnormal Glucose, Pre-diabetes (790.29) End: 05-Oct-2010 9:48 [facility] Office Visit On: 01-Jun-2010 13:00 Encounter Reason: Sinusitis/ - The duration of the symptoms are 1 1/2 weeks The course has been gradually worsening. The sinusitis/ has no relieving factors. Associated features include The symptoms have been associated End: 01-Jun-2010 13:24 with cough, ear pain (plugged) and sinus pain. No previous evaluations were reported.Encounter Diagnosis: Viral infection, unspecified (079.99), Cough (786.2) [facility] Office Visit On: 27-Apr-2010 8:07 Encounter Reason: Follow up for chronic medical issues - The patient feels well with minor complaints (a little depressed), has good energy level and is sleeping well. Patient has been non-compliant with instructions. Cu End: 27-Apr-2010 8:59 rrent medication use: no side effects and non-compliant with dosing regimen. Patient sleeps 6 hours per night. Nutrition: balanced diet and supplemental vitamins. The medical issues the patient is follo wing up for include All identified problems below, depression, gastric reflux, high blood pressure and high cholesterol. fasting blood sugars : and weight :.Encounter Diagnosis: Other Abnormal Glucose, Pre-diabetes (790.29), Anxiety (300.00), Hypercholesterolemia (272.0), Benign essential hypertension (401.1), Depressive Disorder (311.) [facility] Phone Encounter On: 02-Dec-2009 17:43 Encounter Diagnosis: Low back pain (724.2), Abdominal Pain,Unspecified Site (789.00) End: 02-Dec-2009 17:50 [facility] Office Visit On: 02-Dec-2009 14:49 Encounter Reason: Diarrhea - The onset of the diarrhea has been sudden and has been occurring in a persistent pattern for 4 days. The course has been constant. The stools are watery. The volume of the stools is normal. T End: 02-Dec-2009 15:52 he symptoms have been associated with abdominal pain (rt upper quad lost 14 pounds since 3 weeks) and nausea, while the symptoms have not been associated with fever. , [ADDITIONAL REASON] Nausea - The onset of the nausea has been gradual and has been occurring in a persistent pattern for 1 weeks. The course has been constant. The symptoms have no aggravating factors. The symptoms have no relieving factors. The symptoms have been associated with diarrhea. Encounter Diagnosis: Low back pain (724.2), Abdominal Pain,Unspecified Site (789.00) [facility] Office Visit On: 27-Nov-2009 10:20 Encounter Reason: Abdominal pain - The onset of the pain has been sudden and has been occurring in a persistent pattern for 1 weeks. The course has been constant. The pain is described as a moderate sharp pain. The pain End: 27-Nov-2009 13:00 is described as being located in the right lower quadrant. The pain radiates to the back. The symptoms have no aggravating factors. The symptoms have no relieving factors. The symptoms have been associa ramesh with constipation, while the symptoms have not been associated with diarrhea. Previous evaluations have included CT scan. Encounter Diagnosis: Hip bursitis 726.5 [facility] Phone Encounter On: 25-Nov-2009 17:14 [facility] End: 25-Nov-2009 17:14 Office Visit On: 24-Nov-2009 12:33 Encounter Reason: Follow up ER - Reason for hospitalization abdominal pain. Encounter Diagnosis: Abdominal Pain,RLQ (789.03), Allergic Rhinitis(477.9), Insomnia,Unspecified (327.00) End: 24-Nov-2009 13:16 [facility] Phone Encounter On: 11-Nov-2009 12:17 [facility] End: 11-Nov-2009 12:18 Office Visit On: 10-Nov-2009 8:09 Encounter Reason: Follow up for chronic medical issues - The patient does not feel well ,has good energy level and is sleeping poorly. Patient has been non- compliant with instructions. Current medication use: no side eff End: 10-Nov-2009 9:16 ects and non-compliant with dosing regimen. Patient sleeps 5 hours per night. Nutrition: inappropriate diet and supplemental vitamins. The medical issues the patient is following up for include All iden tified problems below ,blood sugar issues ,high blood pressure and high cholesterol. fasting blood sugars : and weight :. Encounter Diagnosis: Other Abnormal Glucose, Pre-diabetes (790.29), Benign essential hypertension (401.1), Gerd (530.81), Hypercholesterolemia (272.0), Hormonal Imbalance (259.9), Herpes simplex without mention of complication (054.9) [facility] Office Visit On: 03-Aug-2009 8:27 Encounter Reason: Preoperative evaluation - The patient feels well with minor complaints ,has good energy level and is sleeping well. Date of procedure: (08/12/09 left foot sx). There have been no problems with general an End: 03-Aug-2009 10:55 esthesia or blood/blood products. Encounter Diagnosis: Pre-operative examination, unspecified (V72.84) [facility] Office Visit On: 30-Jun-2009 9:10 Encounter Reason: Follow up for chronic medical issues - The patient feels well with minor complaints. Patient has been compliant with instructions. Current medication use: no side effects. Patient sleeps 7 hours per nig End: 30-Jun-2009 12:56 ht. Nutrition: balanced diet. The medical issues the patient is following up for include All identified problems below ,blood sugar issues ,depression ,high blood pressure ,high cholesterol and other (DDD). Encounter Diagnosis: Other Abnormal Glucose, Pre-diabetes (790.29), Benign essential hypertension (401.1), Hypercholesterolemia (272.0), Depressive Disorder (311.), Hormonal Imbalance (259.9), Hot Flashes (782.62) [facility] Office Visit On: 19-Feb-2009 13:04 Encounter Reason: Follow up for chronic medical issues - The patient feels well with minor complaints ,has good energy level and is sleeping well. Patient has been compliant with instructions. Current medication use: no End: 19-Feb-2009 13:31 side effects and compliant with dosing regimen. Patient sleeps 7 hours per night. Nutrition: balanced diet and supplemental vitamins. The medical issues the patient is following up for include All ident ified problems below ,blood sugar issues ,high blood pressure and high cholesterol. fasting blood sugars : and weight :. Encounter Diagnosis: Other Abnormal Glucose, Pre-diabetes (790.29), Benign essential hypertension (401.1), Hypercholesterolemia (272.0), Anxiety (300.00), Allergic Rhinitis(477.9) [facility] Historical Summary On: 14-Nov-2008 15:44 [facility] End: 14-Nov-2008 15:48 Office Visit On: 12-Nov-2008 11:43 Encounter Reason: Abdominal pain - The onset of the pain has been sudden and has been occurring in a persistent pattern for 1 weeks. The course has been constant. The pain is described as a moderate dull ache. The pain i End: 12-Nov-2008 12:08 s described as being located in the lower abdomen. The pain radiates to the back. The symptoms are aggravated by meals (1/2 to 1 hour after eating). Encounter Diagnosis: Abdominal Pain,RLQ (789.03), SYMPTOMS INVOLVING URINARY SYSTEM; URINARY FREQUENCY (788.41) [facility] Office Visit On: 23-Oct-2008 13:04 Encounter Reason: Follow up for chronic medical issues - The patient feels well with minor complaints ,has good energy level and is sleeping well. Patient has been compliant with instructions. Current medication use: no End: 23-Oct-2008 14:05 side effects and compliant with dosing regimen. Patient sleeps 7 hours per night. Nutrition: inappropriate diet and supplemental vitamins. The medical issues the patient is following up for include All identified problems below. blood pressure range : and fasting blood sugars :. Encounter Diagnosis: Other Abnormal Glucose, Pre-diabetes (790.29), Benign essential hypertension (401.1), Hypercholesterolemia (272.0), Degenerative Disc Disease (722.6) , Carpel tunnel syndrome (354.0) [facility] Office Visit On: 26-Aug-2008 11:00 Encounter Reason: Follow up, Diagnostic Procedure Results - Diagnostic tests include NCS/EMG. Date: (see scanned documents-for this ). Encounter Diagnosis: Carpel tunnel syndrome (354.0) End: 26-Aug-2008 11:34 [facility] Office Visit On: 29-Jul-2008 9:28 Encounter Reason: Numbness and tingling - The onset of the numbness and tingling has been gradual and has been occurring in an intermittent pattern for 5 years. The course has been recurrent. The numbness and tingling is End: 29-Jul-2008 11:13 described as moderate. Note for Numbness and tingling: the right hand is worse then the leftEncounter Diagnosis: Parasthesia (782.0), Carpel tunnel syndrome (354.0) [facility] Office Visit On: 04-Jul-2008 7:08 Encounter Reason: Follow up for chronic medical issues - The patient does not feel well ,has decreased energy level and is sleeping poorly. Patient has been non- compliant (not zocor) with instructions. Current medication End: 04-Jul-2008 9:04 use: experiencing side effects (pain). Patient sleeps 4 hours per night. Nutrition: balanced diet and supplemental vitamins. The medical issues the patient is following up for include All identified pr oblems below ,blood sugar issues ,high blood pressure and high cholesterol. fasting blood sugars :. Encounter Diagnosis: Other Abnormal Glucose, Pre-diabetes (790.29), Benign essential hypertension (401.1), Hypercholesterolemia (272.0), Systemic lupus erythematosus (710.0), Insomnia,Unspecified (327.00), Depressive Disorder (311.) [facility] Office Visit On: 27-Mar-2008 15:21 Encounter Reason: Follow up, Laboratory Test Results - Date: (02/21/08). Encounter Diagnosis: Mixed hyperlipidemia (272.2), Elevated LFT (790.6) End: 27-Mar-2008 15:50 [facility] Office Visit On: 21-Feb-2008 15:29 Encounter Reason: Follow up, Laboratory Test Results - Date: (02/12/08). Encounter Diagnosis: Mixed hyperlipidemia (272.2), NONSPECIFIC FINDINGS ON EXAMINATION OF BLOOD, OTHER ABNORMAL BLOOD CHEMISTRY (790.6) End: 21-Feb-2008 15:57 [facility] Historical Summary On: 12-Feb-2008 12:03 [facility] End: 12-Feb-2008 12:04 Office Visit On: 12-Feb-2008 10:11 Encounter Reason: Follow up for chronic medical issues - The patient feels well with minor complaints ,has good energy level and is sleeping poorly. Patient has been compliant with instructions. Current medication use: n End: 12-Feb-2008 11:55 o side effects and compliant with dosing regimen. Patient sleeps 5 hours per night. Nutrition: balanced diet and supplemental vitamins. The medical issues the patient is following up for include All rachel ntified problems below ,blood sugar issues ,high blood pressure and high cholesterol. fasting blood sugars : (105) ,postprandial sugars : (120) and evening sugars : (124). Encounter Diagnosis: Other Abnormal Glucose, Pre-diabetes (790.29), Benign essential hypertension (401.1), Hypercholesterolemia (272.0), Anxiety (300.00), Insomnia,Unspecified (327.00), Rhuematic Arthritis (714.0) [facility] Office Visit On: 08-Jan-2008 9:04 Encounter Reason: Follow up Meds - The patient feels well with minor complaints ,has good energy level and is sleeping poorly. Patient has been compliant with instructions. Current medication use: no side effects and com End: 08-Jan-2008 9:26 pliant with dosing regimen. Patient sleeps 7 hours per night. Nutrition: balanced diet and supplemental vitamins. , [ADDITIONAL REASON] Sinusitis/ - The duration of the symptoms are 1 week The course has been worseni ng. The sinusitis/ has no relieving factors. Associated features include The symptoms have been associated with cough ,nasal discharge/stuffy nose and sinus pain. Encounter Diagnosis: Anxiety (300.00), Acute sinusitis, unspecified (461.9), Benign essential hypertension (401.1) [facility] Office Visit On: 22-Nov-2007 14:13 Encounter Reason: Nausea - The onset of the nausea has been gradual and has been occurring in an intermittent pattern for 3 weeks. The course has been constant. The nausea has no relationship to meals. The symptoms have End: 22-Nov-2007 14:36 no aggravating factors. The symptoms have no relieving factors. , [ADDITIONAL REASON] Dizziness/ - The onset of the dizziness/ has been sudden and has been occurring in an intermittent pattern for 3 weeks. The course has been recurrent. The dizziness/ is characterized as lightheadedness. The dizziness/ is precipitated by position change. Past medical history : diabe sabine. The dizziness/ is relieved by laying down (worse in am). Encounter Diagnosis: Anxiety (300.00), Benign paroxysmal positional vertigo (386.11) [facility] Office Visit On: 17-Oct-2007 15:37 Encounter Reason: Follow up for diabetes/glucose intolerance - The patient feels well with minor complaints ,has good energy level and is sleeping well. Patient has been compliant with instructions. Nutrition: balanced d End: 17-Oct-2007 16:20 iet. fasting blood sugars : (82-136) and postprandial sugars : (103-141). Encounter Diagnosis: Other Abnormal Glucose, Pre-diabetes (790.29) [facility] Historical Summary On: 03-Oct-2007 14:12 [facility] End: 03-Oct-2007 14:14 Office Visit On: 03-Oct-2007 10:49 Encounter Reason: Follow up, Laboratory Test Results - Date: (10/02/07,09/18/07). Encounter Diagnosis: Impaired fasting glucose (790.21), Other Abnormal Glucose, Pre- diabetes (790.29) End: 03-Oct-2007 12:23 [facility] Office Visit On: 07-Aug-2007 9:03 Encounter Reason: Follow up for chronic medical issues - The patient feels well with minor complaints ,has good energy level and is sleeping well. Patient has been compliant with instructions. Current medication use: no End: 07-Aug-2007 10:37 side effects and compliant with dosing regimen. Patient sleeps 7 hours per night. Nutrition: balanced diet and supplemental vitamins. The medical issues the patient is following up for include high blood pressure and high cholesterol. Encounter Diagnosis: Benign essential hypertension (401.1), Hypercholesterolemia (272.0), Anxiety (300.00), Insomnia,Unspecified (327.00), Allergic Rhinitis(477.9) [facility] Office Visit On: 26-Jun-2007 8:26 Encounter Reason: Follow up ER - Reason for hospitalization note: (blood in urine). Patient has been compliant with instructions. Current medication use: no side effects and compliant with dosing regimen. The patient fee End: 26-Jun-2007 9:11 ls well with minor complaints ,has decreased energy level and is sleeping poorly. Patient sleeps 5 hours per night. Nutrition: balanced diet and supplemental vitamins. Encounter Diagnosis: Hematuria (599.7) [facility] Office Visit On: 29-May-2007 8:04 Encounter Reason: Sinus pain - The onset of the pain has been acute and has been occurring in a persistent pattern for 1 weeks. The course has been decreasing in severity. The pain is characterized as tightness and a pre End: 29-May-2007 9:29 ssure sensation. The pain is described as being located in the frontal area. Encounter Diagnosis: Acute sinusitis, unspecified (461.9), Fatigue (780.79) [facility] Historical Summary On: 16-Apr-2007 16:30 [facility] End: 16-Apr-2007 16:30 Office Visit On: 12-Apr-2007 13:13 Encounter Reason: Follow up Meds - The patient feels well with minor complaints ,has good energy level and is sleeping well. Patient has been compliant with instructions. Current medication use: experiencing side effects End: 12-Apr-2007 13:45 (sore legs) and compliant with dosing regimen. Patient sleeps 6 hours per night. Encounter Diagnosis: Benign essential hypertension (401.1), Anxiety (300.00) [facility] Office Visit On: 16-Mar-2007 9:54 Encounter Reason: high blood pressure - The patient has experienced high blood pressure for 1 months. The symptoms have been associated with family history of hypertension (mom), while the symptoms have not been associat End: 16-Mar-2007 10:22 ed with excessive caffeine intake ,kidney disease or obesity. blood pressure range : (160's/90's at home). Encounter Diagnosis: Benign essential hypertension (401.1), Depressive Disorder (311.), Anxiety (300.00) [facility] Historical Summary On: 15-Mar-2007 14:29 [facility] End: 15-Mar-2007 14:46 Office Visit On: 20-Feb-2007 10:24 Encounter Reason: Follow up for chronic medical issues - The patient feels well with minor complaints (anxiety wired all the time, new stress with work and a new computer system) ,has good energy level and is sleeping po End: 20-Feb-2007 11:40 francisca. Patient has been compliant with instructions. Current medication use: no side effects and compliant with dosing regimen. Patient sleeps 5 hours per night. Nutrition: balanced diet and supplemental vitamins. The medical issues the patient is following up for include All identified problems below ,depression (anxiety) and high blood pressure. Encounter Diagnosis: Hypertension (401.0), Anxiety (300.00), Depressive Disorder (311.), Herpes simplex without mention of complication (054.9) [facility] Office Visit On: 16-Oct-2006 7:56 Encounter Reason: Sore throat - The onset of the sore throat has been sudden and has been occurring in a persistent pattern for 4 days. The course has been unchanged. The symptoms have been associated with foreign body s End: 16-Oct-2006 8:50 ensation in throat ,change in voice ,cough and difficulty in swallowing, while the symptoms have not been associated with ear pain ,fever ,runny nose or swelling of neck glands. Note for Sore throat: Comes and goes. Coughing a lot. By noc it is bad. No fevers. Right now the throat is 4/10. Maci. Nasonex. Encounter Diagnosis: ACUTE PHARYNGITIS (462.), Candidiasis of mouth (112.0) [facility] Office Visit On: 03-Oct-2006 8:04 Encounter Reason: Follow up for chronic medical issues - The patient feels well with no complaints ,has decreased energy level and is sleeping well. Patient has been compliant with instructions. Current medication use: n End: 03-Oct-2006 8:46 o side effects and compliant with dosing regimen. Patient sleeps 8 hours per night. Nutrition: balanced diet and supplemental vitamins. The medical issues the patient is following up for include All rachel ntified problems below ,high blood pressure and other (allergic rhinitis). weight :. , [ADDITIONAL REASON] Follow up, Laboratory Test Results - Date: (09-19-06 on face sheet). Encounter Diagnosis: Hypertension (401.0), Allergic Rhinitis(477.9), Hypercholesterolemia (272.0), Anxiety (300.00), SYMPTOMS INVOLVING URINARY SYSTEM; DYSURIA (788.1), Herpes simplex without mention of complication (054.9) [facility] Office Visit On: 19-Apr-2006 9:47 Encounter Reason: Follow up tests - Diagnostic tests include CT/Myelogram. Date: (04/14/06). Current symptoms include abdominal pain (left sided abdominal pain started about midnight). Past medical history includes ewa End: 19-Apr-2006 18:06 nal problems ,hypertension and other (chronic pain anxiety). , [ADDITIONAL REASON] Abdominal pain - The onset of the pain has been acute and has been occurring in a persistent pattern for minutes. The course has been decreasing (but just sore). The pain is described as a moderate crampy. The pain is described as being located in the lower abdomen (left). The pain does not radiate. The symptoms have no aggravating factors. The symptoms are relieved by bowel movements (seemed to help - gasy--- having alt bowel habits). Encounter Diagnosis: Uterine fibroid (218.9), Abdominal Pain,LLQ (789.04) [facility] Historical Summary On: 18-Apr-2006 13:55 [facility] End: 18-Apr-2006 14:12 Nurse Visit On: 04-Apr-2006 13:30 Encounter Diagnosis: SYMPTOMS INVOLVING URINARY SYSTEM; DYSURIA (788.1) End: 04-Apr-2006 15:02 [facility] Historical Summary On: 03-Apr-2006 11:37 [facility] End: 03-Apr-2006 11:46 Nurse Visit On: 28-Mar-2006 12:13 Encounter Reason: UTI nurse visit - There has been associated back pain. Encounter Diagnosis: Unspecified Diagnosis End: 28-Mar-2006 12:35 [facility] Payers Keiry CORCORAN/Britt almodovar guarantor
--- OUTSIDE RECORDS SUMMARY | 2018-06-12 19:35 | XMS RPT_ITS ---
:1955 Author Organization OHIP Care Team Providers Name Role Phone DOMINIC II, JACINTO Galan Attending Unavailable COOPERRIDER II, JACINTO H Referring Unavailable COOPERRIDER II, JACINTO H Attending Unavailable COOPERRIDER II, JACINTO H Referring Unavailable Ish DO, Nguyen Attending Unavailable Ish DO, Nguyen Referring Unavailable Ish DO, Nguyen Consulting Unavailable Bey-Chandan, Ally Attending Unavailable Bey-Chandan, Summer Referring Unavailable Bey-Chandan, Summer Attending Unavailable Bey-Chandan, Summer Referring Unavailable PROBLEMS PROBLEMS DATE TYPE CONDITION / CODE ATTENDING STATUS SOURCE 02/07/2018 Unknown Z12.4 - Encounter Nghia Haley for screening for [facility] neoplasm of Repository cervix / Z12.4(ICD-10) 05/30/2017 Active Encounter for PALISADESUJEY II, Active [facility] general adult JACINTO Galan [facility] medical Repository examination without abnormal findings / Z00.00(ICD-10) PROCEDURES PROCEDURES No Procedure Records FoundRESULTS RESULTS DEXA BONE DENSITY Observed: 04/10/2018 Status: F Source: SHAUN STUDY 2:25 PM [facility] REPOSITORY [facility] Imaging Services [address] [place] [address] Dexa Bone Density Study MR#: [id number] Acct: [id number] Name: YESSY RIZVI Rep #: [id number] : 1955 F 62 From: Trent Chiu MD PCP: Care Physician, No Primary Status: REG CLI Study: Dexa Bone Density Study Date of Exam: 04/10/18 Exam# [id number] Ordering Dr: Ally Anthony MD STUDY: DUAL ENERGY X-RAY ABSORPTIOMETRY / DXA REASON FOR EXAM: Female, 62 years old. The patient is postmenopausal. Loss of height. TECHNIQUE: Bone Mineral Density (BMD) measurements of lumbar spine and bilateral hips were obtained. COMPARISON: None. FINDINGS: Lumbar Spine (L1-L4): g/cm2 (1.363) / T-score (1.4) / Z-score (2.8) Findings are suggestive of normal bone density with a low fracture risk. Left Femur Total: g/cm2 (0.785) / T-score (-1.8) / Z- score (-0.7) Left Femoral Neck: g/cm2 (0.685) / T-score (-2.5) / Z- score (-1.2) Right Femur Total: g/cm2 (0.773) / T-score (-1.9) / Z- score (-0.8) Right Femoral Neck: g/cm2 (0.689) / T-score (-2.5) / Z-score (-1.1) BD/Dexa Bone Density Study IMPRESSION: The patient is considered osteopenic as outlined below according to World Toan Organization (WHO) criteria with a high fracture risk. Reference Information: The T-score is the number of standard deviations above or below the standard which is normal for young adults at their peak bone mineral density. The World Health Organization (WHO) interprets the T-scores as follows: Above -1 Normal bone density Between -1 and -2.5 Osteopenia Equal to / or below -2.5 Osteoporosis As a practical clinical guideline, osteopenia may be graded as follows: Mild -1 through -1.5 Moderate -1.6 through -2.0 Severe -2.1 through -2.4 The Z-score is the number of standard deviations above or below age-matched controls. A Z-score of less than -1.5 would be considered abnormal. References: 1. NIH Osteoporosis and Related Bone Diseases http://www.osteo.org 2. International Society for Clinical Densitometry http://www.iscd.org 3. National Osteoporosis Foundation http://www.nof.org Electronically Signed: Trent Chiu MD at 15:33 EST Tel [phone], Service support , CC: No Primary Care Physician; Ally Haley MD Nail Assembly Machine Operator: Signed PAP IG HPV APTIMA Collected: 02/06/2018 Status: F Source: SHAUN 16/18,45 2:15 PM [facility] REPOSITORY Order Comment: CYTOLOGY INFORMATION: - CLINICAL INFORMATION: POSTMENOPAUSAL - DATE LMP/MENOPAUSE: MENOPAUSE - COLLECTION VIAL: Thin Prep Vial - LINE TENDER SOURCE: CERVICAL/ENDOCERVICAL - COLLECTION TECHNIQUE: BRUSH/SPATULA Specimen Comment: [id number] Specimen Comment: Source.............Cervix;Endocervix Specimen Comment: Other..............Post Menopausal Specimen Comment: No. of containers..01 ThinPrep Vial TYPE CODE TESTS RESULT OUT OF RANGE REFERENCE UNITS LAB L7400.0800 . Normal DIAGN Comment Result Comment: UNSATISFACTORY FOR EVALUATION. LAB L7400.0900 . Normal ADEQ Comment Result Comment: Specimen processed and examined, but unsatisfactory for evaluation of epithelial abnormality because of excessive lubricant. LAB L7400.1300 . Normal RECOMM Comment Result Comment: Suggest follow up as clinically appropriate. LAB L7400.1400 . Normal PERFORM Comment Result Comment: Julia Aguirre, Nurse'S Companion LAB L7400.1500 . Normal QC Comment REV Result Comment: Kira Nicholson, Supervisory Nurse'S Companion (ASCP) LAB L7400.2575 . Normal Test not TEST METHOD performed Result Comment: The [employer] Machine Stone Polisher was unable to read this specimen. Therefore a manual review was performed. LAB L7400.2600 . Normal . COMM LAB L7400.2700 . Normal PAPSMR Comment Result Comment: The Pap smear is a screening test designed to aid in the detection of premalignant and malignant conditions of the uterine cervix. It is not a diagnostic procedure and should not be used as the sole means of detecting cervical cancer. Both false-positive and false-negative reports do occur. LAB L7400.2760 Negative Normal HPV APTIMA, Negative HR Result Comment: This test detects fourteen high-risk HPV types (16/18/31/33/35/39/45/ 51/52/56/58/59/66/68) without differentiation. Performed at: - [facility] [id number] [place]: Ibeth Dorsey MD, Phone: [phone] Performed at: = - [facility] [id number] [place]: Ibeth Dorsey MD, Phone: [phone] Performed By: #### L7400.0280 #### [facility] (refer to report for specific site) refer to report for address and phone number PROGRESS Observed: 01/25/2018 Status: COMPLETED Source: CONWAY 11:09 AM [facility] REPOSITORY [facility] ID: [id number] Author: Jacinto Vasquez II Service: (none) Author Type: WIRE PHOTO OPERATOR NEWS Type: Progress Notes Filed: 01/25/2018 11:12 AM Note Text: Assessment and Plan H52.13 Myopia of both eyes (primary encounter diagnosis) H52.223 Regular astigmatism of both eyes Comment: Recheck of refraction before new glasses purchased. Stable with no change since last exam this year. H16.223 Keratoconjunctivitis sicca of both eyes not specified as Sjogren's Comment: Patient reports good control of dry eye symptoms with continued use of Restasis. Rx renewed. Patient following glaucoma and retinal issues with Dr. Rodriguez with recent visit reported. I have confirmed and edited as necessary the relevant ophthalmic history, ROS, and the neuro exam findings as obtained by others. I have seen and examined Yessy Rizvi. I have discussed the case and the management of this patient's care with the Resident/Fellow, if applicable. I also have reviewed and agree with the assessment and plan as stated above and agree with all of its relevant components. Jacinto Vasquez, II, OD PROGRESS Observed: 05/30/2017 Status: COMPLETED Source: CONWAY 1:25 PM [facility] REPOSITORY HNO ID: [id number] Author: Jacinto Vasquez II Service: (none) Author Type: WIRE PHOTO OPERATOR NEWS Type: Progress Notes Filed: 05/30/2017 1:30 PM Note Text: ASSESSMENT/PLAN: 1. Keratoconjunctivitis sicca of both eyes not specified as Sjogren's - ICD9: 370.33, ICD10: H16.223 (primary diagnosis) Continue use of Restasis 1 gt both eyes twice a day. Add use of lubricant gel or monica both eyes qhs during times of extra dryness (taking cold medicines currently). 2. Epiretinal membrane (ERM) of both eyes - ICD9: 362.56, ICD10: H35.373 Discussed need for observation. Scheduled already to monitor with Dr. Rodriguez. Instruct patient to immediately report any change in condition outside of expected and discussed symptoms. I have confirmed and edited as necessary the relevant ophthalmic history, review of systems, surgical history, and ophthalmological examination findings as obtained by the ophthalmic technical staff. I have seen and examined Yessy Rizvi. I have discussed the examination findings, diagnosis, and treatment options with the patient and/or the patient's family. I have also reviewed and agree with the assessment and plan as stated above and agree with all its relevant components. I gave the patient the opportunity to ask questions about the findings, diagnosis, and treatment options. Jacinto Vasquez, II, OD ALLERGIES ALLERGIES DATE TYPE / CODE NAME / CODE REACTION SEVERITY SOURCE 05/10/2016 Drug No Known Unknown [facility] Allergy/416 Allergies/R34734 Hospital 762096(SNOM 0388(RXNORM) Repository ED CT) Drug NO KNOWN [facility] Class/32319 ALLERGIES [facility] 1003(SNOMED Repository CT) ENCOUNTERS ENCOUNTERS ADMIT/DISCHARGE ACCOUNT ADMITTING ENCOUNTER LOCATION SOURCE NUMBER CLASS 04/10/2018 [id number] [facility] ing:OPBD Repository 02/28/2018 [id number] Ambulatory Building:[facility] Practices Repository 02/06/2018 [id number] Ambulatory [facility] ing:LABSPEC Repository 02/06/2018/02/13/20 [id number] Ambulatory [address] Repository 01/25/2018/01/27/20 [id number] Ambulatory [address] Repository 05/30/2017/06/01/19 [id number] Ambulatory [address] Repository PAYERS PAYERS ENCOUNTER GUARANTOR PAYER SUBSCRIBER SOURCE 04/10/2018 WANG A RIZVI Primary WANG A RIZVI [address]un [id number] Insurance:ANTHEMPolic JRDOB: [facility], [facility]: [id number] [address]Ijq: [id number] Repository Date:8723-21-90[address] [id number], [place] [address]JY: 04/10/2018 Secondary NOT GIVENUNK Clarence Insurance:SELF PAY [facility] Number: Effective Repository Date:2018-02-07 02/28/2018 Yessy A Primary Yessy A OHIP Practices PorterDOB: Insurance:[place] PorterDOB: Repository S /BSPolicy Number: [id number] [address] [id number] [address] [facility], Date:0270-37-87[place], [place] [address]Eix: Name:[address] [place] [address]Avv: DOM Nayak (HP)Tel: [phone]: [phone] (VP) [phone] (PN) [phone] 02/28/2018 Secondary Wang A OHIP Practices Insurance:[place] PorterDOB: Repository [facility] [id number] Number: [address] [id number] [facility], Date:2003-07-[birth year] - [place] [address]Xfp: [id number] Name:[address] Box (HP)Tel: [phone], [place] [phone] (ZU) [address]TQ: 02/28/2018 Tertiary Wang A OHIP Practices [facility] Repository Number: [id number] Date:2008-12-18 [facility], [id number] [place] [address]Bbi: Name:[facility] [id number] AMAURY MILLER [phone]: (HP)Tel: () 02/06/2018 Wang A Rizvi Primary Wang A Rizvi Shaun [id number] Insurance:ANTHEMPolic JrDOB: [facility] Number: [id number] [address]Tat: [id number] Repository Date:3451-80-26[address] ) [address]UZ[place]B, [place] [address]BO: 02/06/2018 Secondary NOT GIVENUNK Clarence Insurance:SELF PAY [facility] Number: Effective Repository Date:2018-02-06
== END ==
PROVIDERS: Referring Provider Obstetrics & Gynecology; Visit Provider Obstetrics & Gynecology
DX: Z78.0 Asymptomatic menopausal state (principal); M85.80 Other specified disorders of bone density and structure, unspecified site
CPT/HCPCS: 77080

== ENCOUNTER → 2018-04-24 12:33 | Outpatient (CLI) | payer BC, SELFPAY ==
--- NOTE | 2018-04-24 12:35 | BI_ITS ---
MAMMOGRAPHY - BILATERAL SCREENING REASON FOR EXAM: Female, 62 years old. Routine annual screening examination. PERTINENT HISTORY: Non-contributory. TECHNIQUE: Digital bilateral breast philippe (3D mammographic acquisition) in the CC and MLO projections. 2-D mediolateral oblique (MLO) and craniocaudad (CC) views of both breasts were obtained. CAD: Full Field Digital Mammography with Computer Added Detection was performed. COMPARISON: Comparison is made with prior study dated December 28, 2016 and December 24, 2015. FINDINGS: Breast Composition: There are scattered areas of fibroglandular density. There are no dominant masses or suspicious calcifications. Stable small bilateral axillary lymph nodes. No other significant abnormalities are identified. There has been no significant change since the prior study. BI/SCREENING MAMM (CAD), BILAT IMPRESSION: Stable bilateral screening mammogram. Yearly follow-up mammogram recommended. (A) ASSESSMENT CATEGORY: BIRADS Category 2: Benign. A letter regarding these results will be sent to the patient by the facility within 30 days. Approximately 10% of breast cancers are not detected by mammography. A normal mammogram should not delay biopsy of a clinically suspicious abnormality. [id number] Electronically Signed: Trent Chiu MD at 14:15 EST , Service support ,
== END ==
PROVIDERS: Referring Provider Obstetrics & Gynecology; Visit Provider Obstetrics & Gynecology
DX: Z12.31 Encounter for screening mammogram for malignant neoplasm of breast (principal); N95.1 Menopausal and female climacteric states
CPT/HCPCS: 77063; 77067

== ENCOUNTER → 2018-10-05 09:36 | Outpatient (CLI) | payer BC, SELFPAY ==
--- NOTE | 2018-10-05 09:37 | US_ITS ---
STUDY: ABDOMINAL ULTRASOUND - RIGHT UPPER QUADRANT REASON FOR VISIT: Female, 63 years old. Bloating of the abdomen. TECHNIQUE: Ultrasound evaluation of the right upper quadrant was performed with real-time and static castillo-scale imaging. TECHNICAL QUALITY: Adequate. COMPARISON: None. FINDINGS: Liver: The liver measures 16.9 cm. There is increased echogenicity consistent with fatty infiltration. The bile ducts are within normal limits. There is hepatic color flow. The direction of portal flow is hepatopetal. There is no demonstrated mass lesion. Gallbladder: Normal distended gallbladder. The gallbladder wall measures 2.0 mm. There is a negative sonographic Huddleston's sign. There is no pericholecystic fluid. There are no gallstones. Common Bile Duct (C.B.D.): The common bile duct measures 2.8 mm. Pancreas: Normal size of the head, body and tail of the pancreas. There is normal echogenicity of the pancreas. There is no demonstrated pancreatic mass or cyst. Right Kidney: Normal size of the right kidney. The right kidney measures 10.8 cm x 5.3 cm x 3.7 cm. Normal renal cortex. The right cortex measures 1.1 cm. There is no demonstrated renal mass or cyst. There is no right hydronephrosis. US/Abdomen Limited IMPRESSION: Fatty infiltration of the liver. Electronically Signed: Trent Chiu, at 13:04 EDT , Service support ,
== END ==
PROVIDERS: Family Provider Internal Medicine; PCP Internal Medicine; Referring Provider Internal Medicine; Visit Provider Internal Medicine
DX: R14.0 Abdominal distension (gaseous) (principal)
CPT/HCPCS: 76705

== ENCOUNTER → 2018-10-08 10:09 | Outpatient (CLI) | payer BC, SELFPAY ==
--- NOTE | 2018-10-08 10:11 | US_ITS ---
STUDY: ULTRASOUND OF THE FEMALE PELVIS - COMPLETE REASON FOR EXAM: Female, 63 years old. Bloating LMP: Unknown. TECHNIQUE: Transabdominal and Transvaginal TECHNICAL QUALITY: Adequate. COMPARISON: None. FINDINGS: The uterus is retroverted and is in a midline position. The uterus measures 4.5 x 3.5 x 2.7 cm. Normal uterine cervix. The endometrium measures 2.7 mm in thickness, and is hyperechoic. There is no demonstrated endometrial mass. There is no demonstrated myometrial mass. I.U.D. - The patient does not have an I.U.D. The right ovary is not visualized. The left ovary is not visualized. There is no fluid in the cul-de-sac. The bladder sonographically normal US/Pelvic (Non ) IMPRESSION: No suspicious sonographic findings Electronically Signed: Constantin Banerjee MD at 13:48 EDT , Service support ,
--- NOTE | 2018-10-08 10:56 | US_ITS ---
STUDY: ULTRASOUND OF THE FEMALE PELVIS - COMPLETE REASON FOR EXAM: Female, 63 years old. Bloating LMP: Unknown. TECHNIQUE: Transabdominal and Transvaginal TECHNICAL QUALITY: Adequate. COMPARISON: None. FINDINGS: The uterus is retroverted and is in a midline position. The uterus measures 4.5 x 3.5 x 2.7 cm. Normal uterine cervix. The endometrium measures 2.7 mm in thickness, and is hyperechoic. There is no demonstrated endometrial mass. There is no demonstrated myometrial mass. I.U.D. - The patient does not have an I.U.D. The right ovary is not visualized. The left ovary is not visualized. There is no fluid in the cul-de-sac. The bladder sonographically normal US/Transvaginal Non- IMPRESSION: No suspicious sonographic findings Electronically Signed: Constantin Banerjee MD at 13:48 EDT , Service support ,
== END ==
PROVIDERS: Family Provider Internal Medicine; PCP Internal Medicine; Referring Provider Internal Medicine; Visit Provider Internal Medicine
DX: R14.0 Abdominal distension (gaseous) (principal)
CPT/HCPCS: 76830; 76856

== ENCOUNTER → 2019-04-25 08:22 | Outpatient (CLI) | payer BC, SELFPAY ==
--- NOTE | 2019-04-25 08:26 | BI_ITS ---
MAMMOGRAPHY - BILATERAL SCREENING REASON FOR EXAM: Female, 63 years old. Routine annual screening examination. PERTINENT HISTORY: Non-contributory. TECHNIQUE: Digital bilateral breast iam (3D mammographic acquisition) in the CC and MLO projections. 2-D mediolateral oblique (MLO) and craniocaudad (CC) views of both breasts were obtained. CAD: Full Field Digital Mammography with Computer Added Detection was performed. COMPARISON: Comparison is made with prior examination dated April 24, 2018 and December 28, 2016. FINDINGS: Breast Composition: There are scattered areas of fibroglandular density. There are no dominant masses or suspicious calcifications. Stable small bilateral benign-appearing axillary lymph nodes. No other significant abnormalities are identified. There has been no significant change since the prior study. BI/SCREEN MAMM (CAD) W/IAM BILAT IMPRESSION: Stable bilateral screening mammogram. Yearly follow-up mammogram recommended. (A) ASSESSMENT CATEGORY: BIRADS Category 2: Benign. A letter regarding these results will be sent to the patient by the facility within 30 days. Approximately 10% of breast cancers are not detected by mammography. A normal mammogram should not delay biopsy of a clinically suspicious abnormality. [id number] Electronically Signed: Trent Chiu, at 9:45 EST , Service support ,
== END ==
PROVIDERS: PCP Internal Medicine; Referring Provider Obstetrics & Gynecology; Visit Provider Obstetrics & Gynecology
DX: Z12.31 Encounter for screening mammogram for malignant neoplasm of breast (principal)
CPT/HCPCS: 77063; 77067

== ENCOUNTER → 2020-04-27 11:45 | Outpatient (CLI) | payer BC, SELFPAY ==
--- NOTE | 2020-04-27 11:38 | BI_ITS ---
MAMMOGRAPHY - BILATERAL SCREENING REASON FOR EXAM: Female, 64 years old. Routine annual screening examination. PERTINENT HISTORY: Non-contributory. TECHNIQUE: Digital bilateral breast iam (3D mammographic acquisition) in the CC and MLO projections. 2-D mediolateral oblique (MLO) and craniocaudad (CC) views of both breasts were obtained. CAD: Full Field Digital Mammography with Computer Added Detection was performed. COMPARISON: Comparison is made with prior study dated 04/25/2019 and 04/24/2018. FINDINGS: Breast Composition: There are scattered areas of fibroglandular density. There are no dominant masses or suspicious calcifications. Stable small benign-appearing bilateral axillary lymph nodes. No other significant abnormalities are identified. There has been no significant change since the prior study. BI/SCRN MAMM (CAD)W/IAM BILAT IMPRESSION: Stable bilateral screening mammogram. Yearly follow-up mammogram recommended. (A) ASSESSMENT CATEGORY: BIRADS Category 2: Benign. A letter regarding these results will be sent to the patient by the facility within 30 days. Approximately 10% of breast cancers are not detected by mammography. A normal mammogram should not delay biopsy of a clinically suspicious abnormality. [id number] Electronically Signed: Trent Chiu MD at 12:36 EST , Service support ,
== END ==
PROVIDERS: PCP Internal Medicine; Referring Provider Obstetrics & Gynecology; Visit Provider Obstetrics & Gynecology
DX: Z12.31 Encounter for screening mammogram for malignant neoplasm of breast (principal)
CPT/HCPCS: 77063; 77067

== ENCOUNTER 2021-04-28 10:00 | Outpatient (CLI) | payer BC, SELFPAY ==
--- NOTE | 2021-04-28 10:03 | BI_ITS ---
MAMMOGRAPHY - BILATERAL SCREENING REASON FOR EXAM: Female, 65 years old. Routine annual screening examination. PERTINENT HISTORY: Non-contributory. TECHNIQUE: Digital bilateral breast iam (3D mammographic acquisition) in the CC and MLO projections. 2-D mediolateral oblique (MLO) and craniocaudad (CC) views of both breasts were obtained. CAD: Full Field Digital Mammography with Computer Added Detection was performed. COMPARISON: Comparison is made with prior study dated 04/27/2020 and 04/25/2019. FINDINGS: Breast Composition: There are scattered areas of fibroglandular density. There are no dominant masses or suspicious calcifications. Stable small benign-appearing bilateral axillary lymph nodes. No other significant abnormalities are identified. There has been no significant change since the prior study. BI/SCRN MAMM (CAD)W/IAM BILAT IMPRESSION: Stable bilateral screening mammogram. Yearly follow-up mammogram recommended. (A) ASSESSMENT CATEGORY: BIRADS Category 2: Benign. A letter regarding these results will be sent to the patient by the facility within 30 days. Approximately 10% of breast cancers are not detected by mammography. A normal mammogram should not delay biopsy of a clinically suspicious abnormality. [id number] Electronically Signed: Trent Chiu MD at 11:00 EST ,
== END 2021-04-28 23:59 | disposition home or self-care (01) ==
LOC: OPBI 10:01
PROVIDERS: PCP Internal Medicine; Referring Provider Obstetrics & Gynecology; Visit Provider Obstetrics & Gynecology
DX: Z12.31 Encounter for screening mammogram for malignant neoplasm of breast (principal)
CPT/HCPCS: 77063; 77067

== ENCOUNTER 2021-05-25 08:38 | Outpatient (CLI) | payer BC, SELFPAY ==
--- NOTE | 2021-05-25 08:52 | BD_ITS ---
STUDY: DUAL ENERGY X-RAY ABSORPTIOMETRY / DXA REASON FOR EXAM: Female, 66 years old. [id number]. Patient is postmenopausal. TECHNIQUE: Bone Mineral Density (BMD) measurements of lumbar spine and bilateral hips were obtained. COMPARISON: Comparison is made with prior study dated 04/10/2018. FINDINGS: Lumbar Spine (L1-L4): g/cm2 (0.890) / T-score (-1.4) / Z-score (0.4) Findings are suggestive of osteopenia with a low fracture risk. Left Femur Total: g/cm2 (0.707) / T-score (-1.9) / Z-score (-0.6) Left Femoral Neck: g/cm2 (0.502) / T-score (-3.1) / Z-score (-1.6) Right Femur Total: g/cm2 (0.740) / T-score (-1.7) / Z-score (-0.4) Right Femoral Neck: g/cm2 (0.528) / T-score (-2.9) / Z-score (-1.3) The T-Scores on the most recent prior examination were: Lumbar Spine (L1-L4): There has been worsening of bone density since the previous examination. Left Femur Total: which represents a worsening of 2.5%. Right Femur Total: which represents an improvement of 3.7%. BD/Dexa Bone Density Study IMPRESSION: The patient is considered osteoporotic as outlined below according to World To[employer] Organization (WHO) criteria with a high fracture risk. There has been worsening of bone density since the previous examination. Reference Information: The T-score is the number of standard deviations above or below the standard which is normal for young adults at their peak bone mineral density. The World Health Organization (WHO) interprets the T-scores as follows: Above -1 Normal bone density Between -1 and -2.5 Osteopenia Equal to / or below -2.5 Osteoporosis As a practical clinical guideline, osteopenia may be graded as follows: Mild -1 through -1.5 Moderate -1.6 through -2.0 Severe -2.1 through -2.4 The Z-score is the number of standard deviations above or below age-matched controls. A Z-score of less than -1.5 would be considered abnormal. References: 1. NIH Osteoporosis and Related Bone Diseases www osteo.org 2. International Society for Clinical Densitometry www iscd.org 3. National Osteoporosis Foundation www nof.org Electronically Signed: Trent Chiu MD at 15:10 EST ,
== END 2021-05-25 23:59 | disposition home or self-care (01) ==
LOC: OPBD 08:38
PROVIDERS: PCP Internal Medicine; Visit Provider Obstetrics & Gynecology
DX: N95.1 Menopausal and female climacteric states (principal)
CPT/HCPCS: 77080

== ENCOUNTER 2021-06-24 10:46 | Outpatient (RCR) | payer BC, SELFPAY ==
--- NOTE | 2021-06-24 11:59 | HP.PTEVAL ---
Patient's Visit Information MADYSON AGUILAR is a 66 year old F referred to Physical Therapy by Dr. Nguyen Deng DO with a diagnosis of L IT band syndrome. Date of Evaluation: 06/24/21 Physical Therapist: Caleb Lira, PT, ATC - Visit Plan Frequency: 1x/Week Duration: 2 Weeks Plan: Pt was issued a HEP of IT band and piriformis stretches. Pt to follow up or be discharged in one month - Subjective Pt reports she has had L hip pain for several years. Pt reports she was really sore just last week, but notes she has started walking this week and she is feeling much better. Pt notes she is an avid walker and likes to walk her dog, but notes she has tripped over her dog several times in the past. Pt reports her greatest pain is located over her greater trochanter of the L hip. Pt reports this pain will limited her from getting in and out of her truck. Pt reports she has minor LBP, but notes she is currently being treated by a chiro for that issue. Pt reports occasional sleep difficulty secondary to pain. Pt reports she has had no diagnostic tests at this time. Pt denies tingling or numbness in L LE. Pt reports her goal is to keep her pain minimal like it is now and have a plan to keep it from coming back. 1/10 pain at rest, 9/10 pain at worst. - Pain L hip Pain Intensity (Out of 10): 1 Pain Intensity Range: 9 - Objective Neuro: B LE sensation is WNL to light touch. B patellar reflex= 2/3. ROM: B Hips are WNL. L/S is WNL. Palpation: Pt is very sore along the IT band and directly over the greater trochaner. No obvious deformity at this time. MMT: B LE's are 5/5 throughout. Flexibility: Pt has minor limitations with IT band and piriformis muscle groups - Balance/Special Test Scores Lower Extremity Functional Score: 66 - Goals Goal 1:: I with HEP of L LE stretches for IT band and piriformis pain Goal Time Frame: 2 Weeks - Rehabilitation Potential Physical Therapy Diagnosis: Pt has L hip pain and difficulty with car transfers secondary to L IT band syndrome Rehabilitation Potential: Excellent - Anticipated Interventions Patient/Client Instruction: Educate patient on: Condition, Plan of Care For the Purpose of:: To improve self management Therapeutic Exercise to Include: Flexibilty training For the Purpose of:: To decrease pain, To improve muscle performance and motor function Thank you for the opportunity to evaluate your patient. For Medicare and Medicare HMO plans, please review the plan of care and approve it. It will need to be FAXED BACK to us at [phone] for Medicare purposes. For Medicare only, by signing this I certify the plan of care. Please let me know if there are questions or concerns regarding this plan of care. Physician Signature: Date:
--- NOTE | 2021-09-03 12:54 | HP.PT.NRP ---
MADYSON AGUILAR was seen in my office for initial evaluation on 06/24/21. The following Plan of Care was established for this patient: Initial Frequency: 1x/Week Initial Duration: 2 Weeks Patient/Client Instruction: Educate patient on: Condition, Plan of Care For the Purpose of:: To improve self management Therapeutic Exercise to Include: Flexibilty training For the Purpose of:: To decrease pain, To improve muscle performance and motor function This patient was last seen in our office . Pertinent comments regarding their Physical therapy will appear below: Pt was treated for 1 PT visit for L hip pain through the date of 06/24/21. Pt has not returned through todays date and is discontinued at this time At this point I will be discontinuing this patient from physical therapy. I would be happy to see this patient again in the future if found appropriate by the physician. Thank you! Caleb Lira, PT, ATC Balance/Gait/Functional tests - Balance/Special Test Scores Lower Extremity Functional Score: 66
== END 2021-06-24 19:00 | disposition home or self-care (01) ==
LOC: PT 10:46
PROVIDERS: PCP Internal Medicine; Referring Provider Internal Medicine; Visit Provider Internal Medicine
DX: M76.32 Iliotibial band syndrome, left leg (principal)
CPT/HCPCS: 97110; 97161

== ENCOUNTER → 2022-04-29 | Outpatient (CLI) | payer BC, SELFPAY ==
--- NOTE | 2022-04-29 08:14 | BI_ITS ---
MAMMOGRAPHY - BILATERAL SCREENING REASON FOR EXAM: Female, 66 years old. Routine annual screening examination. PERTINENT HISTORY: Non-contributory. TECHNIQUE: Digital bilateral breast iam (3D mammographic acquisition) in the CC and MLO projections. 2-D mediolateral oblique (MLO) and craniocaudad (CC) views of both breasts were obtained. CAD: Full Field Digital Mammography with Computer Added Detection was performed. COMPARISON: Comparison is made with prior study dated 04/28/2021 and 04/27/2020. FINDINGS: Breast Composition: There are scattered areas of fibroglandular density. There are no dominant masses or suspicious calcifications. Stable small benign-appearing bilateral axillary lymph nodes. No other significant abnormalities are identified. There has been no significant change since the prior study. BI/SCRN MAMM (CAD)W/IAM BILAT IMPRESSION: Stable bilateral screening mammogram. Yearly follow-up mammogram recommended. (A) ASSESSMENT CATEGORY: BIRADS Category 2: Benign. A letter regarding these results will be sent to the patient by the facility within 30 days. Approximately 10% of breast cancers are not detected by mammography. A normal mammogram should not delay biopsy of a clinically suspicious abnormality. [id number] Electronically Signed: Trent Chiu MD at 9:34 EST ,
== END | disposition home or self-care (01) ==
PROVIDERS: PCP Internal Medicine; Visit Provider Internal Medicine
DX: Z12.31 Encounter for screening mammogram for malignant neoplasm of breast (principal)
CPT/HCPCS: 77063; 77067

== ENCOUNTER 2023-01-13 09:00 | Outpatient (RCR) | payer BC, SELFPAY ==
--- NOTE | 2022-12-19 09:46 | HP.PTEVAL_ITS ---
Patient's Visit Information Visit Information Visit Information: MADYSON AGUILAR is a 67 year old F referred to Physical Therapy by Dr. Nguyen Deng DO with a diagnosis of LBP with radicuklopathy. Date of Evaluation: 12/19/22 Physical Therapist: Thee Colindres, DPT, OCS, CSCS Visit Plan Frequency: 2x /Week Duration: 4-6 Weeks Plan: 2x/week for 4-6 weeks for.. 1. rollout and stretch L ITB and prirformis, psoas stretch 2. NS core strength mat to gym, hip strength 3. general gym ex program to I Emphasize neutral spine throughout Subjective Subjective: Chronic back pain for long time. Years. Gets R LBP catching often throughout life and now goes down L lateral leg as pain. Starting in Spring for no apparent reason. it twitches and causes tossing and turning at night. Hand mows the lawn and pushing makes her worse those nights. Gets massages and got a new one in the spring. No meds or no exercises. Takes tylenol. Going out is w orse and walking and standing. Comfortable when sitting. Getting up can be painful. Hot baths help. Not employed. Sleep is up when she has mowed the lawn. Hobbies: walks for fitness, trying an hour but 20 -30 minutes is sore in leg. Basic ADLs: getting done, mops and cleans bathrroms but may make her worse Pain LBP, L leg: Pain Intensity (Out of 10): 0 Pain Intensity Range: 0 and 9 Objective Objective: Walks with very slight L tredelenberg into PST but I and safe. Trasnfers are slightly stiff in LB but I on bed and chair. LB AROM ext mod limited and slight R Pain, L SB is slightly painful , SB are symmterical, flexion is full and painfree. Tender to touch L ITB into pririformis, tightenss present in B psoas and L ITB. weakness in core at 3+ hip abd 3+ and ext 3+ B, flexion hips 4-, knee ext anad flexion 4 B, [id number] 4+ B. reflexes 2/3 patella and achilles sensation LE WNL to gross light touc. - slump and - SLR. Balance/Special Test Scores Oswestry Low Back Score: 21 Goals Goal 1:: Sleep without waking due to pain one week Goal Time Frame: 2-4 Weeks Goal 2:: Walk 45 minutes without increased back or leg pain Goal Time Frame: 4-6 Weeks Goal 3:: I appropriate HEP to limit future problems including back strength LE stretch and general overall gym program Goal Time Frame: 4-6 Weeks Goal 4:: oswestry score 5 or better Goal Time Frame: 4-6 Weeks Goal 5:: Mow lawn without increased pain Goal Time Frame: 4-6 Weeks Rehabilitation Potential Physical Therapy Diagnosis: LBP with leg symptoms limiting function and walking. Rehabilitation Potential: Good Anticipated Interventions Patient/Client Instruction: Educate patient on: Condition and Plan of Care For the Purpose of:: To decrease pain, To decrease swelling/inflammation, To improve nutrient delivery to tissue, To increase tolerance to activity/condition/position, To improve ability of physical actions for home/community/work/leisure and To improve gait and locomotor functions Therapeutic Exercise to Include: Strength training, Postural training, Flexibilty training, Passive ROM, Active ROM and Dynamic Lumbar Stabilization For the Purpose of:: To decrease pain, To increase ROM, To improve nutrient delivery to tissue, To improve muscle performance and motor function, To improve ability to perform ADL's, To improve ability of physical actions for home/community/work/leisure and To improve gait and locomotor functions Manual Therapy Techniques to Include: Mobilization, Passive ROM and Soft tissue mobilization For the Purpose of:: To decrease pain, To increase ROM and To improve nutrient delivery to tissue Text: Thank you for the opportunity to evaluate your patient. For Medicare and Medicare HMO plans, please review the plan of care and approve it. It will need to be FAXED BACK to us at [phone] for Medicare purposes. For Medicare only, by signing this I certify the plan of care. Please let me know if there are questions or concerns regarding this plan of care. Physician Signature: Date:
--- NOTE | 2023-01-13 09:41 | HP.PTDCSUM ---
Discharge Summary D/C summary: It has been my pleasure to treat MADYSON AGUILAR referred by Dr. Nguyen Deng DO, with the diagnosis of LBP with radiculopathy for a total of 8 visit(s). Discharge Date: Please see the following information for a summary of their discharge status. Subjective Subjective: Feeling pretty good. One time sat in car long time and l lateral hip pain but it was transient. Knee not hurting much. Hand mpowed adn picked up walnuts without a problem. [place] [employer]week HEP will do daily. No f/u with doctor until Mar 08 Pain LBP, L leg: Pain Intensity (Out of 10): 0 Overall Improvement % Improvement: 95 Objective Objective/Function: Full lumbar AROM without pain. Walking well. Trasnfers I, steps reciprocal without rail. Very happy with progress and motivated to continue on own. Goals Goal 1:: Sleep without waking due to pain one week Goal Progress: Goal Met Goal 2:: Walk 45 minutes without increased back or leg pain Goal Progress: one mile easy. Goal 3:: I appropriate HEP to limit future problems including back strength LE stretch and general overall gym program Goal Progress: Goal Met Goal 4:: oswestry score 5 or better Goal Progress: Goal Met Goal 5:: Mow lawn without increased pain Goal Progress: Goal Met Plan Plan: d/c D/C Information d/c sentence: If there are questions or concerns regarding this patient's physical therapy, please feel free to call me at [phone]. Thank you for the referral of this patient. Sincerely, Thee Colindres, DPT, OCS, CSCS Balance/Gait/Functional tests Balance/Special Test Scores Oswestry Low Back Score: 1 Improvement % Improvement: 95
== END 2023-01-13 10:55 | disposition home or self-care (01) ==
LOC: PT 09:00
PROVIDERS: PCP Internal Medicine; Referring Provider Internal Medicine; Visit Provider Internal Medicine
DX: M54.50 Low back pain, unspecified (principal); M54.17 Radiculopathy, lumbosacral region
CPT/HCPCS: 97110; 97161; 97164

== ENCOUNTER → 2023-02-24 | Outpatient (CLI) | payer BC, SELFPAY ==
--- NOTE | 2023-02-24 15:37 | CT_ITS ---
STUDY: CT BRAIN WITHOUT CONTRAST REASON FOR EXAM: Female, 67 years old. headache, acute RADIATION DOSAGE (If Supplied By Facility): CTDIvol = ( 44.99 ) mGy, DLP = ( 779.24 ) mGycm TECHNIQUE: Transaxial CT imaging of the brain was performed without administration of intravenous contrast material. Individualized dose optimization techniques were used for this CT. COMPARISON: No relevant priors. FINDINGS: Normal soft tissue structures. Normal calvarium. Normal size ventricles and extra-axial spaces for the patient''s age. Minor periventricular white matter disease most likely chronic small vessel ischemia in patient of this age. Normal basal ganglia and thalami. Normal brainstem. Normal cerebellum. There is no intracranial hemorrhage. There are no findings of an acute ischemic infarction. Minor mucosal thickening of the right maxillary sinus. Postsurgical changes of the orbits CT/Brain/Head without Contrast IMPRESSION: Minor periventricular white matter ischemic changes. No mass or acute bleed. Minor right maxillary sinusitis likely chronic Electronically Signed: Blayne Duffy MD at 16:51 EST Reading Location ID and State: [facility] / [place] Tel , Service support ,
== END | disposition home or self-care (01) ==
LOC: CT 15:35
PROVIDERS: PCP Internal Medicine; Referring Provider Internal Medicine; Visit Provider Internal Medicine
DX: R51.9 Headache, unspecified (principal)
CPT/HCPCS: 70450

== ENCOUNTER 2023-05-19 21:00 | Emergency (ER) | payer BC, SELFPAY ==
[2023-05-19 21:02] VITALS: BP 126/77; PULSE 70; RESP 18; TEMP 36.7; O2SAT 95; BMI 31.5
--- NOTE | 2023-05-19 21:14 | EX.ED.GENINJ ---
HPI <BETINA Gomez - Last Filed: 05/19/23 22:03> History of Present Illness Chief Complaint: Head Injury Narrative Narrative: 68-year-old female states she had been much day and went out drinking with her was having a nice time. When she came home she was sitting at the kitchen table and her went outside for about 2 minutes to take the dogs out. When he came back and she had followed floor and had a right eyebrow laceration. She was awake. She does not recall what happened. She denies headache or visual changes. No vomiting. No other injuries. She is not on blood thinners. She believes tetanus is up-to-date. [facility] <BETINA Gomez - Last Filed: 05/19/23 22:03> [facility] Medical History (Updated 05/19/23 @ 21:18 by BETINA Gomez) Diabetes Hypertension Home Medications bupropion HCl 150 mg 24 hr tablet, extended release 150 mg PO DAILY 05/19/23 [History Last Taken Unknown] duloxetine 60 mg capsule,delayed release 60 mg PO DAILY 05/19/23 [History Last Taken Unknown] omeprazole 40 mg capsule,delayed release 40 mg PO DAILY 05/19/23 [History Last Taken Unknown] Allergy/AdvReac Type Severity Reaction Status Date / Time No Known Allergies Allergy Verified 05/19/23 21:02 Social History Smoking Status: Never smoker ROS <BETINA Gomez - Last Filed: 05/19/23 22:03> ROS ED ROS Narrative Eyes: Negative for visual change. GI: Negative for nausea, vomiting. Neuro: Negative for headache, motor/sensory dysfunction. Skin: Positive for laceration. EXAM <BETINA Gomez - Last Filed: 05/19/23 22:03> Physical Exam Narrative Exam Narrative: CONST: Patient sitting in no acute distress. EYES: Normal inspection. PERRL, EOMI. HEAD: 2 cm linear laceration above right eyebrow, right upper eyelid swelling and ecchymosis, no florentino sign, no hemotympanum, no nasal septal hematoma, no CSF otorrhea or rhinorrhea. NECK: Normal inspection. No midline spinal tenderness, no step off or crepitus. RESP: No respiratory distress, CTAB. CVS: Regular rate and rhythm, no murmur, no gallop. SKIN: Color normal, no rash, warm, dry, intact. EXTREMITIES: Normal appearance, no pedal edema. NEURO: Oriented x4. PSYCH: Normal affect. Const Vital Signs: 05/19/23 21:02 05/19/23 21:06 05/19/23 22:11 Temperature 98.0 F 98 F Temperature Source Oral Pulse Rate 70 70 Respiratory Rate 18 18 Respiratory Effort Normal Blood Pressure 126/77 H 126/77 H Blood Pressure Mean 93 93 Pulse Ox 95 95 Oxygen Delivery Method Room Air Room Air <Dr. Serafin Le DO - Last Filed: 05/19/23 23:15> Physical Exam Const Vital Signs: 05/19/23 21:02 05/19/23 21:06 05/19/23 22:11 Temperature 98.0 F 98 F Temperature Source Oral Pulse Rate 70 70 Respiratory Rate 18 18 Respiratory Effort Normal Blood Pressure 126/77 H 126/77 H Blood Pressure Mean 93 93 Pulse Ox 95 95 Oxygen Delivery Method Room Air Room Air PROC <BETINA Gomez - Last Filed: 05/19/23 22:03> Procedures Lacerations Right eyebrow: Length: 0.79 in Depth: Skin Shape: Linear Prep: Sterile Conditions Laceration repair: Irrigated and Lidocaine Irrigated (ml): 50 Number of Sutures/Rail Road Flat: 3 Suture Information: Ethilon and 6-0 MDM <BETINA Gomez - Last Filed: 05/19/23 22:03> MDM MDM Narrative Medical decision making narrative: History gathered from: Patient and spouse Differential: Facial laceration, skull fracture, intracranial hemorrhage Patient is intoxicated and fell and struck her head on the table at home. It was not witnessed but she does not think there was loss of consciousness and states she was back within 2 minutes and she was at baseline. She has a 2 cm right eyebrow laceration and ecchymosis and swelling of the upper eyelid. Pupils and extraocular motion is intact. No other injuries noted, neurologically intact. CT brain scan shows no acute findings. Right eyebrow laceration was repaired with 3 simple interrupted sutures. Tetanus is up-to-date. I discussed head injury return precautions and she was discharged in stable condition. Radiography Diagnostic Testing: Clinical Impression(s) from Imaging Studies Brain CT 05/19/23 21:20 IMPRESSION: Normal unenhanced CT scan of the brain. Electronically Signed: Wang Arriola MD at 21:49 EST , <Dr. Serafin Le, DO - Last Filed: 05/19/23 23:15> [facility] MDM Narrative Medical decision making narrative: History gathered from: Patient and spouse Differential: Facial laceration, skull fracture, intracranial hemorrhage Patient is intoxicated and fell and struck her head on the table at home. It was not witnessed but she does not think there was loss of consciousness and states she was back within 2 minutes and she was at baseline. She has a 2 cm right eyebrow laceration and ecchymosis and swelling of the upper eyelid. Pupils and extraocular motion is intact. No other injuries noted, neurologically intact. CT brain scan shows no acute findings. Right eyebrow laceration was repaired with 3 simple interrupted sutures. Tetanus is up-to-date. I discussed head injury return precautions and she was discharged in stable condition. This patient was seen with a PA/LATHE SET UP OPERATOR Individually assessed they patient including history and physical. I have reviewed everything on the chart that is available and agree with the documentation provided by the PA/LATHE SET UP OPERATOR including discussion about the assessment, treatment plan, discussion, and return precautions. Patient presenting with laceration to right eyebrow. Patient intoxicated and fell to the ground. She is awake and alert in no acute distress. Neurologically intact. Did obtain a CT of the brain rule intracranial pathology and this was normal. Sutures were placed by PA. Please see procedure note. Patient given wound care instructions and return precautions. Radiography Diagnostic Testing: Clinical Impression(s) from Imaging Studies Brain CT 05/19/23 21:20 IMPRESSION: Normal unenhanced CT scan of the brain. Electronically Signed: Wang Arriola MD at 21:49 EST , Discharge Plan Triage Chief Complaint: Head Injury ED Midlevel Provider: Kaylee Gonzalez ED Provider: Rey,Serafin Dx/Rx/DC Orders Clinical Impression: Closed head injury, Laceration of eyebrow, right Instructions: ED Head Injury (Adult), ED Laceration Minimize Scars Prescriptions: No Action bupropion HCl 150 mg tablet extended release 24 hr 150 mg PO DAILY duloxetine 60 mg capsule,delayed release(DR/EC) 60 mg PO DAILY omeprazole 40 mg capsule,delayed release(DR/EC) 40 mg PO DAILY Primary Care Provider: Nguyen Deng Referrals: Nguyen Deng DO [Primary Care Provider] - Activity Restrictions/Additional Instructions: There are 3 stitches that need removed in 4 or 5 days. Ice the area and take Tylenol as needed. Disposition Disposition: Home, Self Care Discharge Date/Time: 05/19/23 22:12
--- NOTE | 2023-05-19 21:20 | CT_ITS ---
STUDY: CT BRAIN WITHOUT CONTRAST REASON FOR EXAM: Female, 68 years old. head injury RADIATION DOSAGE (If Supplied By Facility): CTDIvol = ( 44.99 ) mGy, DLP = ( 796.11 ) mGycm TECHNIQUE: Transaxial CT imaging of the brain was performed without administration of intravenous contrast material. Individualized dose optimization techniques were used for this CT. COMPARISON: 02/24/2023 FINDINGS: Normal soft tissue structures. Normal calvarium. Normal size ventricles and extra-axial spaces for the patient''s age. Normal white matter tracts of the cerebral hemispheres. Normal basal ganglia and thalami. Normal brainstem. Normal cerebellum. There is no intracranial hemorrhage. There are no findings of an acute ischemic infarction. Mucous retention cyst in the right maxillary sinus consistent with sinusitis. CT/Brain/Head without Contrast IMPRESSION: Normal unenhanced CT scan of the brain. Electronically Signed: Wang Arriola MD at 21:49 EST ,
[2023-05-19] MEDS: Lidocaine/Epi/Tetracaine 50 ML 1 APPLIC TOPICAL (21:35)
[2023-05-19 22:11] VITALS: BP 126/77; PULSE 70; RESP 18; TEMP 36.6; O2SAT 95
== END 2023-05-19 22:12 | disposition home or self-care (01) ==
PROVIDERS: Emergency Provider Student in an Organized Health Care Education/Training Program; PCP Internal Medicine; Visit Provider Student in an Organized Health Care Education/Training Program
DX: S01.111A Laceration without foreign body of right eyelid and periocular area, initial encounter (principal); F10.129 Alcohol abuse with intoxication, unspecified; E11.9 Type 2 diabetes mellitus without complications; W01.190A Fall on same level from slipping, tripping and stumbling with subsequent striking against furniture, initial encounter; Y92.000 Kitchen of unspecified non-institutional (private) residence as the place of occurrence of the external cause; I10 Essential (primary) hypertension; Z79.899 Other long term (current) drug therapy
CPT/HCPCS: 12011; 70450; 99283

== ENCOUNTER → 2023-06-01 | Outpatient (CLI) | payer BC, SELFPAY ==
--- NOTE | 2023-06-01 10:14 | BI_ITS ---
MAMMOGRAPHY - BILATERAL SCREENING REASON FOR EXAM: Female, 68 years old. Routine annual screening examination. PERTINENT HISTORY: Non-contributory. TECHNIQUE: Digital bilateral breast iam (3D mammographic acquisition) in the CC and MLO projections. 2-D mediolateral oblique (MLO) and craniocaudad (CC) views of both breasts were obtained. CAD: Full Field Digital Mammography with Computer Added Detection was performed. COMPARISON: Comparison is made with prior study of April 29, 2022 and April 28, 2021. FINDINGS: Breast Composition: There are scattered areas of fibroglandular density. There are no dominant masses or suspicious calcifications. Stable benign-appearing bilateral axillary lymph nodes. No other significant abnormalities are identified. There has been no significant change since the prior study. BI/SCRN MAMM (CAD)W/IAM BILAT IMPRESSION: Stable bilateral screening mammogram. Yearly follow-up mammogram recommended. (A) ASSESSMENT CATEGORY: BIRADS Category 2: Benign. A letter regarding these results will be sent to the patient by the facility within 30 days. Approximately 10% of breast cancers are not detected by mammography. A normal mammogram should not delay biopsy of a clinically suspicious abnormality. [id number] Electronically Signed: Trent Chiu MD at 13:17 EDT ,
--- NOTE | 2023-06-01 10:14 | BD_ITS ---
STUDY: DUAL ENERGY X-RAY ABSORPTIOMETRY / DXA REASON FOR EXAM: Female, 68 years old. [id number] TECHNIQUE: Bone Mineral Density (BMD) measurements of lumbar spine and bilateral hips were obtained. COMPARISON: Comparison is made with prior study dated May 25, 2021. FINDINGS: Lumbar Spine (L1-L4): g/cm2 (0.781) / T-score (-1.8) / Z-score (0.1) Findings are suggestive of osteopenia with a moderate fracture risk. Left Femur Total: g/cm2 (0.708) / T-score (-1.9) / Z-score (-0.5) Left Femoral Neck: g/cm2 (0.484) / T-score (-3.3) / Z-score (-1.6) Right Femur Total: g/cm2 (0.728) / T-score (-1.8) / Z-score (-0.4) Right Femoral Neck: g/cm2 (0.529) / T-score (-2.9) / Z-score (-1.2) The T-Scores on the most recent prior examination were: Lumbar Spine (L1-L4): There has been improvement of bone density since the previous examination. Left Femur Total: which represents an improvement of 0.2%. Right Femur Total: which represents a worsening of 1.6%. BD/Dexa Bone Density Study IMPRESSION: The patient is considered osteoporotic as outlined below according to World Toan Organization (WHO) criteria with a high fracture risk. There has been worsening of bone density since the previous examination. Reference Information: The T-score is the number of standard deviations above or below the standard which is normal for young adults at their peak bone mineral density. The World Health Organization (WHO) interprets the T-scores as follows: Above -1 Normal bone density Between -1 and -2.5 Osteopenia Equal to / or below -2.5 Osteoporosis As a practical clinical guideline, osteopenia may be graded as follows: Mild -1 through -1.5 Moderate -1.6 through -2.0 Severe -2.1 through -2.4 The Z-score is the number of standard deviations above or below age-matched controls. A Z-score of less than -1.5 would be considered abnormal. References: 1. NIH Osteoporosis and Related Bone Diseases www osteo.org 2. International Society for Clinical Densitometry www iscd.org 3. National Osteoporosis Foundation www nof.org Electronically Signed: Trent Chiu MD at 11:12 EDT ,
== END | disposition home or self-care (01) ==
PROVIDERS: PCP Internal Medicine; Referring Provider Internal Medicine; Visit Provider Internal Medicine
DX: M81.0 Age-related osteoporosis without current pathological fracture (principal); Z78.0 Asymptomatic menopausal state; Z12.31 Encounter for screening mammogram for malignant neoplasm of breast
CPT/HCPCS: 77063; 77067; 77080

== ENCOUNTER 2023-06-23 14:31 | Emergency (ER) | payer BC, SELFPAY ==
[2023-06-23] VITALS (8 sets, daily range): BP systolic 150–171; BP diastolic 77–87; PULSE 74–88; RESP 13–16; TEMP 36.6–37.1; O2SAT 97–100; BMI 31.8
--- NOTE | 2023-06-23 14:46 | ED.VIS.DYS ---
HPI History of Present Illness Chief Complaint: Shortness of Breath [facility] Medical History (Updated 06/23/23 @ 17:[address] Speedy Hughes, DO) Diabetes Hypertension Home Medications bupropion HCl 150 mg 24 hr tablet, extended release 150 mg PO DAILY 05/19/23 [History Last Taken Unknown] duloxetine 60 mg capsule,delayed release 60 mg PO DAILY 05/19/23 [History Last Taken Unknown] omeprazole 40 mg capsule,delayed release 40 mg PO DAILY 05/19/23 [History Last Taken Unknown] Allergy/AdvReac Type Severity Reaction Status Date / Time No Known Allergies Allergy Verified 05/19/23 21:02 Social History Smoking Status: Never smoker EXAM Physical Exam Const Vital Signs: 06/23/23 14:32 06/23/23 14:36 06/23/23 14:38 Temperature 97.9 F Temperature Source Oral Pulse Rate 85 Respiratory Rate 16 Respiratory Effort Short of Breath Labored Respiratory Depth Normal Respiratory Pattern Normal Blood Pressure 164/87 H Blood Pressure Mean 112 Pulse Ox 100 Oxygen Delivery Method Room Air Room Air Room Air 06/23/23 16:02 06/23/23 15:31 06/23/23 16:00 Temperature Temperature Source Pulse Rate 78 74 Respiratory Rate 13 14 Respiratory Effort Respiratory Depth Respiratory Pattern Blood Pressure 156/77 H 150/85 H Blood Pressure Mean 103 106 Pulse Ox 98 98 97 Oxygen Delivery Method Room Air Room Air Room Air 06/23/23 17:00 06/23/23 17:57 Temperature 98.7 F Temperature Source Pulse Rate 79 88 Respiratory Rate 16 16 Respiratory Effort Respiratory Depth Respiratory Pattern Blood Pressure 171/87 H 166/82 H Blood Pressure Mean 115 110 Pulse Ox 97 98 Oxygen Delivery Method Room Air MDM MDM MDM Narrative Medical decision making narrative: HISTORY OF PRESENT ILLNESS: 68-year-old female presents with shortness of breath and chest heaviness since Monday. The patient denies recent surgery in the last 4 weeks or immobilization in the last 3 days, denies previous diagnosis of DVT or PE, hemoptysis, unilateral leg swelling or malignancy with treatment the last 6 months or palliative. No estrogen use noted. REVIEW OF SYSTEMS: Pertinent positives: Chest pain, shortness of breath, dizziness Pertinent negatives: Syncope, fever, cough, focal weakness, slurred speech PHYSICAL EXAM: Nursing triage notes reviewed, Vital signs reviewed Constitutional: please see mdm HENT: MMM Eyes: Pupils equal round and reactive to light, Extraocular muscles intact Neck: No stridor, no JVD, full neck ROM Lungs: Clear to auscultation, No wheezing or rales. No increased work of breathing, no conversational dyspnea, no accessory muscle use, no nasal flaring. No respiratory distress noted Heart: Regular rate and rhythm, No murmurs, No rubs and No gallops, 2+ distal pulses (radial, femoral, posterior tibial) in all extremities Abdomen: Soft, there is no tenderness, rigidity, rebound or guarding, no obvious peritoneal signs, no palpable pulsatile abdominal masses, no auscultated abdominal bruit : No CVAT Extremities: No edema Neuro: Alert and oriented x3, neuro exam at baseline, cranial nerves II through XII are intact. No pain with extraocular muscle movement. There is negative test of skew. 5 of 5 strength in upper and lower extremities in flexion extension. Intact sensation to light touch in upper and lower extremity dermatomes. No truncal or extremity ataxia. No dysdiadochokinesia. Normal gait. 2+ reflexes in upper and lower extremities. No meningeal signs. Negative Babinski. NIH of 0. Skin: No rash or lesions noted MEDICAL DECISION MAKING: Chief Complaint: Chest pain, shortness of breath, dizziness External records reviewed: Last echocardiogram from 2011 shows ejection fraction of 60% Factors affecting care: GERD MDM Narrative: [Patient was hemodynamically stable, afebrile and nontoxic-appearing. No focal cardiopulmonary normalities. No stigmata of VTE. Patient was treated with aspirin, Pepcid and GI cocktail. I considered the following differential diagnosis: ACS, arrhythmia, anemia, electrolyte disturbance, pneumonia, PE While I considered PE the patient is low risk Wells score and as such have a low suspicion for pulmonary embolism. PE less likely given low risk Wells score. Aortic dissection is thought to be less likely given no sudden ripping or tearing pain, migratory pain, palpable pulse inequalities, no focal neurologic deficits concurrent with chest pain. Chance of dissection less than 03/1999. Pericarditis less likely given no pathognomonic EKG changes (no diffuse ST elevations, AL depressions). GI etiology (i.e. Boerhaave syndrome) less likely given no chest or neck crepitus, no vomiting or forced retching. ALL IMAGES (IF OBTAINED) HAVE BEEN PERSONALLY REVIEWED AND INTERPRETED BY MYSELF. EKG with normal sinus rhythm, normal axis, no intervals, no STEMI I have personally reviewed the patient's chest x-ray. Chest x-ray is unremarkable for pulmonary edema, pneumothorax, pneumonia or focal cardiopulmonary abnormality. High-sensitivity troponin is negative, no evidence of myocardial ischemia x 2 BNP within normal limits making heart failure, volume overload less likely CBC without leukocytosis, severe anemia, no thrombocytopenia. The synthesis of the patient's history, physical exam, labs images suggest no acute life-limiting etiology. I completed a HEART Score to screen for Major Adverse Cardiac Event (MACE) in this patient. The evidence indicates that the patient is very low risk for MACE and this is consistent with my clinical intuition. The risk of further workup or hospitalization for MACE is likely higher than the risk of the patient having a MACE. It is, therefore, in the patient?s best interest not to do additional emergent testing or to be hospitalized for MACE at this time. Shared Decision-Making No hospitalization indicated I have discussed with the patient my clinical impression and the result of the HEART Score to screen for MACE, as well as the risks of further testing and hospitalization. The HEART Score shows that the risk for MACE is less than 1%. Although the risk of MACE has not been completely eliminated, the risks of further testing or hospitalization for MACE likely exceed any potential benefit, and the patient agrees with not pursuing further emergent evaluation or hospitalization for MACE at this time. The patient and/or family, caregivers express understanding. The patient and/or family, caregivers agrees with the plan. Shared decision making: I will have a discussion with the patient and or visitors regarding risk/benefits of further testing or admission. They will be made aware of of the risk/benefits inherent in this decision they will be given the opportunity to voice understanding. Total critical care time today provided was at least 0 minutes. This excludes separately billable procedures. Critical care time (if documented) is secondary to the patient having high probability of clinically significant/life threatening deterioration in the patient's condition which required my urgent intervention. Impression: 1. Chest pain NOS Dispo: Discharge home This note was generated with [employer] dictation software. It may contain incorrect words, spelling, and punctuation that were not noted in review of the chart prior to signing. Lab Data Labs: Laboratory Results - last 24 hr 06/23/23 06/23/23 14:45 17:10 WBC 10.1 RBC 4.62 Hgb 14.3 Hct 43.5 MCV 94.2 MCH 31.0 MCHC 32.9 RDW Std Deviation 40.1 RDW Coeff of [place] 11.6 Plt Count 307 MPV 9.6 Immature Gran % (Auto) 0.500 Neut % (Auto) 63.2 Lymph % (Auto) 26.4 [place] % (Auto) 7.0 Eos % (Auto) 2.0 Baso % (Auto) 0.9 Absolute Neuts (auto) 6.4 Absolute Lymphs (auto) 2.66 Nucleated RBC % 0 Sodium 137 Potassium 3.8 Chloride 104 Carbon Dioxide 27.0 Anion Gap 6 BUN 21 H Creatinine 0.89 Estim Creat Clear Calc 58.89 Est GFR (MDRD) Af Amer 81 Est GFR (MDRD) Non-Af 67 BUN/Creatinine Ratio 23.6 H Glucose 102 Calcium 10.1 Troponin I High Sens < 3 L 4 B-Natriuretic Peptide 7.8 Radiography Diagnostic Testing: Clinical Impression(s) from Imaging Studies Chest X-Ray 06/23/23 15:09 IMPRESSION: No acute abnormality is seen. Electronically Signed: Trent Chiu MD at 15:25 EDT , Discharge Plan Triage Chief Complaint: Shortness of Breath ED Provider: Speedy Hughes Dx/Rx/DC Orders Clinical Impression: Chest pain Instructions: Chest Pain [facility] Prescriptions: No Action bupropion HCl 150 mg tablet extended release 24 hr 150 mg PO DAILY duloxetine 60 mg capsule,delayed release(DR/EC) 60 mg PO DAILY omeprazole 40 mg capsule,delayed release(DR/EC) 40 mg PO DAILY Primary Care Provider: Nguyen Deng Referrals: Nguyen Deng DO [Primary Care Provider] - Friend,DO Mane [Med Staff - Active Staff] - Activity Restrictions/Additional Instructions: Thank you for trusting us with your care today! Please take Tylenol (2 pills, 650 mg), ibuprofen (2 pills, 400 mg) every 6 hours as needed for pain and fever control. Please take a daily aspirin (81 mg) Please return to the emergency department if your symptoms change or worsen. Specifically develop chest pain, shortness of breath, if you lose consciousness. Please follow with your primary care physician for further outpatient evaluation and management. Disposition Disposition: Home, Self Care
--- NOTE | 2023-06-23 15:09 | RAD_ITS ---
STUDY: X-RAY CHEST REASON FOR EXAM: Female, 68 years old. SOB TECHNIQUE: Single AP portable view of the chest. COMPARISON: Comparison is made with prior study dated June 16, 2016. FINDINGS: EKG electrodes are seen. Elevation of the right hemidiaphragm. There is no demonstrated pleural abnormality. Normal size heart. Normal mediastinum and jaci. Normal visualized pulmonary arteries. There is atherosclerotic tortuosity of the aortic arch and descending thoracic aorta. Normal visualized thoracic spine. Normal visualized ribs, clavicles, and shoulders. There is no demonstrated abnormality of the visualized soft tissue structures of the upper abdomen. RAD/Chest 1 View (Portable) IMPRESSION: No acute abnormality is seen. Electronically Signed: Trent Chiu MD at 15:25 EDT ,
[2023-06-23 15:20] LABS: Absolute Lymphocyte Count 2.66 X10^3/uL (0.83-4.51); Absolute Neutrophil Count 6.4 X10^3/uL (2.0-7.7); Basophil# 0.09 X10^3/uL; Basophil% 0.9 % (0-1); Hematocrit 43.5 % (37-47); Hemoglobin 14.3 g/dL (12.0-15.0); Lymphocyte # 2.66 X10^3/ul (0.83-4.51); Lymphocyte % 26.4 % (19-41); Mean Corp Hgb Conc 32.9 g/dL (32-36); Mean Corpuscular Volume 94.2 fL (81-99); Mean Platelet Vol. 9.6 fl (6.2-12.0); NRBC Flagged by Analyzer 0 % (0-5); Neutrophil # 6.36 X10^3/uL (2.7-7.7); Neutrophil % 63.2 % (47-70); Platelet Count 307 K/mm3 (150-450); RBC Distribution Width CV 11.6 % (11.6-14.6); RBC Distribution Width SD 40.1 fl (35.1-43.9); Red Blood Count 4.62 M/mm3 (4.2-5.4); White Blood Count 10.1 K/mm3 (4.4-11.0)
[2023-06-23 15:38] LABS: Anion Gap 6 (5-15); BUN 21 mg/dL (7-18); BUN/Creat Ratio 23.6 RATIO (10-20); Calcium,Total 10.1 mg/dL (8.5-10.1); Chloride 104 mmol/L (98-107); Creatinine, Serum 0.89 mg/dL (0.55-1.02); EST Glomerular Filtration Rate 67 mL/min (>60); Est Glom Filt Rate - Afr Amer 81 mL/min (>60); Estimated Creatinine Clearance 58.89 ml/min; Glucose 102 mg/dL (74-106); Potassium 3.8 mmol/L (3.5-5.1); Sodium Level 137 mmol/L (136-145); Troponin-I HS < 3 pg/mL (3.0-54.0)
[2023-06-23 15:41] LABS: BNP,B-Type NATRIURETIC PEPTIDE 7.8 pg/mL (0-100)
[2023-06-23 17:35] LABS: Troponin-I HS 4 pg/mL (3.0-54.0)
== END 2023-06-23 17:58 | disposition home or self-care (01) ==
PROVIDERS: Emergency Provider Emergency Medicine; PCP Internal Medicine; Visit Provider Emergency Medicine
DX: R07.9 Chest pain, unspecified (principal); E11.9 Type 2 diabetes mellitus without complications; R06.02 Shortness of breath; R42 Dizziness and giddiness; I10 Essential (primary) hypertension; K21.9 Gastro-esophageal reflux disease without esophagitis; Z79.899 Other long term (current) drug therapy
CPT/HCPCS: 71045; 80048; 83880; 84484; 85025; 93005; 99284; A4216; J3490

== ENCOUNTER → 2023-10-12 | Outpatient (CLI) | payer BC, SELFPAY ==
--- NOTE | 2023-10-12 14:52 | CT_ITS ---
STUDY: CT ABDOMEN AND PELVIS WITH CONTRAST REASON FOR EXAM: Female, [address] ABDOMEN AND PELVIS WITH CONTRAST STAT -- RT lower quadrant pain RADIATION DOSAGE (If Supplied By Facility): CTDIvol = ( 15.73 ) mGy, DLP = ( 923.19 ) mGycm TECHNIQUE: Transaxial images were obtained from the dome of the diaphragm to the symphysis pubis with oral contrast. Oral and amp; IV Gastrografin and amp; 100mL Isovue-[id number] was administered. Sagittal and coronal images were reconstructed. Individualized dose optimization techniques were used for this CT. COMPARISON: Comparison is made with prior study dated July 16, 2015. FINDINGS: Stable calcified granuloma in the posterior segment of the right lower lobe. The visualized portions of the heart are within normal limits. There is decreased attenuation of the liver consistent with steatosis. Mild hepatomegaly. There is a 1.6 cm cyst in the anterior aspect of the right lobe of the liver adjacent to the anterior right hemidiaphragm. Normal gallbladder and extrahepatic biliary system. Normal spleen. Normal pancreas. Normal bilateral adrenal glands. Normal right kidney. Normal left kidney. Normal visualized stomach. Normal small intestine. There are scattered colonic diverticula consistent with diverticulosis. The appendix is visualized and appears normal. There is scattered atherosclerotic calcification of the abdominal aorta, without a demonstrated aneurysm. Normal inferior vena cava. Normal retroperitoneum. Normal urinary bladder. Calcified fibroid uterus. Normal abdominal wall. There are degenerative changes of the visualized lumbar spine. Stable grade [address]/Abdomen/Pelvis WITH Contrast IMPRESSION: Calcified fibroid uterus. Scattered sigmoid diverticula. Hepatomegaly and fatty infiltration of the liver. Small cyst in the anterior aspect of the right lobe of the liver. Electronically Signed: Trent Chiu MD at 15:14 EDT ,
[2023-10-12 15:13] LABS: CREATININE FINGERSTICK < 1.0 mg/dL (0.55-1.02); EGFR FINGERSTICK > 60.0000 mL/min (>60)
== END | disposition home or self-care (01) ==
LOC: CT 12:41
PROVIDERS: PCP Internal Medicine; Referring Provider Internal Medicine; Visit Provider Internal Medicine
DX: Z01.812 Encounter for preprocedural laboratory examination (principal); R10.31 Right lower quadrant pain
CPT/HCPCS: 74177; Q9967

== ENCOUNTER → 2024-01-30 | Outpatient (CLI) | payer BC, SELFPAY | END | disposition home or self-care (01) | LOC: US 10:13 | PROVIDERS: PCP Internal Medicine; Referring Provider Internal Medicine; Visit Provider Internal Medicine | DX: M79.602 Pain in left arm (principal) | CPT/HCPCS: 76882 ==

== ENCOUNTER → 2024-06-04 | Outpatient (CLI) | payer BC, SELFPAY ==
--- NOTE | 2024-06-04 10:07 | BI_ITS ---
PROCEDURE: SCRN MAMM (CAD)W/IAM BILAT REASON FOR EXAM: F, Age 69 y/o, presents for screening mammogram. Family history of breast cancer in a maternal cousin. TECHNIQUE: Bilateral screening digital breast tomosynthesis with 2D and 3D images. Computer aided detection. COMPARISON: 06/01/2023 FINDINGS: There are scattered areas of fibroglandular density. No suspicious masses, areas of developing architectural distortion, or suspicious calcifications. BI/SCRN MAMM (CAD)W/IAM BILAT IMPRESSION: There is no mammographic evidence of malignancy. BI-RADS 1: NEGATIVE. RECOMMEND ANNUAL MAMMOGRAPHIC SCREENING. Follow-up code: Routine Follow-up The patient will be notified of the results by letter. Reading Location: [id number]
== END | disposition home or self-care (01) ==
LOC: OPBI 10:04
PROVIDERS: PCP Internal Medicine; Referring Provider Internal Medicine; Visit Provider Internal Medicine
DX: Z12.31 Encounter for screening mammogram for malignant neoplasm of breast (principal)
CPT/HCPCS: 77063; 77067

== ENCOUNTER → 2025-01-17 | Outpatient (CLI) | payer MEDICARE, SELFPAY ==
[2025-01-17 10:54] LABS: Hepatitis C Antibody Nonreactive (Nonreactive)
== END | disposition home or self-care (01) ==
LOC: LAB 08:53
PROVIDERS: PCP Internal Medicine; Referring Provider Internal Medicine; Visit Provider Internal Medicine
DX: Z11.59 Encounter for screening for other viral diseases (principal)
CPT/HCPCS: 36415; 86803

== ENCOUNTER → 2025-02-24 | Outpatient (CLI) | payer MEDICARE, SELFPAY ==
[2025-02-24 10:27] LABS: Mucous, Urine 0 SEEN /hpf (<or=2+); Red Blood Cells-Urine 0 SEEN /hpf (0-5)
[2025-02-24 12:34] LABS: Hematocrit 43.6 % (37-47); Hemoglobin 14.5 g/dL (12.0-15.0); Immature Granulocytes Count 0.030 X10^3/uL (0.0-0.0); Mean Corp Hgb Conc 33.3 g/dL (32-36); Mean Corpuscular Volume 94.0 fL (81-99); Mean Platelet Vol. 9.8 fl (6.2-12.0); NRBC Flagged by Analyzer 0 % (0-5); Platelet Count 315 K/mm3 (150-450); RBC Distribution Width CV 12.2 % (11.6-14.6); RBC Distribution Width SD 42.4 fl (35.1-43.9); Red Blood Count 4.64 M/mm3 (4.2-5.4); White Blood Count 8.5 K/mm3 (4.4-11.0)
[2025-02-24 12:49] LABS: Glucose, Dipstick Normal (Normal); Ketone-Dipstick 5 mg/dl (Negative); Leukocyte Esterase-Dipstick 25 /ul (Negative); Nitrite-Dipstick Negative (Negative); Occult Blood-Urine Negative /ul (Negative); Protein-Dipstick 15 mg/dl (Negative); Specific Gravity, Urine 1.020 (1.002-1.030); Urine Bilirubin Dipstick Negative (Negative)
[2025-02-24 12:50] LABS: Color, Urine Yellow (Yellow)
[2025-02-24 13:03] LABS: Creatinine, Urine (random) 177.00 mg/dL (28.00-217.00); Microalbumin,Random Urine < 12.0 mg/L (<20 mg/L)
[2025-02-24 13:09] LABS: Squamous Epithelial Cells - UA 0-5 SEEN /hpf (5-10)
[2025-02-24 13:12] LABS: AST(SGOT) 17 U/L (<=31); Alanine Aminotransfer ALT/SGPT 18 U/L (<=34); Albumin, Serum 4.6 g/dL (3.4-4.8); Alkaline Phosphatase 71 U/L (35-104); Anion Gap 10 (5-15); BUN 21 mg/dL (4-19); BUN/Creat Ratio 23.2 RATIO (10-20); Calcium,Total 9.8 mg/dL (7.6-11.0); Carbon Dioxide 26.8 mmol/L (21.0-32.0); Chloride 102 mmol/L (98-108); Cholesterol 184 mg/dL (<=200); Globulin 2.7 g/dL (2.2-4.2); Glucose 134 mg/dL (70-99); Low Density Lipoprotein Calc. 98 mg/dL; Potassium 4.7 mmol/L (3.3-5.1); Triglycerides 187 mg/dL; Very Low Density Lipoprotein 37 mg/dL (5-40); Vitamin D,25 Hydroxy 71.7 ng/mL (30-100); cholesterol:hdl ratio screen 3.41
== END | disposition home or self-care (01) ==
LOC: CIMLAB 10:25
PROVIDERS: PCP Internal Medicine; Referring Provider Internal Medicine; Visit Provider Internal Medicine
DX: E78.2 Mixed hyperlipidemia (principal); E55.9 Vitamin D deficiency, unspecified; R73.01 Impaired fasting glucose
CPT/HCPCS: 36415; 80053; 80061; 81001; 82043; 82306; 82570; 84443; 85025